=== PATIENT | male | born 1965 | race American Indian/Alaskan Native ===

== ENCOUNTER 2017-01-25 00:38 | Inpatient (IN) | payer MEDICARE, OTHER ==
[2017-01-25] MEDS ORDERED: Insulin Regular 1 UNITS/0.01 ML ML ONE (03:38)
[2017-01-25] MEDS ORDERED: Piperacillin/Tazobact 3.375 gm 100 ML IVPB ONE (05:16)
[2017-01-25 06:41] LABS: HEMOGLOBIN 11.9 gm/dL (14.0-18.0); MEAN CELL VOLUME 86.6 fL (80.0-105.0); MEAN CORPUSCULAR HEMOGLOBIN 30.1 pg (25.0-35.0); MEAN CORPUSCULAR HGB CONC 34.7 g/dl (31.0-37.0); MEAN PLATELET VOLUME 10.1 fl (7.0-11.0); PLATELET COUNT 360 10^3/uL (120.0-450.0); RBC 3.96 10^6/uL (3.5-6.1); RED CELL DISTRIBUTION WIDTH 12.5 % (11.5-14.5); WHITE BLOOD COUNT 21.6 10^3/ul (4.5-11.0)
[2017-01-25 06:42] LABS: BAND 7 % (0-2); BASOPHIL 1 % (0.0-1.0); LYMPHOCYTE 7 % (22.0-35.0); MONOCYTE 7 % (1.0-6.0); NEUTROPHIL 78 % (50.0-70.0); PLATELET ESTIMATE NORMAL (NORMAL)
[2017-01-25 06:53] VITALS: BMI 20.7
[2017-01-25 06:57] LABS: ALB/GLOB RATIO 0.6 (1.1-1.8); ALBUMIN 2.9 g/dL (3.0-4.8); ALT/SGPT 39 U/L (7-56); AST/SGOT 77 U/L (15-59); BLOOD UREA NITROGEN 15 mg/dL (7-21); CALCIUM 8.7 mg/dL (8.4-10.5); GFR AFRICAN-AMERICAN > 60; GFR NON-AFRICAN AMERICAN > 60
[2017-01-25] MEDS ORDERED: Vancomycin 1gm in NS 250ml 1 GM/250 ML BAG IVPB STA (07:02)
[2017-01-25] MEDS ORDERED: Sodium Chloride 0.9% 1,000 ML IV SCH (08:00)
[2017-01-25] MEDS: Insulin Reg-HIGH-Coverage SC SCH ×4 (08:12→21:54)
[2017-01-25 08:50] LABS: VENOUS BLOOD GAS BASE EXCESS 10.1 mmol/L (0.0-2.0); VENOUS BLOOD GAS PO2 34 mm/Hg (30-55); VENOUS BLOOD PH 7.46 (7.32-7.43)
[2017-01-25 08:51] LABS: BASO # 0.03 K/mm3 (0.0-2.0); BASO % 0.1 % (0.0-3.0); EOS % 0.1 % (1.5-5.0); GRAN # 17.19 (1.4-6.5); GRAN % 82.9 % (50.0-68.0); HEMOGLOBIN 12.1 gm/dL (14.0-18.0); LYMPH # 2.2 (1.2-3.4); LYMPH % 10.5 % (22.0-35.0); MEAN CELL VOLUME 86.5 fL (80.0-105.0); MEAN CORPUSCULAR HEMOGLOBIN 29.8 pg (25.0-35.0); MEAN CORPUSCULAR HGB CONC 34.5 g/dl (31.0-37.0); MEAN PLATELET VOLUME 10.5 fl (7.0-11.0); MONO # 1.3 (0.1-0.6); MONO % 6.4 % (1.0-6.0); PLATELET COUNT 333 10^3/uL (120.0-450.0); RBC 4.06 10^6/uL (3.5-6.1); RED CELL DISTRIBUTION WIDTH 12.3 % (11.5-14.5); WHITE BLOOD COUNT 20.7 10^3/ul (4.5-11.0)
[2017-01-25 09:04] LABS: ALB/GLOB RATIO 0.6 (1.1-1.8); ALBUMIN 2.8 g/dL (3.0-4.8); ALT/SGPT 42 U/L (7-56); AST/SGOT 65 U/L (15-59); BLOOD UREA NITROGEN 12 mg/dL (7-21); CALCIUM 8.9 mg/dL (8.4-10.5); GFR AFRICAN-AMERICAN > 60; GFR NON-AFRICAN AMERICAN > 60
--- NOTE | 2017-01-25 10:33 | US ---
PROCEDURE: Lower extremity DAVID exam HISTORY: Peripheral vascular disease with pain and claudication. Smoker. Diabetes. PHYSICIAN(S): Neal Peralta MD. FINDINGS: The resting DAVID's are normal: right, 1.32and left, 1.24. The brachial systolic pressures are symmetric. The high thigh pressures and waveforms are relatively normal. The calf PVR waveforms augment normally. No significant gradients are noted across the thighs. The ankle and metatarsal waveforms are relatively normal and symmetric. No significant pressure gradients are noted across the lower legs. IMPRESSION: 1. Normal DAVID and PVR examination at rest.
--- NOTE | 2017-01-25 10:33 | US ---
PROCEDURE: Left lower extremity venous US HISTORY: Leg pain and swelling. Evaluate for DVT. PHYSICIAN(S): Neal Peralta MD. TECHNIQUE: Duplex sonography and color-flow Doppler with graded compression were used to evaluate the deep venous system of the left lower extremity. The exam is somewhat limited by edema. FINDINGS: The visualized deep venous system of the left lower extremity is sonographically normal and compressible. Normal wave forms and augmentation are seen. There is no sonographic evidence for deep venous thrombosis in the visualized segments of the left lower extremity. IMPRESSION: 1. No sonographic evidence for deep venous thrombosis in the visualized segments of the left lower extremity.
[2017-01-25 11:40] LABS: HEPATITIS B SURFACE AG NEGATIVE (NEGATIVE)
[2017-01-25 11:46] LABS: HEPATITIS A IGM NEGATIVE (NEGATIVE); HEPATITIS B CORE AB NEGATIVE (NEGATIVE)
[2017-01-25 11:58] LABS: HEPATITIS C ANTIBODY NEGATIVE (NEGATIVE)
[2017-01-25] MEDS ORDERED: Vancomycin 500 mg Inj IVPB SCH ×2 (12:15→22:00)
--- NOTE | 2017-01-25 14:15 | RAD ---
PROCEDURE: Left Foot Radiographs. HISTORY: R/O FX COMPARISON: None. FINDINGS: BONES: A comminuted nondisplaced fracture of the the 5th proximal phalanx is suggested. . No intra-articular extension grossly appreciated There are confounding multiple soft tissue radiolucencies projecting over the 4th and 5th toes in particular the proximal phalanges. On the oblique view there is lucency also projecting over the 4th metacarpal head. The 4th metacarpal head cortex on the straight frontal view here appears intact. The integrity of the 4th metacarpal head cortex however is indeterminate on the oblique view. On this oblique view a additional metacarpal head nondisplaced fracture cannot be excluded The overlying oft tissue radiolucencies may projects such an artifact per There is amputation of the most distal phalanges of the great toe. The proximal 2/3 of the 1st proximal phalanx is intact. JOINTS: Normal. SOFT TISSUES: Normal. OTHER FINDINGS: None. IMPRESSION: Minimally comminuted nondisplaced fracture 5th proximal phalanx. With multiple overlying soft tissue radiolucencies and overlying extensive soft tissue swelling. An apparent ulcer along the lateral aspect is also suspect at this 5th metacarpal head level. No periosteal reaction to suggest any osteomyelitis here is suggested. Integrity of the 4th metacarpal head indeterminate as described above Postop changes great toe Comments: These findings were called in 5 RS. Eventually, the charge nurse Germania was reached in these findings were directly communicated to Germania on 01/25/2017 2:08 p.m.
[2017-01-25] MEDS ORDERED: Pneumococcal 23-Valent Vaccine IM ONE (14:19)
[2017-01-25] MEDS: Piperacillin/Tazobact 3.375 gm 100 ML IVPB SCH (18:04)
[2017-01-25] MEDS ORDERED: Morphine 2 mg/ml ISec IVP ONE (19:42)
[2017-01-25] MEDS ORDERED: Morphine 2 mg/ml ISec IVP PRN (19:42)
--- NOTE | 2017-01-25 19:43 | CP.PCM.CON ---
History of Present Illness - History of Present Illness History of Present Illness: Infectious Disease Consultation: January 25, 2017 51 yo AA male discharged from [facility] on 01/16/2017. Patient states that he sees Dr. Emili Carter for medical care but has not seen him in at least 6 months. He ran out of his diabetic medications at least 3 months ago. The patient is complaining of several weeks of pain to the left foot with significant swelling. He had a partial hallux amputation of the left foot on and then left [facility] that same day. PMHx: Diabetes Mellitus, Hypertension, EtOH abuse, seizure, asthma, left foot osteomyelitis, scoliosis PSHx: ankle and wrist surgery Allergies: Fish and tomatoes. Social Hx: positive tobacco use (10 cig per day) EtOH use and abuse Sniffs heroin Active Medications Heparin Sodium (Porcine) (Heparin) 5,000 units SC DAILY MALLIKA PRN Reason: Protocol Last Admin: 01/25/17 18:03 Dose: 5,000 units Sodium Chloride (Sodium Chloride 0.9%) 1,000 mls @ 150 mls/hr IV .Q6H40M COUNT INCLUDES THE [facility] Last Admin: 01/25/17 18:12 Dose: 150 mls/hr Piperacillin Sod/Tazobactam Sod (Zosyn 3.375 In Ns 100ml) 100 mls @ 200 mls/hr IVPB Q6 MALLIKA PRN Reason: Protocol Stop: 01/26/17 00:29 Last Admin: 01/25/17 18:04 Dose: 200 mls/hr Vancomycin HCl (Vancomycin 1gm) 1 gm in 250 mls @ 167 mls/hr IVPB Q12 COUNT INCLUDES THE [facility] Insulin Detemir (Levemir) 15 unit SC HS COUNT INCLUDES THE [facility] Insulin Human Regular (Humulin R High) 0 units SC ACHS MALLIKA PRN Reason: Protocol Last Admin: 01/25/17 18:04 Dose: 7 units Pantoprazole Sodium (Protonix Inj) 40 mg IVP DAILY COUNT INCLUDES THE [facility] Last Admin: 01/25/17 18:03 Dose: 40 mg Family Hx: none given ROS: left foot pain, borderline fevers, gait abnormalities. No cough, SOB, abdominal pain, chest pain, melena, hematuria, hematemesis, hematochezia, depression, anxiety Past Patient History - Past Social History Smoking Status: Current Some Days Smoker - CARDIAC Hx Cardiac Disorders: Yes Hx Hypertension: Yes Hx Peripheral Vascular Disease: Yes - PULMONARY Hx Respiratory Disorders: No - NEUROLOGICAL Hx Neurological Disorder: No - HEENT Hx HEENT Problems: No - RENAL Hx Chronic Kidney Disease: No - ENDOCRINE/METABOLIC Hx Endocrine Disorders: Yes (DM) Hx Diabetes Mellitus Type 2: Yes - HEMATOLOGICAL/ONCOLOGICAL Hx Blood Disorders: No - INTEGUMENTARY Hx Dermatological Problems: Yes Other/Comment: LEFT LEG EDEMA +3,LEFT BIG TOE HAS SUTURES-HAD SX DONE AT [facility]. LEFT LATERAL SIDE OF FOOT UNDERSIDE OF PINKY TOE HAS A 2 X 2.3 CM OPEN WOUND WITH SEROUSANGUINEOUS + PUS MEDIUM AMOUNT OF MILD ODOR DRAINAGE. EDGES IS COBB COLORED. MILD PAIN AT 5-6. THICKENED TOENAILS. RIGHT FOOT EDEMA + 1. SWOLLEN TOES WITH THICKENED NAILS. PINKY TOE HAS A SMALL 0.5 CM CALLOUSED AREA. - MUSCULOSKELETAL/RHEUMATOLOGICAL Hx Musculoskeletal Disorders: Yes Hx Falls: Yes Hx Unsteady Gait: Yes (CANE) - GASTROINTESTINAL Hx Gastrointestinal Disorders: No - GENITOURINARY/GYNECOLOGICAL Hx Genitourinary Disorders: No - PSYCHIATRIC Hx Psychophysiologic Disorder: Yes Hx Substance Use: Yes (WANTS TO GO TO A PROGRAM.ASKING FOR HELP.HEROINE [id number].LAST USED 3 BAGS) 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 USES HEROINE-SNORTS FOR 20 YRS. NEVER BEEN IN A PROGRAM BEFORE. SMOKES CIGARETTES < PPD. - SURGICAL HISTORY Hx Surgeries: Yes (ANKLE SURGERY,LEFT WRIST SURGERY.) Other/Comment: LEFT BIG TOE SURGERY.DECEMBER 2016-[facility] Meds Allergies/Adverse Reactions: Allergies Allergy/AdvReac Type Severity Reaction Status Date / Time No Known Allergies Allergy Verified 01/25/17 13:20 - Medications Medications: Current Medications Heparin Sodium (Porcine) (Heparin) 5,000 units SC DAILY MALLIKA PRN Reason: Protocol Last Admin: 01/25/17 18:03 Dose: 5,000 units Sodium Chloride (Sodium Chloride 0.9%) 1,000 mls @ 150 mls/hr IV .Q6H40M MALLIKA Last Admin: 01/25/17 18:12 Dose: 150 mls/hr Piperacillin Sod/Tazobactam Sod (Zosyn 3.375 In Ns 100ml) 100 mls @ 200 mls/hr IVPB Q6 MALLIKA PRN Reason: Protocol Stop: 01/26/17 00:29 Last Admin: 01/25/17 18:04 Dose: 200 mls/hr Vancomycin HCl (Vancomycin 1gm) 1 gm in 250 mls @ 167 mls/hr IVPB Q12 COUNT INCLUDES THE [facility] Insulin Detemir (Levemir) 15 unit SC HS COUNT INCLUDES THE [facility] Insulin Human Regular (Humulin R High) 0 units SC ACHS COUNT INCLUDES THE [facility] PRN Reason: Protocol Last Admin: 01/25/17 18:04 Dose: 7 units Pantoprazole Sodium (Protonix Inj) 40 mg IVP DAILY COUNT INCLUDES THE [facility] Last Admin: 01/25/17 18:03 Dose: 40 mg Physical Exam - Constitutional Appears: Non-toxic, No Acute Distress, Chronically Ill - Head Exam Head Exam: ATRAUMATIC, NORMOCEPHALIC - Eye Exam Eye Exam: EOMI, PERRL Pupil Exam: NORMAL ACCOMODATION, PERRL - ENT Exam ENT Exam: Mucous Membranes Moist, Normal External Ear Exam, TM's Normal Bilaterally - Neck Exam Neck exam: Positive for: Full Rom, Normal Inspection - Respiratory Exam Respiratory Exam: Clear to Auscultation Bilateral, NORMAL BREATHING PATTERN. absent: Rales, Rhonchi, Wheezes - Cardiovascular Exam Cardiovascular Exam: REGULAR RHYTHM, RRR, +S1, +S2 - GI/Abdominal Exam GI & Abdominal Exam: Normal Bowel Sounds, Soft. absent: Distended, Tenderness - Extremities Exam Additional comments: +3 edema of the left foot with tenderness and odor. Recent left hallux partial amputation done on 01/16/2017. - Neurological Exam Neurological exam: Alert, CN II-XII Intact, Oriented x3 - Psychiatric Exam Psychiatric exam: Normal Affect, Normal Mood - Skin Additional comments: see foot exam. Results - Vital Signs Recent Vital Signs: Last Vital Signs Temp 100.2 F H 01/25/17 16:30 Pulse 100 H 01/25/17 16:30 Resp 20 01/25/17 16:30 BP 144/77 01/25/17 16:30 Pulse Ox 95 01/25/17 16:30 - Labs Result Diagrams: 01/25/17 08:30 01/25/17 08:30 Labs: Laboratory Results - last 24 hr 01/25/17 01/25/17 01/25/17 07:40 08:30 08:30 WBC 20.7 H RBC 4.06 Hgb 12.1 L Hct 35.1 L MCV 86.5 MCH 29.8 MCHC 34.5 RDW 12.3 Plt Count 333 MPV 10.5 Gran % 82.9 H Lymph % (Auto) 10.5 L Miller % (Auto) 6.4 H Eos % (Auto) 0.1 L Baso % (Auto) 0.1 Gran # 17.19 H Lymph # 2.2 Miller # 1.3 H Eos # 0.0 Baso # 0.03 ESR 113 H pO2 34 VBG pH 7.46 H VBG pCO2 50.0 VBG HCO3 35.6 H VBG O2 Sat (Calc) 73.9 H VBG Base Excess 10.1 H Sodium Potassium Chloride Carbon Dioxide Anion Gap BUN Creatinine Est GFR ( Amer) Est GFR (Non-Af Amer) POC Glucose (mg/dL) > 500 H* Random Glucose Hemoglobin A1c Lactic Acid Calcium Total Bilirubin AST ALT Alkaline Phosphatase C-React Prot High Sens Total Protein Albumin Globulin Albumin/Globulin Ratio Procalcitonin Hepatitis A IgM Ab Hep Bs Antigen Hep B Core IgM Ab Hepatitis C Antibody HIV 1&2 Antibody Screen 01/25/17 01/25/17 01/25/17 08:30 08:30 08:30 WBC RBC Hgb Hct MCV MCH MCHC RDW Plt Count MPV Gran % Lymph % (Auto) Miller % (Auto) Eos % (Auto) Baso % (Auto) Gran # Lymph # Miller # Eos # Baso # ESR pO2 VBG pH VBG pCO2 VBG HCO3 VBG O2 Sat (Calc) VBG Base Excess Sodium 136 Potassium 3.7 Chloride 95 L Carbon Dioxide 34 H Anion Gap 11 BUN 12 Creatinine 0.7 Est GFR ( Amer) > 60 Est GFR (Non-Af Amer) > 60 POC Glucose (mg/dL) Random Glucose 201 H Hemoglobin A1c Lactic Acid Calcium 8.9 Total Bilirubin 0.6 AST 65 H ALT 42 Alkaline Phosphatase 221 H C-React Prot High Sens Total Protein 7.3 Albumin 2.8 L Globulin 4.5 Albumin/Globulin Ratio 0.6 L Procalcitonin Hepatitis A IgM Ab Negative Hep Bs Antigen Negative Hep B Core IgM Ab Negative Hepatitis C Antibody Negative HIV 1&2 Antibody Screen Negative 01/25/17 01/25/17 01/25/17 08:30 08:30 09:07 WBC RBC Hgb Hct MCV MCH MCHC RDW Plt Count MPV Gran % Lymph % (Auto) Miller % (Auto) Eos % (Auto) Baso % (Auto) Gran # Lymph # Miller # Eos # Baso # ESR pO2 VBG pH VBG pCO2 VBG HCO3 VBG O2 Sat (Calc) VBG Base Excess Sodium Potassium Chloride Carbon Dioxide Anion Gap BUN Creatinine Est GFR ( Amer) Est GFR (Non-Af Amer) POC Glucose (mg/dL) 346 H Random Glucose Hemoglobin A1c Lactic Acid 1.3 Calcium Total Bilirubin AST ALT Alkaline Phosphatase C-React Prot High Sens > 15.00 H Total Protein Albumin Globulin Albumin/Globulin Ratio Procalcitonin Hepatitis A IgM Ab Hep Bs Antigen Hep B Core IgM Ab Hepatitis C Antibody HIV 1&2 Antibody Screen 01/25/17 01/25/17 01/25/17 11:32 12:13 12:13 WBC RBC Hgb Hct MCV MCH MCHC RDW Plt Count MPV Gran % Lymph % (Auto) Miller % (Auto) Eos % (Auto) Baso % (Auto) Gran # Lymph # Miller # Eos # Baso # ESR pO2 VBG pH VBG pCO2 VBG HCO3 VBG O2 Sat (Calc) VBG Base Excess Sodium Potassium Chloride Carbon Dioxide Anion Gap BUN Creatinine Est GFR ( Amer) Est GFR (Non-Af Amer) POC Glucose (mg/dL) 186 H Random Glucose Hemoglobin A1c 16.2 H Lactic Acid Calcium Total Bilirubin AST ALT Alkaline Phosphatase C-React Prot High Sens Total Protein Albumin Globulin Albumin/Globulin Ratio Procalcitonin 1.83 H Hepatitis A IgM Ab Hep Bs Antigen Hep B Core IgM Ab Hepatitis C Antibody HIV 1&2 Antibody Screen Assessment & Plan - Assessment and Plan (Free Text) Assessment: 51 yo AA male with left foot osteomyelitis who had left foot partial hallux amputation performed at [facility] on 01/16/2017. The patient has a history of uncontrolled diabetes mellitus (has not taken his medications in at least 3 months), hypertension, and a heroin sniffing habit as well as EtOH abuse. The patient grew Proteus and Enterococcus on wound cultures at [facility]. Patient may have further infected bone and needs treatment for osteomyelitis. He may need further debridement as well. The patient states that he understands he needs antibiotic treatment... however , he was agreeable at [facility] then walked out AMA. Thank you for allowing me to participate in the care of the patient, we will follow with you.
[2017-01-25] MEDS: Vancomycin 1gm in NS 250ml 1 GM/250 ML BAG IVPB SCH (21:53)
[2017-01-25] MEDS ORDERED: Insulin Detemir 100 units/ml Vial (Levemir) SC SCH (22:00)
[2017-01-26] MEDS: Piperacillin/Tazobact 3.375 gm 100 ML IVPB SCH (00:57)
[2017-01-26] MEDS ORDERED: Pantoprazole 40 mg EC Tab PO SCH (06:00)
[2017-01-26 08:25] LABS: PH,URINE 6.5 (4.7-8.0); URINE BILIRUBIN NEGATIVE (NEGATIVE); URINE BLOOD NEGATIVE (NEGATIVE); URINE GLUCOSE (UA) >=1000 mg/dL (NEGATIVE); URINE LEUKOCYTE ESTERASE NEGATIVE Leu/uL (NEGATIVE); URINE NITRATE NEGATIVE (NEGATIVE); URINE PROTEIN NEGATIVE mg/dL (<30 mg/dL)
[2017-01-26 08:43] LABS: URINE APPEARANCE CLEAR (CLEAR); URINE COLOR LIGHT YELLOW (YELLOW)
[2017-01-26] MEDS: Insulin Reg-HIGH-Coverage SC SCH ×4 (08:53→21:42)
[2017-01-26] MEDS: Lactated Ringer's 1,000 ML IV SCH (09:55)
[2017-01-26] MEDS: Vancomycin 1gm in NS 250ml 1 GM/250 ML BAG IVPB SCH (09:56)
[2017-01-26] MEDS ORDERED: Insulin Detemir 100 units/ml Vial (Levemir) SC SCH (11:28)
[2017-01-26] MEDS ORDERED: Piperacillin/Tazobact 3.375 gm 100 ML IVPB SCH (12:00)
--- NOTE | 2017-01-26 12:43 | CP.PCM.CON ---
History of Present Illness - History of Present Illness History of Present Illness: Patient is a 51 year old male with h/o DM, HTM, EtOH abuse, seizure, asthma, left foot osteomyelitis, and scoliosis consulted for left foot ulcer. Patient was seen and evaluated at bedside with attending Dr. Benito. Patient s/p 1 week left hallux partial amputation at [facility]. Patient is AA) x3. He is not talkative at this moment. He does however reports severe pain. Patient has moderate strikethrough noted to the dressing. Review of Systems - Constitutional Constitutional: As Per HPI Past Patient History - Past Social History Smoking Status: Current Some Days Smoker - CARDIAC Hx Cardiac Disorders: Yes Hx Hypertension: Yes Hx Peripheral Vascular Disease: Yes - PULMONARY Hx Respiratory Disorders: No - NEUROLOGICAL Hx Neurological Disorder: No - HEENT Hx HEENT Problems: No - RENAL Hx Chronic Kidney Disease: No - ENDOCRINE/METABOLIC Hx Endocrine Disorders: Yes (DM) Hx Diabetes Mellitus Type 2: Yes - HEMATOLOGICAL/ONCOLOGICAL Hx Blood Disorders: No - INTEGUMENTARY Hx Dermatological Problems: Yes Other/Comment: LEFT LEG EDEMA +3,LEFT BIG TOE HAS SUTURES-HAD SX DONE AT [facility]. LEFT LATERAL SIDE OF FOOT UNDERSIDE OF PINKY TOE HAS A 2 X 2.3 CM OPEN WOUND WITH SEROUSANGUINEOUS + PUS MEDIUM AMOUNT OF MILD ODOR DRAINAGE. EDGES IS COBB COLORED. MILD PAIN AT 5-6. THICKENED TOENAILS. RIGHT FOOT EDEMA + 1. SWOLLEN TOES WITH THICKENED NAILS. PINKY TOE HAS A SMALL 0.5 CM CALLOUSED AREA. - MUSCULOSKELETAL/RHEUMATOLOGICAL Hx Musculoskeletal Disorders: Yes Hx Falls: Yes Hx Unsteady Gait: Yes (CANE) - GASTROINTESTINAL Hx Gastrointestinal Disorders: No - GENITOURINARY/GYNECOLOGICAL Hx Genitourinary Disorders: No - PSYCHIATRIC Hx Psychophysiologic Disorder: Yes Hx Substance Use: Yes (WANTS TO GO TO A PROGRAM.ASKING FOR HELP.HEROINE [id number].LAST USED 3 BAGS) 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 USES HEROINE-SNORTS FOR 20 YRS. NEVER BEEN IN A PROGRAM BEFORE. SMOKES CIGARETTES < PPD. - SURGICAL HISTORY Hx Surgeries: Yes (ANKLE SURGERY,LEFT WRIST SURGERY.) Other/Comment: LEFT BIG TOE SURGERY.DECEMBER 2016-[facility] Meds Allergies/Adverse Reactions: Allergies Allergy/AdvReac Type Severity Reaction Status Date / Time No Known Allergies Allergy Verified 01/25/17 13:20 - Medications Medications: Current Medications Acetaminophen (Tylenol 325mg Tab) 650 mg PO Q6H PRN PRN Reason: Fever >100.4 F Last Admin: 01/25/17 19:58 Dose: 650 mg Heparin Sodium (Porcine) (Heparin) 5,000 units SC DAILY MALLIKA PRN Reason: Protocol Last Admin: 01/25/17 18:03 Dose: 5,000 units Hydromorphone HCl (Dilaudid) 3 mg IVP Q4H PRN PRN Reason: Pain, severe (8-10) Last Admin: 01/26/17 09:33 Dose: 3 mg Sodium Chloride (Sodium Chloride 0.9%) 1,000 mls @ 150 mls/hr IV .Q6H40M [facility] Last Admin: 01/25/17 18:12 Dose: 150 mls/hr Vancomycin HCl (Vancomycin 1gm) 1 gm in 250 mls @ 167 mls/hr IVPB Q12 [facility] Last Admin: 01/26/17 09:56 Dose: 167 mls/hr Lactated Ringer's (Lactated Ringer's) 1,000 mls @ 50 mls/hr IV .Q20H [facility] Last Admin: 01/26/17 09:55 Dose: 50 mls/hr Piperacillin Sod/Tazobactam Sod (Zosyn 3.375 In Ns 100ml) 100 mls @ 200 mls/hr IVPB Q6 MALLIKA PRN Reason: Protocol Stop: 01/26/17 18:29 Last Admin: 01/26/17 12:00 Dose: 200 mls/hr Insulin Detemir (Levemir) 20 unit SC [facility] Insulin Human Regular (Humulin R High) 0 units SC ACHS [facility] PRN Reason: Protocol Last Admin: 01/26/17 12:03 Dose: Not Given Physical Exam - Constitutional Appears: Well, Non-toxic - Extremities Exam Additional comments: Left lower extremity focused exam: Vascular: DP and PT faintly palpable secondary to edema of the leg and foot, VOLUMETRIC WEIGHER < 3 seconds, temperature is warm to warm of left foot Ortho: severe pain elicited with palpation of entire foot Neuro: gross sensation diminished Derm: Sub metatarsal 5 noted to the left foot with hyperkeratotic periwound noted; base is mix of granular and fibrous. Fluid filled abscess is noted to the dorsum of the entire left foot, erythema and malodor is noted, purulence expressed approximately >5 cc expressed from the sub metatarsal 5. Left partial amputation of hallux surgical site is well coapted with no dehiscence noted - Neurological Exam Neurological exam: Alert, Oriented x3 - Psychiatric Exam Psychiatric exam: Normal Affect, Normal Mood Results - Vital Signs Recent Vital Signs: Last Vital Signs Temp 98 F 01/26/17 07:30 Pulse 83 01/26/17 07:30 Resp 20 01/26/17 07:30 BP 139/86 01/26/17 07:30 Pulse Ox 100 01/26/17 07:30 - Labs Result Diagrams: 01/25/17 08:30 01/25/17 08:30 Labs: Laboratory Results - last 24 hr 01/25/17 01/25/17 01/26/17 12:13 12:13 02:02 POC Glucose (mg/dL) 418 H* Hemoglobin A1c 16.2 H Procalcitonin 1.83 H Urine Color Urine Appearance Urine pH Ur Specific [place] Urine Protein Urine Glucose (UA) Urine Ketones Urine Blood Urine Nitrate Urine Bilirubin Urine Urobilinogen Ur Leukocyte Esterase 01/26/17 01/26/17 01/26/17 06:16 07:55 11:41 POC Glucose (mg/dL) 155 H 204 H Hemoglobin A1c Procalcitonin Urine Color Light yellow Urine Appearance Clear Urine pH 6.5 Ur Specific [place] <= 1.005 Urine Protein Negative Urine Glucose (UA) >=1000 Urine Ketones Negative Urine Blood Negative Urine Nitrate Negative Urine Bilirubin Negative Urine Urobilinogen 1.0 H Ur Leukocyte Esterase Negative Assessment & Plan - Assessment and Plan (Free Text) Assessment: 51 year old male with infected abscess of left foot and ankle Plan: Patient was seen and evaluated with attending Dr. Benito. Patient charts, labs, and vitals reviewed ( WBC= 20.7) Patient will require incision and drainage and debridement of left foot and ankle for left infected foot and abscess. Patient will go to the OR today at 5pm once medically cleared. Explained alternatives, complications, benefits, and risks to surgical procedure to the patient. Patient consented to incision and drainage and debridement of left foot and ankle. Zosyn renewed. NPO ordered. EKG ordered. No MRI is needed at this time. Pending medical clearance. Podiatry will continue to follow while in house.
--- NOTE | 2017-01-26 12:55 | RAD ---
HISTORY: preoperative evaluation for left foot surgery COMPARISON: No prior. FINDINGS: LUNGS: No active pulmonary disease. PLEURA: No significant pleural effusion identified, no pneumothorax apparent. CARDIOVASCULAR: Mild cardiomegaly OSSEOUS STRUCTURES: No significant abnormalities. VISUALIZED UPPER ABDOMEN: Normal. OTHER FINDINGS: None. IMPRESSION: No active disease.
--- NOTE | 2017-01-26 13:59 | CARD ---
APPROVED REPORT EKG Measurement Heart [id number] <Conclusion> Normal sinus rhythm Normal ECG
--- NOTE | 2017-01-26 15:35 | CP.PCM.PN ---
Subjective - Date & Time of Evaluation Date of Evaluation: 01/26/17 Time of Evaluation: 10:30 - Subjective Subjective: Patient is c/o foot pain Objective - Vital Signs/Intake and Output Vital Signs (last 24 hours): Temp Pulse Resp BP Pulse Ox 98 F 83 20 139/86 100 01/26/17 07:30 01/26/17 07:30 01/26/17 07:30 01/26/17 07:30 01/26/17 07:30 Intake and Output: 01/26/17 01/26/17 06:59 18:59 Intake Total 960 Output Total 1350 Balance -390 - Medications Medications: Current Medications Acetaminophen (Tylenol 325mg Tab) 650 mg PO Q6H PRN PRN Reason: Fever >100.4 F Last Admin: 01/25/17 19:58 Dose: 650 mg Heparin Sodium (Porcine) (Heparin) 5,000 units SC DAILY MALLIKA PRN Reason: Protocol Last Admin: 01/26/17 11:00 Dose: Not Given Hydromorphone HCl (Dilaudid) 3 mg IVP Q4H PRN PRN Reason: Pain, severe (8-10) Last Admin: 01/26/17 14:30 Dose: 3 mg Vancomycin HCl (Vancomycin 1gm) 1 gm in 250 mls @ 167 mls/hr IVPB Q12 MALLIKA Last Admin: 01/26/17 09:56 Dose: 167 mls/hr Lactated Ringer's (Lactated Ringer's) 1,000 mls @ 50 mls/hr IV .Q20H [facility]ALLIKA Last Admin: 01/26/17 09:55 Dose: 50 mls/hr Piperacillin Sod/Tazobactam Sod (Zosyn 3.375 In Ns 100ml) 100 mls @ 200 mls/hr IVPB Q6 [facility]ALLIKA PRN Reason: Protocol Stop: 01/26/17 18:29 Last Admin: 01/26/17 12:00 Dose: 200 mls/hr Insulin Detemir (Levemir) 20 unit SC HS [facility]A Insulin Human Regular (Humulin R High) 0 units SC ACHS MALLIKA PRN Reason: Protocol Last Admin: 01/26/17 12:03 Dose: Not Given - Labs Labs: 01/25/17 08:30 01/25/17 08:30 - Constitutional Appears: Non-toxic, No Acute Distress - Head Exam Head Exam: ATRAUMATIC, NORMOCEPHALIC - Eye Exam Eye Exam: Normal appearance - Respiratory Exam Respiratory Exam: Clear to Ausculation Bilateral - Cardiovascular Exam Cardiovascular Exam: REGULAR RHYTHM - GI/Abdominal Exam GI & Abdominal Exam: Soft, Normal Bowel Sounds - Extremities Exam Additional comments: left foot dressing, not soaked Assessment and Plan - Assessment and Plan (Free Text) Assessment: 51 yrs old male with PMH of left foot osteomyelitis ,SP left foot partial hallux amputation performed at [facility] on 01/16/2017(The patient grew Proteus and Enterococcus on wound cultures at [facility]. ), uncontrolled DM , hypertension, heroin sniffing habit and alcohol abuse and noncompliance is admitted with diabetic foot infection, plan for surgery today .Patient EKG is normal, lung sounds are clear. Patient does not has any acute cardiac or respiratory issue. Patient can go for foot surgery.
[2017-01-26 15:52] LABS: INR 1.02 (0.93-1.08); PARTIAL THROMBOPLASTIN TIME 29.2 Seconds (23.7-30.8)
[2017-01-26] MEDS ORDERED: Bupivacaine 0.5% Inj(30mL) ONE (16:48)
[2017-01-26] MEDS ORDERED: Lidocaine 2% Inj (20ml) ONE (16:48)
[2017-01-26] MEDS ORDERED: Midazolam 2 MG/2 ML VIAL ONE (17:04)
[2017-01-26] MEDS ORDERED: Propofol 10 mg/ml Inj (20 ML) ONE (17:04)
[2017-01-26] MEDS ORDERED: HYDROmorphone 0.5 mg/0.5 ml ISec IVP PRN (17:50)
--- NOTE | 2017-01-26 17:51 | PCM.SURG1 ---
Addendum entered and electronically signed by Harjit Fay DPM 01/26/17 17:59 : Anesthesia Adminstered By: Dr. Petersen Post-Operative Diagnosis: left foot abscess and osteomyelitis Original Note: Surgeon's Initial Post Op Note - Surgeon's Notes Surgeon: Dr. Thong DPM Nursing Service Administrator: Dr. Sumeet DPM PGY-1 Type of Anesthesia: General Mask Anesthesia Administered By: Dr. Zhou Pre-Operative Diagnosis: left foot and ankle abscess Operative Findings: see dictation. Injection: 16 cc of 2% lidocaine plain. Materials: 1/2" idoform packing Post-Operative Diagnosis: same Operation Performed: Incision and drainage and debridement of left foot and ankle of all nonviable tissue Specimen/Specimens Removed: none Estimated Blood Loss: EBL {In ML}: 5 Blood Products Given: N/A Drains Used: No Drains Post-Op Condition: Good Date of Surgery/Procedure: 01/26/17 Time of Surgery/Procedure: 17:53
[2017-01-26] MEDS ORDERED: Sodium Chloride 0.9% 1,000 ML IV SCH (18:00)
--- NOTE | 2017-01-26 18:16 | CP.PCM.PN ---
<MacarioJustin - Last Filed: 01/26/17 18:19> Subjective - Date & Time of Evaluation Date of Evaluation: 01/26/17 Time of Evaluation: 09:00 - Subjective Subjective: Pt s/e at bedside. Upon eliciting further hx from patient, he states that Dr. Emili Carter is his medicine doctor. He ran out of his DM meds several months ago. He had a partial hallux amputation of the left foot on 01/16/2017 and then left [facility]. Patient is still complaining of pain today. Per podiatry, he will be getting a L foot debridement today at 5 PM. He most likely will have to have a second surgery as well. No further complaints. Objective - Vital Signs/Intake and Output Vital Signs (last 24 hours): Temp Pulse Resp BP Pulse Ox 98.0 F 97 H 12 154/91 H 98 01/26/17 18:02 01/26/17 18:02 01/26/17 18:02 01/26/17 18:02 01/26/17 18:02 Intake and Output: 01/26/17 01/26/17 06:59 18:59 Intake Total 960 0 Output Total 1350 600 Balance -390 -600 - Medications Medications: Current Medications Acetaminophen (Tylenol 325mg Tab) 650 mg PO Q6H PRN PRN Reason: Fever >100.4 F Last Admin: 01/25/17 19:58 Dose: 650 mg Heparin Sodium (Porcine) (Heparin) 5,000 units SC DAILY MALLIKA PRN Reason: Protocol Last Admin: 01/26/17 11:00 Dose: Not Given Hydromorphone HCl (Dilaudid) 3 mg IVP Q4H PRN PRN Reason: Pain, severe (8-10) Last Admin: 01/26/17 14:30 Dose: 3 mg Hydromorphone HCl (Dilaudid) 0.5 mg IVP Q15M PRN PRN Reason: Pain, moderate (4-7) Stop: 01/26/17 19:50 Vancomycin HCl (Vancomycin 1gm) 1 gm in 250 mls @ 167 mls/hr IVPB Q12 MALLIKA Last Admin: 01/26/17 09:56 Dose: 167 mls/hr Lactated Ringer's (Lactated Ringer's) 1,000 mls @ 50 mls/hr IV .Q20H [facility] Last Admin: 01/26/17 09:55 Dose: 50 mls/hr Piperacillin Sod/Tazobactam Sod (Zosyn 3.375 In Ns 100ml) 100 mls @ 200 mls/hr IVPB Q6 MALLIKA PRN Reason: Protocol Last Admin: 01/26/17 12:00 Dose: 200 mls/hr Sodium Chloride (Sodium Chloride 0.9%) 1,000 mls @ 75 mls/hr IV .[id number] [facility] Stop: 01/26/17 20:01 Insulin Detemir (Levemir) 20 unit SC HS MALLIKA Insulin Human Regular (Humulin R High) 0 units SC ACHS MALLIKA PRN Reason: Protocol Last Admin: 01/26/17 12:03 Dose: Not Given - Labs Labs: 01/25/17 08:30 01/25/17 08:30 PT 11.0 Seconds (9.9-11.8) 01/26/17 15:20 INR 1.02 (0.93-1.08) 01/26/17 15:20 APTT 29.2 Seconds (23.7-30.8) 01/26/17 15:20 - Constitutional Appears: Unkempt - Head Exam Head Exam: ATRAUMATIC, NORMAL INSPECTION, NORMOCEPHALIC - Eye Exam Eye Exam: EOMI, PERRL Pupil Exam: NORMAL ACCOMODATION, PERRL - ENT Exam ENT Exam: Mucous Membranes Moist, Normal Exam - Neck Exam Neck Exam: Full ROM - Respiratory Exam Respiratory Exam: Clear to Ausculation Bilateral, NORMAL BREATHING PATTERN - Cardiovascular Exam Cardiovascular Exam: REGULAR RHYTHM, +S1, +S2 - GI/Abdominal Exam GI & Abdominal Exam: Soft, Normal Bowel Sounds - Rectal Exam Rectal Exam: Deferred - Extremities Exam Additional comments: Left foot 3+ edema, tenderness, warm to touch. Malodorous, constant, serosanguinous drainage - Back Exam Back Exam: NORMAL INSPECTION - Neurological Exam Neurological Exam: Alert, Awake, CN II-XII Intact, Oriented x3 - Psychiatric Exam Psychiatric exam: Normal Affect, Normal Mood Assessment and Plan - Assessment and Plan (Free Text) Assessment: 1.) LLE Cellulitis, r/o Osteomyelitis - Podiatry on c/s - ABx: Vanc and Zosyn, follow ID c/s - Pain control per podiatry, dilaudid - Control hyperglycemia 2.) Hx/O Diabetes Mellitus - Sliding scale moderate - Levemir 20U at bedtime 3.) Hx/O Hypertension - Follow closely; pt takes nothing at home 4.) Hx/O EtOH abuse - Advise on cessation 5.) Hx/O Seizure - F/u outpatient - Monitor electrolytes 6.) Hx/O Asthma - Breathing treatment PRN 7.) Hx/O left foot osteomyelitis - Follow recs per podiatry 8.) Hx/O scoliosis 9.) GI/DVT PPHXS - Protonix/Heparin <Nikole Scruggs MD - Last Filed: 01/27/17 15:53> Objective - Vital Signs/Intake and Output Vital Signs (last 24 hours): Temp Pulse Resp BP Pulse Ox 98.6 F 90 18 130/83 98 01/27/17 07:30 01/27/17 07:30 01/27/17 07:30 01/27/17 07:30 01/27/17 07:30 Intake and Output: 01/27/17 01/27/17 06:59 18:59 Intake Total 1196 780 Output Total 1700 900 Balance -504 -120 - Medications Medications: Current Medications Acetaminophen (Tylenol 325mg Tab) 650 mg PO Q4 PRN PRN Reason: Pain, Mild (1-3) Heparin Sodium (Porcine) (Heparin) 5,000 units SC DAILY MALLIKA PRN Reason: Protocol Last Admin: 01/27/17 12:18 Dose: 5,000 units Hydromorphone HCl (Dilaudid) 3 mg IVP Q4H PRN PRN Reason: Pain, severe (8-10) Last Admin: 01/27/17 07:05 Dose: 3 mg Vancomycin HCl (Vancomycin 1gm) 1 gm in 250 mls @ 167 mls/hr IVPB Q12 M[facility]A Last Admin: 01/27/17 09:54 Dose: 167 mls/hr Lactated Ringer's (Lactated Ringer's) 1,000 mls @ 50 mls/hr IV .Q20H [facility] Last Admin: 01/26/17 09:55 Dose: 50 mls/hr Piperacillin Sod/Tazobactam Sod (Zosyn 3.375 In Ns 100ml) 100 mls @ 200 mls/hr IVPB Q6 MALLIKA PRN Reason: Protocol Stop: 01/27/17 18:29 Last Admin: 01/27/17 12:19 Dose: 200 mls/hr Insulin Detemir (Levemir) 20 unit SC HS MALLIKA Insulin Human Lispro (Humalog) 6 units SC AC MALLIKA Insulin Human Regular (Humulin R Low) 0 units SC ACHS MALLIKA PRN Reason: Protocol Last Admin: 01/27/17 12:56 Dose: Not Given Oxychlorosene Sodium (Clorpactin Wcs-90) 2 gm TOP DAILY MALLIKA Oxycodone/Acetaminophen (Percocet 5/325 Mg Tab) 2 tab PO Q4H PRN PRN Reason: Pain, severe (8-10) Stop: 01/29/17 18:05 Last Admin: 01/27/17 10:03 Dose: 2 tab - Labs Labs: 01/27/17 11:20 01/27/17 11:20 PT 11.0 Seconds (9.9-11.8) 01/26/17 15:20 INR 1.02 (0.93-1.08) 01/26/17 15:20 APTT 29.2 Seconds (23.7-30.8) 01/26/17 15:20 Attending/Attestation - Attestation I have personally seen and examined this patient.: Yes I have fully participated in the care of the patient.: Yes I have reviewed all pertinent clinical information, including history, physical exam and plan: Yes Notes (Text): 01/27/17 15:53 51 yrs old male with PMH of left foot osteomyelitis ,SP left foot partial hallux amputation performed at [facility] on 01/16/2017(The patient grew Proteus and Enterococcus on wound cultures at [facility]. ), uncontrolled DM , hypertension, heroin sniffing habit and alcohol abuse and noncompliance is admitted with diabetic foot infection, plan for surgery today .Patient EKG is normal, lung sounds are clear. Patient does not has any acute cardiac or respiratory issue. Patient can go for foot surgery.
--- NOTE | 2017-01-26 18:46 | CP.PCM.PN ---
Subjective - Date & Time of Evaluation Date of Evaluation: 01/26/17 Time of Evaluation: 18:00 - Subjective Subjective: Infectious Disease Follow Up: January 26, 2017 51 yo AA left [place] from [facility] on 01/16/2017. Patient states that he sees Dr. Emili Carter for medical care but has not seen him in at least 6 months. He ran out of his diabetic medications at least 3 months ago. The patient is complaining of several weeks of pain to the left foot with significant swelling. He had a partial hallux amputation of the left foot on 01/16/2017 and then left [facility] that same day. Taken to OR by Dr. Benito for washout and tissue debridement. Objective - Vital Signs/Intake and Output Vital Signs (last 24 hours): Temp Pulse Resp BP Pulse Ox 98.0 F 97 H 12 162/89 H 98 01/26/17 18:17 01/26/17 18:17 01/26/17 18:17 01/26/17 18:17 01/26/17 18:17 Intake and Output: 01/26/17 01/26/17 06:59 18:59 Intake Total 960 0 Output Total 1350 600 Balance -390 -600 - Medications Medications: Current Medications Acetaminophen (Tylenol 325mg Tab) 650 mg PO Q6H PRN PRN Reason: Fever >100.4 F Last Admin: 01/25/17 19:58 Dose: 650 mg Acetaminophen (Tylenol 325mg Tab) 650 mg PO Q4 PRN PRN Reason: Pain, Mild (1-3) Heparin Sodium (Porcine) (Heparin) 5,000 units SC DAILY MALLIKA PRN Reason: Protocol Last Admin: 01/26/17 11:00 Dose: Not Given Hydromorphone HCl (Dilaudid) 3 mg IVP Q4H PRN PRN Reason: Pain, severe (8-10) Last Admin: 01/26/17 14:30 Dose: 3 mg Hydromorphone HCl (Dilaudid) 0.5 mg IVP Q15M PRN PRN Reason: Pain, moderate (4-7) Stop: 01/26/17 19:50 Vancomycin HCl (Vancomycin 1gm) 1 gm in 250 mls @ 167 mls/hr IVPB Q12 M[facility]IKA Last Admin: 01/26/17 09:56 Dose: 167 mls/hr Lactated Ringer's (Lactated Ringer's) 1,000 mls @ 50 mls/hr IV .Q20H [facility]A Last Admin: 01/26/17 09:55 Dose: 50 mls/hr Piperacillin Sod/Tazobactam Sod (Zosyn 3.375 In Ns 100ml) 100 mls @ 200 mls/hr IVPB Q6 MALLIKA PRN Reason: Protocol Last Admin: 01/26/17 12:00 Dose: 200 mls/hr Sodium Chloride (Sodium Chloride 0.9%) 1,000 mls @ 75 mls/hr IV .[id number] MALLIKA Stop: 01/26/17 20:01 Insulin Detemir (Levemir) 20 unit SC HS MALLIKA Insulin Human Regular (Humulin R High) 0 units SC ACHS MALLIKA PRN Reason: Protocol Last Admin: 01/26/17 12:03 Dose: Not Given Oxycodone/Acetaminophen (Percocet 5/325 Mg Tab) 1 tab PO Q4H PRN PRN Reason: Pain, moderate (4-7) Stop: 01/29/17 18:05 Oxycodone/Acetaminophen (Percocet 5/325 Mg Tab) 2 tab PO Q4H PRN PRN Reason: Pain, severe (8-10) Stop: 01/29/17 18:05 - Labs Labs: 01/25/17 08:30 01/25/17 08:30 PT 11.0 Seconds (9.9-11.8) 01/26/17 15:20 INR 1.02 (0.93-1.08) 01/26/17 15:20 APTT 29.2 Seconds (23.7-30.8) 01/26/17 15:20 - Constitutional Appears: Toxic, No Acute Distress, Chronically Ill - Head Exam Head Exam: ATRAUMATIC, NORMOCEPHALIC - Eye Exam Eye Exam: EOMI, PERRL Pupil Exam: NORMAL ACCOMODATION, PERRL - ENT Exam ENT Exam: Mucous Membranes Moist, Normal External Ear Exam, TM's Normal Bilaterally - Neck Exam Neck Exam: Full ROM, Normal Inspection - Respiratory Exam Respiratory Exam: Clear to Ausculation Bilateral, NORMAL BREATHING PATTERN. absent: Rales, Rhonchi, Wheezes - Cardiovascular Exam Cardiovascular Exam: REGULAR RHYTHM, RRR, +S1, +S2 - GI/Abdominal Exam GI & Abdominal Exam: Soft, Normal Bowel Sounds. absent: Distended, Mass - Extremities Exam Additional comments: +3 edema of the left foot with tenderness and odor. Recent left hallux partial amputation done on 01/16/2017. Taken to OR on 01/26/2017 for debridement and abscess drainage. - Neurological Exam Neurological Exam: Alert, Awake, CN II-XII Intact, Oriented x3 - Psychiatric Exam Psychiatric exam: Normal Affect, Normal Mood - Skin Additional comments: see foot exam.
--- NOTE | 2017-01-26 19:56 | PCM.OP ---
Operative Report - Operative Report Date of Surgery/Procedure: 01/26/17 Time of Surgery/Procedure: 17:00 Surgeon: Dr. Thogn DPM Development Specialist: Dr. Sumeet DPM PGY-1 Anesthesia/Sedation: Dr. Petersen/general mask with local Pre-Operative Diagnosis: Abscess of left foot and ankle Post-Operative Diagnosis: left foot abscess and osteomyelitis Indication for Surgery: The patient is a 51 year old male with the above diagnosis. The patient has exhausted all conservative treamtent at this time and now requires surgical intervention. the patient signed the consent after careful explaination of risks, benefits, complications and alternatives for surgical procedure. No guarantees were given nor implied. NPO status was confirmed prior to taking patient to the OR. Operative Findings: left foot abscess and osteomyelitis. See procedure note Procedure/Operation Description: Preparation: the patient was brought into the operating room and placed on the operating room table in a supine position. A timeout was performed for identification of the correct patient and procedure. After general anesthesia is achieved, the patient received a total of 16 mL of 2 % lidocaine plain in an ankle block fashion. once local anesthesai was achieved , the right foot was then prepped and draped in normal sterile manner. No tourniquet was used during the procedure. Procedure: Attention was then directed to the dorsum of the left foot laterally where a linear longitudinal incision was made over the dorsum of the 5th ray extending to the level distal to the ankle joint with a #10 blade. A curved hemostat was used next to open up the surrounding soft tissue. Approximately 100 CC of purulent drainage expressed from the incision site. All nonviable skin on the dorsum of the left foot and soft tissue was removed with a pickup and #10 blade until healthy tissue appeared. Tendons are visualized at this level. At this time, there was tracking noted from the 5th sub metatarsal opening plantarly. Attention is brought to the plantar aspect of the left foot where a sub metatarsal opening measuring 3cm x 3cm x .5 cm is located. Using a #10 blade and picker feeder, a circumferentrial incision was made around the 5th sub metatarsal opening down to the level of subcutaneous tissue. All nonviable tissue was debrided from the 5th plantar sub metatarsal opening. A bovie was used to stop bleeding vessels from the plantar opening. Next utilizing a pulse lavage, the dorsum opening was flushed with copious amounts of a mixture of gentamycin and sodium chloride .9% , a total of 3L was used. the dorsum wound and the 5th sub meatarsal opening was packed with idoform packing, dressed with xeroform, 4x4 gauze and kerlix. Estimated Blood Loss: < 5 cc Blood Replaced: none Complications: none Discharge & Condition: Postoperative Condition: The patient tolerated the anesthesia and procedure well and was escorted to the recovery room with vital signs stable and neurovascular status intact to the foot. The patient will be seen and followed by Dr. Benito while the patient remains in the hospital and will follow up in clinic upon discharge.
--- NOTE | 2017-01-26 20:36 | CP.PCM.PN ---
Subjective - Date & Time of Evaluation Date of Evaluation: 01/26/17 Time of Evaluation: 19:00 - Subjective Subjective: Patient is a 51 year old male with h/o DM, HTM, EtOH abuse, seizure, asthma, left foot osteomyelitis, and scoliosis seen and evaluated in PACU s/p left incision and drainage of left foot abscess and osteomyelitis. He AAO x3 and is more talkative. Dressing is c/d/i. He reports no pain at this time. Objective - Vital Signs/Intake and Output Vital Signs (last 24 hours): Temp Pulse Resp BP Pulse Ox 97.9 F 93 H 20 153/93 H 99 01/26/17 18:30 01/26/17 18:30 01/26/17 18:30 01/26/17 18:30 01/26/17 18:30 Intake and Output: 01/26/17 01/27/17 18:59 06:59 Intake Total 0 Output Total 600 Balance -600 - Medications Medications: Current Medications Acetaminophen (Tylenol 325mg Tab) 650 mg PO Q6H PRN PRN Reason: Fever >100.4 F Last Admin: 01/25/17 19:58 Dose: 650 mg Acetaminophen (Tylenol 325mg Tab) 650 mg PO Q4 PRN PRN Reason: Pain, Mild (1-3) Heparin Sodium (Porcine) (Heparin) 5,000 units SC DAILY MALLIKA PRN Reason: Protocol Last Admin: 01/26/17 11:00 Dose: Not Given Hydromorphone HCl (Dilaudid) 3 mg IVP Q4H PRN PRN Reason: Pain, severe (8-10) Last Admin: 01/26/17 14:30 Dose: 3 mg Vancomycin HCl (Vancomycin 1gm) 1 gm in 250 mls @ 167 mls/hr IVPB Q12 MALLIKA Last Admin: 01/26/17 09:56 Dose: 167 mls/hr Lactated Ringer's (Lactated Ringer's) 1,000 mls @ 50 mls/hr IV .Q20H [facility] Last Admin: 01/26/17 09:55 Dose: 50 mls/hr Piperacillin Sod/Tazobactam Sod (Zosyn 3.375 In Ns 100ml) 100 mls @ 200 mls/hr IVPB Q6 MALLIKA PRN Reason: Protocol Last Admin: 01/26/17 12:00 Dose: 200 mls/hr Insulin Detemir (Levemir) 20 unit SC HS MALLIKA Insulin Human Regular (Humulin R High) 0 units SC ACHS MALLIKA PRN Reason: Protocol Last Admin: 01/26/17 18:45 Dose: Not Given Oxycodone/Acetaminophen (Percocet 5/325 Mg Tab) 1 tab PO Q4H PRN PRN Reason: Pain, moderate (4-7) Stop: 01/29/17 18:05 Oxycodone/Acetaminophen (Percocet 5/325 Mg Tab) 2 tab PO Q4H PRN PRN Reason: Pain, severe (8-10) Stop: 01/29/17 18:05 - Labs Labs: 01/25/17 08:30 01/25/17 08:30 PT 11.0 Seconds (9.9-11.8) 01/26/17 15:20 INR 1.02 (0.93-1.08) 01/26/17 15:20 APTT 29.2 Seconds (23.7-30.8) 01/26/17 15:20 - Constitutional Appears: Well, Non-toxic, No Acute Distress - Extremities Exam Additional comments: Dressing clean, dry, and intact with no strikethrough noted. 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 Benito Labs and charts reviewed Patient underwent surgical treatment for left foot and ankle abscess. Treatment was sought after exhausting all conservative treatment options. patient underwent surgery and tolerated the procedure well. Patient can fully weight bear to left foot in [place]. Patient clinically diagnosed with osteomyelitis of left foot. Patient will require 4-6 weeks of IV antibiotics. PICC ordered. ID is consulted- recommendation is appreciated Will need additional surgery in the future to resect and debride nonviable bone and soft tissue of left foot. Patient is aware and understands. Discussed with patient on the importance of following treatment plans and compliance. Podiatry will continue to follow patient while in house
[2017-01-26] MEDS: Oxycodone/Acetaminophen 5/325 mg Tab PO PRN (21:25)
[2017-01-26 23:33] LABS: BARBITURATES, UR NEGATIVE (NEGATIVE); BENZODIAZEPINES, UR NEGATIVE (NEGATIVE); OPIATES, UR POSITIVE (NEGATIVE); PHENCYCLIDINE, UR NEGATIVE (NEGATIVE)
[2017-01-27] MEDS: Oxycodone/Acetaminophen 5/325 mg Tab PO PRN ×5 (02:21→21:17)
[2017-01-27] MEDS: Insulin Reg-HIGH-Coverage SC SCH (08:31)
[2017-01-27] MEDS: Vancomycin 1gm in NS 250ml 1 GM/250 ML BAG IVPB SCH ×2 (09:54→21:20)
[2017-01-27] MEDS ORDERED: Insulin Detemir 100 units/ml Vial (Levemir) SC SCH (11:29)
[2017-01-27] MEDS ORDERED: Insulin Lispro 1 UNITS/0.01 ML SC SCH (11:30)
[2017-01-27 11:58] LABS: BASO # 0.01 K/mm3 (0.0-2.0); BASO % 0.1 % (0.0-3.0); EOS # 0.1 (0.0-0.7); EOS % 1.1 % (1.5-5.0); GRAN # 8.48 (1.4-6.5); GRAN % 73.3 % (50.0-68.0); HEMOGLOBIN 9.9 gm/dL (14.0-18.0); LYMPH # 2.2 (1.2-3.4); LYMPH % 19.4 % (22.0-35.0); MEAN CELL VOLUME 87.5 fL (80.0-105.0); MEAN CORPUSCULAR HEMOGLOBIN 28.8 pg (25.0-35.0); MEAN CORPUSCULAR HGB CONC 32.9 g/dl (31.0-37.0); MEAN PLATELET VOLUME 10.6 fl (7.0-11.0); MONO # 0.7 (0.1-0.6); MONO % 6.1 % (1.0-6.0); PLATELET COUNT 228 10^3/uL (120.0-450.0); RBC 3.44 10^6/uL (3.5-6.1); RED CELL DISTRIBUTION WIDTH 12.5 % (11.5-14.5); WHITE BLOOD COUNT 11.6 10^3/ul (4.5-11.0)
[2017-01-27 12:08] LABS: ALB/GLOB RATIO 0.6 (1.1-1.8); ALBUMIN 2.2 g/dL (3.0-4.8); ALT/SGPT 32 U/L (7-56); AST/SGOT 43 U/L (15-59); BLOOD UREA NITROGEN 11 mg/dL (7-21); CALCIUM 8.1 mg/dL (8.4-10.5); GFR AFRICAN-AMERICAN > 60; GFR NON-AFRICAN AMERICAN > 60
--- NOTE | 2017-01-27 12:12 | CP.PCM.PN ---
<Adriana Rosales - Last Filed: 01/27/17 12:16> Subjective - Date & Time of Evaluation Date of Evaluation: 01/27/17 Time of Evaluation: 11:15 - Subjective Subjective: 51 yo diabetic male pt seen at bedside today with Dr. Phoenix 1 day s/p incision & drainage with debridement left foot abscess. Pt seen resting in bed at time of visit, appears to be in NAD at this time. Dressing to the foot appears c/d/ i. Pt denies any acute overnight events. Does complain of some pain to the foot today. Objective - Vital Signs/Intake and Output Vital Signs (last 24 hours): Temp Pulse Resp BP Pulse Ox 98.6 F 90 18 130/83 98 01/27/17 07:30 01/27/17 07:30 01/27/17 07:30 01/27/17 07:30 01/27/17 07:30 Intake and Output: 01/27/17 01/27/17 06:59 18:59 Intake Total 1196 Output Total 1700 Balance -504 - Medications Medications: Current Medications Acetaminophen (Tylenol 325mg Tab) 650 mg PO Q4 PRN PRN Reason: Pain, Mild (1-3) Heparin Sodium (Porcine) (Heparin) 5,000 units SC DAILY MALLIKA PRN Reason: Protocol Last Admin: 01/26/17 11:00 Dose: Not Given Hydromorphone HCl (Dilaudid) 3 mg IVP Q4H PRN PRN Reason: Pain, severe (8-10) Last Admin: 01/27/17 07:05 Dose: 3 mg Vancomycin HCl (Vancomycin 1gm) 1 gm in 250 mls @ 167 mls/hr IVPB Q12 MALLIKA Last Admin: 01/27/17 09:54 Dose: 167 mls/hr Lactated Ringer's (Lactated Ringer's) 1,000 mls @ 50 mls/hr IV .Q20H [facility]A Last Admin: 01/26/17 09:55 Dose: 50 mls/hr Piperacillin Sod/Tazobactam Sod (Zosyn 3.375 In Ns 100ml) 100 mls @ 200 mls/hr IVPB Q6 MALLIKA PRN Reason: Protocol Stop: 01/27/17 18:29 Insulin Detemir (Levemir) 20 unit SC HS MALLIKA Insulin Human Lispro (Humalog) 6 units SC AC MALLKIA Insulin Human Regular (Humulin R Low) 0 units SC ACHS MALLIKA PRN Reason: Protocol Oxycodone/Acetaminophen (Percocet 5/325 Mg Tab) 1 tab PO Q4H PRN PRN Reason: Pain, moderate (4-7) Stop: 01/29/17 18:05 Last Admin: 01/27/17 02:21 Dose: 1 tab Oxycodone/Acetaminophen (Percocet 5/325 Mg Tab) 2 tab PO Q4H PRN PRN Reason: Pain, severe (8-10) Stop: 01/29/17 18:05 Last Admin: 01/27/17 10:03 Dose: 2 tab - Labs Labs: 01/25/17 08:30 01/25/17 08:30 PT 11.0 Seconds (9.9-11.8) 01/26/17 15:20 INR 1.02 (0.93-1.08) 01/26/17 15:20 APTT 29.2 Seconds (23.7-30.8) 01/26/17 15:20 - Constitutional Appears: Non-toxic, No Acute Distress - Extremities Exam Extremities Exam: absent: Calf Tenderness Additional comments: Left lower extremity focused exam: VASC- PT pulse is faintly palpable, unable to assess DP pulse, skin temp runs warm to warm, cap refill < 3 sec to all digits, no pedal edema noted. NEURO- pedal sensation is grossly diminished DERM- large ulceration is noted to dorsum of foot, appears mixed fibro-granular to wound base, extensor tendons are exposed, neg probe to bone, there is an ulceration noted to sub-met 5 which probes to subcutaneous tissue (no probe to bone no tracking), 4 cc of purulent drainage noted on compression of 5th subtmet wound, 4th and 5th digits appear dusky today, left partial amputation of hallux surgical site appears well-coapted with no dehisence, Ortho: severe pain noted on palpation of dorsum of foot - Neurological Exam Neurological Exam: Alert, Awake - Psychiatric Exam Psychiatric exam: Flat Affect Assessment and Plan - Assessment and Plan (Free Text) Assessment: 51 year old diabetic male patient 1 day s/p incision and drainage with extensive debridement left foot Plan: Pt S&E at bedside with Dr. Phoenix present Chart labs and vital reviewed: afebrile, WBC 20.7, ESR 113, CRP >15.00, HbA1c 16.2 Wound cx (01/26): proteus mirabilis Left foot wounds flushed with clorpactin+saline solution, wound packed with iodoform packing, foot dressed with DSD, ABD, kerlix c/w IV abx as per ID Left foot MRI is pending (r/o OM) Discussed with medical team and patient that pt may require a further debridement procedure early next week Podiatry will continue to follow closely <Isac Phoenix - Last Filed: 01/27/17 18:15> Objective - Vital Signs/Intake and Output Vital Signs (last 24 hours): Temp Pulse Resp BP Pulse Ox 98.6 F 90 18 130/83 98 01/27/17 07:30 01/27/17 07:30 01/27/17 07:30 01/27/17 07:30 01/27/17 07:30 Intake and Output: 01/27/17 01/27/17 06:59 18:59 Intake Total 1196 780 Output Total 1700 900 Balance -504 -120 - Medications Medications: Current Medications Acetaminophen (Tylenol 325mg Tab) 650 mg PO Q4 PRN PRN Reason: Pain, Mild (1-3) Heparin Sodium (Porcine) (Heparin) 5,000 units SC DAILY MALLIKA PRN Reason: Protocol Last Admin: 01/27/17 12:18 Dose: 5,000 units Hydromorphone HCl (Dilaudid) 3 mg IVP Q4H PRN PRN Reason: Pain, severe (8-10) Last Admin: 01/27/17 07:05 Dose: 3 mg Vancomycin HCl (Vancomycin 1gm) 1 gm in 250 mls @ 167 mls/hr IVPB Q12 [facility] Last Admin: 01/27/17 09:54 Dose: 167 mls/hr Lactated Ringer's (Lactated Ringer's) 1,000 mls @ 50 mls/hr IV .Q20H [facility] Last Admin: 01/26/17 09:55 Dose: 50 mls/hr Piperacillin Sod/Tazobactam Sod (Zosyn 3.375 In Ns 100ml) 100 mls @ 200 mls/hr IVPB Q6 [facility] PRN Reason: Protocol Insulin Detemir (Levemir) 20 unit SC HS MALLIKA Insulin Human Lispro (Humalog) 6 units SC AC [facility] Last Admin: 01/27/17 17:32 Dose: 6 units Insulin Human Regular (Humulin R Low) 0 units SC ACHS MALLIKA PRN Reason: Protocol Last Admin: 01/27/17 17:33 Dose: 3 units Oxychlorosene Sodium (Clorpactin Wcs-90) 2 gm TOP DAILY MALLIKA Oxycodone/Acetaminophen (Percocet 5/325 Mg Tab) 2 tab PO Q4H PRN PRN Reason: Pain, severe (8-10) Stop: 01/29/17 18:05 Last Admin: 01/27/17 17:31 Dose: 2 tab - Labs Labs: 01/27/17 11:20 01/27/17 11:20 PT 11.0 Seconds (9.9-11.8) 01/26/17 15:20 INR 1.02 (0.93-1.08) 01/26/17 15:20 APTT 29.2 Seconds (23.7-30.8) 01/26/17 15:20 Attending/Attestation - Attestation I have personally seen and examined this patient.: Yes I have fully participated in the care of the patient.: Yes I have reviewed all pertinent clinical information, including history, physical exam and plan: Yes
[2017-01-27] MEDS: Piperacillin/Tazobact 3.375 gm 100 ML IVPB SCH ×2 (12:19→17:24)
[2017-01-27] MEDS: Insulin Reg-LOW-Coverage SC SCH ×2 (12:56→17:33)
[2017-01-27 15:36] LABS: IRON 15 ug/dL (45-180)
--- NOTE | 2017-01-27 15:44 | CP.PCM.PN ---
Subjective - Date & Time of Evaluation Date of Evaluation: 01/27/17 Time of Evaluation: 15:45 - Subjective Subjective: Infectious Disease Follow Up: January 27, 2017 51 yo AA left [facility] from [facility] on 01/16/2017. Patient states that he sees Dr. Emili Carter for medical care but has not seen him in at least 6 months. He ran out of his diabetic medications at least 3 months ago. The patient is complaining of several weeks of pain to the left foot with significant swelling. He had a partial hallux amputation of the left foot on 01/16/2017 and then left [facility] that same day. Taken to OR by Dr. Benito for washout and tissue debridement yesterday. May need further debridement. Multi-organism growth in cultures including Proteus, Enterococcus, and gram positive cocci. Objective - Vital Signs/Intake and Output Vital Signs (last 24 hours): Temp Pulse Resp BP Pulse Ox 98.6 F 90 18 130/83 98 01/27/17 07:30 01/27/17 07:30 01/27/17 07:30 01/27/17 07:30 01/27/17 07:30 Intake and Output: 01/27/17 01/27/17 06:59 18:59 Intake Total 1196 780 Output Total 1700 900 Balance -504 -120 - Medications Medications: Current Medications Acetaminophen (Tylenol 325mg Tab) 650 mg PO Q4 PRN PRN Reason: Pain, Mild (1-3) Heparin Sodium (Porcine) (Heparin) 5,000 units SC DAILY [facility] PRN Reason: Protocol Last Admin: 01/27/17 12:18 Dose: 5,000 units Hydromorphone HCl (Dilaudid) 3 mg IVP Q4H PRN PRN Reason: Pain, severe (8-10) Last Admin: 01/27/17 07:05 Dose: 3 mg Vancomycin HCl (Vancomycin 1gm) 1 gm in 250 mls @ 167 mls/hr IVPB Q12 [facility] Last Admin: 01/27/17 09:54 Dose: 167 mls/hr Lactated Ringer's (Lactated Ringer's) 1,000 mls @ 50 mls/hr IV .Q20H [facility] Last Admin: 01/26/17 09:55 Dose: 50 mls/hr Piperacillin Sod/Tazobactam Sod (Zosyn 3.375 In Ns 100ml) 100 mls @ 200 mls/hr IVPB Q6 [facility] PRN Reason: Protocol Stop: 01/27/17 18:29 Last Admin: 01/27/17 12:19 Dose: 200 mls/hr Insulin Detemir (Levemir) 20 unit SC HS [facility] Insulin Human Lispro (Humalog) 6 units SC AC [facility] Insulin Human Regular (Humulin R Low) 0 units SC ACHS [facility] PRN Reason: Protocol Last Admin: 01/27/17 12:56 Dose: Not Given Oxychlorosene Sodium (Clorpactin Wcs-90) 2 gm TOP DAILY [facility] Oxycodone/Acetaminophen (Percocet 5/325 Mg Tab) 2 tab PO Q4H PRN PRN Reason: Pain, severe (8-10) Stop: 01/29/17 18:05 Last Admin: 01/27/17 10:03 Dose: 2 tab - Labs Labs: 01/27/17 11:20 01/27/17 11:20 PT 11.0 Seconds (9.9-11.8) 01/26/17 15:20 INR 1.02 (0.93-1.08) 01/26/17 15:20 APTT 29.2 Seconds (23.7-30.8) 01/26/17 15:20 - Constitutional Appears: Non-toxic, No Acute Distress, Chronically Ill - Head Exam Head Exam: ATRAUMATIC, NORMOCEPHALIC - Eye Exam Eye Exam: EOMI, PERRL Pupil Exam: NORMAL ACCOMODATION, PERRL - ENT Exam ENT Exam: Mucous Membranes Moist, Normal External Ear Exam, TM's Normal Bilaterally - Neck Exam Neck Exam: Full ROM, Normal Inspection - Respiratory Exam Respiratory Exam: Clear to Ausculation Bilateral, NORMAL BREATHING PATTERN. absent: Rales, Rhonchi, Wheezes - Cardiovascular Exam Cardiovascular Exam: REGULAR RHYTHM, RRR, +S1, +S2 - GI/Abdominal Exam GI & Abdominal Exam: Soft, Normal Bowel Sounds. absent: Distended, Tenderness - Extremities Exam Additional comments: +3 edema of the left foot with tenderness and odor. Recent left hallux partial amputation done on 01/16/2017. Taken to OR on 01/26/2017 for debridement and abscess drainage. - Neurological Exam Neurological Exam: Alert, Awake, CN II-XII Intact, Oriented x3 - Psychiatric Exam Psychiatric exam: Normal Affect, Normal Mood - Skin Skin Exam: Intact, Normal Color Assessment and Plan - Assessment and Plan (Free Text) Assessment: 51 yo AA male with left foot osteomyelitis who had left foot partial hallux amputation performed at [facility] on 01/16/2017. The patient has a history of uncontrolled diabetes mellitus (has not taken his medications in at least 3 months), hypertension, and a heroin sniffing habit as well as EtOH abuse. The patient grew Proteus and Enterococcus on wound cultures at [facility]. Patient may have further infected bone and needs treatment for osteomyelitis. Further debridement performed in OR with Dr. Benito yesterday. Cultures here are growing Proteus, Enterococcus, and gram positive cocci. Continuing on Vancomycin and Zosyn for treatment. The patient states that he understands he needs antibiotic treatment... however , he was agreeable at [facility] then walked out AMA. Thank you for allowing me to participate in the care of the patient, we will follow with you.
[2017-01-27 15:46] LABS: % IRON SATURATION 12 % (20-55); TOTAL IRON BINDING CAPACITY 130 ug/dL (261-462)
[2017-01-27] MEDS: Insulin Lispro 1 UNITS/0.01 ML SC SCH (17:32)
[2017-01-27] MEDS ORDERED: Piperacillin/Tazobact 3.375 gm 100 ML IVPB SCH (18:00)
--- NOTE | 2017-01-27 21:09 | CP.PCM.PN ---
<Jsutin Sorto Dylan - Last Filed: 01/27/17 21:11> Subjective - Date & Time of Evaluation Date of Evaluation: 01/27/17 Time of Evaluation: 09:00 - Subjective Subjective: Pt s/e at bedside. Patient had surgery yesterday at [facility]P. Surgery site is c/d/ i. Patient is eating comfortably. No N/V/D. Patient has no complaints, pain well controlled. Objective - Vital Signs/Intake and Output Vital Signs (last 24 hours): Temp Pulse Resp BP Pulse Ox 98.6 F 90 18 130/83 98 01/27/17 07:30 01/27/17 07:30 01/27/17 07:30 01/27/17 07:30 01/27/17 07:30 Intake and Output: 01/27/17 01/28/17 18:59 06:59 Intake Total 780 Output Total 900 Balance -120 - Medications Medications: Current Medications Acetaminophen (Tylenol 325mg Tab) 650 mg PO Q4 PRN PRN Reason: Pain, Mild (1-3) Heparin Sodium (Porcine) (Heparin) 5,000 units SC DAILY [facility] PRN Reason: Protocol Last Admin: 01/27/17 12:18 Dose: 5,000 units Hydromorphone HCl (Dilaudid) 3 mg IVP Q4H PRN PRN Reason: Pain, severe (8-10) Last Admin: 01/27/17 07:05 Dose: 3 mg Vancomycin HCl (Vancomycin 1gm) 1 gm in 250 mls @ 167 mls/hr IVPB Q12 [facility] Last Admin: 01/27/17 09:54 Dose: 167 mls/hr Lactated Ringer's (Lactated Ringer's) 1,000 mls @ 50 mls/hr IV .Q20H [facility] Last Admin: 01/26/17 09:55 Dose: 50 mls/hr Piperacillin Sod/Tazobactam Sod (Zosyn 3.375 In Ns 100ml) 100 mls @ 200 mls/hr IVPB Q6 [facility] PRN Reason: Protocol Insulin Detemir (Levemir) 20 unit SC HS [facility] Insulin Human Lispro (Humalog) 6 units SC AC [facility] Last Admin: 01/27/17 17:32 Dose: 6 units Insulin Human Regular (Humulin R Low) 0 units SC ACHS [facility] PRN Reason: Protocol Last Admin: 01/27/17 17:33 Dose: 3 units Oxychlorosene Sodium (Clorpactin Wcs-90) 2 gm TOP DAILY [facility] Oxycodone/Acetaminophen (Percocet 5/325 Mg Tab) 2 tab PO Q4H PRN PRN Reason: Pain, severe (8-10) Stop: 01/29/17 18:05 Last Admin: 01/27/17 17:31 Dose: 2 tab - Labs Labs: 01/27/17 11:20 01/27/17 11:20 PT 11.0 Seconds (9.9-11.8) 01/26/17 15:20 INR 1.02 (0.93-1.08) 01/26/17 15:20 APTT 29.2 Seconds (23.7-30.8) 01/26/17 15:20 - Head Exam Head Exam: ATRAUMATIC, NORMAL INSPECTION, NORMOCEPHALIC - Eye Exam Eye Exam: EOMI, Normal appearance, PERRL Pupil Exam: NORMAL ACCOMODATION, PERRL - ENT Exam ENT Exam: Mucous Membranes Moist, Normal Exam - Neck Exam Neck Exam: Full ROM - Respiratory Exam Respiratory Exam: Clear to Ausculation Bilateral, NORMAL BREATHING PATTERN - Cardiovascular Exam Cardiovascular Exam: REGULAR RHYTHM - GI/Abdominal Exam GI & Abdominal Exam: Soft, Normal Bowel Sounds - Rectal Exam Rectal Exam: NORMAL INSPECTION - Exam Exam: NORMAL INSPECTION - Extremities Exam Extremities Exam: Normal Capillary Refill Additional comments: Left foot 3+ edema, tenderness, warm to touch. Malodorous, constant, serosanguinous drainage, improved from yesterday. s/p surgery, subcutaneous tissues visible. dressing is c/d/i - Back Exam Back Exam: NORMAL INSPECTION - Neurological Exam Neurological Exam: Alert, Awake, CN II-XII Intact, Normal Gait, Oriented x3 - Psychiatric Exam Psychiatric exam: Normal Affect, Normal Mood Assessment and Plan - Assessment and Plan (Free Text) Assessment: Mr. Wiley 51 y/o M presents with LLE cellulitis: 1.) LLE Cellulitis, r/o Osteomyelitis - Podiatry on c/s: Left foot wounds flushed with clorpactin+saline solution, wound packed with iodoform packing, foot dressed with DSD, ABD, kerlix; pt may require a further debridement procedure early next week - Left foot MRI is pending (r/o OM) - ABx: Vanc and Zosyn, follow ID c/s - Pain control per podiatry, dilaudid - Control hyperglycemia 2.) Acute Hyperglyemia with Hx/O Diabetes Mellitus - Pt's sugars spike into 400s overnight - Sliding scale moderate - Levemir 20U at bedtime - Novolog 7 AC 3.) Acute Anemia - Hgb and HCT have fallen while here: 11.9-12.1-9.9/34.3-35.1-30.1. - Iron studies returned: Fe low, TIBC low - Type and screen ordered 4.) Hx/O Hypertension - Follow closely; pt takes nothing at home 5.) Hx/O EtOH abuse - Advise on cessation 6.) Hx/O Seizure - F/u outpatient - Monitor electrolytes 7.) Hx/O Asthma - Breathing treatment PRN 8.) Hx/O left foot osteomyelitis - Follow recs per podiatry 9.) Hx/O scoliosis 10.) GI/DVT PPHXS - Protonix/Heparin <Kael RENTERIA,Nikole - Last Filed: 01/28/17 12:46> Objective - Vital Signs/Intake and Output Vital Signs (last 24 hours): Temp Pulse Resp BP Pulse Ox 98.7 F 76 20 140/90 94 L 01/28/17 07:50 01/28/17 07:50 01/28/17 07:50 01/28/17 07:50 01/28/17 07:50 Intake and Output: 01/28/17 01/28/17 06:59 18:59 Intake Total 780 Output Total 1000 Balance -220 - Medications Medications: Current Medications Acetaminophen (Tylenol 325mg Tab) 650 mg PO Q4 PRN PRN Reason: Pain, Mild (1-3) Heparin Sodium (Porcine) (Heparin) 5,000 units SC DAILY [facility] PRN Reason: Protocol Last Admin: 01/28/17 12:09 Dose: 5,000 units Hydromorphone HCl (Dilaudid) 3 mg IVP Q4H PRN PRN Reason: Pain, severe (8-10) Last Admin: 01/27/17 07:05 Dose: 3 mg Vancomycin HCl (Vancomycin 1gm) 1 gm in 250 mls @ 167 mls/hr IVPB Q12 [facility] Last Admin: 01/28/17 12:10 Dose: 167 mls/hr Lactated Ringer's (Lactated Ringer's) 1,000 mls @ 50 mls/hr IV .Q20H [facility] Last Admin: 01/28/17 03:12 Dose: 50 mls/hr Piperacillin Sod/Tazobactam Sod (Zosyn 3.375 In Ns 100ml) 100 mls @ 200 mls/hr IVPB Q6 [facility] PRN Reason: Protocol Last Admin: 01/28/17 05:01 Dose: 200 mls/hr Insulin Detemir (Levemir) 20 unit SC HS [facility] Last Admin: 01/27/17 21:21 Dose: 20 unit Insulin Human Lispro (Humalog) 6 units SC AC [facility] Last Admin: 01/28/17 12:09 Dose: 6 units Insulin Human Regular (Humulin R Low) 0 units SC ACHS [facility] PRN Reason: Protocol Last Admin: 01/28/17 12:10 Dose: 7 units Oxychlorosene Sodium (Clorpactin Wcs-90) 2 gm TOP DAILY [facility] Last Admin: 01/28/17 09:13 Dose: 2 gm Oxycodone/Acetaminophen (Percocet 5/325 Mg Tab) 2 tab PO Q4H PRN PRN Reason: Pain, severe (8-10) Stop: 01/29/17 18:05 Last Admin: 01/27/17 21:17 Dose: 2 tab - Labs Labs: 01/28/17 07:30 01/28/17 07:30 PT 11.0 Seconds (9.9-11.8) 01/26/17 15:20 INR 1.02 (0.93-1.08) 01/26/17 15:20 APTT 29.2 Seconds (23.7-30.8) 01/26/17 15:20 Attending/Attestation - Attestation I have personally seen and examined this patient.: Yes I have fully participated in the care of the patient.: Yes I have reviewed all pertinent clinical information, including history, physical exam and plan: Yes Notes (Text): 01/28/17 12:41 Patient was seen and examined with medical malpractice paralegal. Agreed with resident assessment and plan. 51 Yrs old male with PMH of drug abuse, DM and Diabetic foot infection, he is s/ p incision & drainage with debridement left foot abscess. wound cultures growing MRSA, Enterococuc and proteus mirabilis on IV antibiotics Vancomycin and Zosyn as per ID, Blood cultures are negative for any growth.Patient blood sugars are running high, medications are adjusted today, will monitor and adjust medications. Management plan was discussed in detail with patient Education was provided. 01/28/17 12:46
[2017-01-27] MEDS: Insulin Detemir 100 units/ml Vial (Levemir) SC SCH (21:21)
[2017-01-28] MEDS: Piperacillin/Tazobact 3.375 gm 100 ML IVPB SCH ×4 (01:39→20:20)
[2017-01-28] MEDS: Insulin Reg-LOW-Coverage SC SCH ×5 (03:12→22:10)
[2017-01-28] MEDS: Lactated Ringer's 1,000 ML IV SCH ×2 (03:12→22:00)
[2017-01-28 08:16] LABS: BASO # 0.01 K/mm3 (0.0-2.0); BASO % 0.1 % (0.0-3.0); EOS # 0.1 (0.0-0.7); EOS % 1.1 % (1.5-5.0); GRAN # 8.01 (1.4-6.5); GRAN % 76.5 % (50.0-68.0); HEMOGLOBIN 10.9 gm/dL (14.0-18.0); LYMPH # 1.7 (1.2-3.4); LYMPH % 16.3 % (22.0-35.0); MEAN CELL VOLUME 86.7 fL (80.0-105.0); MEAN CORPUSCULAR HEMOGLOBIN 29.1 pg (25.0-35.0); MEAN CORPUSCULAR HGB CONC 33.5 g/dl (31.0-37.0); MONO # 0.6 (0.1-0.6); PLATELET COUNT 329 10^3/uL (120.0-450.0); RBC 3.75 10^6/uL (3.5-6.1); RED CELL DISTRIBUTION WIDTH 12.6 % (11.5-14.5); WHITE BLOOD COUNT 10.5 10^3/ul (4.5-11.0)
[2017-01-28 08:32] LABS: ALB/GLOB RATIO 0.6 (1.1-1.8); ALBUMIN 2.4 g/dL (3.0-4.8); ALT/SGPT 30 U/L (7-56); AST/SGOT 47 U/L (15-59); BLOOD UREA NITROGEN 11 mg/dL (7-21); CALCIUM 8.3 mg/dL (8.4-10.5); GFR AFRICAN-AMERICAN > 60; GFR NON-AFRICAN AMERICAN > 60
[2017-01-28] MEDS: Insulin Lispro 1 UNITS/0.01 ML SC SCH ×3 (09:01→20:22)
[2017-01-28] MEDS: Oxychlorosene Topical 2 gm Packet TOP SCH (09:13)
[2017-01-28] MEDS: Vancomycin 1gm in NS 250ml 1 GM/250 ML BAG IVPB SCH ×2 (12:10→22:11)
--- NOTE | 2017-01-28 12:42 | PN ---
DATE: SUBJECTIVE: A 51-year-old diabetic male seen at bedside, status post 3 days complex incision and drainage with surgical debridement on his left foot abscess. The patient's third, fourth, and fifth digits are now gangrenous and nonviable at this point. There is still some amount of purulence emanating from the plantar wound. The patient is complaining of pain today and is requesting pain medications. PHYSICAL EXAMINATION: VITAL SIGNS: Reveal temperature of 98.7, pulse rate of 76, blood pressure 140/90, and respiratory rate of 20. EXTREMITIES: Palpable right pedal pulses and unable to palpate left pedal pulses due to the severe wounds and swelling present. The third, fourth, and fifth digits are now gangrenous and nonviable. The ischemic and gangrenous changes extend proximally on the plantar surface to the metatarsal head. There is noted to be minimal amount of seropurulent drainage emanating from the plantar ulceration, however, the extensive dorsal ulceration remains rather granular at this point. The partial amputation done on the left hallux presents with sutures coapted and with no deficits. LABORATORY DATA: Revealing white count of 10.5, down from 20.7 two days ago, hemoglobin is 10.9, hematocrit 32.5, and platelet count is 329. His ESR was 113. Most recent microbiology report reveals proteus mirabilis and MRSA growth. Lower extremity arterial Doppler reveals normal DAVID and PVR at rest. ASSESSMENT: A 51-year-old noncompliant diabetic male with history of polysubstance abuse seen for severe diabetic foot ulceration with gangrenous ulcerations to the third, fourth, and fifth digits, which will require amputation once demarcation has occurred. PLAN: The patient was told that his third, fourth, and fifth toes have become nonviable and will need to be removed. I explained to the patient at this time, we are awaiting to see if his gangrene stops at the toes or proceeds further up his foot, which at this point, we would have to consider a transmetatarsal amputation or a lower leg amputation. I will order an MRI today to determine the presence and location of osteomyelitis. The patient's wound was flushed with and solution and a dry sterile dressing was applied. We will await MRI results, as the patient's white blood cell count has fallen to within normal limits at this time and we are now just determining whether his foot is salvageable or whether he will need a more proximal amputation, specifically a below knee amputation. The patient will be seen in followup daily. Isac Phoenix DPM [id number]
--- NOTE | 2017-01-28 16:25 | CP.PCM.PN ---
<Justin Sorto Dylan - Last Filed: 01/28/17 16:25> Subjective - Date & Time of Evaluation Date of Evaluation: 01/28/17 Time of Evaluation: 08:45 - Subjective Subjective: Pt s/e at bedside. Patient had surgery yesterday at [facility]P. Surgery site is c/d/ i. Patient is eating comfortably. No N/V/D. Patient has no complaints, pain well controlled. Objective - Vital Signs/Intake and Output Vital Signs (last 24 hours): Temp Pulse Resp BP Pulse Ox 98.7 F 76 20 140/90 94 L 01/28/17 07:50 01/28/17 07:50 01/28/17 07:50 01/28/17 07:50 01/28/17 07:50 Intake and Output: 01/28/17 01/28/17 06:59 18:59 Intake Total 780 940 Output Total 1000 1600 Balance -220 -660 - Medications Medications: Current Medications Acetaminophen (Tylenol 325mg Tab) 650 mg PO Q4 PRN PRN Reason: Pain, Mild (1-3) Heparin Sodium (Porcine) (Heparin) 5,000 units SC DAILY [facility] PRN Reason: Protocol Last Admin: 01/28/17 12:09 Dose: 5,000 units Hydromorphone HCl (Dilaudid) 3 mg IVP Q4H PRN PRN Reason: Pain, severe (8-10) Last Admin: 01/27/17 07:05 Dose: 3 mg Vancomycin HCl (Vancomycin 1gm) 1 gm in 250 mls @ 167 mls/hr IVPB Q12 [facility] Last Admin: 01/28/17 12:10 Dose: 167 mls/hr Lactated Ringer's (Lactated Ringer's) 1,000 mls @ 50 mls/hr IV .Q20H [facility] Last Admin: 01/28/17 03:12 Dose: 50 mls/hr Piperacillin Sod/Tazobactam Sod (Zosyn 3.375 In Ns 100ml) 100 mls @ 200 mls/hr IVPB Q6 [facility] PRN Reason: Protocol Last Admin: 01/28/17 05:01 Dose: 200 mls/hr Insulin Detemir (Levemir) 20 unit SC HS [facility] Last Admin: 01/27/17 21:21 Dose: 20 unit Insulin Human Lispro (Humalog) 6 units SC AC [facility] Last Admin: 01/28/17 12:09 Dose: 6 units Insulin Human Regular (Humulin R Low) 0 units SC ACHS [facility] PRN Reason: Protocol Last Admin: 01/28/17 12:10 Dose: 7 units Oxychlorosene Sodium (Clorpactin Wcs-90) 2 gm TOP DAILY [facility] Last Admin: 01/28/17 09:13 Dose: 2 gm Oxycodone/Acetaminophen (Percocet 5/325 Mg Tab) 2 tab PO Q4H PRN PRN Reason: Pain, severe (8-10) Stop: 01/29/17 18:05 Last Admin: 01/27/17 21:17 Dose: 2 tab - Labs Labs: 01/28/17 07:30 01/28/17 07:30 PT 11.0 Seconds (9.9-11.8) 01/26/17 15:20 INR 1.02 (0.93-1.08) 01/26/17 15:20 APTT 29.2 Seconds (23.7-30.8) 01/26/17 15:20 - Constitutional Appears: No Acute Distress, Older Than Stated Age - Head Exam Head Exam: ATRAUMATIC, NORMAL INSPECTION, NORMOCEPHALIC - Eye Exam Eye Exam: EOMI, Normal appearance, PERRL Pupil Exam: NORMAL ACCOMODATION, PERRL - ENT Exam ENT Exam: Mucous Membranes Moist, Normal Exam - Neck Exam Neck Exam: Full ROM, Normal Inspection - Respiratory Exam Respiratory Exam: Clear to Ausculation Bilateral, NORMAL BREATHING PATTERN - Cardiovascular Exam Cardiovascular Exam: REGULAR RHYTHM, +S1, +S2 - GI/Abdominal Exam GI & Abdominal Exam: Soft, Normal Bowel Sounds - Rectal Exam Rectal Exam: Deferred - Extremities Exam Extremities Exam: Full ROM Additional comments: Left foot 3+ edema, tenderness, warm to touch. Malodorous, constant, serosanguinous drainage, improved from yesterday. s/p surgery, subcutaneous tissues visible. dressing is c/d/i - Back Exam Back Exam: NORMAL INSPECTION - Neurological Exam Neurological Exam: Alert, Awake, CN II-XII Intact, Normal Gait, Oriented x3 - Psychiatric Exam Psychiatric exam: Normal Affect - Skin Skin Exam: Intact, Warm Assessment and Plan - Assessment and Plan (Free Text) Assessment: Mr. Wiley 51 y/o M presents with LLE cellulitis: 1.) LLE Cellulitis, r/o Osteomyelitis - Podiatry on c/s: Left foot wounds flushed with clorpactin+saline solution, wound packed with iodoform packing, foot dressed with DSD, ABD, kerlix; pt may require a further debridement procedure early next week - Left foot MRI is pending (r/o OM) - ABx: Vanc and Zosyn, follow ID c/s - Pain control per podiatry, dilaudid - Control hyperglycemia: been well controlled on new regimen of 20 levemir, 8 novolog 2.) Acute Hyperglyemia with Hx/O Diabetes Mellitus - Pt's sugars spike into 400s overnight - Sliding scale moderate - Levemir 20U at bedtime - Novolog 7 AC - New regimen of 20 levemir and 7 novolog has been working well. 3.) Acute Anemia - improved - Today's Hb/HCT improved: 10.9/32.5 - Old: Hgb and HCT have fallen while here: 11.9-12.1-9.9/34.3-35.1-30.1. - Iron studies returned: Fe low, TIBC low - Type and screen ordered 4.) Hx/O Hypertension - Follow closely; pt takes nothing at home 5.) Hx/O EtOH abuse - Advise on cessation 6.) Hx/O Seizure - F/u outpatient - Monitor electrolytes 7.) Hx/O Asthma - Breathing treatment PRN 8.) Hx/O left foot osteomyelitis - Follow recs per podiatry 9.) Hx/O scoliosis 10.) GI/DVT PPHXS - Protonix/Heparin <Keal RENTERIA,Nikole - Last Filed: 01/28/17 17:02> Objective - Vital Signs/Intake and Output Vital Signs (last 24 hours): Temp Pulse Resp BP Pulse Ox 99.1 F 94 H 19 152/90 H 98 01/28/17 16:49 01/28/17 16:49 01/28/17 16:49 01/28/17 16:49 01/28/17 16:49 Intake and Output: 01/28/17 01/28/17 06:59 18:59 Intake Total 780 940 Output Total 1000 1600 Balance -220 -660 - Medications Medications: Current Medications Acetaminophen (Tylenol 325mg Tab) 650 mg PO Q4 PRN PRN Reason: Pain, Mild (1-3) Heparin Sodium (Porcine) (Heparin) 5,000 units SC DAILY [facility] PRN Reason: Protocol Last Admin: 01/28/17 12:09 Dose: 5,000 units Hydromorphone HCl (Dilaudid) 3 mg IVP Q4H PRN PRN Reason: Pain, severe (8-10) Last Admin: 01/27/17 07:05 Dose: 3 mg Vancomycin HCl (Vancomycin 1gm) 1 gm in 250 mls @ 167 mls/hr IVPB Q12 [facility] Last Admin: 01/28/17 12:10 Dose: 167 mls/hr Lactated Ringer's (Lactated Ringer's) 1,000 mls @ 50 mls/hr IV .Q20H [facility] Last Admin: 01/28/17 03:12 Dose: 50 mls/hr Piperacillin Sod/Tazobactam Sod (Zosyn 3.375 In Ns 100ml) 100 mls @ 200 mls/hr IVPB Q6 [facility] PRN Reason: Protocol Last Admin: 01/28/17 05:01 Dose: 200 mls/hr Insulin Detemir (Levemir) 20 unit SC HS [facility] Last Admin: 01/27/17 21:21 Dose: 20 unit Insulin Human Lispro (Humalog) 6 units SC AC [facility] Last Admin: 01/28/17 12:09 Dose: 6 units Insulin Human Regular (Humulin R Low) 0 units SC ACHS [facility] PRN Reason: Protocol Last Admin: 01/28/17 12:10 Dose: 7 units Oxychlorosene Sodium (Clorpactin Wcs-90) 2 gm TOP DAILY [facility] Last Admin: 01/28/17 09:13 Dose: 2 gm Oxycodone/Acetaminophen (Percocet 5/325 Mg Tab) 2 tab PO Q4H PRN PRN Reason: Pain, severe (8-10) Stop: 01/29/17 18:05 Last Admin: 01/27/17 21:17 Dose: 2 tab - Labs Labs: 01/28/17 07:30 01/28/17 07:30 PT 11.0 Seconds (9.9-11.8) 01/26/17 15:20 INR 1.02 (0.93-1.08) 01/26/17 15:20 APTT 29.2 Seconds (23.7-30.8) 01/26/17 15:20 Attending/Attestation - Attestation I have personally seen and examined this patient.: Yes I have fully participated in the care of the patient.: Yes I have reviewed all pertinent clinical information, including history, physical exam and plan: Yes Notes (Text): 01/28/17 17:01 Patient was seen and examined with medical case worker. Agreed with resident assessment and plan. 51 Yrs old male with PMH of drug abuse, DM and Diabetic foot infection, he is s/ p incision & drainage with debridement left foot abscess. wound cultures growing MRSA, Enterococuc and proteus mirabilis on IV antibiotics Vancomycin and Zosyn as per ID, Blood cultures are negative for any growth.Patient blood sugars are improving.The need of compliance with medication and antibiotics was discussed in detail.We will get PICC line on Monday, will need antibiotics for 4 -6 weeks.ID evaluation is appreciated. Prognosis is poor due to non compliance. Management plan was discussed in detail with patient Education was provided.
--- NOTE | 2017-01-28 17:10 | CP.PCM.PN ---
Subjective - Date & Time of Evaluation Date of Evaluation: 01/28/17 Time of Evaluation: 16:30 - Subjective Subjective: Infectious Disease Follow Up: January 28, 2017 51 yo AA left [facility] from [facility] on 01/16/2017. Patient states that he sees Dr. Emili Carter for medical care but has not seen him in at least 6 months. He ran out of his diabetic medications at least 3 months ago. The patient is complaining of several weeks of pain to the left foot with significant swelling. He had a partial hallux amputation of the left foot on 01/16/2017 and then left [facility] that same day. Taken to OR by Dr. Benito for washout and tissue debridement. May need further debridement. Multi-organism growth in cultures including Proteus, Enterococcus, and gram positive cocci. Objective - Vital Signs/Intake and Output Vital Signs (last 24 hours): Temp Pulse Resp BP Pulse Ox 99.1 F 94 H 19 152/90 H 98 01/28/17 16:49 01/28/17 16:49 01/28/17 16:49 01/28/17 16:49 01/28/17 16:49 Intake and Output: 01/28/17 01/28/17 06:59 18:59 Intake Total 780 940 Output Total 1000 1600 Balance -220 -660 - Medications Medications: Current Medications Acetaminophen (Tylenol 325mg Tab) 650 mg PO Q4 PRN PRN Reason: Pain, Mild (1-3) Heparin Sodium (Porcine) (Heparin) 5,000 units SC DAILY [facility] PRN Reason: Protocol Last Admin: 01/28/17 12:09 Dose: 5,000 units Hydromorphone HCl (Dilaudid) 3 mg IVP Q4H PRN PRN Reason: Pain, severe (8-10) Last Admin: 01/27/17 07:05 Dose: 3 mg Vancomycin HCl (Vancomycin 1gm) 1 gm in 250 mls @ 167 mls/hr IVPB Q12 [facility] Last Admin: 01/28/17 12:10 Dose: 167 mls/hr Lactated Ringer's (Lactated Ringer's) 1,000 mls @ 50 mls/hr IV .Q20H [facility] Last Admin: 01/28/17 03:12 Dose: 50 mls/hr Piperacillin Sod/Tazobactam Sod (Zosyn 3.375 In Ns 100ml) 100 mls @ 200 mls/hr IVPB Q6 [facility] PRN Reason: Protocol Last Admin: 01/28/17 05:01 Dose: 200 mls/hr Insulin Detemir (Levemir) 20 unit SC HS [facility] Last Admin: 01/27/17 21:21 Dose: 20 unit Insulin Human Lispro (Humalog) 6 units SC AC [facility] Last Admin: 01/28/17 12:09 Dose: 6 units Insulin Human Regular (Humulin R Low) 0 units SC ACHS [facility] PRN Reason: Protocol Last Admin: 01/28/17 12:10 Dose: 7 units Oxychlorosene Sodium (Clorpactin Wcs-90) 2 gm TOP DAILY [facility] Last Admin: 01/28/17 09:13 Dose: 2 gm Oxycodone/Acetaminophen (Percocet 5/325 Mg Tab) 2 tab PO Q4H PRN PRN Reason: Pain, severe (8-10) Stop: 01/29/17 18:05 Last Admin: 01/27/17 21:17 Dose: 2 tab - Labs Labs: 01/28/17 07:30 01/28/17 07:30 PT 11.0 Seconds (9.9-11.8) 01/26/17 15:20 INR 1.02 (0.93-1.08) 01/26/17 15:20 APTT 29.2 Seconds (23.7-30.8) 01/26/17 15:20 - Constitutional Appears: Non-toxic, No Acute Distress, Chronically Ill - Head Exam Head Exam: ATRAUMATIC, NORMOCEPHALIC - Eye Exam Eye Exam: EOMI, PERRL Pupil Exam: NORMAL ACCOMODATION, PERRL - ENT Exam ENT Exam: Mucous Membranes Moist, Normal External Ear Exam, TM's Normal Bilaterally - Neck Exam Neck Exam: Full ROM, Normal Inspection - Respiratory Exam Respiratory Exam: Clear to Ausculation Bilateral, NORMAL BREATHING PATTERN. absent: Rales, Rhonchi, Wheezes - Cardiovascular Exam Cardiovascular Exam: REGULAR RHYTHM, +S1, +S2 - GI/Abdominal Exam GI & Abdominal Exam: Soft, Normal Bowel Sounds. absent: Distended, Tenderness - Extremities Exam Additional comments: +3 edema of the left foot with tenderness and odor. Recent left hallux partial amputation done on 01/16/2017. Taken to OR on 01/26/2017 for debridement and abscess drainage. The 3rd, 4th, and 5th toes of the foot have been deemed nonviable in the left foot with continued evaluation of whether the rest of the foot will be viable. - Neurological Exam Neurological Exam: Alert, Awake, CN II-XII Intact, Oriented x3 - Psychiatric Exam Psychiatric exam: Normal Affect, Normal Mood - Skin Skin Exam: Intact, Normal Color Assessment and Plan - Assessment and Plan (Free Text) Assessment: 51 yo AA male with left foot osteomyelitis who had left foot partial hallux amputation performed at [facility] on 01/16/2017. The patient has a history of uncontrolled diabetes mellitus (has not taken his medications in at least 3 months), hypertension, and a heroin sniffing habit as well as EtOH abuse. The patient grew Proteus and Enterococcus on wound cultures at [facility]. Patient may have further infected bone and needs treatment for osteomyelitis. Further debridement performed in OR with Dr. Benito yesterday. Cultures here are growing Proteus, Enterococcus, and gram positive cocci. Continuing on Vancomycin and Zosyn for treatment. The patient states that he understands he needs antibiotic treatment... however , he was agreeable at [facility] then walked out AMA. The patient will need 6 weeks of IV antibiotics at this point. Thank you for allowing me to participate in the care of the patient, we will follow with you.
[2017-01-28] MEDS: Insulin Detemir 100 units/ml Vial (Levemir) SC SCH (22:11)
[2017-01-29] MEDS: Piperacillin/Tazobact 3.375 gm 100 ML IVPB SCH ×4 (01:09→18:37)
[2017-01-29 07:52] LABS: BASO # 0.02 K/mm3 (0.0-2.0); BASO % 0.2 % (0.0-3.0); EOS # 0.2 (0.0-0.7); EOS % 1.5 % (1.5-5.0); GRAN # 7.38 (1.4-6.5); GRAN % 72.9 % (50.0-68.0); HEMOGLOBIN 10.1 gm/dL (14.0-18.0); LYMPH % 19.9 % (22.0-35.0); MEAN CELL VOLUME 86.2 fL (80.0-105.0); MEAN CORPUSCULAR HEMOGLOBIN 28.4 pg (25.0-35.0); MEAN CORPUSCULAR HGB CONC 32.9 g/dl (31.0-37.0); MEAN PLATELET VOLUME 8.8 fl (7.0-11.0); MONO # 0.6 (0.1-0.6); MONO % 5.5 % (1.0-6.0); PLATELET COUNT 403 10^3/uL (120.0-450.0); RBC 3.56 10^6/uL (3.5-6.1); RED CELL DISTRIBUTION WIDTH 12.5 % (11.5-14.5); WHITE BLOOD COUNT 10.1 10^3/ul (4.5-11.0)
[2017-01-29 08:16] LABS: ALB/GLOB RATIO 0.6 (1.1-1.8); ALBUMIN 2.4 g/dL (3.0-4.8); ALT/SGPT 35 U/L (7-56); AST/SGOT 46 U/L (15-59); BLOOD UREA NITROGEN 11 mg/dL (7-21); CALCIUM 8.2 mg/dL (8.4-10.5); GFR AFRICAN-AMERICAN > 60; GFR NON-AFRICAN AMERICAN > 60
[2017-01-29] MEDS: Insulin Lispro 1 UNITS/0.01 ML SC SCH ×3 (08:35→18:30)
[2017-01-29] MEDS: Insulin Reg-LOW-Coverage SC SCH ×4 (08:35→22:11)
[2017-01-29] MEDS: Oxychlorosene Topical 2 gm Packet TOP SCH (11:55)
--- NOTE | 2017-01-29 12:34 | CP.PCM.PN ---
Subjective - Date & Time of Evaluation Date of Evaluation: 01/29/17 Time of Evaluation: 11:45 - Subjective Subjective: 51 y/o diabetic male seen at bedside 3 day s/p incision & drainage with debridement left foot abscess. Pt is AAOx3 and is in NAD. Pt appears to be resting in bed comfortably. Dressing to the foot appears clean, dry and intact. Pt denies any acute overnight events. Pt denies of any F/N/V/C/SOB today. Pt denies of any other pedal complains. Objective - Vital Signs/Intake and Output Vital Signs (last 24 hours): Temp Pulse Resp BP Pulse Ox 98.9 F 90 20 150/90 97 01/29/17 07:46 01/29/17 07:46 01/29/17 07:46 01/29/17 07:46 01/29/17 07:46 Intake and Output: 01/29/17 01/29/17 06:59 18:59 Intake Total 1440 Output Total 850 Balance 590 - Medications Medications: Current Medications Acetaminophen (Tylenol 325mg Tab) 650 mg PO Q4 PRN PRN Reason: Pain, Mild (1-3) Heparin Sodium (Porcine) (Heparin) 5,000 units SC DAILY [facility] PRN Reason: Protocol Last Admin: 01/28/17 12:09 Dose: 5,000 units Hydromorphone HCl (Dilaudid) 3 mg IVP Q4H PRN PRN Reason: Pain, severe (8-10) Last Admin: 01/27/17 07:05 Dose: 3 mg Vancomycin HCl (Vancomycin 1gm) 1 gm in 250 mls @ 167 mls/hr IVPB Q12 [facility] Last Admin: 01/28/17 22:11 Dose: 167 mls/hr Lactated Ringer's (Lactated Ringer's) 1,000 mls @ 50 mls/hr IV .Q20H [facility] Last Admin: 01/28/17 22:00 Dose: 50 mls/hr Piperacillin Sod/Tazobactam Sod (Zosyn 3.375 In Ns 100ml) 100 mls @ 200 mls/hr IVPB Q6 [facility] PRN Reason: Protocol Last Admin: 01/29/17 12:10 Dose: 200 mls/hr Insulin Detemir (Levemir) 25 unit SC HS [facility] Insulin Human Lispro (Humalog) 8 units SC AC [facility] Insulin Human Regular (Humulin R Low) 0 units SC ACHS [facility] PRN Reason: Protocol Last Admin: 01/29/17 08:35 Dose: 3 units Oxychlorosene Sodium (Clorpactin Wcs-90) 2 gm TOP DAILY [facility] Last Admin: 01/29/17 11:55 Dose: 2 gm Oxycodone/Acetaminophen (Percocet 5/325 Mg Tab) 2 tab PO Q4H PRN PRN Reason: Pain, severe (8-10) Stop: 01/29/17 18:05 Last Admin: 01/27/17 21:17 Dose: 2 tab - Labs Labs: 01/29/17 07:43 01/29/17 07:43 PT 11.0 Seconds (9.9-11.8) 01/26/17 15:20 INR 1.02 (0.93-1.08) 01/26/17 15:20 APTT 29.2 Seconds (23.7-30.8) 01/26/17 15:20 - Constitutional Appears: Well, Non-toxic, No Acute Distress - Extremities Exam Additional comments: Left lower extremity focused exam: VASC- PT pulses are faintly palpable, unable to assess DP pulse, cap refill < 3 sec to all digits, skin temp runs warm to warm, no pedal edema noted. DERM- large ulceration is noted to dorsum of foot, appears mixed fibro-granular to wound base, extensor tendons are exposed, neg probe to bone, there is an ulceration noted to sub-met 5 which probes to subcutaneous tissue (no probe to bone no tracking), 3rd, 4th and 5th digits appear necrotic with hyperpigmented skin, left partial amputation of hallux surgical site appears well-coapted with no dehisence, serous active drainage noted from the dorsum of the foot, no malodor, no belen-wound erythema noted NEURO- pedal sensation is grossly diminished Ortho: mild pain noted on palpation of dorsum of foot - Neurological Exam Neurological Exam: Alert, Awake, Oriented x3 - Psychiatric Exam Psychiatric exam: Normal Affect, Normal Mood Assessment and Plan - Assessment and Plan (Free Text) Assessment: 51 y/o male seen at bedside 3 day s/p incision and drainage with extensive debridement left foot Plan: Pt seen and evaluated Chart labs and vital reviewed: afebrile, WBC @ 10.1 (trending down) Wound cx (01/26): proteus mirabilis Left foot wounds flushed with clorpactin+saline solution, xerofrom, ABD and kerlix Pt to remain on IV abx as per ID Left foot MRI is pending (r/o OM) Discussed with medical team and patient that pt may require a further debridement procedure early next week Podiatry will continue to follow while patient is in house
[2017-01-29] MEDS: Vancomycin 1gm in NS 250ml 1 GM/250 ML BAG IVPB SCH (13:12)
--- NOTE | 2017-01-29 18:16 | CP.PCM.PN ---
<Justin Sorto Dylan - Last Filed: 01/29/17 18:17> Subjective - Date & Time of Evaluation Date of Evaluation: 01/29/17 Time of Evaluation: 10:00 - Subjective Subjective: Pt s/e at bedside. Pt's sugars spiked again last night - advised not to eat food from friends family. POD#3. Surgery site is c/d/i. Patient is eating comfortably. No N/V/D. Patient has no complaints, pain well controlled. Objective - Vital Signs/Intake and Output Vital Signs (last 24 hours): Temp Pulse Resp BP Pulse Ox 98.3 F 96 H 20 110/63 90 L 01/29/17 16:00 01/29/17 16:00 01/29/17 16:00 01/29/17 16:00 01/29/17 16:00 Intake and Output: 01/29/17 01/29/17 06:59 18:59 Intake Total 1440 920 Output Total 850 1400 Balance 590 -480 - Medications Medications: Current Medications Acetaminophen (Tylenol 325mg Tab) 650 mg PO Q4 PRN PRN Reason: Pain, Mild (1-3) Heparin Sodium (Porcine) (Heparin) 5,000 units SC DAILY [facility] PRN Reason: Protocol Last Admin: 01/29/17 13:06 Dose: 5,000 units Hydromorphone HCl (Dilaudid) 3 mg IVP Q4H PRN PRN Reason: Pain, severe (8-10) Last Admin: 01/27/17 07:05 Dose: 3 mg Vancomycin HCl (Vancomycin 1gm) 1 gm in 250 mls @ 167 mls/hr IVPB Q12 [facility] Last Admin: 01/29/17 13:12 Dose: 167 mls/hr Lactated Ringer's (Lactated Ringer's) 1,000 mls @ 50 mls/hr IV .Q20H [facility] Last Admin: 01/28/17 22:00 Dose: 50 mls/hr Piperacillin Sod/Tazobactam Sod (Zosyn 3.375 In Ns 100ml) 100 mls @ 200 mls/hr IVPB Q6 [facility] PRN Reason: Protocol Last Admin: 01/29/17 12:10 Dose: 200 mls/hr Insulin Detemir (Levemir) 25 unit SC HS [facility] Insulin Human Lispro (Humalog) 8 units SC AC [facility] Last Admin: 01/29/17 13:12 Dose: 8 units Insulin Human Regular (Humulin R Low) 0 units SC ACHS [facility] PRN Reason: Protocol Last Admin: 01/29/17 13:11 Dose: 3 units Oxychlorosene Sodium (Clorpactin Wcs-90) 2 gm TOP DAILY [facility] Last Admin: 01/29/17 11:55 Dose: 2 gm - Labs Labs: 01/29/17 07:43 01/29/17 07:43 PT 11.0 Seconds (9.9-11.8) 01/26/17 15:20 INR 1.02 (0.93-1.08) 01/26/17 15:20 APTT 29.2 Seconds (23.7-30.8) 01/26/17 15:20 - Constitutional Appears: Older Than Stated Age - Head Exam Head Exam: ATRAUMATIC, NORMAL INSPECTION, NORMOCEPHALIC - Eye Exam Eye Exam: EOMI, Normal appearance, PERRL Pupil Exam: NORMAL ACCOMODATION, PERRL - ENT Exam ENT Exam: Mucous Membranes Moist, Normal Exam - Neck Exam Neck Exam: Full ROM, Normal Inspection - Respiratory Exam Respiratory Exam: Clear to Ausculation Bilateral, NORMAL BREATHING PATTERN - Cardiovascular Exam Cardiovascular Exam: REGULAR RHYTHM, +S1, +S2 - GI/Abdominal Exam GI & Abdominal Exam: Soft, Normal Bowel Sounds - Rectal Exam Rectal Exam: Deferred - Extremities Exam Extremities Exam: Full ROM Additional comments: Left foot 3+ edema, tenderness, warm to touch. Malodorous, constant, serosanguinous drainage, improved from yesterday. s/p surgery, subcutaneous tissues visible. dressing is c/d/i - Neurological Exam Neurological Exam: Alert, Awake, CN II-XII Intact, Oriented x3 - Psychiatric Exam Psychiatric exam: Normal Affect, Normal Mood Assessment and Plan - Assessment and Plan (Free Text) Assessment: Mr. Wiley 51 y/o M presents with LLE cellulitis: 1.) LLE Cellulitis, r/o Osteomyelitis s/p debridement, POD#3 - Podiatry on c/s: Left foot wounds flushed with clorpactin+saline solution, wound packed with iodoform packing, foot dressed with DSD, ABD, kerlix; pt may require a further debridement procedure early next week - Left foot MRI is pending (r/o OM) - ABx: Vanc and Zosyn, follow ID c/s - Pain control per podiatry, dilaudid - Control hyperglycemia: shot into 400s again; changed to 25 levemir, 8 novolog 2.) Acute Hyperglyemia with Hx/O Diabetes Mellitus - Pt's sugars spiked into 400s overnight again; could be d/t outside food - Sliding scale moderate - Levemir 25U at bedtime - Novolog 8 AC 3.) Acute Anemia - improved - Today's Hb/HCT improved: 10.9/32.5 - Old: Hgb and HCT have fallen while here: 11.9-12.1-9.9/34.3-35.1-30.1. - Iron studies returned: Fe low, TIBC low - Type and screen ordered 4.) Hx/O Hypertension - Follow closely; pt takes nothing at home 5.) Hx/O EtOH abuse - Advise on cessation 6.) Hx/O Seizure - F/u outpatient - Monitor electrolytes 7.) Hx/O Asthma - Breathing treatment PRN 8.) Hx/O left foot osteomyelitis - Follow recs per podiatry: wounds flushed with clorpactin+saline solution, xerofrom, ABD and kerlix 9.) Hx/O scoliosis 10.) GI/DVT PPHXS - Protonix/Heparin <Kael RENTERIA,Zoraidarowdydorothy - Last Filed: 02/03/17 08:57> Objective - Vital Signs/Intake and Output Vital Signs (last 24 hours): Temp Pulse Resp BP Pulse Ox 98.3 F 107 H 18 120/75 100 02/02/17 20:01 02/02/17 20:01 02/02/17 20:01 02/02/17 20:01 02/02/17 16:00 Intake and Output: 02/03/17 02/03/17 06:59 18:59 Intake Total 1105 Output Total 600 Balance 505 - Medications Medications: Current Medications Acetaminophen (Tylenol 325mg Tab) 650 mg PO Q4 PRN PRN Reason: Pain, Mild (1-3) Last Admin: 02/02/17 16:30 Dose: 650 mg Hydromorphone HCl (Dilaudid) 1 mg IVP Q6H PRN PRN Reason: Pain, severe (8-10) Last Admin: 02/03/17 07:48 Dose: 1 mg Vancomycin HCl (Vancomycin 1gm) 1 gm in 250 mls @ 167 mls/hr IVPB Q12 [facility] Last Admin: 02/02/17 23:21 Dose: 167 mls/hr Ciprofloxacin (Cipro 400mg/200ml Dsw) 400 mg in 200 mls @ 133.3 mls/hr IVPB Q12 [facility] PRN Reason: Protocol Last Admin: 02/03/17 01:14 Dose: 133.3 mls/hr Insulin Detemir (Levemir) 28 unit SC HS [facility] Last Admin: 02/02/17 23:19 Dose: 28 unit Insulin Human Lispro (Humalog) 8 units SC AC [facility] Last Admin: 02/03/17 08:54 Dose: 8 units Insulin Human Lispro (Humalog Med) 0 units SC ACHS [facility] PRN Reason: Protocol Last Admin: 02/03/17 08:49 Dose: 7 units Ketorolac Tromethamine (Toradol) 30 mg IVP Q6 PRN PRN Reason: Pain, moderate (4-7) Stop: 02/06/17 16:23 Last Admin: 02/03/17 04:24 Dose: 30 mg Ondansetron HCl (Zofran Inj) 4 mg IVP ONCE PRN PRN Reason: Nausea/Vomiting Oxychlorosene Sodium (Clorpactin Wcs-90) 2 gm TOP DAILY [facility] Last Admin: 02/02/17 10:43 Dose: Not Given Phenytoin Sodium (Dilantin) 100 mg PO TID [facility] Last Admin: 02/02/17 18:02 Dose: 100 mg - Labs Labs: 02/02/17 06:00 02/02/17 06:00 PT 11.0 Seconds (9.9-11.8) 01/26/17 15:20 INR 1.02 (0.93-1.08) 01/26/17 15:20 APTT 29.2 Seconds (23.7-30.8) 01/26/17 15:20 Attending/Attestation - Attestation I have personally seen and examined this patient.: Yes I have fully participated in the care of the patient.: Yes I have reviewed all pertinent clinical information, including history, physical exam and plan: Yes Notes (Text): 02/03/17 08:57 Patient was seen and examined with medical claims examiner. Agreed with resident assessment and plan. 51 Yrs old male with PMH of drug abuse, DM and Diabetic foot infection, he is s/ p incision & drainage with debridement left foot abscess. wound cultures growing MRSA, Enterococuc and proteus mirabilis on IV antibiotics Vancomycin and Zosyn as per ID, Blood cultures are negative for any growth.Patient blood sugars are improving.The need of compliance with medication and antibiotics was discussed in detail. Prognosis is poor due to non compliance. Management plan was discussed in detail with patient Education was provided.
--- NOTE | 2017-01-29 18:32 | CP.PCM.PN ---
Subjective - Date & Time of Evaluation Date of Evaluation: 01/29/17 Time of Evaluation: 17:45 - Subjective Subjective: Infectious Disease Follow Up: January 29, 2017 51 yo AA left AM from [facility] on 01/16/2017. Patient states that he sees Dr. Emili Carter for medical care but has not seen him in at least 6 months. He ran out of his diabetic medications at least 3 months ago. The patient is complaining of several weeks of pain to the left foot with significant swelling. He had a partial hallux amputation of the left foot on 01/16/2017 and then left [facility] AM that same day. Taken to OR by Dr. Benito for washout and tissue debridement. May need further debridement. Multi-organism growth in cultures including Proteus, Enterococcus, and MRSA. Patient is non-compliant with diabetes care with glucose levels up 400 and above. Nursing has had issues with the patient's friends and family searching the [employer] machines. MRI was not done as patient was unwilling to be still in machine unless he got more pain meds and narcotics. This was also an issue at [facility] on his hospitalization about two weeks ago. Objective - Vital Signs/Intake and Output Vital Signs (last 24 hours): Temp Pulse Resp BP Pulse Ox 98.3 F 96 H 20 110/63 90 L 01/29/17 16:00 01/29/17 16:00 01/29/17 16:00 01/29/17 16:00 01/29/17 16:00 Intake and Output: 01/29/17 01/29/17 06:59 18:59 Intake Total 1440 920 Output Total 850 1400 Balance 590 -480 - Medications Medications: Current Medications Acetaminophen (Tylenol 325mg Tab) 650 mg PO Q4 PRN PRN Reason: Pain, Mild (1-3) Heparin Sodium (Porcine) (Heparin) 5,000 units SC DAILY [facility] PRN Reason: Protocol Last Admin: 01/29/17 13:06 Dose: 5,000 units Hydromorphone HCl (Dilaudid) 3 mg IVP Q4H PRN PRN Reason: Pain, severe (8-10) Last Admin: 01/27/17 07:05 Dose: 3 mg Vancomycin HCl (Vancomycin 1gm) 1 gm in 250 mls @ 167 mls/hr IVPB Q12 [facility] Last Admin: 01/29/17 13:12 Dose: 167 mls/hr Lactated Ringer's (Lactated Ringer's) 1,000 mls @ 50 mls/hr IV .Q20H [facility] Last Admin: 01/28/17 22:00 Dose: 50 mls/hr Piperacillin Sod/Tazobactam Sod (Zosyn 3.375 In Ns 100ml) 100 mls @ 200 mls/hr IVPB Q6 [facility] PRN Reason: Protocol Last Admin: 01/29/17 12:10 Dose: 200 mls/hr Insulin Detemir (Levemir) 25 unit SC HS [facility] Insulin Human Lispro (Humalog) 8 units SC AC [facility] Last Admin: 01/29/17 13:12 Dose: 8 units Insulin Human Regular (Humulin R Low) 0 units SC ACHS [facility] PRN Reason: Protocol Last Admin: 01/29/17 13:11 Dose: 3 units Oxychlorosene Sodium (Clorpactin Wcs-90) 2 gm TOP DAILY [facility] Last Admin: 01/29/17 11:55 Dose: 2 gm - Labs Labs: 01/29/17 07:43 01/29/17 07:43 PT 11.0 Seconds (9.9-11.8) 01/26/17 15:20 INR 1.02 (0.93-1.08) 01/26/17 15:20 APTT 29.2 Seconds (23.7-30.8) 01/26/17 15:20 - Constitutional Appears: Non-toxic, No Acute Distress, Chronically Ill - Head Exam Head Exam: ATRAUMATIC, NORMOCEPHALIC - Eye Exam Eye Exam: EOMI, PERRL Pupil Exam: NORMAL ACCOMODATION, PERRL - ENT Exam ENT Exam: Mucous Membranes Moist, Normal External Ear Exam, TM's Normal Bilaterally - Neck Exam Neck Exam: Full ROM, Normal Inspection - Respiratory Exam Respiratory Exam: Clear to Ausculation Bilateral, NORMAL BREATHING PATTERN. absent: Rales, Rhonchi, Wheezes - Cardiovascular Exam Cardiovascular Exam: REGULAR RHYTHM, RRR, +S1, +S2 - GI/Abdominal Exam GI & Abdominal Exam: Soft, Normal Bowel Sounds. absent: Distended, Tenderness - Extremities Exam Additional comments: +3 edema of the left foot with tenderness and odor. Recent left hallux partial amputation done on 01/16/2017. Taken to OR on 01/26/2017 for debridement and abscess drainage. The 3rd, 4th, and 5th toes of the foot have been deemed nonviable in the left foot with continued evaluation of whether the rest of the foot will be viable. - Neurological Exam Neurological Exam: Alert, Awake, CN II-XII Intact, Oriented x3 - Psychiatric Exam Psychiatric exam: Normal Affect, Normal Mood - Skin Skin Exam: Intact, Normal Color Assessment and Plan - Assessment and Plan (Free Text) Assessment: 51 yo AA male with left foot osteomyelitis who had left foot partial hallux amputation performed at [facility] on 01/16/2017. The patient has a history of uncontrolled diabetes mellitus (has not taken his medications in at least 3 months), hypertension, and a heroin sniffing habit as well as EtOH abuse. The patient grew Proteus and Enterococcus on wound cultures at [facility]. Patient may have further infected bone and needs treatment for osteomyelitis. Further debridement performed in OR with Dr. Benito yesterday. Cultures here are growing Proteus, Enterococcus, and gram positive cocci. Continuing on Vancomycin and Zosyn for treatment. The patient states that he understands he needs antibiotic treatment... however , he was agreeable at [facility] then walked out AMA. The patient will need 6 weeks of IV antibiotics at this point. Given entire history, the patient has osteomyelitis until proven otherwise of the left foot and ankle. Will switch antibiotics to Vancomycin and Cipro at this point. Thank you for allowing me to participate in the care of the patient, we will follow with you.
[2017-01-29] MEDS: Ciprofloxacin 400mg/200ml D5W 400 MG/200 ML BAG IVPB SCH (21:04)
[2017-01-29] MEDS: Insulin Detemir 100 units/ml Vial (Levemir) SC SCH (22:12)
[2017-01-29] MEDS ORDERED: THIAMINE IV ONE (22:28)
[2017-01-29] MEDS ORDERED: FOLIC ACID IV ONE (22:28)
[2017-01-29] MEDS ORDERED: MULTIVITAMIN IV ONE (22:28)
[2017-01-29] MEDS ORDERED: [UNRECOGNIZED DRUG - OTHER] IV ONE (22:28)
--- NOTE | 2017-01-29 22:46 | CP.PCM.PN ---
<DOMINICK POWELL - Last Filed: 01/29/17 22:43> Subjective - Date & Time of Evaluation Date of Evaluation: 01/29/17 Time of Evaluation: 22:17 - Subjective Subjective: RAPID RESPONSE NOTE: Pt was seen and assessed at bedside. Patient was found non-responsive and "twitching" by RN. Rapid response was called. Vital signs noted as documented in this note. A fingerstick blood glucose was found to be 337. An EKG rhythm showed NSR. Patient became responsive to person, place, time and event with no further intervention. Objective - Vital Signs/Intake and Output Vital Signs (last 24 hours): Temp Pulse Resp BP Pulse Ox 98.3 F 81 H 20 160/93 96 on 2L NC 01/29/17 26:00 01/29/17 22:17 01/29/17 22:17 01/29/17 22:17 01/29/17 22:17 Intake and Output: 01/29/17 01/30/17 18:59 06:59 Intake Total 920 Output Total 1400 Balance -480 - Medications Medications: Current Medications Acetaminophen (Tylenol 325mg Tab) 650 mg PO Q4 PRN PRN Reason: Pain, Mild (1-3) Last Admin: 01/29/17 18:31 Dose: 650 mg Heparin Sodium (Porcine) (Heparin) 5,000 units SC DAILY [facility] PRN Reason: Protocol Last Admin: 01/29/17 13:06 Dose: 5,000 units Hydromorphone HCl (Dilaudid) 3 mg IVP Q4H PRN PRN Reason: Pain, severe (8-10) Last Admin: 01/27/17 07:05 Dose: 3 mg Vancomycin HCl (Vancomycin 1gm) 1 gm in 250 mls @ 167 mls/hr IVPB Q12 [facility] Last Admin: 01/29/17 13:12 Dose: 167 mls/hr Lactated Ringer's (Lactated Ringer's) 1,000 mls @ 50 mls/hr IV .Q20H [facility] Last Admin: 01/28/17 22:00 Dose: 50 mls/hr Ciprofloxacin (Cipro 400mg/200ml Dsw) 400 mg in 200 mls @ 133.3 mls/hr IVPB Q12 [facility] PRN Reason: Protocol Last Admin: 01/29/17 21:04 Dose: 133.3 mls/hr Multivitamins/Vitamin C 10 ml/Thiamine HCl 100 mg/ Folic Acid 1 mg/ Sodium Chloride 1,011.2 mls @ 100 mls/hr IV .Q10H7M ONE Stop: 01/30/17 08:34 Insulin Detemir (Levemir) 25 unit SC HS [facility] Last Admin: 01/29/17 22:12 Dose: 25 unit Insulin Human Lispro (Humalog) 8 units SC AC [facility] Last Admin: 01/29/17 18:30 Dose: 8 units Insulin Human Regular (Humulin R Low) 0 units SC ACHS [facility] PRN Reason: Protocol Last Admin: 01/29/17 22:11 Dose: 2 units Oxychlorosene Sodium (Clorpactin Wcs-90) 2 gm TOP DAILY [facility] Last Admin: 01/29/17 11:55 Dose: 2 gm - Labs Labs: 01/29/17 07:43 01/29/17 07:43 PT 11.0 Seconds (9.9-11.8) 01/26/17 15:20 INR 1.02 (0.93-1.08) 01/26/17 15:20 APTT 29.2 Seconds (23.7-30.8) 01/26/17 15:20 - Constitutional Appears: No Acute Distress - Head Exam Head Exam: NORMAL INSPECTION - Eye Exam Eye Exam: EOMI, Normal appearance Pupil Exam: NORMAL ACCOMODATION - Respiratory Exam Respiratory Exam: Clear to Ausculation Bilateral, NORMAL BREATHING PATTERN. absent: Rales, Rhonchi, Wheezes - Cardiovascular Exam Cardiovascular Exam: REGULAR RHYTHM, RRR, +S1, +S2 - Neurological Exam Neurological Exam: Awake, Oriented x3 - Psychiatric Exam Psychiatric exam: Normal Affect, Normal Mood - Skin Additional comments: L heel wound dressing clean dry and intact; noted dry skin with flaking on LLE extending from the ankle to the mid calf Assessment and Plan - Assessment and Plan (Free Text) Assessment: 51 year old male hospitalized for LLE cellulitis s/p I&D of LLE Plan: 1. 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 History of Seizure Disorder -patient stated that he takes dilantin at home -cont home dilantin <Yodit Petersen N - Last Filed: 01/30/17 06:13> Objective - Vital Signs/Intake and Output Vital Signs (last 24 hours): Temp Pulse Resp BP Pulse Ox 98.3 F 96 H 20 110/63 90 L 01/29/17 16:00 01/29/17 16:00 01/29/17 16:00 01/29/17 16:00 01/29/17 16:00 Intake and Output: 01/29/17 01/30/17 18:59 06:59 Intake Total 920 Output Total 1400 Balance -480 - Medications Medications: Current Medications Acetaminophen (Tylenol 325mg Tab) 650 mg PO Q4 PRN PRN Reason: Pain, Mild (1-3) Last Admin: 01/29/17 18:31 Dose: 650 mg Heparin Sodium (Porcine) (Heparin) 5,000 units SC DAILY [facility] PRN Reason: Protocol Last Admin: 01/29/17 13:06 Dose: 5,000 units Hydromorphone HCl (Dilaudid) 3 mg IVP Q4H PRN PRN Reason: Pain, severe (8-10) Last Admin: 01/27/17 07:05 Dose: 3 mg Vancomycin HCl (Vancomycin 1gm) 1 gm in 250 mls @ 167 mls/hr IVPB Q12 [facility] Last Admin: 01/30/17 00:02 Dose: 167 mls/hr Lactated Ringer's (Lactated Ringer's) 1,000 mls @ 50 mls/hr IV .Q20H [facility] Last Admin: 01/28/17 22:00 Dose: 50 mls/hr Ciprofloxacin (Cipro 400mg/200ml Dsw) 400 mg in 200 mls @ 133.3 mls/hr IVPB Q12 [facility] PRN Reason: Protocol Last Admin: 01/29/17 21:04 Dose: 133.3 mls/hr Multivitamins/Vitamin C 10 ml/Thiamine HCl 100 mg/ Folic Acid 1 mg/ Sodium Chloride 1,011.2 mls @ 100 mls/hr IV .Q10H7M ONE Stop: 01/30/17 08:34 Last Admin: 01/29/17 22:49 Dose: 100 mls/hr Insulin Detemir (Levemir) 25 unit SC [facility] Last Admin: 01/29/17 22:12 Dose: 25 unit Insulin Human Lispro (Humalog) 8 units SC AC [facility] Last Admin: 01/29/17 18:30 Dose: 8 units Insulin Human Regular (Humulin R Low) 0 units SC ACHS [facility] PRN Reason: Protocol Last Admin: 01/29/17 22:11 Dose: 2 units Oxychlorosene Sodium (Clorpactin Wcs-90) 2 gm TOP DAILY [facility] Last Admin: 01/29/17 11:55 Dose: 2 gm Phenytoin Sodium (Dilantin) 100 mg PO TID [facility] Last Admin: 01/30/17 03:10 Dose: 100 mg - Labs Labs: 01/30/17 05:15 01/29/17 22:45 PT 11.0 Seconds (9.9-11.8) 01/26/17 15:20 INR 1.02 (0.93-1.08) 01/26/17 15:20 APTT 29.2 Seconds (23.7-30.8) 01/26/17 15:20
[2017-01-29 22:55] LABS: BASO # 0.01 K/mm3 (0.0-2.0); BASO % 0.1 % (0.0-3.0); EOS # 0.1 (0.0-0.7); GRAN # 6.28 (1.4-6.5); GRAN % 64.9 % (50.0-68.0); HEMOGLOBIN 9.7 gm/dL (14.0-18.0); LYMPH # 2.7 (1.2-3.4); LYMPH % 27.8 % (22.0-35.0); MEAN CELL VOLUME 87.2 fL (80.0-105.0); MEAN CORPUSCULAR HGB CONC 33.2 g/dl (31.0-37.0); MEAN PLATELET VOLUME 8.4 fl (7.0-11.0); MONO # 0.6 (0.1-0.6); MONO % 6.2 % (1.0-6.0); PLATELET COUNT 395 10^3/uL (120.0-450.0); RBC 3.35 10^6/uL (3.5-6.1); RED CELL DISTRIBUTION WIDTH 12.6 % (11.5-14.5); WHITE BLOOD COUNT 9.7 10^3/ul (4.5-11.0)
[2017-01-29] MEDS ORDERED: Phenytoin 250 mg/5 ml Inj IVPB ONE (23:00)
[2017-01-29 23:01] LABS: ALB/GLOB RATIO 0.6 (1.1-1.8); ALBUMIN 2.3 g/dL (3.0-4.8); ALT/SGPT 34 U/L (7-56); AST/SGOT 65 U/L (15-59); BLOOD UREA NITROGEN 18 mg/dL (7-21); GFR AFRICAN-AMERICAN > 60; GFR NON-AFRICAN AMERICAN > 60; MAGNESIUM 1.8 mg/dL (1.7-2.2)
[2017-01-29] MEDS ORDERED: Phenytoin 500 MG in Sodium Chloride 0.9% 100 ML IVPB STA (23:23)
[2017-01-30] MEDS: Vancomycin 1gm in NS 250ml 1 GM/250 ML BAG IVPB SCH ×3 (00:02→21:56)
[2017-01-30] MEDS: Phenytoin 500 MG in Sodium Chloride 0.9% 100 ML IVPB STA ×2 (01:07→03:09)
--- NOTE | 2017-01-30 01:12 | CT ---
EXAM: CT Head Without Intravenous Contrast CLINICAL HISTORY: 51 years old, male; Signs and symptoms; Syncope and collapse; Additional info: R/O seizure TECHNIQUE: Axial computed tomography images of the head/brain without intravenous contrast. This CT exam was performed using one or more of the following dose reduction techniques: automated exposure control, adjustment of the mA and/or kV according to patient size, and/or use of iterative reconstruction technique. EXAM DATE/TIME: 01/29/2017 10:27 PM COMPARISON: No relevant prior studies available. FINDINGS: No intracranial hemorrhage. No intracranial edema. No evidence of infarct. Tiny calcification right basal ganglia. There is partial opacification of the ethmoid sinuses. It could be chronic or alternatively represent mild acute sinusitis. Clinical correlation is recommended. The mastoid air cells are clear. IMPRESSION: No acute intracranial findings. Mild sinus disease.
[2017-01-30 06:08] LABS: BASO # 0.01 K/mm3 (0.0-2.0); BASO % 0.1 % (0.0-3.0); EOS # 0.1 (0.0-0.7); EOS % 1.6 % (1.5-5.0); GRAN # 5.61 (1.4-6.5); GRAN % 63.7 % (50.0-68.0); HEMOGLOBIN 10.2 gm/dL (14.0-18.0); LYMPH # 2.5 (1.2-3.4); LYMPH % 28.4 % (22.0-35.0); MEAN CELL VOLUME 87.4 fL (80.0-105.0); MEAN CORPUSCULAR HEMOGLOBIN 28.7 pg (25.0-35.0); MEAN CORPUSCULAR HGB CONC 32.8 g/dl (31.0-37.0); MEAN PLATELET VOLUME 8.7 fl (7.0-11.0); MONO # 0.6 (0.1-0.6); MONO % 6.2 % (1.0-6.0); PLATELET COUNT 435 10^3/uL (120.0-450.0); RBC 3.56 10^6/uL (3.5-6.1); RED CELL DISTRIBUTION WIDTH 12.7 % (11.5-14.5); WHITE BLOOD COUNT 8.8 10^3/ul (4.5-11.0)
[2017-01-30 06:31] LABS: ALB/GLOB RATIO 0.6 (1.1-1.8); ALBUMIN 2.3 g/dL (3.0-4.8); ALT/SGPT 29 U/L (7-56); AST/SGOT 48 U/L (15-59); BLOOD UREA NITROGEN 15 mg/dL (7-21); CALCIUM 8.3 mg/dL (8.4-10.5); GFR AFRICAN-AMERICAN > 60; GFR NON-AFRICAN AMERICAN > 60
[2017-01-30] MEDS: Insulin Reg-LOW-Coverage SC SCH ×4 (07:42→21:45)
[2017-01-30] MEDS: Insulin Lispro 1 UNITS/0.01 ML SC SCH ×3 (07:47→16:57)
[2017-01-30] MEDS: Ciprofloxacin 400mg/200ml D5W 400 MG/200 ML BAG IVPB SCH ×2 (09:49→23:57)
[2017-01-30] MEDS: Oxychlorosene Topical 2 gm Packet TOP SCH (12:02)
--- NOTE | 2017-01-30 14:13 | CP.PCM.PN ---
<Garland Hood - Last Filed: 01/30/17 17:37> Subjective - Date & Time of Evaluation Date of Evaluation: 01/30/17 Time of Evaluation: 11:30 - Subjective Subjective: Pt s/e at bedside this AM. Rapid response was called on patient overnight for twitching observed by RN and non-responsiveness. Chart documentation reports patients vital signs were stable, bg of 337 and EKG with NSR. Pt was noted to be responsive to person, place, and time when night team arrived. Pt has poor recall when asked about last nights events. Denies loss of bowel or urine, biting of tongue. Does report a history of seizure in past. Pt denies chest pain , nausea, vomiting, or fever. Objective - Vital Signs/Intake and Output Vital Signs (last 24 hours): Temp Pulse Resp BP Pulse Ox 98.8 F 82 20 134/63 100 01/30/17 06:00 01/30/17 10:00 01/30/17 06:00 01/30/17 06:00 01/30/17 06:00 Intake and Output: 01/30/17 01/30/17 06:59 18:59 Intake Total 1040 Output Total 2500 Balance -1460 - Medications Medications: Current Medications Acetaminophen (Tylenol 325mg Tab) 650 mg PO Q4 PRN PRN Reason: Pain, Mild (1-3) Last Admin: 01/29/17 18:31 Dose: 650 mg Hydromorphone HCl (Dilaudid) 3 mg IVP Q4H PRN PRN Reason: Pain, severe (8-10) Last Admin: 01/27/17 07:05 Dose: 3 mg Vancomycin HCl (Vancomycin 1gm) 1 gm in 250 mls @ 167 mls/hr IVPB Q12 [facility] Last Admin: 01/30/17 12:34 Dose: 167 mls/hr Lactated Ringer's (Lactated Ringer's) 1,000 mls @ 50 mls/hr IV .Q20H [facility] Last Admin: 01/28/17 22:00 Dose: 50 mls/hr Ciprofloxacin (Cipro 400mg/200ml Dsw) 400 mg in 200 mls @ 133.3 mls/hr IVPB Q12 [facility] PRN Reason: Protocol Last Admin: 01/30/17 09:49 Dose: 133.3 mls/hr Insulin Detemir (Levemir) 25 unit SC HS [facility] Last Admin: 01/29/17 22:12 Dose: 25 unit Insulin Human Lispro (Humalog) 8 units SC AC [facility] Last Admin: 01/30/17 12:18 Dose: 8 units Insulin Human Regular (Humulin R Low) 0 units SC ACHS [facility] PRN Reason: Protocol Last Admin: 01/30/17 12:19 Dose: 5 units Oxychlorosene Sodium (Clorpactin Wcs-90) 2 gm TOP DAILY [facility] Last Admin: 01/30/17 12:02 Dose: Not Given Phenytoin Sodium (Dilantin) 100 mg PO TID [facility] Last Admin: 01/30/17 13:09 Dose: 100 mg - Labs Labs: 01/30/17 05:15 01/30/17 05:15 PT 11.0 Seconds (9.9-11.8) 01/26/17 15:20 INR 1.02 (0.93-1.08) 01/26/17 15:20 APTT 29.2 Seconds (23.7-30.8) 01/26/17 15:20 - Constitutional Appears: Well - Head Exam Head Exam: ATRAUMATIC, NORMOCEPHALIC - Eye Exam Eye Exam: EOMI, PERRL - ENT Exam ENT Exam: Mucous Membranes Moist - Neck Exam Neck Exam: Full ROM - Respiratory Exam Respiratory Exam: Clear to Ausculation Bilateral - Cardiovascular Exam Cardiovascular Exam: REGULAR RHYTHM, +S1, +S2 - GI/Abdominal Exam GI & Abdominal Exam: Soft, Normal Bowel Sounds. absent: Distended, Guarding - Rectal Exam Rectal Exam: Deferred - Extremities Exam Additional comments: LLE with +2 edema, drainage of serosanguinous fluid present, dressing c/d/i - Back Exam Back Exam: NORMAL INSPECTION - Neurological Exam Neurological Exam: Alert, Awake, CN II-XII Intact, Oriented x3 - Psychiatric Exam Psychiatric exam: Normal Affect, Normal Mood - Skin Skin Exam: Dry, Warm Assessment and Plan - Assessment and Plan (Free Text) Assessment: Pt is a 51 year old male with past medical history significant for DM and poor compliance following L great toe partial amputation 2 weeks prior to admission. Plan: 1. LLE Cellulitis, r/o Osteomyelitis s/p debridement, POD#4 - Podiatry on c/s - Left foot MRI done today, results pending - ABx: Vanc and Zosyn, follow ID c/s - Patient to receive PICC line today for outpatient treatment - Pain control per podiatry, dilaudid - Control hyperglycemia, current regimen 25 levemir, 8 novolog 2. Seizure activity - Rapid response called last night for possible seizure - Patient with history of seizures being treated with Dilantin - Restart Dilantin 100 mg TID 3. Acute Hyperglyemia with history of uncontrolled Diabetes Mellitus - bg 368 today - Sliding scale moderate - Levemir 25U at bedtime - Novolog 8 AC 4. Acute Anemia - stable - Today's Hb/HCT improved: 10.2/31.1 - Iron studies returned: Fe low, TIBC low 5. History of Hypertension - Follow closely; pt takes nothing at home 6. History of Asthma - Breathing treatment PRN 7. History of left foot osteomyelitis - Follow recs per podiatry: wounds flushed with clorpactin+saline solution, xerofrom, ABD and kerlix 8. GI/DVT PPHXS - Protonix/Heparin dispo: Pt will need PICC placement for IV antibiotics outpatient as well as placement for administration <Kael RENTERIA,Zoraidamoffitdorothy - Last Filed: 02/03/17 09:01> Objective - Vital Signs/Intake and Output Vital Signs (last 24 hours): Temp Pulse Resp BP Pulse Ox 98.3 F 107 H 18 120/75 100 02/02/17 20:01 02/02/17 20:01 02/02/17 20:01 02/02/17 20:01 02/02/17 16:00 Intake and Output: 02/03/17 02/03/17 06:59 18:59 Intake Total 1105 Output Total 600 Balance 505 - Medications Medications: Current Medications Acetaminophen (Tylenol 325mg Tab) 650 mg PO Q4 PRN PRN Reason: Pain, Mild (1-3) Last Admin: 02/02/17 16:30 Dose: 650 mg Hydromorphone HCl (Dilaudid) 1 mg IVP Q6H PRN PRN Reason: Pain, severe (8-10) Last Admin: 02/03/17 07:48 Dose: 1 mg Vancomycin HCl (Vancomycin 1gm) 1 gm in 250 mls @ 167 mls/hr IVPB Q12 [facility] Last Admin: 02/02/17 23:21 Dose: 167 mls/hr Ciprofloxacin (Cipro 400mg/200ml Dsw) 400 mg in 200 mls @ 133.3 mls/hr IVPB Q12 [facility] PRN Reason: Protocol Last Admin: 02/03/17 01:14 Dose: 133.3 mls/hr Insulin Detemir (Levemir) 28 unit SC HS [facility] Last Admin: 02/02/17 23:19 Dose: 28 unit Insulin Human Lispro (Humalog) 8 units SC AC [facility] Last Admin: 02/03/17 08:54 Dose: 8 units Insulin Human Lispro (Humalog Med) 0 units SC ACHS [facility] PRN Reason: Protocol Last Admin: 02/03/17 08:49 Dose: 7 units Ketorolac Tromethamine (Toradol) 30 mg IVP Q6 PRN PRN Reason: Pain, moderate (4-7) Stop: 02/06/17 16:23 Last Admin: 02/03/17 04:24 Dose: 30 mg Ondansetron HCl (Zofran Inj) 4 mg IVP ONCE PRN PRN Reason: Nausea/Vomiting Oxychlorosene Sodium (Clorpactin Wcs-90) 2 gm TOP DAILY [facility] Last Admin: 02/02/17 10:43 Dose: Not Given Phenytoin Sodium (Dilantin) 100 mg PO TID [facility] Last Admin: 02/02/17 18:02 Dose: 100 mg - Labs Labs: 02/02/17 06:00 02/02/17 06:00 PT 11.0 Seconds (9.9-11.8) 01/26/17 15:20 INR 1.02 (0.93-1.08) 01/26/17 15:20 APTT 29.2 Seconds (23.7-30.8) 01/26/17 15:20 Attending/Attestation - Attestation I have personally seen and examined this patient.: Yes I have fully participated in the care of the patient.: Yes I have reviewed all pertinent clinical information, including history, physical exam and plan: Yes Notes (Text): 02/03/17 08:58 Patient was seen and examined with medical technologist generalist. 51 Yrs old male with PMH of drug abuse, DM and Diabetic foot infection, he is s/ p incision & drainage with debridement of left foot abscess. wound cultures growing MRSA, Enterococuc and proteus mirabilis on IV antibiotics Vancomycin and Zosyn as per ID, Blood cultures are negative for any growth.Patient blood sugars are improving.MRI of foot shows osteomyelitis of 5th Metatarsal, plan for repeat I/D February 01 by PodiatryDr.Alban , Patient had questionable seizure last night, has H/O seizure, CT head negative, on Dilantin, Neurology is consulted.Patient is at base line. Management plan was discussed in detail with the patient. Prognosis is guarded.
--- NOTE | 2017-01-30 15:16 | MRI ---
PROCEDURE: MRI of the left foot without contrast HISTORY: gangranous DM left foot ulcers COMPARISON: TECHNIQUE: MRI of the left foot was performed in multiple planes using multiple pulse sequences. FINDINGS: There is marrow edema in the 5th metatarsal suspicious for osteomyelitis. There has been previous amputation of the 1st distal phalanx. There is some edema in this region. There is some edema over the dorsum of the foot IMPRESSION: Marrow edema throughout the 5th metatarsal consistent with osteomyelitis.
--- NOTE | 2017-01-30 16:12 | PN ---
DATE: SUBJECTIVE: A 51-year-old diabetic male seen at bedside,status post complex incision and drainage of the severe diabetic left foot wound with underlying severe abscess. The patient had a rapid response called yesterday. CT scan came back unremarkable. I had ordered a MRI on Monday; however, it was not done. I will reorder again today. It is imperative that we get the MRI. As the patient is scheduled for amputation of his third, fourth and fifth digits, an MRI as needed to ascertain if there is osteomyelitis present, more proximally, which requires a metatarsal resection. PHYSICAL EXAMINATION: VITAL SIGNS: Temperature 98.8 Fahrenheit, pulse rate of 78, blood pressure 134/63, respiratory rate of 20. EXTREMITIES: Palpable right pedal pulses noted and nonpalpable pedal pulses noted on the left, secondary to edema of the foot and lower leg. There is tina gangrene noted in the third, fourth and fifth digits, which are nonviable at this point. There is ischemic and gangrenous changes that extend plantarly and proximally under the metatarsal head of the third, fourth and fifth rays. There is no longer any purulence emanating from the plantar ulceration. There is an extensive dorsal ulceration that encompasses basically the entire top of the foot with exposed extensor tendons evident. However, the wound is granular and does bleed upon cleansing. There is noted to be a partial amputation on the left hallux, which presents with all the sutures coapted and with no dehiscence noted. LABORATORY FINDINGS: Reveal white count of 8.8 down from 20.7 on 01/25/2017, hemoglobin of 10.2, hematocrit of 31.1, platelet count of 435. ASSESSMENT: A 51-year-old noncompliant diabetic male with history of polysubstance abuse seen for severe diabetic foot infection with gangrenous and ischemic changes to the third, fourth, and fifth left digits which will require amputation, which is scheduled on February 01, at 07:30 a.m. PLAN: Wounds were cleansed with normal sterile saline and a dry sterile dressing was applied. Explained to the patient at this time. The left third, fourth and fifth toes have become nonviable and need to be removed in order to avoid sepsis. He was told that we need to order an MRI to ascertain whether there is a bone infection in his foot behind the toes. We will stop the heparin immediately as the patient is scheduled for return to the operating room on February 01, at 07:30 a.m. We will keep him n.p.o. Monday night. The patient will be seen and followed daily. We will continue with IV antibiotics as per Infectious Disease. Isac Phoenix DPM
[2017-01-30] MEDS: Lactated Ringer's 1,000 ML IV SCH (16:15)
--- NOTE | 2017-01-30 17:25 | CP.PCM.PN ---
Subjective - Date & Time of Evaluation Date of Evaluation: 01/30/17 Time of Evaluation: 16:00 - Subjective Subjective: Infectious Disease Follow Up: January 30, 2017 51 yo AA left AMA from [facility] on 01/16/2017. Patient states that he sees Dr. Emili Carter for medical care but has not seen him in at least 6 months. He ran out of his diabetic medications at least 3 months ago. The patient is complaining of several weeks of pain to the left foot with significant swelling. He had a partial hallux amputation of the left foot on 01/16/2017 and then left [facility] AM that same day. Taken to OR by Dr. Benito for washout and tissue debridement. May need further debridement. Multi-organism growth in cultures including Proteus, Enterococcus, and MRSA. Patient is non-compliant with diabetes care with glucose levels up 400 and above. Nursing has had issues with the patient's friends and family searching the WOW machines. MRI was not done as patient was unwilling to be still in machine unless he got more pain meds and narcotics. This was also an issue at [facility] on his hospitalization about two weeks ago. Last night the patient had been found unresponsive and "twitching" by nursing. Rapid response called on the patient. He was awake and alert when rapid response team arrived. Transferred to Telemetry floor. Objective - Vital Signs/Intake and Output Vital Signs (last 24 hours): Temp Pulse Resp BP Pulse Ox 98.8 F 100 H 20 134/63 100 01/30/17 06:00 01/30/17 14:09 01/30/17 06:00 01/30/17 06:00 01/30/17 06:00 Intake and Output: 01/30/17 01/30/17 06:59 18:59 Intake Total 1040 780 Output Total 2500 1250 Balance -1460 -470 - Medications Medications: Current Medications Acetaminophen (Tylenol 325mg Tab) 650 mg PO Q4 PRN PRN Reason: Pain, Mild (1-3) Last Admin: 01/29/17 18:31 Dose: 650 mg Hydromorphone HCl (Dilaudid) 3 mg IVP Q4H PRN PRN Reason: Pain, severe (8-10) Last Admin: 01/30/17 16:22 Dose: 3 mg Vancomycin HCl (Vancomycin 1gm) 1 gm in 250 mls @ 167 mls/hr IVPB Q12 [facility] Last Admin: 01/30/17 12:34 Dose: 167 mls/hr Lactated Ringer's (Lactated Ringer's) 1,000 mls @ 50 mls/hr IV .Q20H [facility] Last Admin: 01/30/17 16:15 Dose: 50 mls/hr Ciprofloxacin (Cipro 400mg/200ml Dsw) 400 mg in 200 mls @ 133.3 mls/hr IVPB Q12 [facility] PRN Reason: Protocol Last Admin: 01/30/17 09:49 Dose: 133.3 mls/hr Insulin Detemir (Levemir) 25 unit SC HS [facility] Last Admin: 01/29/17 22:12 Dose: 25 unit Insulin Human Lispro (Humalog) 8 units SC AC [facility] Last Admin: 01/30/17 16:57 Dose: 8 units Insulin Human Regular (Humulin R Low) 0 units SC ACHS [facility] PRN Reason: Protocol Last Admin: 01/30/17 16:58 Dose: 4 units Oxychlorosene Sodium (Clorpactin Wcs-90) 2 gm TOP DAILY [facility] Last Admin: 01/30/17 12:02 Dose: Not Given Phenytoin Sodium (Dilantin) 100 mg PO TID [facility] Last Admin: 01/30/17 17:00 Dose: 100 mg - Labs Labs: 01/30/17 05:15 01/30/17 05:15 PT 11.0 Seconds (9.9-11.8) 01/26/17 15:20 INR 1.02 (0.93-1.08) 01/26/17 15:20 APTT 29.2 Seconds (23.7-30.8) 01/26/17 15:20 - Constitutional Appears: Non-toxic, No Acute Distress, Chronically Ill - Head Exam Head Exam: ATRAUMATIC, NORMOCEPHALIC - Eye Exam Eye Exam: EOMI, PERRL Pupil Exam: NORMAL ACCOMODATION, PERRL - ENT Exam ENT Exam: Mucous Membranes Moist, Normal External Ear Exam, TM's Normal Bilaterally - Neck Exam Neck Exam: Full ROM, Normal Inspection - Respiratory Exam Respiratory Exam: Clear to Ausculation Bilateral, NORMAL BREATHING PATTERN. absent: Rales, Rhonchi, Wheezes - Cardiovascular Exam Cardiovascular Exam: REGULAR RHYTHM, RRR, +S1, +S2 - GI/Abdominal Exam GI & Abdominal Exam: Soft, Normal Bowel Sounds. absent: Distended, Tenderness - Extremities Exam Additional comments: +3 edema of the left foot with tenderness and odor. Recent left hallux partial amputation done on 01/16/2017. Taken to OR on 01/26/2017 for debridement and abscess drainage. The 3rd, 4th, and 5th toes of the foot have been deemed nonviable in the left foot with continued evaluation of whether the rest of the foot will be viable. - Neurological Exam Neurological Exam: Alert, Awake, CN II-XII Intact, Oriented x3 - Psychiatric Exam Psychiatric exam: Normal Affect, Normal Mood - Skin Skin Exam: Intact, Normal Color Assessment and Plan - Assessment and Plan (Free Text) Assessment: 51 yo AA male with left foot osteomyelitis who had left foot partial hallux amputation performed at [facility] on 01/16/2017. The patient has a history of uncontrolled diabetes mellitus (has not taken his medications in at least 3 months), hypertension, and a heroin sniffing habit as well as EtOH abuse. The patient grew Proteus and Enterococcus on wound cultures at [facility] Patient may have further infected bone and needs treatment for osteomyelitis. Further debridement performed in OR with Dr. Benito yesterday. Cultures here are growing Proteus, Enterococcus, and gram positive cocci. Continuing on Vancomycin and Zosyn for treatment. The patient states that he understands he needs antibiotic treatment... however , he was agreeable at [facility] then walked out AMA. The patient will need 6 weeks of IV antibiotics at this point. Given entire history, the patient has osteomyelitis until proven otherwise of the left foot and ankle. Continue on antibiotics of Vancomycin and Cipro for treatment at this point. Thank you for allowing me to participate in the care of the patient, we will follow with you.
[2017-01-30] MEDS: Insulin Detemir 100 units/ml Vial (Levemir) SC SCH (21:57)
[2017-01-31 07:05] LABS: BASO # 0.02 K/mm3 (0.0-2.0); BASO % 0.2 % (0.0-3.0); EOS # 0.2 (0.0-0.7); EOS % 1.7 % (1.5-5.0); GRAN # 6.53 (1.4-6.5); GRAN % 68.7 % (50.0-68.0); HEMOGLOBIN 10.4 gm/dL (14.0-18.0); LYMPH # 2.3 (1.2-3.4); MEAN CELL VOLUME 87.3 fL (80.0-105.0); MEAN CORPUSCULAR HEMOGLOBIN 28.8 pg (25.0-35.0); MEAN PLATELET VOLUME 8.5 fl (7.0-11.0); MONO # 0.5 (0.1-0.6); MONO % 5.4 % (1.0-6.0); PLATELET COUNT 459 10^3/uL (120.0-450.0); RBC 3.61 10^6/uL (3.5-6.1); WHITE BLOOD COUNT 9.5 10^3/ul (4.5-11.0)
[2017-01-31 07:46] LABS: ALB/GLOB RATIO 0.6 (1.1-1.8); ALBUMIN 2.4 g/dL (3.0-4.8); ALT/SGPT 31 U/L (7-56); AST/SGOT 65 U/L (15-59); BLOOD UREA NITROGEN 16 mg/dL (7-21); CALCIUM 8.4 mg/dL (8.4-10.5); GFR AFRICAN-AMERICAN > 60; GFR NON-AFRICAN AMERICAN > 60
[2017-01-31] MEDS: Insulin Reg-LOW-Coverage SC SCH ×4 (07:47→21:56)
[2017-01-31] MEDS: Insulin Lispro 1 UNITS/0.01 ML SC SCH ×3 (08:02→17:55)
--- NOTE | 2017-01-31 10:08 | CP.PCM.PN ---
Objective - Vital Signs/Intake and Output Vital Signs (last 24 hours): Temp Pulse Resp BP Pulse Ox 97.9 F 85 18 127/77 98 01/31/17 05:43 01/31/17 05:43 01/31/17 05:43 01/31/17 05:43 01/31/17 05:43 Intake and Output: 01/31/17 01/31/17 06:59 18:59 Intake Total 240 Output Total 1100 Balance -860 - Medications Medications: Current Medications Acetaminophen (Tylenol 325mg Tab) 650 mg PO Q4 PRN PRN Reason: Pain, Mild (1-3) Last Admin: 01/29/17 18:31 Dose: 650 mg Vancomycin HCl (Vancomycin 1gm) 1 gm in 250 mls @ 167 mls/hr IVPB Q12 [facility] Last Admin: 01/30/17 21:56 Dose: 167 mls/hr Lactated Ringer's (Lactated Ringer's) 1,000 mls @ 50 mls/hr IV .Q20H [facility] Last Admin: 01/30/17 16:15 Dose: 50 mls/hr Ciprofloxacin (Cipro 400mg/200ml Dsw) 400 mg in 200 mls @ 133.3 mls/hr IVPB Q12 [facility] PRN Reason: Protocol Last Admin: 01/30/17 23:57 Dose: 133.3 mls/hr Insulin Detemir (Levemir) 25 unit SC HS [facility] Last Admin: 01/30/17 21:57 Dose: 25 unit Insulin Human Lispro (Humalog) 8 units SC AC [facility] Last Admin: 01/31/17 08:02 Dose: 8 units Insulin Human Regular (Humulin R Low) 0 units SC ACHS [facility] PRN Reason: Protocol Last Admin: 01/31/17 07:47 Dose: Not Given Oxychlorosene Sodium (Clorpactin Wcs-90) 2 gm TOP DAILY [facility] Last Admin: 01/30/17 12:02 Dose: Not Given Phenytoin Sodium (Dilantin) 100 mg PO TID [facility] Last Admin: 01/30/17 17:00 Dose: 100 mg - Labs Labs: 01/31/17 06:00 01/31/17 06:00 PT 11.0 Seconds (9.9-11.8) 01/26/17 15:20 INR 1.02 (0.93-1.08) 01/26/17 15:20 APTT 29.2 Seconds (23.7-30.8) 01/26/17 15:20
[2017-01-31] MEDS: Ciprofloxacin 400mg/200ml D5W 400 MG/200 ML BAG IVPB SCH ×2 (10:30→23:52)
--- NOTE | 2017-01-31 10:46 | CP.PCM.PN ---
<SanaGarland - Last Filed: 01/31/17 12:51> Subjective - Date & Time of Evaluation Date of Evaluation: 01/31/17 Time of Evaluation: 10:44 - Subjective Subjective: Pt s/e resting comfotably in bed this AM on GMF. No acute events overnight. Pt c /o of lower back pain for which he credits to laying in bed. He denies chest pain, shortness of breath, fever, nausea and vomiting. Patient is counseled about cessation of drug usage and importance of strict glucose control for promotion of healing. Pt is scheduled for PICC placement today and continuing of IV antibiotics. Objective - Vital Signs/Intake and Output Vital Signs (last 24 hours): Temp Pulse Resp BP Pulse Ox 97.9 F 85 18 127/77 98 01/31/17 05:43 01/31/17 05:43 01/31/17 05:43 01/31/17 05:43 01/31/17 05:43 Intake and Output: 01/31/17 01/31/17 06:59 18:59 Intake Total 240 Output Total 1100 Balance -860 - Medications Medications: Current Medications Acetaminophen (Tylenol 325mg Tab) 650 mg PO Q4 PRN PRN Reason: Pain, Mild (1-3) Last Admin: 01/29/17 18:31 Dose: 650 mg Hydromorphone HCl (Dilaudid) 3 mg IVP Q6H PRN PRN Reason: Pain, severe (8-10) Vancomycin HCl (Vancomycin 1gm) 1 gm in 250 mls @ 167 mls/hr IVPB Q12 [facility] Last Admin: 01/30/17 21:56 Dose: 167 mls/hr Lactated Ringer's (Lactated Ringer's) 1,000 mls @ 50 mls/hr IV .Q20H [facility] Last Admin: 01/30/17 16:15 Dose: 50 mls/hr Ciprofloxacin (Cipro 400mg/200ml Dsw) 400 mg in 200 mls @ 133.3 mls/hr IVPB Q12 [facility] PRN Reason: Protocol Last Admin: 01/30/17 23:57 Dose: 133.3 mls/hr Insulin Detemir (Levemir) 25 unit SC HS [facility] Last Admin: 01/30/17 21:57 Dose: 25 unit Insulin Human Lispro (Humalog) 8 units SC AC [facility] Last Admin: 01/31/17 08:02 Dose: 8 units Insulin Human Regular (Humulin R Low) 0 units SC ACHS [facility] PRN Reason: Protocol Last Admin: 01/31/17 07:47 Dose: Not Given Oxychlorosene Sodium (Clorpactin Wcs-90) 2 gm TOP DAILY [facility] Last Admin: 01/30/17 12:02 Dose: Not Given Phenytoin Sodium (Dilantin) 100 mg PO TID [facility] Last Admin: 01/30/17 17:00 Dose: 100 mg - Labs Labs: 01/31/17 06:00 01/31/17 06:00 PT 11.0 Seconds (9.9-11.8) 01/26/17 15:20 INR 1.02 (0.93-1.08) 01/26/17 15:20 APTT 29.2 Seconds (23.7-30.8) 01/26/17 15:20 - Head Exam Head Exam: ATRAUMATIC, NORMAL INSPECTION - Eye Exam Eye Exam: EOMI, PERRL - ENT Exam ENT Exam: Mucous Membranes Moist - Neck Exam Neck Exam: Full ROM - Respiratory Exam Respiratory Exam: Clear to Ausculation Bilateral, NORMAL BREATHING PATTERN - Cardiovascular Exam Cardiovascular Exam: REGULAR RHYTHM, +S1, +S2 - GI/Abdominal Exam GI & Abdominal Exam: Soft, Normal Bowel Sounds - Rectal Exam Rectal Exam: Deferred - Extremities Exam Additional comments: LLE with edema, foul smell associated with left foot and bandaging, drainage of serosanguinous fluid present, dressing c/d/i. Delayed capillary refill in left toes - Neurological Exam Neuro motor strength exam: Left Upper Extremity: 5, Right Upper Extremity: 5, Left Lower Extremity: 5, Right Lower Extremity: 5 - Psychiatric Exam Psychiatric exam: Normal Affect, Normal Mood - Skin Skin Exam: Dry, Warm Assessment and Plan - Assessment and Plan (Free Text) Assessment: Pt is a 51 year old male with past medical history significant for DM and poor compliance following L great toe partial amputation 2 weeks prior to admission. He is being treated for LLE cellulitis with osteomyelitis Plan: 1. LLE Cellulitis, r/o Osteomyelitis s/p debridement, POD#5 - Podiatry on c/s - Left foot MRI (01/30/17) shows evidence of osteomyelitis - ABx: Vanc and Zosyn, follow ID c/s and recommend 6 week course - Patient did not receive PICC line yesterday - PICC line today for outpatient treatment - Placement needed for - Pain control per podiatry, dilaudid - Control hyperglycemia, current regimen 25 levemir, 8 novolog 2. Seizure activity - Rapid response called last night for possible seizure - Patient with history of seizures being treated with Dilantin - Restart Dilantin 100 mg TID 3. Acute Hyperglyemia with history of uncontrolled Diabetes Mellitus - bg 158 today - Sliding scale moderate - Levemir 25U at bedtime - Novolog 8 AC 4. Acute Anemia - stable - Today's Hb/HCT is 10.4/31.5 - Iron studies returned: Fe low, TIBC low 5. History of Hypertension - Follow closely; pt takes nothing at home 6. History of Asthma - Breathing treatment PRN 7. History of left foot osteomyelitis - Follow recs per podiatry: wounds flushed with clorpactin+saline solution, xerofrom, ABD and kerlix 8. GI/DVT PPHXS - Protonix/Heparin dispo: Pt will need PICC placement for IV antibiotics outpatient as well as placement for administration of IV abx. Self administration is not advised 2/2 patient's history of drug abuse. PCP: Dr. Green Sayed <Arely Gonzalez - Last Filed: 01/31/17 17:09> Objective - Vital Signs/Intake and Output Vital Signs (last 24 hours): Temp Pulse Resp BP Pulse Ox 98 F 83 20 116/72 98 01/31/17 11:45 01/31/17 14:00 01/31/17 11:45 01/31/17 11:45 01/31/17 05:43 Intake and Output: 01/31/17 01/31/17 06:59 18:59 Intake Total 240 780 Output Total 1100 500 Balance -860 280 - Medications Medications: Current Medications Acetaminophen (Tylenol 325mg Tab) 650 mg PO Q4 PRN PRN Reason: Pain, Mild (1-3) Last Admin: 01/29/17 18:31 Dose: 650 mg Hydromorphone HCl (Dilaudid) 3 mg IVP Q6H PRN PRN Reason: Pain, severe (8-10) Last Admin: 01/31/17 10:58 Dose: 3 mg Vancomycin HCl (Vancomycin 1gm) 1 gm in 250 mls @ 167 mls/hr IVPB Q12 [facility] Last Admin: 01/31/17 13:00 Dose: 167 mls/hr Lactated Ringer's (Lactated Ringer's) 1,000 mls @ 50 mls/hr IV .Q20H [facility] Last Admin: 01/30/17 16:15 Dose: 50 mls/hr Ciprofloxacin (Cipro 400mg/200ml Dsw) 400 mg in 200 mls @ 133.3 mls/hr IVPB Q12 [facility] PRN Reason: Protocol Last Admin: 01/31/17 10:30 Dose: 133.3 mls/hr Insulin Detemir (Levemir) 25 unit SC HS [facility] Last Admin: 01/30/17 21:57 Dose: 25 unit Insulin Human Lispro (Humalog) 8 units SC AC [facility] Last Admin: 01/31/17 12:59 Dose: 8 units Insulin Human Regular (Humulin R Low) 0 units SC ACHS [facility] PRN Reason: Protocol Last Admin: 01/31/17 12:43 Dose: Not Given Oxychlorosene Sodium (Clorpactin Wcs-90) 2 gm TOP DAILY [facility] Last Admin: 01/31/17 10:54 Dose: Not Given Phenytoin Sodium (Dilantin) 100 mg PO TID [facility] Last Admin: 01/31/17 14:17 Dose: 100 mg - Labs Labs: 01/31/17 06:00 01/31/17 06:00 PT 11.0 Seconds (9.9-11.8) 01/26/17 15:20 INR 1.02 (0.93-1.08) 01/26/17 15:20 APTT 29.2 Seconds (23.7-30.8) 01/26/17 15:20 Attending/Attestation - Attestation I have personally seen and examined this patient.: Yes I have fully participated in the care of the patient.: Yes I have reviewed all pertinent clinical information, including history, physical exam and plan: Yes Notes (Text): 01/31/17 17:04 attending note; Patient seen and examined with resident. Patient is a 51 Year old male with PMH of drug abuse, DM and Diabetic foot infection, s/p incision & drainage with debridement left foot abscess. wound cultures growing MRSA, Enterococuc and proteus mirabilis on IV antibiotics Vancomycin and cipro. Blood cultures are negative so far. Patient blood sugars are improving. continue Levemir. The need of compliance with medication and antibiotics was discussed in detail. We will get PICC line for fdc anti-biotics. left fifth metatarsal osteomyelitis ;plan for debridement/amputation tomorrow. Case discussed with case manager specialist for discharge planning. Prognosis is poor due to non compliance. strongly advised to follow-up with PMD of choice upon discharge.
[2017-01-31] MEDS: Oxychlorosene Topical 2 gm Packet TOP SCH (10:54)
[2017-01-31] MEDS: Vancomycin 1gm in NS 250ml 1 GM/250 ML BAG IVPB SCH ×2 (13:00→22:01)
--- NOTE | 2017-01-31 13:22 | PN ---
SUBJECTIVE: A 51-year-old diabetic male seen at bedside, status post complex incision and drainage of the severe diabetic left foot infection with underlying severe abscess formation. MRI was taken yesterday and reveals osteomyelitis of the fifth metatarsal. The patient is scheduled for amputation of the third, fourth, and fifth digits on the left foot as well as left fifth metatarsal resection for tomorrow 07:30 a.m. PHYSICAL EXAMINATION: VITAL SIGNS: Reveals temperature of 97.9, pulse rate of 85, blood pressure of 127/77 and respiratory rate of 18. LABORATORY DATA: White blood cell count is 9.5, hemoglobin is 10.4, hematocrit is 31.5 and platelets count is 459. MRI taken yesterday reveals marrow edema throughout the fifth metatarsal consistent with osteomyelitis. ASSESSMENT: A 51-year-old noncompliant diabetic male with a history of polysubstance abuse seen for severe diabetic left foot infection with osteomyelitis present and gangrenous left third, fourth and fifth digits. The patient is scheduled for surgical intervention on February 01, at 7:30 a.m. PLAN: Wounds were cleansed with a normal sterile saline solution and a dry sterile dressing was applied. Explained to the patient the procedure and need to remove all of the nonviable gangrenous toes that have now and have became malodorous. The patient was told that he has an infection in one of the longer bones of his left foot, which will need to be resected as well. I explained to the patient that he will need 4 to 6 weeks of IV antibiotics at a Subacute Facility and he will need aggressive local wound care in order to avoid losing his lower limb. I explained to the patient that in order for his wounds to heal, he will need to refrained from using illicit drugs and from drinking alcohol. We will keep him n.p.o. after dinner today and he is scheduled for OR tomorrow morning at 7:30 a.m. Isac Phoenix DPM
[2017-01-31] MEDS ORDERED: Lidocaine 2% Inj (20ml) ONE (15:08)
--- NOTE | 2017-01-31 17:16 | CP.PCM.PN ---
Subjective - Date & Time of Evaluation Date of Evaluation: 01/31/17 Time of Evaluation: 16:00 - Subjective Subjective: Infectious Disease Follow Up: January 31, 2017 51 yo AA left AM from [facility] on 01/16/2017. Patient states that he sees Dr. Emili Carter for medical care but has not seen him in at least 6 months. He ran out of his diabetic medications at least 3 months ago. The patient is complaining of several weeks of pain to the left foot with significant swelling. He had a partial hallux amputation of the left foot on 01/16/2017 and then left [facility] AM that same day. Taken to OR by Dr. Benito for washout and tissue debridement. May need further debridement. Multi-organism growth in cultures including Proteus, Enterococcus, and MRSA. Patient is non-compliant with diabetes care with glucose levels up 400 and above. Nursing has had issues with the patient's friends and family searching the WOW machines. MRI was not done as patient was unwilling to be still in machine unless he got more pain meds and narcotics. This was also an issue at [facility] on his hospitalization about two weeks ago. A few nights ago, the patient had been found unresponsive and "twitching" by nursing. Rapid response was called on the patient. He was awake and alert when rapid response team arrived. Transferred to Telemetry floor where he has remained. He is being prepared for OR in the morning for amputation of the 3rd , 4th, and 5th toes on the left foot. Objective - Vital Signs/Intake and Output Vital Signs (last 24 hours): Temp Pulse Resp BP Pulse Ox 98 F 83 20 116/72 98 01/31/17 11:45 01/31/17 14:00 01/31/17 11:45 01/31/17 11:45 01/31/17 05:43 Intake and Output: 01/31/17 01/31/17 06:59 18:59 Intake Total 240 780 Output Total 1100 500 Balance -860 280 - Medications Medications: Current Medications Acetaminophen (Tylenol 325mg Tab) 650 mg PO Q4 PRN PRN Reason: Pain, Mild (1-3) Last Admin: 01/29/17 18:31 Dose: 650 mg Hydromorphone HCl (Dilaudid) 3 mg IVP Q6H PRN PRN Reason: Pain, severe (8-10) Last Admin: 01/31/17 10:58 Dose: 3 mg Vancomycin HCl (Vancomycin 1gm) 1 gm in 250 mls @ 167 mls/hr IVPB Q12 [facility] Last Admin: 01/31/17 13:00 Dose: 167 mls/hr Lactated Ringer's (Lactated Ringer's) 1,000 mls @ 50 mls/hr IV .Q20H [facility] Last Admin: 01/30/17 16:15 Dose: 50 mls/hr Ciprofloxacin (Cipro 400mg/200ml Dsw) 400 mg in 200 mls @ 133.3 mls/hr IVPB Q12 [facility] PRN Reason: Protocol Last Admin: 01/31/17 10:30 Dose: 133.3 mls/hr Insulin Detemir (Levemir) 25 unit SC HS [facility] Last Admin: 01/30/17 21:57 Dose: 25 unit Insulin Human Lispro (Humalog) 8 units SC AC [facility] Last Admin: 01/31/17 12:59 Dose: 8 units Insulin Human Regular (Humulin R Low) 0 units SC ACHS [facility] PRN Reason: Protocol Last Admin: 01/31/17 12:43 Dose: Not Given Oxychlorosene Sodium (Clorpactin Wcs-90) 2 gm TOP DAILY [facility] Last Admin: 01/31/17 10:54 Dose: Not Given Phenytoin Sodium (Dilantin) 100 mg PO TID [facility] Last Admin: 01/31/17 14:17 Dose: 100 mg - Labs Labs: 01/31/17 06:00 01/31/17 06:00 PT 11.0 Seconds (9.9-11.8) 01/26/17 15:20 INR 1.02 (0.93-1.08) 01/26/17 15:20 APTT 29.2 Seconds (23.7-30.8) 01/26/17 15:20 - Constitutional Appears: Non-toxic, No Acute Distress, Chronically Ill - Head Exam Head Exam: ATRAUMATIC, NORMOCEPHALIC - Eye Exam Eye Exam: EOMI, PERRL Pupil Exam: NORMAL ACCOMODATION, PERRL - ENT Exam ENT Exam: Mucous Membranes Moist, Normal External Ear Exam, TM's Normal Bilaterally - Neck Exam Neck Exam: Full ROM, Normal Inspection - Respiratory Exam Respiratory Exam: Clear to Ausculation Bilateral, NORMAL BREATHING PATTERN. absent: Rales, Rhonchi, Wheezes - Cardiovascular Exam Cardiovascular Exam: REGULAR RHYTHM, RRR, +S1, +S2 - GI/Abdominal Exam GI & Abdominal Exam: Soft, Normal Bowel Sounds. absent: Distended, Tenderness - Extremities Exam Additional comments: +3 edema of the left foot with tenderness and is malodorous. Recent left hallux partial amputation done on 01/16/2017. Taken to OR on 01/26/2017 for debridement and abscess drainage. The 3rd, 4th, and 5th toes of the foot have been deemed nonviable in the left foot with continued evaluation of whether the rest of the foot will be viable. For OR in the morning for amputation. Necrotic 3rd, 4th, and 5th toes. - Neurological Exam Neurological Exam: Alert, Awake, CN II-XII Intact, Oriented x3 - Psychiatric Exam Psychiatric exam: Normal Affect, Normal Mood - Skin Skin Exam: Intact, Normal Color Assessment and Plan - Assessment and Plan (Free Text) Assessment: 51 yo AA male with left foot osteomyelitis who had left foot partial hallux amputation performed at [facility] on 01/16/2017. The patient has a history of uncontrolled diabetes mellitus (has not taken his medications in at least 3 months), hypertension, and a heroin sniffing habit as well as EtOH abuse. The patient grew Proteus and Enterococcus on wound cultures at [facility]. Patient may have further infected bone and needs treatment for osteomyelitis. Further debridement performed in OR with Dr. Benito during this hospitalization. Cultures here are growing Proteus, Enterococcus, and gram positive cocci. The patient states that he understands he needs antibiotic treatment... however , he was agreeable at [facility] then walked out AMA. The patient will need 6 weeks of IV antibiotics at this point. Given entire history, the patient has osteomyelitis until proven otherwise of the left foot and ankle. Continue on antibiotics of Vancomycin and Cipro for treatment at this point. Supportive care. For OR tomorrow for amputation of the left foot 3rd, 4th, and 5th toes. Thank you for allowing me to participate in the care of the patient, we will follow with you.
[2017-01-31] MEDS: HYDROmorphone 1 mg/ml ISec IVP PRN ×2 (17:54→23:51)
--- NOTE | 2017-01-31 18:46 | VASCULAR ---
PROCEDURE: Ultrasound and fluoroscopically placed left upper extremity PICC line. HISTORY: Osteomyelitis left foot. Long-term IV antibiotics. Needs PICC line PHYSICIAN(S): Neal Peralta MD. TECHNIQUE: The relative risks and indications of the procedure were explained to the patient and consent obtained. The patient was placed supine on the arteriogram table and the left arm prepped and draped in the usual sterile fashion. A tourniquet was applied to the left axilla. 1% Xylocaine was used to anesthetize the skin and soft tissues at the puncture site above the elbow. The left basilic vein was punctured under direct ultrasound guidance with a micropuncture set. A 0.018 guidewire was advanced centrally and used to measure the length to the SVC/RA junction. A 5 [place] single-lumen PICC line 45 cm long was advanced to the SVC/RA junction. The catheter was flushed and secured. The patient tolerated the procedure well. IMPRESSION: 1. Ultrasound and fluoroscopically placed left upper extremity PICC line. A 5 [place] single-lumen PICC line 45 cm long was advanced to the SVC/RA junction.
[2017-01-31] MEDS: Insulin Detemir 100 units/ml Vial (Levemir) SC SCH (21:55)
[2017-02-01] MEDS: HYDROmorphone 1 mg/ml ISec IVP PRN ×4 (05:44→21:57)
[2017-02-01 05:45] LABS: BASO # 0.01 K/mm3 (0.0-2.0); BASO % 0.1 % (0.0-3.0); EOS # 0.2 (0.0-0.7); EOS % 2.4 % (1.5-5.0); GRAN % 64.9 % (50.0-68.0); HEMOGLOBIN 9.7 gm/dL (14.0-18.0); LYMPH # 2.7 (1.2-3.4); LYMPH % 26.9 % (22.0-35.0); MEAN CELL VOLUME 87.7 fL (80.0-105.0); MEAN CORPUSCULAR HEMOGLOBIN 29.2 pg (25.0-35.0); MEAN CORPUSCULAR HGB CONC 33.3 g/dl (31.0-37.0); MEAN PLATELET VOLUME 8.1 fl (7.0-11.0); MONO # 0.6 (0.1-0.6); MONO % 5.7 % (1.0-6.0); PLATELET COUNT 427 10^3/uL (120.0-450.0); RBC 3.32 10^6/uL (3.5-6.1); RED CELL DISTRIBUTION WIDTH 13.2 % (11.5-14.5)
--- NOTE | 2017-02-01 05:46 | CP.PCM.PN ---
Addendum entered and electronically signed by Garland Hood DO 02/01/17 18:59: Physical Exam: Vital signs as below Constitutional: a&o x 4 Head and Neck: neck supple, no jvd, trachea midline, carotid midline, no cervical/head mass Eyes: lori, nonicteric sclera, eom intact ENT: auditory acuity grossly intact, throat not congested, no nasal deformity Cardio: rrr, no m/r/g, no carotid bruit, nml s1, s2 Pulm: no accessory muscle use, equal nml breath sounds bilaterally, ctab Abd: s/nt/nd, nbs x 4 q, no palpable masses Derm: no rashes, no ulcers Extr: no cyanosis, edema bilateral +2, Left foot with dressing c/d/i/, peripheral pulses present Neuro: cn II-XII grossly intact, ue and le 5/5 muscle strength bilaterally, no los ue, le bilaterally and core Original Note: <Garland Hood - Last Filed: 02/01/17 18:44> Subjective - Date & Time of Evaluation Date of Evaluation: 02/01/17 Time of Evaluation: 15:00 - Subjective Subjective: Pt was s/e at bedside this afternoon on GMF. No acute events overnight. The patient was taken to OR this AM for debridement of wound and amputation of toes due to evidence of osteomyelitis. Patient complaining of pain in his left foot secondary to his surgery. Patient denies chest pain, shortness of breath, fever , nausea or vomiting. Objective - Vital Signs/Intake and Output Vital Signs (last 24 hours): Temp Pulse Resp BP Pulse Ox 99.1 F 101 H 20 144/77 97 01/31/17 23:12 02/01/17 02:00 01/31/17 23:12 01/31/17 23:12 01/31/17 23:12 Intake and Output: 01/31/17 02/01/17 18:59 06:59 Intake Total 780 Output Total 500 Balance 280 - Medications Medications: Current Medications Acetaminophen (Tylenol 325mg Tab) 650 mg PO Q4 PRN PRN Reason: Pain, Mild (1-3) Last Admin: 01/29/17 18:31 Dose: 650 mg Hydromorphone HCl (Dilaudid) 1 mg IVP Q6H PRN PRN Reason: Pain, severe (8-10) Last Admin: 01/31/17 23:51 Dose: 1 mg Vancomycin HCl (Vancomycin 1gm) 1 gm in 250 mls @ 167 mls/hr IVPB Q12 [facility] Last Admin: 01/31/17 22:01 Dose: 167 mls/hr Lactated Ringer's (Lactated Ringer's) 1,000 mls @ 50 mls/hr IV .Q20H [facility] Last Admin: 01/30/17 16:15 Dose: 50 mls/hr Ciprofloxacin (Cipro 400mg/200ml Dsw) 400 mg in 200 mls @ 133.3 mls/hr IVPB Q12 [facility] PRN Reason: Protocol Last Admin: 01/31/17 23:52 Dose: 133.3 mls/hr Insulin Detemir (Levemir) 25 unit SC HS [facility] Last Admin: 01/31/17 21:55 Dose: 25 unit Insulin Human Lispro (Humalog) 8 units SC AC [facility] Last Admin: 01/31/17 17:55 Dose: 8 units Insulin Human Regular (Humulin R Low) 0 units SC ACHS [facility] PRN Reason: Protocol Last Admin: 01/31/17 21:56 Dose: Not Given Oxychlorosene Sodium (Clorpactin Wcs-90) 2 gm TOP DAILY [facility] Last Admin: 01/31/17 10:54 Dose: Not Given Phenytoin Sodium (Dilantin) 100 mg PO TID [facility] Last Admin: 01/31/17 17:55 Dose: 100 mg - Labs Labs: 01/31/17 06:00 01/31/17 06:00 PT 11.0 Seconds (9.9-11.8) 01/26/17 15:20 INR 1.02 (0.93-1.08) 01/26/17 15:20 APTT 29.2 Seconds (23.7-30.8) 01/26/17 15:20 Assessment and Plan - Assessment and Plan (Free Text) Assessment: Patient is a 51 year old male with past medical history significant for DM and poor compliance following L great to partial amputation 2 weeks prior to admission. He is being treated for LLE cellulitis with osteomyelitis. Plan: 1. LLE Cellulitis with left fifth metatarsal osteomyelitis - Left foot MRI (01/30/17) shows evidence of osteomyelitis - Cultures of wound on left foot growing MRSA, Enterococcus and Proteus mirabilis - Podiatry on c/s - Patient scheduled for debridement/amputation this AM - curbside with podiatry indicated further debridement of wound with amputation of fifth, fourth, and third toes - podiatry wanting to evaluate patient over next two days - ABx: Vanc and Zosyn, follow ID c/s and recommend 6 week course - Patient did not receive PICC line yesterday - PICC line placed 01/31 in LUE - Placement needed for IV antibiotic administration of 6 weeks - Pain control per podiatry, will add toradol for moderate pain - Control hyperglycemia, current regimen 25 levemir, 8 novolog 2. Seizure activity - Rapid response called for patient during admission for possible seizure activity - Patient with history of seizures being treated with Dilantin - Dilantin 100 mg TID 3. Acute Hyperglyemia with history of uncontrolled Diabetes Mellitus - bg 237 today - Sliding scale moderate - Levemir 25U at bedtime - Novolog 8 AC 4. Acute Anemia - stable - Today's Hb/HCT is 9.7/29.1 - Iron studies returned: Fe low, TIBC low 5. History of Hypertension - Follow closely; pt takes nothing at home 6. History of Asthma - Breathing treatment PRN 7. History of left foot osteomyelitis - Follow recs per podiatry: wounds flushed with clorpactin+saline solution, xerofrom, ABD and kerlix - Poor compliance with medication and DM control, educated patient on importance of both 8. GI/DVT PPHXS - Protonix/Heparin dispo: Pt will need PICC placement for IV antibiotics outpatient as well as placement for administration of IV abx. Self administration is not advised 2/2 patient's history of drug abuse. PCP: Dr. Green Sayed <Arely Gonzalez - Last Filed: 02/02/17 12:29> Objective - Vital Signs/Intake and Output Vital Signs (last 24 hours): Temp Pulse Resp BP Pulse Ox 98 F 88 20 130/70 97 02/02/17 06:00 02/02/17 06:00 02/02/17 06:00 02/02/17 06:00 02/02/17 06:00 Intake and Output: 02/02/17 02/02/17 06:59 18:59 Intake Total 360 Output Total 500 Balance -140 - Medications Medications: Current Medications Acetaminophen (Tylenol 325mg Tab) 650 mg PO Q4 PRN PRN Reason: Pain, Mild (1-3) Last Admin: 01/29/17 18:31 Dose: 650 mg Hydromorphone HCl (Dilaudid) 1 mg IVP Q6H PRN PRN Reason: Pain, severe (8-10) Last Admin: 02/02/17 10:12 Dose: 1 mg Vancomycin HCl (Vancomycin 1gm) 1 gm in 250 mls @ 167 mls/hr IVPB Q12 [facility] Last Admin: 02/02/17 12:18 Dose: 167 mls/hr Ciprofloxacin (Cipro 400mg/200ml Dsw) 400 mg in 200 mls @ 133.3 mls/hr IVPB Q12 [facility] PRN Reason: Protocol Last Admin: 02/02/17 10:11 Dose: 133.3 mls/hr Insulin Detemir (Levemir) 28 unit SC HS [facility] Insulin Human Lispro (Humalog) 8 units SC AC [facility] Last Admin: 02/02/17 12:17 Dose: 8 units Insulin Human Lispro (Humalog Med) 0 units SC ACHS [facility] PRN Reason: Protocol Last Admin: 02/02/17 12:18 Dose: 1 units Ketorolac Tromethamine (Toradol) 30 mg IVP Q6 PRN PRN Reason: Pain, moderate (4-7) Stop: 02/06/17 16:23 Last Admin: 02/02/17 03:34 Dose: 30 mg Ondansetron HCl (Zofran Inj) 4 mg IVP ONCE PRN PRN Reason: Nausea/Vomiting Oxychlorosene Sodium (Clorpactin Wcs-90) 2 gm TOP DAILY [facility] Last Admin: 02/02/17 10:43 Dose: Not Given Phenytoin Sodium (Dilantin) 100 mg PO TID [facility] Last Admin: 02/02/17 10:12 Dose: 100 mg - Labs Labs: 02/02/17 06:00 02/02/17 06:00 PT 11.0 Seconds (9.9-11.8) 01/26/17 15:20 INR 1.02 (0.93-1.08) 01/26/17 15:20 APTT 29.2 Seconds (23.7-30.8) 01/26/17 15:20 Attending/Attestation - Attestation I have personally seen and examined this patient.: Yes I have fully participated in the care of the patient.: Yes I have reviewed all pertinent clinical information, including history, physical exam and plan: Yes Notes (Text): 02/02/17 12:27 attending note; Patient seen and examined with resident. Patient is a 51 Year old male with PMH of drug abuse, DM and Diabetic foot infection, s/p incision & drainage with debridement left foot abscess. wound cultures growing MRSA, Enterococuc and proteus mirabilis on IV antibiotics Vancomycin and cipro. Blood cultures are negative so far. Patient blood sugars are improving. continue Levemir. The need of compliance with medication and antibiotics was discussed in detail. s/p PICC line placement. Status post debridement and toe amputation. Continue dressing change per podiatry. Patient had significant amount of bleeding during OR. Monitor H&H closely. Case discussed with therapeutic case manager for discharge planning. Prognosis is poor due to non compliance. strongly advised to follow-up with PMD of choice upon discharge.
[2017-02-01 05:51] LABS: ALB/GLOB RATIO 0.6 (1.1-1.8); ALBUMIN 2.3 g/dL (3.0-4.8); ALT/SGPT 38 U/L (7-56); AST/SGOT 60 U/L (15-59); BLOOD UREA NITROGEN 17 mg/dL (7-21); CALCIUM 8.2 mg/dL (8.4-10.5); GFR AFRICAN-AMERICAN > 60; GFR NON-AFRICAN AMERICAN > 60
[2017-02-01] MEDS ORDERED: Bupivacaine 0.5% Inj(30mL) ONE (07:27)
[2017-02-01] MEDS ORDERED: Lidocaine 2% Inj (20ml) ONE (07:27)
[2017-02-01] MEDS ORDERED: Sodium Bicarbonate (8.4%) 50 Meq Syringe ONE (07:27)
[2017-02-01] MEDS ORDERED: Propofol 10 mg/ml Inj (20 ML) ONE ×3 (07:36→08:22)
[2017-02-01] MEDS ORDERED: ePHEDrine 50 mg/ml Inj ONE (08:08)
[2017-02-01] MEDS ORDERED: HYDROmorphone 0.5 mg/0.5 ml ISec IVP PRN (09:13)
[2017-02-01] MEDS ORDERED: Sodium Chloride 0.9% 1,000 ML IV SCH (09:15)
--- NOTE | 2017-02-01 09:17 | PCM.SURG1 ---
<Jessa Stevens - Last Filed: 02/01/17 09:13> Surgeon's Initial Post Op Note - Surgeon's Notes Surgeon: Dr. Alban DPM Picture Frames Inspector: Leo Stevens, PGY2; Leo Diego PGY1 Type of Anesthesia: General IV, Local (1:1:0.1 mixture of 0.5% marcaine: 1% lidocaine: 8.4% sodium bicarbonate) Anesthesia Administered By: Dr. Freedom MD Pre-Operative Diagnosis: 1) Left foot 3rd, 4th, and 5th digit gry gangrene 2) 5th metatarsal osteomyelis. 3) Left foot Mccartney grage 3 ulcerations Operative Findings: See dictation. Materials: 2-0 Vicryl Post-Operative Diagnosis: Same as preoperative Operation Performed: 1) Left foot 3rd and 4th digital amputations and metatarsal head resection 2) 5th ray resection 3) Left foot wound debridement. Specimen/Specimens Removed: 1) Left 5th metatarsal bone 2) Left 4th metatarsal head 3) Left 3rd metatarsal head 4) Left foot deep wound culture Estimated Blood Loss: EBL {In ML}: 20 Blood Products Given: N/A Drains Used: No Drains Post-Op Condition: Good Date of Surgery/Procedure: 02/01/17 Time of Surgery/Procedure: 09:22 <Isac Phoenix - Last Filed: 02/01/17 11:35> Attending/Attestation - Attestation I have personally seen and examined this patient.: Yes I have fully participated in the care of the patient.: Yes I have reviewed all pertinent clinical information: Yes
[2017-02-01] MEDS: Insulin Reg-LOW-Coverage SC SCH ×4 (10:41→21:58)
[2017-02-01] MEDS: Insulin Lispro 1 UNITS/0.01 ML SC SCH ×3 (10:42→17:53)
--- NOTE | 2017-02-01 10:46 | RAD ---
PROCEDURE: Left Foot Radiographs. HISTORY: s/p left foot surgery COMPARISON: 01/25/2017 FINDINGS: BONES: Interval amputation of the 5th metatarsal -distal 2/3 noted. The prior history was that of evaluate for fracture the patient also had a history of ulcer. Although no periosteal reaction was appreciated. The possibility of prior concomitant cortical interruptions associated with the comminuted fractures and regional ulcer is possible in retrospect Since the prior exam there is also amputations of the 2nd and 3rd phalanges and most distal 2nd and 3rd metacarpal heads since the prior exam. No prior radiographic pathology here is appreciated in retrospect. Prior clinical history provided for MRI 01/30/2017 stated gangrenous diabetic left foot ulcers The prior 1st digit partial amputation involving the 1st proximal phalangeal distal head and distal phalanges is as before. JOINTS: As above SOFT TISSUES: Postsurgical soft tissue defects consistent with the interval surgeries. The prior dorsal soft tissue radiolucencies are soft-tissue swelling consistent with the now provided history of a prior gas-forming cellulitis. No similar gas-forming cellulitis now suggested OTHER FINDINGS: The lateral plate transfixing a prior fibular fracture is renoted. The longus screw is discontinuous this is noted on the prior study and similar appearing IMPRESSION: Interval postop changes as above
[2017-02-01] MEDS: Ciprofloxacin 400mg/200ml D5W 400 MG/200 ML BAG IVPB SCH ×2 (11:03→21:57)
[2017-02-01] MEDS: Oxychlorosene Topical 2 gm Packet TOP SCH (11:31)
--- NOTE | 2017-02-01 15:28 | CP.PCM.PN ---
Subjective - Date & Time of Evaluation Date of Evaluation: 02/01/17 Time of Evaluation: 14:30 - Subjective Subjective: Infectious Disease Follow Up: February 01, 2017 51 yo AA left AM from [facility] on 01/16/2017. Patient states that he sees Dr. Emili Carter for medical care but has not seen him in at least 6 months. He ran out of his diabetic medications at least 3 months ago. The patient is complaining of several weeks of pain to the left foot with significant swelling. He had a partial hallux amputation of the left foot on 01/16/[address] [facility] AM that same day. Taken to OR by Dr. Benito for washout and tissue debridement. May need further debridement. Multi-organism growth in cultures including Proteus, Enterococcus, and MRSA. Patient is non-compliant with diabetes care with glucose levels up 400 and above. Nursing has had issues with the patient's friends and family searching the WOW machines. MRI was not done as patient was unwilling to be still in machine unless he got more pain meds and narcotics. This was also an issue at [facility] on his hospitalization about two weeks ago. A few nights ago, the patient had been found unresponsive and "twitching" by nursing. Rapid response was called on the patient. He was awake and alert when rapid response team arrived. Transferred to Telemetry floor where he has remained. He went to the OR in the morning for amputation of the 3rd, 4th, and 5th toes on the left foot as well as extensive debridement of the left foot. Objective - Vital Signs/Intake and Output Vital Signs (last 24 hours): Temp Pulse Resp BP Pulse Ox 98.2 F 110 H 16 125/78 98 02/01/17 13:25 02/01/17 13:25 02/01/17 13:25 02/01/17 13:25 02/01/17 13:25 Intake and Output: 02/01/17 02/01/17 06:59 18:59 Intake Total 1400 600 Output Total 1800 800 Balance -400 -200 - Medications Medications: Current Medications Acetaminophen (Tylenol 325mg Tab) 650 mg PO Q4 PRN PRN Reason: Pain, Mild (1-3) Last Admin: 01/29/17 18:31 Dose: 650 mg Hydromorphone HCl (Dilaudid) 1 mg IVP Q6H PRN PRN Reason: Pain, severe (8-10) Last Admin: 02/01/17 11:04 Dose: 1 mg Vancomycin HCl (Vancomycin 1gm) 1 gm in 250 mls @ 167 mls/hr IVPB Q12 [facility] Last Admin: 01/31/17 22:01 Dose: 167 mls/hr Lactated Ringer's (Lactated Ringer's) 1,000 mls @ 50 mls/hr IV .Q20H [facility] Last Admin: 01/30/17 16:15 Dose: 50 mls/hr Ciprofloxacin (Cipro 400mg/200ml Dsw) 400 mg in 200 mls @ 133.3 mls/hr IVPB Q12 [facility] PRN Reason: Protocol Last Admin: 02/01/17 11:03 Dose: 133.3 mls/hr Insulin Detemir (Levemir) 25 unit SC HS [facility] Last Admin: 01/31/17 21:55 Dose: 25 unit Insulin Human Lispro (Humalog) 8 units SC AC [facility] Last Admin: 02/01/17 11:50 Dose: 8 units Insulin Human Regular (Humulin R Low) 0 units SC ACHS [facility] PRN Reason: Protocol Last Admin: 02/01/17 11:50 Dose: 1 units Ondansetron HCl (Zofran Inj) 4 mg IVP ONCE PRN PRN Reason: Nausea/Vomiting Oxychlorosene Sodium (Clorpactin Wcs-90) 2 gm TOP DAILY [facility] Last Admin: 02/01/17 11:31 Dose: Not Given Phenytoin Sodium (Dilantin) 100 mg PO TID [facility] Last Admin: 02/01/17 13:02 Dose: 100 mg - Labs Labs: 02/01/17 05:31 02/01/17 05:31 PT 11.0 Seconds (9.9-11.8) 01/26/17 15:20 INR 1.02 (0.93-1.08) 01/26/17 15:20 APTT 29.2 Seconds (23.7-30.8) 01/26/17 15:20 - Constitutional Appears: Non-toxic, No Acute Distress, Chronically Ill - Head Exam Head Exam: ATRAUMATIC, NORMOCEPHALIC - Eye Exam Eye Exam: EOMI, PERRL Pupil Exam: NORMAL ACCOMODATION, PERRL - ENT Exam ENT Exam: Mucous Membranes Moist, Normal External Ear Exam, TM's Normal Bilaterally - Neck Exam Neck Exam: Full ROM, Normal Inspection - Respiratory Exam Respiratory Exam: Clear to Ausculation Bilateral, NORMAL BREATHING PATTERN. absent: Rales, Rhonchi, Wheezes - Cardiovascular Exam Cardiovascular Exam: REGULAR RHYTHM, RRR, +S1, +S2 - GI/Abdominal Exam GI & Abdominal Exam: Soft, Normal Bowel Sounds. absent: Distended, Tenderness - Extremities Exam Additional comments: left foot heavily wrapped after amputation of the 3rd, 4th, and 5th digits. +2- 3 edema of the left foot. +2 edema of the right foot. - Neurological Exam Neurological Exam: Alert, Awake, CN II-XII Intact, Oriented x3 - Psychiatric Exam Psychiatric exam: Normal Affect, Normal Mood - Skin Skin Exam: Intact, Normal Color Assessment and Plan - Assessment and Plan (Free Text) Assessment: 51 yo AA male with left foot osteomyelitis who had left foot partial hallux amputation performed at [facility] on 01/16/2017. The patient has a history of uncontrolled diabetes mellitus (has not taken his medications in at least 3 months), hypertension, and a heroin sniffing habit as well as EtOH abuse. The patient grew Proteus and Enterococcus on wound cultures at [facility]. Patient may have further infected bone and needs treatment for osteomyelitis. Further debridement performed in OR with Dr. Benito during this hospitalization. Cultures here are growing Proteus, Enterococcus, and gram positive cocci. The patient states that he understands he needs antibiotic treatment... however , he was agreeable at [facility] then walked out AMA. The patient will need 6 weeks of IV antibiotics at this point. Given entire history, the patient has osteomyelitis until proven otherwise of the left foot and ankle. Continue on antibiotics of Vancomycin and Cipro for treatment at this point. Supportive care. Went to OR this morning for amputation of the left foot 3rd, 4th, and 5th toes as well as debridement of the left foot.. Thank you for allowing me to participate in the care of the patient, we will follow with you.
[2017-02-01] MEDS: Vancomycin 1gm in NS 250ml 1 GM/250 ML BAG IVPB SCH ×2 (15:38→22:00)
[2017-02-01] MEDS: Insulin Detemir 100 units/ml Vial (Levemir) SC SCH (21:59)
--- NOTE | 2017-02-01 22:53 | OP ---
PROCEDURE DATE: 02/01/2017 INDICATION: A 51-year-old male with a long history of uncontrolled insulin dependent diabetes and polysubstance abuse that presented to the Emergency Room approximately 3 weeks ago where he had a left great toe infection which had undergone subsequent distal amputation. The day of the amputation, the patient left the hospital against medical advice. In the subsequent two weeks, the patient developed a severe abscess formation on his left foot where he presented to the [facility] and had undergone a complex incision and drainage by Dr. Benito to lower his 22 white count. Since the incision and drainage was performed his left 3rd, 4th, and 5th digits have become gangrenous and MRI confirms osteomyelitis of his 5th metatarsal and clinical osteomyelitis of his left 3rd and 4th distal metatarsals. The patient now requires amputation of the 3rd, 4th, and 5th digits as well as partial metatarsal resections of his osteomyelitic bone in his metatarsals. The patient was brought into the operating room on his hospital bed and transferred to the operating room table in the supine position. His foot was prepped and draped in the usual aseptic manner. Following IV sedation, approximately 26 mL of 1:1 ratio of 0.5% Marcaine plain and 1% Lidocaine plain was infiltrated in an ankle block fashion. At this point, it was noted that the 3rd, 4th, and 5th digits were gangrenous and desiccated. There was also noted to be exposed 3rd and 4th metatarsal heads as well as distal aspect of the left 5th metatarsal. Using a #15 blade, an incision was made that encompassed the 3rd, 4th, and 5th digits plantarly and carried dorsally. Care was taken to identify and retract as well as coagulate all neurovascular structures. There was noted to be excellent bleeding at this time. Dissection was continued and all digits were disarticulated and passed from the operative field. There was noted to be, continued to be excellent bleeding, however, there was large amount of necrotic, gangrenous and nonviable foul smelling tissue. Attention was then directed to the 5th metatarsal, where the 5th metatarsal was freed of all capsular and ligamentous attachments and the section was carried down to the proximal 3rd of the metatarsal. At this point, it was noted that the 3rd and 4th metatarsal heads were clearly exposed at which point, a new fresh #15-blade was used to dissect free all attached capsular and ligamentous attachments to the 3rd and 4th metatarsal heads. Sagittal saw was then brought into the operative field and the 5th metatarsal was resected as well as the 3rd and 4th metatarsal heads. Attention was then directed to all of necrotic and gangrenous tissue that was present and as much nonviable gangrenous necrotic tissue and all gangrenous necrotic and nonviable tissue was excised. At this point, the dorsal lateral aspect of the foot had a large amount of gangrenous nonviable foul smelling tissue which was also excised. There was noted to be approximate 2 x 2 cm gangrenous, necrotic patch at the lateral aspect of the foot inferior to the lateral malleoli which was excised. Utilizing a Versajet hydromatic debriding tool, the dorsal aspect of the foot which had a large amount of bioburden was then Versajet cleaned and there was noted to be active bleeding. Utilizing the Versajet tool, the rest of the forefoot was excisionally debrided of all nonviable fibrotic, necrotic and gangrenous tissue. Upon completion of using the Versajet, the Simpulse lavage was used with saline solution to flush all the areas of the foot. At this point, there was noted to be excellent bleeding. There was noted to be a lateral flap of skin present overlying the excised 5th metatarsal which was then re-approximated with 2-0 Vicryl. The culture was then taken and submitted for sensitivities. All of the resected bone and soft tissue was also submitted to pathology for evaluation. Utilizing sterile Adaptic with Betadine solution, the wounds were covered with this Betadine soaked Adaptic as well as sterile gauze, sterile abdominal pads, Kerlix, and ELA wrap. Patient was transferred back to his hospital bed and brought to the recovery room with all vital signs stable. X-rays were ordered; Dilaudid 4 mg every 6 hours was ordered for pain. We will keep patient off weightbearing and continue all medications. The patient will be seen in followup in the a.m. Isac Phoenix DPM ON[facility]
[2017-02-02] MEDS: HYDROmorphone 1 mg/ml ISec IVP PRN ×4 (04:21→21:44)
[2017-02-02 06:37] LABS: BASO # 0.01 K/mm3 (0.0-2.0); BASO % 0.1 % (0.0-3.0); EOS # 0.2 (0.0-0.7); EOS % 2.4 % (1.5-5.0); GRAN # 6.29 (1.4-6.5); LYMPH # 2.2 (1.2-3.4); LYMPH % 23.4 % (22.0-35.0); MEAN CELL VOLUME 88.2 fL (80.0-105.0); MEAN CORPUSCULAR HEMOGLOBIN 29.2 pg (25.0-35.0); MEAN CORPUSCULAR HGB CONC 33.1 g/dl (31.0-37.0); MEAN PLATELET VOLUME 7.7 fl (7.0-11.0); MONO # 0.6 (0.1-0.6); MONO % 6.1 % (1.0-6.0); PLATELET COUNT 392 10^3/uL (120.0-450.0); RBC 2.71 10^6/uL (3.5-6.1); RED CELL DISTRIBUTION WIDTH 13.7 % (11.5-14.5); WHITE BLOOD COUNT 9.2 10^3/ul (4.5-11.0)
[2017-02-02 06:50] LABS: HEMOGLOBIN 7.9 gm/dL (14.0-18.0)
[2017-02-02 06:51] LABS: ALB/GLOB RATIO 0.6 (1.1-1.8); ALBUMIN 2.2 g/dL (3.0-4.8); ALT/SGPT 34 U/L (7-56); AST/SGOT 62 U/L (15-59); BLOOD UREA NITROGEN 19 mg/dL (7-21); CALCIUM 8.2 mg/dL (8.4-10.5); GFR AFRICAN-AMERICAN > 60; GFR NON-AFRICAN AMERICAN > 60
[2017-02-02] MEDS: Insulin Lispro 1 UNITS/0.01 ML SC SCH ×3 (08:29→17:17)
[2017-02-02] MEDS: Insulin Lispro (humaLOG) MEDIUM Coverage SC SCH ×4 (08:30→23:20)
[2017-02-02] MEDS: Ciprofloxacin 400mg/200ml D5W 400 MG/200 ML BAG IVPB SCH (10:11)
[2017-02-02] MEDS: Vancomycin 1gm in NS 250ml 1 GM/250 ML BAG IVPB SCH ×3 (10:13→23:21)
[2017-02-02] MEDS: Oxychlorosene Topical 2 gm Packet TOP SCH (10:43)
--- NOTE | 2017-02-02 10:48 | PN ---
SUBJECTIVE: A 51-year-old male, seen status post day #1 of left third, fourth and fifth digits amputation as well as metatarsal resection of the left third, fourth and fifth metatarsals. The patient reports minimal pain and has been afebrile. The patient states that he has much more back pain than foot pain. PHYSICAL EXAMINATION: VITAL SIGNS: Temperature of 98, pulse of 88, blood pressure of 130/70, respiratory rate of 20. LABORATORY FINDINGS: Reveal white count of 9.2, hemoglobin of 7.9, hematocrit of 23.9, platelet count of 392. Microbiology report from the operating room reveals no organisms primarily. Bone cultures are pending. OBJECTIVE: Left foot presents with amputated third, fourth and fifth digits as well as resections for the third, fourth and fifth metatarsals. There is noted to be no purulence. There is no malodor. There is serous drainage. The wound is now granular with no necrotic or gangrenous tissues present. The ulcerations that are present on the planter aspect and the lateral aspect of the foot showed no purulence or signs of tracking or abscess formation. There is still noted to be edema on the entire left lower extremity. ASSESSMENT: Status post day #1 left third, fourth and fifth digits amputation as well as left third, fourth and fifth metatarsals resections. PLAN: The patient was examined. His wound was cleansed with normal sterile saline and a dry sterile dressing was applied. The patient can be weight bearing with a surgical shoe. His wound appears primarily granular with NO impending ischemia noted. Dr. Quintero's note was read and appreciated. We will continue with IV antibiotics as per infectious disease. Discussed with the patient at length the need for long-term aggressive local wound care in effort to resolve his extensive left foot ulcerations and prevent lower leg amputation. He was told that he must be compliant with all doctors orders and refrain from alcohol and drug use in order to prevent lower limb loss. The patient will be seen and followed daily. Isac Phoenix DPM [facility]
--- NOTE | 2017-02-02 11:05 | CP.PCM.PN ---
<Garland Hood - Last Filed: 02/02/17 13:09> Subjective - Date & Time of Evaluation Date of Evaluation: 02/02/17 Time of Evaluation: 11:01 - Subjective Subjective: Patient s/e at bedside on GMF. No acute events overnight. The patient has no complaints at this time. Patient had surgery yesterday for further debridement and amputation of left foot due to osteomyelitis. Patient denies chest pain, shortness of breath, fever, nausea, vomiting, weakness, dizziness or elevated heart rate. Objective - Vital Signs/Intake and Output Vital Signs (last 24 hours): Temp Pulse Resp BP Pulse Ox 98 F 88 20 130/70 97 02/02/17 06:00 02/02/17 06:00 02/02/17 06:00 02/02/17 06:00 02/02/17 06:00 Intake and Output: 02/02/17 02/02/17 06:59 18:59 Intake Total 360 Output Total 500 Balance -140 - Medications Medications: Current Medications Acetaminophen (Tylenol 325mg Tab) 650 mg PO Q4 PRN PRN Reason: Pain, Mild (1-3) Last Admin: 01/29/17 18:31 Dose: 650 mg Hydromorphone HCl (Dilaudid) 1 mg IVP Q6H PRN PRN Reason: Pain, severe (8-10) Last Admin: 02/02/17 10:12 Dose: 1 mg Vancomycin HCl (Vancomycin 1gm) 1 gm in 250 mls @ 167 mls/hr IVPB Q12 [facility] Last Admin: 02/02/17 10:13 Dose: 167 mls/hr Ciprofloxacin (Cipro 400mg/200ml Dsw) 400 mg in 200 mls @ 133.3 mls/hr IVPB Q12 [facility] PRN Reason: Protocol Last Admin: 02/02/17 10:11 Dose: 133.3 mls/hr Insulin Detemir (Levemir) 28 unit SC HS [facility] Insulin Human Lispro (Humalog) 8 units SC AC [facility] Last Admin: 02/02/17 08:29 Dose: 8 units Insulin Human Lispro (Humalog Med) 0 units SC ACHS [facility] PRN Reason: Protocol Last Admin: 02/02/17 08:30 Dose: 3 units Ketorolac Tromethamine (Toradol) 30 mg IVP Q6 PRN PRN Reason: Pain, moderate (4-7) Stop: 02/06/17 16:23 Last Admin: 02/02/17 03:34 Dose: 30 mg Ondansetron HCl (Zofran Inj) 4 mg IVP ONCE PRN PRN Reason: Nausea/Vomiting Oxychlorosene Sodium (Clorpactin Wcs-90) 2 gm TOP DAILY [facility] Last Admin: 02/02/17 10:43 Dose: Not Given Phenytoin Sodium (Dilantin) 100 mg PO TID [facility] Last Admin: 02/02/17 10:12 Dose: 100 mg - Labs Labs: 02/02/17 06:00 02/02/17 06:00 PT 11.0 Seconds (9.9-11.8) 01/26/17 15:20 INR 1.02 (0.93-1.08) 01/26/17 15:20 APTT 29.2 Seconds (23.7-30.8) 01/26/17 15:20 - Head Exam Head Exam: ATRAUMATIC, NORMAL INSPECTION - Eye Exam Eye Exam: EOMI, PERRL - ENT Exam ENT Exam: Mucous Membranes Moist, Normal Exam - Neck Exam Neck Exam: Full ROM - Respiratory Exam Respiratory Exam: Clear to Ausculation Bilateral, NORMAL BREATHING PATTERN - Cardiovascular Exam Cardiovascular Exam: REGULAR RHYTHM, +S1, +S2 - GI/Abdominal Exam GI & Abdominal Exam: Soft, Normal Bowel Sounds - Extremities Exam Additional comments: Left lower leg wrapped and dressed that is clean dry and intact - Neurological Exam Neurological Exam: Alert, Awake, CN II-XII Intact, Oriented x3 Neuro motor strength exam: Left Upper Extremity: 5, Right Upper Extremity: 5, Left Lower Extremity: 5, Right Lower Extremity: 5 - Psychiatric Exam Psychiatric exam: Normal Affect, Normal Mood - Skin Skin Exam: Dry, Warm Assessment and Plan - Assessment and Plan (Free Text) Assessment: Patient is a 51 year old male with past medical history significant for DM and poor compliance following L great to partial amputation 2 weeks prior to admission. He is being treated for LLE cellulitis with osteomyelitis. Plan: 1. LLE Cellulitis with left fifth metatarsal osteomyelitis - Patient underwent debridement and amputation of fifth, fourth, and third toes with podiatry, POD#1 - Patient is receiving IV vancomyocin and zosyn from PICC line as per ID recommendations - Pain control per podiatry - Control hyperglycemia, current regimen 25 levemir, 8 novolog 2. Seizure activity - stable - Patient with history of seizures being treated with Dilantin - Dilantin 100 mg TID 3. Acute Hyperglyemia with history of uncontrolled Diabetes Mellitus - Sliding scale moderate with Levemir and Novolog 4. Acute Anemia - stable - Today's Hb/HCT is 7.9/23.9 - Patient blood is type and screened - pRBC 1 unit 5. History of Hypertension - Follow closely; pt takes nothing at home 6. History of Asthma - Breathing treatment PRN 7. History of left foot osteomyelitis - Follow recs per podiatry: wounds flushed with clorpactin+saline solution, xerofrom, ABD and kerlix - Poor compliance with medication and DM control, educated patient on importance of both 8. GI/DVT PPHXS - Protonix/Heparin dispo: Pt has PICC line for continued IV antibiotics and will need placement for outpatient administration of IV abx PCP: Dr. Green Sayed <Arely Gonzalez - Last Filed: 02/02/17 16:47> Objective - Vital Signs/Intake and Output Vital Signs (last 24 hours): Temp Pulse Resp BP Pulse Ox 99 F 88 20 130/70 97 02/02/17 16:30 02/02/17 06:00 02/02/17 06:00 02/02/17 06:00 02/02/17 06:00 Intake and Output: 02/02/17 02/02/17 06:59 18:59 Intake Total 360 Output Total 500 Balance -140 - Medications Medications: Current Medications Acetaminophen (Tylenol 325mg Tab) 650 mg PO Q4 PRN PRN Reason: Pain, Mild (1-3) Last Admin: 02/02/17 16:30 Dose: 650 mg Hydromorphone HCl (Dilaudid) 1 mg IVP Q6H PRN PRN Reason: Pain, severe (8-10) Last Admin: 02/02/17 16:12 Dose: 1 mg Vancomycin HCl (Vancomycin 1gm) 1 gm in 250 mls @ 167 mls/hr IVPB Q12 [facility] Last Admin: 02/02/17 12:18 Dose: 167 mls/hr Ciprofloxacin (Cipro 400mg/200ml Dsw) 400 mg in 200 mls @ 133.3 mls/hr IVPB Q12 [facility] PRN Reason: Protocol Last Admin: 02/02/17 10:11 Dose: 133.3 mls/hr Insulin Detemir (Levemir) 28 unit SC HS [facility] Insulin Human Lispro (Humalog) 8 units SC AC [facility] Last Admin: 02/02/17 12:17 Dose: 8 units Insulin Human Lispro (Humalog Med) 0 units SC ACHS [facility] PRN Reason: Protocol Last Admin: 02/02/17 12:18 Dose: 1 units Ketorolac Tromethamine (Toradol) 30 mg IVP Q6 PRN PRN Reason: Pain, moderate (4-7) Stop: 02/06/17 16:23 Last Admin: 02/02/17 03:34 Dose: 30 mg Ondansetron HCl (Zofran Inj) 4 mg IVP ONCE PRN PRN Reason: Nausea/Vomiting Oxychlorosene Sodium (Clorpactin Wcs-90) 2 gm TOP DAILY [facility] Last Admin: 02/02/17 10:43 Dose: Not Given Phenytoin Sodium (Dilantin) 100 mg PO TID [facility] Last Admin: 02/02/17 13:39 Dose: 100 mg - Labs Labs: 02/02/17 06:00 02/02/17 06:00 PT 11.0 Seconds (9.9-11.8) 01/26/17 15:20 INR 1.02 (0.93-1.08) 01/26/17 15:20 APTT 29.2 Seconds (23.7-30.8) 01/26/17 15:20 Attending/Attestation - Attestation I have personally seen and examined this patient.: Yes I have fully participated in the care of the patient.: Yes I have reviewed all pertinent clinical information, including history, physical exam and plan: Yes Notes (Text): 02/02/17 16:46 attending note; Patient seen and examined with resident. Patient is a 51 Year old male with PMH of drug abuse, DM and Diabetic foot infection, s/p incision & drainage with debridement left foot abscess. wound cultures growing MRSA, Enterococuc and proteus mirabilis on IV antibiotics Vancomycin and cipro. Blood cultures are negative so far. Diabetes:Patient blood sugars are improving. continue Levemir. s/p PICC line placement. Status post debridement and toe amputation. Continue dressing change per podiatry. POD#1. Patient had significant amount of bleeding during OR. transfuse 1 unit PRBC today. Case discussed with watch case polisher for discharge planning. Prognosis is poor due to non compliance. strongly advised to follow-up with PMD of choice upon discharge.
--- NOTE | 2017-02-02 16:24 | CP.PCM.PN ---
Subjective - Date & Time of Evaluation Date of Evaluation: 02/02/17 Time of Evaluation: 14:45 - Subjective Subjective: Infectious Disease Follow Up: February 02, 2017 51 yo AA left AM from [facility] on 01/16/2017. Patient states that he sees Dr. Emili Carter for medical care but has not seen him in at least 6 months. He ran out of his diabetic medications at least 3 months ago. The patient is complaining of several weeks of pain to the left foot with significant swelling. He had a partial hallux amputation of the left foot on 01/16/2017 and then left [facility] AM that same day. Taken to OR by Dr. Benito for washout and tissue debridement. May need further debridement. Multi-organism growth in cultures including Proteus, Enterococcus, and MRSA. Patient is non-compliant with diabetes care with glucose levels up 400 and above. Nursing has had issues with the patient's friends and family searching the WOW machines. MRI was not done as patient was unwilling to be still in machine unless he got more pain meds and narcotics. This was also an issue at [facility] on his hospitalization about two weeks ago. A few nights ago, the patient had been found unresponsive and "twitching" by nursing. Rapid response was called on the patient. He was awake and alert when rapid response team arrived. Transferred to Telemetry floor where he has remained. He went to the OR yesterday for amputation of the 3rd, 4th, and 5th toes on the left foot as well as extensive debridement of the left foot. Objective - Vital Signs/Intake and Output Vital Signs (last 24 hours): Temp Pulse Resp BP Pulse Ox 98 F 88 20 130/70 97 02/02/17 06:00 02/02/17 06:00 02/02/17 06:00 02/02/17 06:00 02/02/17 06:00 Intake and Output: 02/02/17 02/02/17 06:59 18:59 Intake Total 360 Output Total 500 Balance -140 - Medications Medications: Current Medications Acetaminophen (Tylenol 325mg Tab) 650 mg PO Q4 PRN PRN Reason: Pain, Mild (1-3) Last Admin: 01/29/17 18:31 Dose: 650 mg Hydromorphone HCl (Dilaudid) 1 mg IVP Q6H PRN PRN Reason: Pain, severe (8-10) Last Admin: 02/02/17 10:12 Dose: 1 mg Vancomycin HCl (Vancomycin 1gm) 1 gm in 250 mls @ 167 mls/hr IVPB Q12 [facility] Last Admin: 02/02/17 12:18 Dose: 167 mls/hr Ciprofloxacin (Cipro 400mg/200ml Dsw) 400 mg in 200 mls @ 133.3 mls/hr IVPB Q12 [facility] PRN Reason: Protocol Last Admin: 02/02/17 10:11 Dose: 133.3 mls/hr Insulin Detemir (Levemir) 28 unit SC HS [facility] Insulin Human Lispro (Humalog) 8 units SC AC [facility] Last Admin: 02/02/17 12:17 Dose: 8 units Insulin Human Lispro (Humalog Med) 0 units SC ACHS [facility] PRN Reason: Protocol Last Admin: 02/02/17 12:18 Dose: 1 units Ketorolac Tromethamine (Toradol) 30 mg IVP Q6 PRN PRN Reason: Pain, moderate (4-7) Stop: 02/06/17 16:23 Last Admin: 02/02/17 03:34 Dose: 30 mg Ondansetron HCl (Zofran Inj) 4 mg IVP ONCE PRN PRN Reason: Nausea/Vomiting Oxychlorosene Sodium (Clorpactin Wcs-90) 2 gm TOP DAILY [facility] Last Admin: 02/02/17 10:43 Dose: Not Given Phenytoin Sodium (Dilantin) 100 mg PO TID [facility] Last Admin: 02/02/17 13:39 Dose: 100 mg - Labs Labs: 02/02/17 06:00 02/02/17 06:00 PT 11.0 Seconds (9.9-11.8) 01/26/17 15:20 INR 1.02 (0.93-1.08) 01/26/17 15:20 APTT 29.2 Seconds (23.7-30.8) 01/26/17 15:20 - Constitutional Appears: Non-toxic, No Acute Distress, Chronically Ill - Head Exam Head Exam: ATRAUMATIC, NORMOCEPHALIC - Eye Exam Eye Exam: EOMI, PERRL Pupil Exam: NORMAL ACCOMODATION, PERRL - ENT Exam ENT Exam: Mucous Membranes Moist, Normal External Ear Exam, TM's Normal Bilaterally - Neck Exam Neck Exam: Full ROM, Normal Inspection - Respiratory Exam Respiratory Exam: Clear to Ausculation Bilateral, NORMAL BREATHING PATTERN. absent: Rales, Rhonchi, Wheezes - Cardiovascular Exam Cardiovascular Exam: REGULAR RHYTHM, RRR, +S1, +S2 - GI/Abdominal Exam GI & Abdominal Exam: Soft, Normal Bowel Sounds. absent: Distended, Tenderness - Extremities Exam Additional comments: left foot heavily wrapped after amputation of the 3rd, 4th, and 5th digits. +2- 3 edema of the left foot. +2 edema of the right foot. - Neurological Exam Neurological Exam: Alert, Awake, CN II-XII Intact, Oriented x3 - Psychiatric Exam Psychiatric exam: Normal Affect, Normal Mood - Skin Additional comments: as per extremity exam Assessment and Plan - Assessment and Plan (Free Text) Assessment: 51 yo AA male with left foot osteomyelitis who had left foot partial hallux amputation performed at [facility] on 01/16/2017. The patient has a history of uncontrolled diabetes mellitus (has not taken his medications in at least 3 months), hypertension, and a heroin sniffing habit as well as EtOH abuse. The patient grew Proteus and Enterococcus on wound cultures at [facility]. Patient may have further infected bone and needs treatment for osteomyelitis. Further debridement performed in OR with Dr. Benito during this hospitalization. Cultures here are growing Proteus, Enterococcus, and gram positive cocci. The patient states that he understands he needs antibiotic treatment... however , he was agreeable at [facility] then walked out AMA. The patient will need 6 weeks of IV antibiotics at this point. Given entire history, the patient has osteomyelitis until proven otherwise of the left foot and ankle. Continue on antibiotics of Vancomycin and Cipro for treatment at this point. Supportive care. Went to OR yesterday for amputation of the left foot 3rd, 4th , and 5th toes as well as debridement of the left foot. Local wound care. Thank you for allowing me to participate in the care of the patient, we will follow with you.
--- NOTE | 2017-02-02 17:43 | OP ---
PROCEDURE DATE: 02/01/2017 PREOPERATIVE DIAGNOSES: 1. Left foot dry gangrene ischemia of third, fourth and fifth digits. 2. Left fifth metatarsal osteomyelitis, osteomyelitis of third and fourth metatarsal heads. 3. Left foot Mccartney grade III ulceration. POSTOPERATIVE DIAGNOSES: 1. Left foot dry gangrene ischemia of third, fourth and fifth digits. 2. Left fifth metatarsal osteomyelitis, osteomyelitis of third and fourth metatarsal heads. 3. Left foot Mccartney grade III ulceration. OPERATIONS PERFORMED: 1. Left foot third and fourth digital amputations with metatarsal head resections of accompanying metatarsals. 2. Left foot fifth ray resection. 3. Left foot wound debridement. PRIMARY SURGEON: JULIANA BarajasM. ASSISTANTS: Dr. Jessa Stevens, PGY2 and Dr. Rob Diego, PGY1. ANESTHESIOLOGIST: Dr. Russell. ANESTHESIA TYPE: IV sedation with local. INDICATIONS: The patient is a 51-year-old male with the above-stated diagnoses. The patient despite conservative management with antibiotics and prior incision and drainage, is now in need of advanced surgical intervention. The patient signed the surgical consent after careful explanation of risks, benefits, complications and other potential alternatives to the proposed surgical procedure. No guarantees were neither given nor implied. All questions were answered. The patient verbalizes understanding and wishes to proceed with the procedure. The patient's n.p.o. status was confirmed prior to bringing the patient to the operating room. PREPARATION: The patient was brought into the operating room and placed on the operating room table in a supine position. Once IV sedation was confirmed to have been achieved, the patient received a total of 30 mL of a 1:1 to 0.1 mixture of 0.5% Marcaine plain to 1% lidocaine plain to 8.4% sodium bicarbonate in a local block-type fashion at the level of the ankle joint. Once local anesthesia was confirmed to have been achieved, the foot was then prepped and draped in the usual sterile manner and the procedure began. PROCEDURE 1: Amputations of left foot third, fourth and fifth digits. Attention was then directed to the plantar sulcus of the third, fourth and fifth digits where a circumferential fish-mouth type incision was made beginning in the second interspace carried plantarly through the sulcus and terminating on the lateral border of the left foot using a #10 blade. No dorsal incision was carried down as there was no skin dorsally due to dorsal line ulceration. Incision was then deepened and carried through the three respective metatarsophalangeal joints using a #10 blade and once freed up fibrous, ligamentous and capsular attachments, the soft tissue and bone complex of the third, fourth and fifth digits was disarticulated from their respective metatarsophalangeal joints and passed from the operative field to be sent to Pathology. At this time, all bleeders were cauterized and ligated as needed. Care being taken to avoid all neurovascular structures. At this time, attention was then directed to the respective third, fourth and fifth metatarsal heads. Upon visual and clinical evaluation, severe osteomyelitis degradation of fifth metatarsal cartilaginous head and shaft was appreciated. Mild degeneration of third and fourth metatarsal head integrity was appreciated. At this time, an oscillating saw was introduced to the surgical field. Using #15 blade, third and fourth metatarsal heads were freed off their fibrous, ligamentous and capsular soft tissue envelope which were reflected proximally. Oscillating saw was then used and a beveled osteotomy with a longer dorsal shelf was made and the third and fourth metatarsal heads were both resected and passed from the operative field to be sent for Pathology individually. Hemostasis at this time was attempted using pressure with the saline-soaked lap sponge. PROCEDURE 2: Left foot fifth ray resection. Attention was then directed to the dorsal aspect of the lateral foot. Using a #10 blade, a dorsal longitudinal incision was made overlying the fifth metatarsal bone lateral to the extensor digitorum longus tendon and extended down through subcutaneous tissue layers using #15 blade. Care being taken to avoid all vital neurovascular structures. At this time, using a #15 blade, length of periosteum of metatarsal shaft was reflected and released of all its fibrous and ligamentous attachments to the level distal of the styloid process and the fifth metatarsal base. At this time, an oscillating sagittal saw was introduced through the operative field and a beveled cut was made midshaft of the fifth metatarsal with a longer dorsal cortical shelf left to aid with weightbearing and accommodation of plantar flap. Fifth metatarsal head specimen was then passed from the operative field to be sent to Pathology. At this time, evaluation of corticomedullary bone flap was appreciated. Secondary similar oriented cut was made using oscillating saw for further additional resection terminating distal to the styloid process and fifth metatarsal base where improved cortical bone quality was appreciated. Care was taken to ensure that peroneus brevis attachments were left intact in an attempt to maintain stability of musculature and ambulation attempts further in the future during the patient's rehabilitation. At this time, all nonviable soft tissue was excised from the surgical site and passed from the operative field. Again, all bleeders were cauterized and ligated as needed. PROCEDURE 3: Left foot wound debridement. At this time, attention was then directed to the prior two surgical sites and accompanying soft tissue envelope. Lateral margin which was freed after fifth metatarsal ray resection was debulked with care being taken to preserve vasculature of the lateral plantar arteries. At this time, flap placement adherence to fourth metatarsal was appreciated and noted to be under no tension. Attention was then directed to plantar fifth metatarsal ulceration and proximal lateral malleoli foot ulcerations. Wound bases were noted to measure 2.5 x 2.8 for proximal lateral malleoli ulceration and 2.5 x 2.1 for plantar fifth metatarsal/lateral foot ulceration. Using sharp excisional debridement, using #15 blade, fibrotic, necrotic bases were excised from both ulcerative beds and passed from the operative field to a layer of fresh bleeding subcutaneous tissue. At this time, it was appreciated that the distal plantar ulceration bed will communicate with plantar lateral aspect of fourth metatarsal. A full subcutaneous dissection occurs, so subcutaneous tissue layer bed left intact at the base of ulcer, which was again noted to be freely bleeding and granular. At this time, free lateral flap was then appreciated and again all nonviable soft tissue was removed and extensor and flexor tendons of third, fourth and fifth complexes were resected proximally. At this time, pulse lavage system was introduced and all exposed granular soft tissue was flushed with copious amounts of sterile saline. After all wound beds had been further excisionally sharp debrided including the dorsal wound bed, which measured 10.0 x 14.6. Using [employer]t excisional debridement system, fibrotic tissues and nonviable tissues were excised using the above-stated system until healthy granular bleeding subcutaneous tissue was appreciated throughout the entire soft tissue envelope. Once wound sites were then copiously flushed and excisionally debrided to satisfaction, lateral flap was approximated on to lateral surface of remaining fourth metatarsal envelope and adhered using 2-0 Vicryl in a simple suture type fashion under no tension. Final wound base of exposed subcutaneous tissue layers for left foot measures at the dorsal anterior aspect 12.1 x 11.2 cm. Proximal lateral malleoli wound measures 2.5 x 2.8 x 1.1 cm. Distal lateral wound measures 2.5 x 2 x 0.5 cm. Wound sites were then dressed with Betadine-soaked Adaptic, dressed with 4x4 gauze, ABD pads, Kerlix and loosely adhered Coban and stockinette. POSTOPERATIVE CONDITION: The patient tolerated the anesthesia and procedure well with no complications, no complaints. The patient was escorted to the recovery room with vital signs stable and neurovascular status intact to the left foot. The patient will continue to be followed while admitted in-house at [facility]. Jessa Stevens DPM [id number]
[2017-02-02] MEDS: Insulin Detemir 100 units/ml Vial (Levemir) SC SCH (23:19)
[2017-02-03] MEDS: Ciprofloxacin 400mg/200ml D5W 400 MG/200 ML BAG IVPB SCH ×3 (01:14→21:43)
[2017-02-03] MEDS: HYDROmorphone 1 mg/ml ISec IVP PRN ×4 (02:45→19:50)
[2017-02-03] MEDS: Insulin Lispro (humaLOG) MEDIUM Coverage SC SCH ×4 (08:49→21:41)
[2017-02-03] MEDS: Insulin Lispro 1 UNITS/0.01 ML SC SCH ×3 (08:54→16:43)
[2017-02-03 09:36] LABS: BASO # 0.02 K/mm3 (0.0-2.0); BASO % 0.2 % (0.0-3.0); EOS # 0.2 (0.0-0.7); EOS % 2.6 % (1.5-5.0); GRAN # 6.76 (1.4-6.5); GRAN % 72.2 % (50.0-68.0); HEMOGLOBIN 8.8 gm/dL (14.0-18.0); LYMPH # 1.9 (1.2-3.4); LYMPH % 20.4 % (22.0-35.0); MEAN CELL VOLUME 88.9 fL (80.0-105.0); MEAN CORPUSCULAR HEMOGLOBIN 28.9 pg (25.0-35.0); MEAN CORPUSCULAR HGB CONC 32.5 g/dl (31.0-37.0); MONO # 0.4 (0.1-0.6); MONO % 4.6 % (1.0-6.0); PLATELET COUNT 460 10^3/uL (120.0-450.0); RBC 3.05 10^6/uL (3.5-6.1); RED CELL DISTRIBUTION WIDTH 13.8 % (11.5-14.5); WHITE BLOOD COUNT 9.4 10^3/ul (4.5-11.0)
[2017-02-03 09:45] LABS: ALB/GLOB RATIO 0.7 (1.1-1.8); ALBUMIN 2.5 g/dL (3.0-4.8); ALT/SGPT 43 U/L (7-56); AST/SGOT 60 U/L (15-59); BLOOD UREA NITROGEN 19 mg/dL (7-21); CALCIUM 8.3 mg/dL (8.4-10.5); GFR AFRICAN-AMERICAN > 60; GFR NON-AFRICAN AMERICAN > 60
[2017-02-03] MEDS: Vancomycin 1gm in NS 250ml 1 GM/250 ML BAG IVPB SCH ×2 (11:25→23:00)
[2017-02-03] MEDS: Oxychlorosene Topical 2 gm Packet TOP SCH (13:00)
--- NOTE | 2017-02-03 15:13 | CP.PCM.PN ---
Subjective - Date & Time of Evaluation Date of Evaluation: 02/03/17 Time of Evaluation: 14:45 - Subjective Subjective: Infectious Disease Follow Up: February 03, 2017 51 yo AA left AM from [facility] on 01/16/2017. Patient states that he sees Dr. Emili Carter for medical care but has not seen him in at least 6 months. He ran out of his diabetic medications at least 3 months ago. The patient is complaining of several weeks of pain to the left foot with significant swelling. He had a partial hallux amputation of the left foot on 01/16/2017 and then left [facility] AM that same day. Taken to OR by Dr. Benito for washout and tissue debridement. May need further debridement. Multi-organism growth in cultures including Proteus, Enterococcus, and MRSA. Patient is non-compliant with diabetes care with glucose levels up 400 and above. Nursing has had issues with the patient's friends and family searching the WOW machines. MRI was not done as patient was unwilling to be still in machine unless he got more pain meds and narcotics. This was also an issue at [facility] on his hospitalization about two weeks ago. A few nights ago, the patient had been found unresponsive and "twitching" by nursing. Rapid response was called on the patient. He was awake and alert when rapid response team arrived. Transferred to Telemetry floor where he has remained. He went to the OR Monday for amputation of the 3rd, 4th, and 5th toes on the left foot as well as extensive debridement of the left foot. Objective - Vital Signs/Intake and Output Vital Signs (last 24 hours): Temp Pulse Resp BP Pulse Ox 98.5 F 95 H 20 141/81 99 02/03/17 08:00 02/03/17 08:00 02/03/17 08:00 02/03/17 08:00 02/03/17 08:00 Intake and Output: 02/03/17 02/03/17 06:59 18:59 Intake Total 1105 960 Output Total 600 600 Balance 505 360 - Medications Medications: Current Medications Acetaminophen (Tylenol 325mg Tab) 650 mg PO Q4 PRN PRN Reason: Pain, Mild (1-3) Last Admin: 02/02/17 16:30 Dose: 650 mg Hydromorphone HCl (Dilaudid) 1 mg IVP Q6H PRN PRN Reason: Pain, severe (8-10) Last Admin: 02/03/17 13:50 Dose: 1 mg Vancomycin HCl (Vancomycin 1gm) 1 gm in 250 mls @ 167 mls/hr IVPB Q12 [facility] Last Admin: 02/03/17 11:25 Dose: 167 mls/hr Ciprofloxacin (Cipro 400mg/200ml Dsw) 400 mg in 200 mls @ 133.3 mls/hr IVPB Q12 [facility] PRN Reason: Protocol Last Admin: 02/03/17 09:25 Dose: 133.3 mls/hr Insulin Detemir (Levemir) 28 unit SC HS [facility] Last Admin: 02/02/17 23:19 Dose: 28 unit Insulin Human Lispro (Humalog) 8 units SC AC [facility] Last Admin: 02/03/17 11:59 Dose: 8 units Insulin Human Lispro (Humalog Med) 0 units SC ACHS [facility] PRN Reason: Protocol Last Admin: 02/03/17 11:59 Dose: 3 units Ketorolac Tromethamine (Toradol) 30 mg IVP Q6 PRN PRN Reason: Pain, moderate (4-7) Stop: 02/06/17 16:23 Last Admin: 02/03/17 04:24 Dose: 30 mg Ondansetron HCl (Zofran Inj) 4 mg IVP ONCE PRN PRN Reason: Nausea/Vomiting Oxychlorosene Sodium (Clorpactin Wcs-90) 2 gm TOP DAILY [facility] Last Admin: 02/03/17 13:00 Dose: Not Given Phenytoin Sodium (Dilantin) 100 mg PO TID [facility] Last Admin: 02/03/17 13:57 Dose: 100 mg - Labs Labs: 02/03/17 09:00 02/03/17 09:00 PT 11.0 Seconds (9.9-11.8) 01/26/17 15:20 INR 1.02 (0.93-1.08) 01/26/17 15:20 APTT 29.2 Seconds (23.7-30.8) 01/26/17 15:20 - Constitutional Appears: Non-toxic, No Acute Distress, Chronically Ill - Head Exam Head Exam: ATRAUMATIC, NORMOCEPHALIC - Eye Exam Eye Exam: EOMI, PERRL Pupil Exam: NORMAL ACCOMODATION, PERRL - ENT Exam ENT Exam: Mucous Membranes Moist, Normal External Ear Exam, TM's Normal Bilaterally - Neck Exam Neck Exam: Full ROM, Normal Inspection - Respiratory Exam Respiratory Exam: Clear to Ausculation Bilateral, NORMAL BREATHING PATTERN. absent: Rales, Rhonchi, Wheezes - Cardiovascular Exam Cardiovascular Exam: REGULAR RHYTHM, RRR, +S1, +S2 - GI/Abdominal Exam GI & Abdominal Exam: Soft, Normal Bowel Sounds. absent: Distended, Tenderness - Extremities Exam Additional comments: left foot heavily wrapped after amputation of the 3rd, 4th, and 5th digits. +2- 3 edema of the left foot. +2 edema of the right foot. - Neurological Exam Neurological Exam: Alert, Awake, CN II-XII Intact, Oriented x3 - Psychiatric Exam Psychiatric exam: Normal Affect, Normal Mood Assessment and Plan - Assessment and Plan (Free Text) Assessment: 51 yo AA male with left foot osteomyelitis who had left foot partial hallux amputation performed at [facility] on 01/16/2017. The patient has a history of uncontrolled diabetes mellitus (has not taken his medications in at least 3 months), hypertension, and a heroin sniffing habit as well as EtOH abuse. The patient grew Proteus and Enterococcus on wound cultures at [facility]. Patient may have further infected bone and needs treatment for osteomyelitis. Further debridement performed in OR with Dr. Benito during this hospitalization. Cultures here are growing Proteus, Enterococcus, and gram positive cocci. The patient states that he understands he needs antibiotic treatment... however , he was agreeable at [facility] then walked out AMA. The patient will need 6 weeks of IV antibiotics at this point. Given entire history, the patient has osteomyelitis until proven otherwise of the left foot and ankle. Continue on antibiotics of Vancomycin and Cipro for treatment at this point. Supportive care. Went to OR for amputation of the left foot 3rd, 4th, and 5th toes as well as debridement of the left foot. Local wound care. Thank you for allowing me to participate in the care of the patient, we will follow with you.
--- NOTE | 2017-02-03 16:51 | CP.PCM.PN ---
<Libiajose luisGarland - Last Filed: 02/03/17 16:48> Subjective - Date & Time of Evaluation Date of Evaluation: 02/03/17 Time of Evaluation: 07:00 - Subjective Subjective: Patient s/e in AM on GMF. No acute events overnight. The patient complains of back pain. He acknowledges it is due to him laying in bed. He continues to receive IV antibiotics. Continued discussions on placement for IV antibiotic administration ongoing. Denies chest pain, shortness of breath, fever, nausea, vomiting, numbness in lower extremity. Objective - Vital Signs/Intake and Output Vital Signs (last 24 hours): Temp Pulse Resp BP Pulse Ox 98.5 F 95 H 20 141/81 99 02/03/17 08:00 02/03/17 08:00 02/03/17 08:00 02/03/17 08:00 02/03/17 08:00 Intake and Output: 02/03/17 02/03/17 06:59 18:59 Intake Total 1105 960 Output Total 600 600 Balance 505 360 - Medications Medications: Current Medications Acetaminophen (Tylenol 325mg Tab) 650 mg PO Q4 PRN PRN Reason: Pain, Mild (1-3) Last Admin: 02/02/17 16:30 Dose: 650 mg Hydromorphone HCl (Dilaudid) 1 mg IVP Q6H PRN PRN Reason: Pain, severe (8-10) Last Admin: 02/03/17 13:50 Dose: 1 mg Vancomycin HCl (Vancomycin 1gm) 1 gm in 250 mls @ 167 mls/hr IVPB Q12 [facility] Last Admin: 02/03/17 11:25 Dose: 167 mls/hr Ciprofloxacin (Cipro 400mg/200ml Dsw) 400 mg in 200 mls @ 133.3 mls/hr IVPB Q12 [facility] PRN Reason: Protocol Last Admin: 02/03/17 09:25 Dose: 133.3 mls/hr Insulin Detemir (Levemir) 28 unit SC HS [facility] Last Admin: 02/02/17 23:19 Dose: 28 unit Insulin Human Lispro (Humalog) 8 units SC AC [facility] Last Admin: 02/03/17 16:43 Dose: 8 units Insulin Human Lispro (Humalog Med) 0 units SC ACHS [facility] PRN Reason: Protocol Last Admin: 02/03/17 16:41 Dose: Not Given Ketorolac Tromethamine (Toradol) 30 mg IVP Q6 PRN PRN Reason: Pain, moderate (4-7) Stop: 02/06/17 16:23 Last Admin: 02/03/17 04:24 Dose: 30 mg Ondansetron HCl (Zofran Inj) 4 mg IVP ONCE PRN PRN Reason: Nausea/Vomiting Oxychlorosene Sodium (Clorpactin Wcs-90) 2 gm TOP DAILY [facility] Last Admin: 02/03/17 13:00 Dose: Not Given Phenytoin Sodium (Dilantin) 100 mg PO TID [facility] Last Admin: 02/03/17 13:57 Dose: 100 mg - Labs Labs: 02/03/17 09:00 02/03/17 09:00 PT 11.0 Seconds (9.9-11.8) 01/26/17 15:20 INR 1.02 (0.93-1.08) 01/26/17 15:20 APTT 29.2 Seconds (23.7-30.8) 01/26/17 15:20 - Head Exam Head Exam: ATRAUMATIC, NORMAL INSPECTION, NORMOCEPHALIC - Eye Exam Eye Exam: EOMI, PERRL - ENT Exam ENT Exam: Mucous Membranes Moist, Normal Exam - Neck Exam Neck Exam: Full ROM, Normal Inspection - Respiratory Exam Respiratory Exam: Clear to Ausculation Bilateral, NORMAL BREATHING PATTERN - Cardiovascular Exam Cardiovascular Exam: REGULAR RHYTHM, +S1, +S2 - GI/Abdominal Exam GI & Abdominal Exam: Soft, Normal Bowel Sounds - Extremities Exam Extremities Exam: Full ROM, Normal Capillary Refill. absent: Calf Tenderness Additional comments: left lower extremity wrapped and bandaged with dressings at left foot c/d/i - Neurological Exam Neurological Exam: Alert, Awake, CN II-XII Intact, Oriented x3 Neuro motor strength exam: Left Upper Extremity: 5, Right Upper Extremity: 5, Left Lower Extremity: 5, Right Lower Extremity: 5 - Psychiatric Exam Psychiatric exam: Normal Affect, Normal Mood - Skin Skin Exam: Dry, Normal Color, Warm Assessment and Plan - Assessment and Plan (Free Text) Assessment: Patient is a 51 year old male with past medical history significant for DM and poor compliance following L great to partial amputation 2 weeks prior to admission. He is being treated for LLE cellulitis with osteomyelitis. Plan: 1. LLE Cellulitis with left fifth metatarsal osteomyelitis - Patient underwent debridement and amputation of fifth, fourth, and third toes with podiatry, POD#2 - Patient is receiving IV vancomyocin and zosyn per ID rec - Control hyperglycemia, current regimen 25 levemir, 8 novolog 2. Seizure activity - stable - Dilantin 100 mg TID 3. Acute Hyperglyemia with history of uncontrolled Diabetes Mellitus - Sliding scale moderate with Levemir and Novolog 4. Acute Anemia - stable - Today's Hb/HCT is 8.8/27.1 5. History of Hypertension - Follow closely; pt takes nothing at home 6. History of Asthma - Breathing treatment PRN 7. History of left foot osteomyelitis - Follow recs per podiatry: wounds flushed with clorpactin+saline solution, xerofrom, ABD and kerlix - Poor compliance with medication and DM control, educated patient on importance of both 8. GI/DVT PPHXS - Protonix/Heparin dispo: Placement proving to be challenge at this time. Patient will continue to receive IV abx <Kael RENTERIA,Zoraidageorgedorothy - Last Filed: 02/03/17 17:36> Objective - Vital Signs/Intake and Output Vital Signs (last 24 hours): Temp Pulse Resp BP Pulse Ox 98.5 F 95 H 20 141/81 99 02/03/17 08:00 02/03/17 08:00 02/03/17 08:00 02/03/17 08:00 02/03/17 08:00 Intake and Output: 02/03/17 02/03/17 06:59 18:59 Intake Total 1105 960 Output Total 600 600 Balance 505 360 - Medications Medications: Current Medications Acetaminophen (Tylenol 325mg Tab) 650 mg PO Q4 PRN PRN Reason: Pain, Mild (1-3) Last Admin: 02/02/17 16:30 Dose: 650 mg Hydromorphone HCl (Dilaudid) 1 mg IVP Q6H PRN PRN Reason: Pain, severe (8-10) Last Admin: 02/03/17 13:50 Dose: 1 mg Vancomycin HCl (Vancomycin 1gm) 1 gm in 250 mls @ 167 mls/hr IVPB Q12 [facility] Last Admin: 02/03/17 11:25 Dose: 167 mls/hr Ciprofloxacin (Cipro 400mg/200ml Dsw) 400 mg in 200 mls @ 133.3 mls/hr IVPB Q12 [facility] PRN Reason: Protocol Last Admin: 02/03/17 09:25 Dose: 133.3 mls/hr Insulin Detemir (Levemir) 28 unit SC HS [facility] Last Admin: 02/02/17 23:19 Dose: 28 unit Insulin Human Lispro (Humalog) 8 units SC AC [facility] Last Admin: 02/03/17 16:43 Dose: 8 units Insulin Human Lispro (Humalog Med) 0 units SC ACHS [facility] PRN Reason: Protocol Last Admin: 02/03/17 16:41 Dose: Not Given Ketorolac Tromethamine (Toradol) 30 mg IVP Q6 PRN PRN Reason: Pain, moderate (4-7) Stop: 02/06/17 16:23 Last Admin: 02/03/17 04:24 Dose: 30 mg Ondansetron HCl (Zofran Inj) 4 mg IVP ONCE PRN PRN Reason: Nausea/Vomiting Oxychlorosene Sodium (Clorpactin Wcs-90) 2 gm TOP DAILY [facility] Last Admin: 02/03/17 13:00 Dose: Not Given Phenytoin Sodium (Dilantin) 100 mg PO TID [facility] Last Admin: 02/03/17 13:57 Dose: 100 mg - Labs Labs: 02/03/17 09:00 02/03/17 09:00 PT 11.0 Seconds (9.9-11.8) 01/26/17 15:20 INR 1.02 (0.93-1.08) 01/26/17 15:20 APTT 29.2 Seconds (23.7-30.8) 01/26/17 15:20 Attending/Attestation - Attestation I have personally seen and examined this patient.: Yes I have fully participated in the care of the patient.: Yes I have reviewed all pertinent clinical information, including history, physical exam and plan: Yes Notes (Text): 02/03/17 17:35 Patient was seen and examined with medical billing representative. 51 Yrs old male with PMH of drug abuse, DM and Diabetic foot infection, he is s/ p incision & drainage with debridement of left foot abscess. wound cultures growing MRSA, Enterococuc and proteus mirabilis was initially on IV antibiotics Vancomycin and Zosyn as per ID, Blood cultures are negative for any growth.Patient blood sugars are improving.MRI of foot shows osteomyelitis of 5th Metatarsal, had repeat I/D on February 01 by PodiatryDrChantelle , Patient is currently on Vancomycin and ciprofloxacin, he will need total 6 weeks of antibiotics as per ID.He is awaiting for placement. Management plan was discussed in detail with the patient. Prognosis is guarded.
--- NOTE | 2017-02-03 20:02 | PN ---
DATE: 02/03/2017 SUBJECTIVE: A 51-year-old diabetic male seen at bedside status post day 2 of left third and fourth and fifth digit amputations as well as metatarsal resections of the left third, fourth, and fifth metatarsals secondary to gangrene and osteomyelitis. Once again the patient reports no pain in his foot most probably from his neuropathic state, yet reports severe pain in his back. PHYSICAL EXAMINATION: VITAL SIGNS: Temperature of 98.6, pulse rate of 100, blood pressure 137/78, respiratory rate of 20. EXTREMITIES: Palpable dorsalis pedis pulse on the left lower extremity, left foot presents with amputated third, fourth, and fifth digits as well as metatarsal resections on the third, fourth, and fifth metatarsals. The wound has shown increased granulation tissue. Since yesterday, there is noted to be a heavy amount of serous drainage only. There is no purulence. There is no malodor. The area is void of necrotic or gangrenous tissue. The plantar and lateral full thickness ulcerations are starting to show signs of increased granulation. There is still noted edema of the entire left lower extremity. LABORATORY DATA: Reveals white count of 9.4, hemoglobin of 8.8, hematocrit of 27.1, platelet of 460. Culture taken in the OR reveals gram positive cocci growth. ASSESSMENT: Status post day two left third, fourth, and fifth digit amputations as well as metatarsal resections of the left third and fourth metatarsal secondary to gangrene and osteomyelitis. PLAN: The patient's wound was cleansed with normal sterile saline, sterile Adaptic and a dry sterile dressing was applied to the foot. There was noted to be no gangrenous changes and wound is granulating in nicely since the operation. We are awaiting pathology report of the resected proximal sections of the metatarsal bone. Once the report is in, we can determine if he will need four to six weeks of IV antibiotics or if the margins are void of osteomyelitic activity, he can undergone po antibiotics as per infectious disease. He will continue to change the dressing daily. He was encouraged to ambulate with a surgical shoe as tolerated. Isac Phoenix DPM [facility] # [id number] MTDShruthi
[2017-02-03] MEDS: Insulin Detemir 100 units/ml Vial (Levemir) SC SCH (21:46)
[2017-02-04] MEDS: HYDROmorphone 1 mg/ml ISec IVP PRN ×5 (01:05→19:08)
[2017-02-04] MEDS: Insulin Lispro (humaLOG) MEDIUM Coverage SC SCH ×4 (09:00→21:11)
[2017-02-04] MEDS: Insulin Lispro 1 UNITS/0.01 ML SC SCH ×3 (09:09→17:05)
[2017-02-04] MEDS: Ciprofloxacin 400mg/200ml D5W 400 MG/200 ML BAG IVPB SCH ×2 (09:10→21:02)
--- NOTE | 2017-02-04 12:08 | CP.PCM.PN ---
<Gonzalez Hoodophe - Last Filed: 02/04/17 12:04> Subjective - Date & Time of Evaluation Date of Evaluation: 02/04/17 Time of Evaluation: 12:04 - Subjective Subjective: Patient is s/e on GMF this AM. No acute events overnight. Past 24 hours SW have attempted to find placement for patient but meeting challenges. He continues to be admitted for administration of IV antibiotics. Patient admits to improved symptoms of his lower extremity. He denies chest pain, fever, shortness of breath, weakness or numbness in his extremities. He has been able to tolerate ambulation during his stay. Objective - Vital Signs/Intake and Output Vital Signs (last 24 hours): Temp Pulse Resp BP Pulse Ox 98 F 50 L 20 137/78 97 02/04/17 08:21 02/04/17 08:21 02/04/17 08:21 02/03/17 16:00 02/04/17 08:21 Intake and Output: 02/04/17 02/04/17 06:59 18:59 Intake Total 1182 Output Total 2000 Balance -818 - Medications Medications: Current Medications Acetaminophen (Tylenol 325mg Tab) 650 mg PO Q4 PRN PRN Reason: Pain, Mild (1-3) Last Admin: 02/02/17 16:30 Dose: 650 mg Hydromorphone HCl (Dilaudid) 1 mg IVP Q6H PRN PRN Reason: Pain, severe (8-10) Last Admin: 02/04/17 06:45 Dose: 1 mg Vancomycin HCl (Vancomycin 1gm) 1 gm in 250 mls @ 167 mls/hr IVPB Q12 [facility] Last Admin: 02/03/17 23:00 Dose: 167 mls/hr Ciprofloxacin (Cipro 400mg/200ml Dsw) 400 mg in 200 mls @ 133.3 mls/hr IVPB Q12 [facility] PRN Reason: Protocol Last Admin: 02/04/17 09:10 Dose: 133.3 mls/hr Insulin Detemir (Levemir) 28 unit SC HS [facility] Last Admin: 02/03/17 21:46 Dose: 28 unit Insulin Human Lispro (Humalog) 8 units SC AC [facility] Last Admin: 02/04/17 09:09 Dose: 8 units Insulin Human Lispro (Humalog Med) 0 units SC ACHS [facility] PRN Reason: Protocol Last Admin: 02/04/17 09:00 Dose: Not Given Ketorolac Tromethamine (Toradol) 30 mg IVP Q6 PRN PRN Reason: Pain, moderate (4-7) Stop: 02/06/17 16:23 Last Admin: 02/04/17 09:09 Dose: 30 mg Ondansetron HCl (Zofran Inj) 4 mg IVP ONCE PRN PRN Reason: Nausea/Vomiting Oxychlorosene Sodium (Clorpactin Wcs-90) 2 gm TOP DAILY [facility] Last Admin: 02/03/17 13:00 Dose: Not Given Phenytoin Sodium (Dilantin) 100 mg PO TID [facility] Last Admin: 02/04/17 09:10 Dose: 100 mg - Labs Labs: 02/03/17 09:00 02/03/17 09:00 PT 11.0 Seconds (9.9-11.8) 01/26/17 15:20 INR 1.02 (0.93-1.08) 01/26/17 15:20 APTT 29.2 Seconds (23.7-30.8) 01/26/17 15:20 - Head Exam Head Exam: ATRAUMATIC, NORMAL INSPECTION - Eye Exam Eye Exam: EOMI, PERRL - ENT Exam ENT Exam: Mucous Membranes Moist, Normal Exam - Neck Exam Neck Exam: Full ROM, Normal Inspection - Respiratory Exam Respiratory Exam: Clear to Ausculation Bilateral, NORMAL BREATHING PATTERN - Cardiovascular Exam Cardiovascular Exam: REGULAR RHYTHM, +S1, +S2 - GI/Abdominal Exam GI & Abdominal Exam: Soft, Normal Bowel Sounds - Extremities Exam Additional comments: left lower foot wrapped in sterile dressing noted to be c/d/i lower foot examined today during dressing change and noted to have granulation tissue and evidence of adequate healing - Neurological Exam Neurological Exam: Alert, Awake, Oriented x3 Neuro motor strength exam: Left Upper Extremity: 5, Right Upper Extremity: 5, Left Lower Extremity: 5, Right Lower Extremity: 5 - Psychiatric Exam Psychiatric exam: Normal Affect, Normal Mood - Skin Skin Exam: Dry, Warm Assessment and Plan - Assessment and Plan (Free Text) Assessment: Patient is a 51 year old male with past medical history significant for DM and poor compliance following L great to partial amputation 2 weeks prior to admission. He is being treated for LLE cellulitis with osteomyelitis. Plan: 1. LLE Cellulitis with left fifth metatarsal osteomyelitis - Debridement and amputation of fifth, fourth, and third toes with podiatry, POD #3 - Patient is receiving IV vancomyocin and zosyn and will for 6 weeks per ID rec - Control hyperglycemia, current regimen 25 levemir, 8 novolog - Podiatry following and managing wound care 2. Seizure activity - stable - Dilantin 100 mg TID 3. Acute Hyperglyemia with history of uncontrolled Diabetes Mellitus - Sliding scale moderate with Levemir and Novolog 4. GI/DVT PPHXS - Protonix/Heparin dispo: Placement proving to be challenge at this time. Patient will continue to receive IV abx <Arely Gonzalez - Last Filed: 02/04/17 16:07> Objective - Vital Signs/Intake and Output Vital Signs (last 24 hours): Temp Pulse Resp BP Pulse Ox 98 F 50 L 20 137/78 97 02/04/17 08:21 02/04/17 08:21 02/04/17 08:21 02/03/17 16:00 02/04/17 08:21 Intake and Output: 02/04/17 02/04/17 06:59 18:59 Intake Total 1182 960 Output Total 2000 700 Balance -818 260 - Medications Medications: Current Medications Acetaminophen (Tylenol 325mg Tab) 650 mg PO Q4 PRN PRN Reason: Pain, Mild (1-3) Last Admin: 02/02/17 16:30 Dose: 650 mg Hydromorphone HCl (Dilaudid) 1 mg IVP Q6H PRN PRN Reason: Pain, severe (8-10) Last Admin: 02/04/17 12:49 Dose: 1 mg Vancomycin HCl (Vancomycin 1gm) 1 gm in 250 mls @ 167 mls/hr IVPB Q12 [facility] Last Admin: 02/04/17 14:24 Dose: 167 mls/hr Ciprofloxacin (Cipro 400mg/200ml Dsw) 400 mg in 200 mls @ 133.3 mls/hr IVPB Q12 [facility] PRN Reason: Protocol Last Admin: 02/04/17 09:10 Dose: 133.3 mls/hr Insulin Detemir (Levemir) 28 unit SC HS [facility] Last Admin: 02/03/17 21:46 Dose: 28 unit Insulin Human Lispro (Humalog) 8 units SC AC [facility] Last Admin: 02/04/17 14:24 Dose: 8 units Insulin Human Lispro (Humalog Med) 0 units SC ACHS [facility] PRN Reason: Protocol Last Admin: 02/04/17 14:25 Dose: 7 units Ketorolac Tromethamine (Toradol) 30 mg IVP Q6 PRN PRN Reason: Pain, moderate (4-7) Stop: 02/06/17 16:23 Last Admin: 02/04/17 14:59 Dose: 30 mg Ondansetron HCl (Zofran Inj) 4 mg IVP ONCE PRN PRN Reason: Nausea/Vomiting Oxychlorosene Sodium (Clorpactin Wcs-90) 2 gm TOP DAILY [facility] Last Admin: 02/03/17 13:00 Dose: Not Given Phenytoin Sodium (Dilantin) 100 mg PO TID [facility] Last Admin: 02/04/17 14:24 Dose: 100 mg - Labs Labs: 02/03/17 09:00 02/03/17 09:00 PT 11.0 Seconds (9.9-11.8) 01/26/17 15:20 INR 1.02 (0.93-1.08) 01/26/17 15:20 APTT 29.2 Seconds (23.7-30.8) 01/26/17 15:20 Attending/Attestation - Attestation I have personally seen and examined this patient.: Yes I have fully participated in the care of the patient.: Yes I have reviewed all pertinent clinical information, including history, physical exam and plan: Yes Notes (Text): 02/04/17 16:05 attending note; Patient seen and examined with resident. Patient is a 51 Year old male with PMH of drug abuse, DM and Diabetic foot infection, s/p incision & drainage with debridement left foot abscess. wound cultures growing MRSA, Enterococuc and proteus mirabilis on IV antibiotics Vancomycin and cipro. Blood cultures are negative so far. Diabetes:Patient blood sugars are improving. continue Levemir. dosage increased. s/p PICC line placement. Status post debridement and toe amputation. Continue dressing change per podiatry. POD#3. hemoglobin is stable. Status post 1 unit PRBC transfusion. we'll follow up with social studies department chair for discharge planning. strongly advised to follow-up with PMD of choice upon discharge.
--- NOTE | 2017-02-04 14:02 | PN ---
SUBJECTIVE: A 51-year-old male seen at bedside status post day number 3 of left third, fourth and fifth digits amputations as well as metatarsal resections of the left third, fourth and fifth metatarsals secondary to gangrene and osteomyelitis. The patient is reporting no pain in his foot, once again has normal state, but he has back pain. PHYSICAL EXAMINATION: VITAL SIGNS: Revealed a temperature of 98, pulse rate of 50, blood pressure of 137/78, and respiratory rate of 20. EXTREMITIES: Palpable dorsalis pedis pulse noted on the left and nonpalpable posterior tibial pulse noted on the left secondary to edema. The patient presents with a full thickness ulceration that encompasses 75% to 85% of the dorsal aspect of his foot. There are noted to be two further ulcerations on the lateral aspect of his ankle and submetatarsal head 5 plantarly. All of the areas remained primarily granular, there is no necrotic or gangrenous tissue, there is no malodor, there is no purulence, and there is no underlying abscess formation noted. There is no bone exposed. There is still noted edema of the entire left lower extremity. LABORATORY DATA: Findings revealed white count of 9.4, hemoglobin of 8.8, hematocrit of 27, and platelet of 460. Operative room culture reveals the presence of Streptococcus viridans. We are awaiting pathology report to ascertain whether all the osteomyelitis has been eradicated, which will determine, if he can be discharged on p.o. antibiotics ore need rat exterminator of 4 to 6 weeks of IV antibiotics. ASSESSMENT: Status post day number 3, left third, fourth, and fifth digit amputations as well as metatarsal resections of the left third fourth and fifth metatarsal secondary to gangrene and osteomyelitis. PLAN: The patient's wound was cleansed with normal sterile saline, sterile Adaptic and a dry sterile dressing was applied to the foot. The patient's wound has been granulating in remarkably well since his surgery three days ago. We are awaiting pathology report to ascertain whether all of the osteomyelitis has been eradicated. However, given the clinical presentation on his initial wounds and what was event during his surgery, I would plan on four to six weeks of IV antibiotics at the subacute facility. Infectious Disease note which read and appreciated, we will await pathology for determining factors of discharge. Isac Phoenix DPM [facility] # [id number]
[2017-02-04] MEDS: Vancomycin 1gm in NS 250ml 1 GM/250 ML BAG IVPB SCH ×2 (14:24→22:51)
--- NOTE | 2017-02-04 17:04 | CP.PCM.PN ---
Subjective - Date & Time of Evaluation Date of Evaluation: 02/04/17 Time of Evaluation: 15:30 - Subjective Subjective: Infectious Disease Follow Up: February 04, 2017 51 yo AA left AM from [facility] on 01/16/2017. Patient states that he sees Dr. Emili Carter for medical care but has not seen him in at least 6 months. He ran out of his diabetic medications at least 3 months ago. The patient is complaining of several weeks of pain to the left foot with significant swelling. He had a partial hallux amputation of the left foot on 01/16/[address] [facility] AM that same day. Taken to OR by Dr. Benito for washout and tissue debridement. May need further debridement. Multi-organism growth in cultures including Proteus, Enterococcus, and MRSA. Patient is non-compliant with diabetes care with glucose levels up 400 and above. Nursing has had issues with the patient's friends and family searching the WOW machines. MRI was not done as patient was unwilling to be still in machine unless he got more pain meds and narcotics. This was also an issue at [facility] on his hospitalization about two weeks ago. A few nights ago, the patient had been found unresponsive and "twitching" by nursing. Rapid response was called on the patient. He was awake and alert when rapid response team arrived. Transferred to Telemetry floor where he has remained. He went to the OR Monday for amputation of the 3rd, 4th, and 5th toes on the left foot as well as extensive debridement of the left foot. He has been ambulating but I believe podiatry wanted him off the foot. Objective - Vital Signs/Intake and Output Vital Signs (last 24 hours): Temp Pulse Resp BP Pulse Ox 98 F 50 L 20 137/78 97 02/04/17 08:21 02/04/17 08:21 02/04/17 08:21 02/03/17 16:00 02/04/17 08:21 Intake and Output: 02/04/17 02/04/17 06:59 18:59 Intake Total 1182 960 Output Total 2000 700 Balance -818 260 - Medications Medications: Current Medications Acetaminophen (Tylenol 325mg Tab) 650 mg PO Q4 PRN PRN Reason: Pain, Mild (1-3) Last Admin: 02/02/17 16:30 Dose: 650 mg Hydromorphone HCl (Dilaudid) 1 mg IVP Q6H PRN PRN Reason: Pain, severe (8-10) Last Admin: 02/04/17 12:49 Dose: 1 mg Vancomycin HCl (Vancomycin 1gm) 1 gm in 250 mls @ 167 mls/hr IVPB Q12 [facility] Last Admin: 02/04/17 14:24 Dose: 167 mls/hr Ciprofloxacin (Cipro 400mg/200ml Dsw) 400 mg in 200 mls @ 133.3 mls/hr IVPB Q12 [facility] PRN Reason: Protocol Last Admin: 02/04/17 09:10 Dose: 133.3 mls/hr Insulin Detemir (Levemir) 35 unit SC HS [facility] Insulin Human Lispro (Humalog) 8 units SC AC [facility] Last Admin: 02/04/17 14:24 Dose: 8 units Insulin Human Lispro (Humalog Med) 0 units SC ACHS [facility] PRN Reason: Protocol Last Admin: 02/04/17 14:25 Dose: 7 units Ketorolac Tromethamine (Toradol) 30 mg IVP Q6 PRN PRN Reason: Pain, moderate (4-7) Stop: 02/06/17 16:23 Last Admin: 02/04/17 14:59 Dose: 30 mg Ondansetron HCl (Zofran Inj) 4 mg IVP ONCE PRN PRN Reason: Nausea/Vomiting Oxychlorosene Sodium (Clorpactin Wcs-90) 2 gm TOP DAILY [facility] Last Admin: 02/03/17 13:00 Dose: Not Given Phenytoin Sodium (Dilantin) 100 mg PO TID [facility] Last Admin: 02/04/17 14:24 Dose: 100 mg - Labs Labs: 02/03/17 09:00 02/03/17 09:00 PT 11.0 Seconds (9.9-11.8) 01/26/17 15:20 INR 1.02 (0.93-1.08) 01/26/17 15:20 APTT 29.2 Seconds (23.7-30.8) 01/26/17 15:20 - Constitutional Appears: Non-toxic, No Acute Distress, Chronically Ill - Head Exam Head Exam: ATRAUMATIC, NORMOCEPHALIC - Eye Exam Eye Exam: EOMI, PERRL Pupil Exam: NORMAL ACCOMODATION, PERRL - ENT Exam ENT Exam: Mucous Membranes Moist, Normal External Ear Exam - Neck Exam Neck Exam: Full ROM, Normal Inspection - Respiratory Exam Respiratory Exam: Clear to Ausculation Bilateral, NORMAL BREATHING PATTERN. absent: Rales, Rhonchi, Wheezes - Cardiovascular Exam Cardiovascular Exam: REGULAR RHYTHM, RRR, +S1, +S2 - GI/Abdominal Exam GI & Abdominal Exam: Soft, Normal Bowel Sounds. absent: Distended, Tenderness - Extremities Exam Additional comments: left foot heavily wrapped after amputation of the 3rd, 4th, and 5th digits. +2- 3 edema of the left foot. +2 edema of the right foot. - Neurological Exam Neurological Exam: Alert, Awake, CN II-XII Intact, Oriented x3 - Psychiatric Exam Psychiatric exam: Normal Affect, Normal Mood - Skin Skin Exam: Intact, Normal Color Assessment and Plan - Assessment and Plan (Free Text) Assessment: 51 yo AA male with left foot osteomyelitis who had left foot partial hallux amputation performed at [facility] on 01/16/2017. The patient has a history of uncontrolled diabetes mellitus (has not taken his medications in at least 3 months), hypertension, and a heroin sniffing habit as well as EtOH abuse. The patient grew Proteus and Enterococcus on wound cultures at [facility]. Patient may have further infected bone and needs treatment for osteomyelitis. Further debridement performed in OR with Dr. Benito during this hospitalization. Cultures here are growing Proteus, Enterococcus, and gram positive cocci. The patient states that he understands he needs antibiotic treatment... however , he was agreeable at [facility] then walked out AMA. The patient will need 6 weeks of IV antibiotics at this point. Given entire history, the patient has osteomyelitis until proven otherwise of the left foot and ankle. Continue on antibiotics of Vancomycin and Cipro for treatment at this point. Supportive care. Went to OR for amputation of the left foot 3rd, 4th, and 5th toes as well as debridement of the left foot. Local wound care. Thank you for allowing me to participate in the care of the patient, we will follow with you.
[2017-02-04] MEDS: Oxychlorosene Topical 2 gm Packet TOP SCH (17:40)
[2017-02-04] MEDS: Insulin Detemir 100 units/ml Vial (Levemir) SC SCH (21:10)
[2017-02-05] MEDS: HYDROmorphone 1 mg/ml ISec IVP PRN ×4 (00:35→18:34)
[2017-02-05] MEDS: Insulin Lispro 1 UNITS/0.01 ML SC SCH ×3 (08:30→17:14)
[2017-02-05] MEDS: Insulin Lispro (humaLOG) MEDIUM Coverage SC SCH ×4 (08:31→21:34)
[2017-02-05 08:54] VITALS: RESP 20
[2017-02-05] MEDS: Ciprofloxacin 400mg/200ml D5W 400 MG/200 ML BAG IVPB SCH ×2 (09:38→21:32)
[2017-02-05] MEDS: Oxychlorosene Topical 2 gm Packet TOP SCH ×2 (09:38→12:35)
[2017-02-05] MEDS: Vancomycin 1gm in NS 250ml 1 GM/250 ML BAG IVPB SCH ×2 (12:17→22:50)
--- NOTE | 2017-02-05 13:52 | CP.PCM.PN ---
<Garland Hood - Last Filed: 02/05/17 17:17> Subjective - Date & Time of Evaluation Date of Evaluation: 02/05/17 Time of Evaluation: 13:49 - Subjective Subjective: Patient seen and examined this AM on [facility]. Patient noted to be resting comfortably in bed. No acute events overnight. Patient bg showing more control on current DM regiment. Patient denies chest pain, shortness of breath, fever, nausea, fever and vomiting. Patient continues to receive IV antibiotics for infection. Objective - Vital Signs/Intake and Output Vital Signs (last 24 hours): Temp Pulse Resp BP Pulse Ox 97.7 F 88 20 158/97 H 100 02/05/17 08:00 02/05/17 08:00 02/05/17 08:00 02/05/17 08:00 02/05/17 08:00 Intake and Output: 02/05/17 02/05/17 06:59 18:59 Intake Total 1000 Output Total 600 Balance 400 - Medications Medications: Current Medications Acetaminophen (Tylenol 325mg Tab) 650 mg PO Q4 PRN PRN Reason: Pain, Mild (1-3) Last Admin: 02/02/17 16:30 Dose: 650 mg Hydromorphone HCl (Dilaudid) 1 mg IVP Q6H PRN PRN Reason: Pain, severe (8-10) Last Admin: 02/05/17 12:19 Dose: 1 mg Vancomycin HCl (Vancomycin 1gm) 1 gm in 250 mls @ 167 mls/hr IVPB Q12 [facility] Last Admin: 02/05/17 12:17 Dose: 167 mls/hr Ciprofloxacin (Cipro 400mg/200ml Dsw) 400 mg in 200 mls @ 133.3 mls/hr IVPB Q12 [facility] PRN Reason: Protocol Last Admin: 02/05/17 09:38 Dose: 133.3 mls/hr Insulin Detemir (Levemir) 35 unit SC HS [facility] Last Admin: 02/04/17 21:10 Dose: 35 unit Insulin Human Lispro (Humalog) 8 units SC AC [facility] Last Admin: 02/05/17 12:18 Dose: 8 units Insulin Human Lispro (Humalog Med) 0 units SC ACHS [facility] PRN Reason: Protocol Last Admin: 02/05/17 12:19 Dose: 1 units Ketorolac Tromethamine (Toradol) 30 mg IVP Q6 PRN PRN Reason: Pain, moderate (4-7) Stop: 02/06/17 16:23 Last Admin: 02/05/17 09:36 Dose: 30 mg Ondansetron HCl (Zofran Inj) 4 mg IVP ONCE PRN PRN Reason: Nausea/Vomiting Oxychlorosene Sodium (Clorpactin Wcs-90) 2 gm TOP DAILY [facility] Last Admin: 02/05/17 12:35 Dose: Not Given Phenytoin Sodium (Dilantin) 100 mg PO TID [facility] Last Admin: 02/05/17 12:19 Dose: 100 mg - Labs Labs: 02/03/17 09:00 02/03/17 09:00 PT 11.0 Seconds (9.9-11.8) 01/26/17 15:20 INR 1.02 (0.93-1.08) 01/26/17 15:20 APTT 29.2 Seconds (23.7-30.8) 01/26/17 15:20 - Head Exam Head Exam: ATRAUMATIC, NORMAL INSPECTION, NORMOCEPHALIC - Eye Exam Eye Exam: EOMI, PERRL - ENT Exam ENT Exam: Mucous Membranes Moist, Normal Exam - Neck Exam Neck Exam: Full ROM - Respiratory Exam Respiratory Exam: Clear to Ausculation Bilateral, NORMAL BREATHING PATTERN - Cardiovascular Exam Cardiovascular Exam: REGULAR RHYTHM, +S1, +S2 - GI/Abdominal Exam GI & Abdominal Exam: Soft, Normal Bowel Sounds - Extremities Exam Extremities Exam: Full ROM Additional comments: left foot wrapped in david bandage with dressings intact c/d/i - Neurological Exam Neurological Exam: Alert, Awake, CN II-XII Intact, Oriented x3 Neuro motor strength exam: Left Upper Extremity: 5, Right Upper Extremity: 5, Left Lower Extremity: 5, Right Lower Extremity: 5 - Psychiatric Exam Psychiatric exam: Normal Affect, Normal Mood - Skin Skin Exam: Dry, Normal Color, Warm Assessment and Plan (1) Osteomyelitis of foot Status: Acute - Assessment and Plan (Free Text) Assessment: Patient is a 51 year old male with past medical history significant for DM and poor compliance following L great to partial amputation 2 weeks prior to admission. He is being treated for LLE cellulitis with osteomyelitis. Plan: 1. LLE Cellulitis with left fifth metatarsal osteomyelitis - Debridement and amputation of fifth, fourth, and third toes with podiatry, POD #4 - Patient is receiving IV vancomyocin and zosyn and will for 6 weeks per ID rec - Control hyperglycemia, current regimen 25 levemir, 8 novolog - Podiatry following and managing wound care 2. Seizure activity - stable - Dilantin 100 mg TID 3. Hyperglycemia with history of uncontrolled Diabetes Mellitus - improving - Sliding scale moderate with Levemir and Novolog 4. GI/DVT PPHXS - Protonix/Heparin dispo: Placement proving to be challenge at this time. Will discuss with NANCY donaldson tomorrow for discharge course. Patient will continue to receive IV abx <Arely Gonzalez - Last Filed: 02/05/17 17:21> Objective - Vital Signs/Intake and Output Vital Signs (last 24 hours): Temp Pulse Resp BP Pulse Ox 97.9 F 92 H 20 139/79 100 02/05/17 16:31 02/05/17 16:31 02/05/17 16:31 02/05/17 16:31 02/05/17 16:31 Intake and Output: 02/05/17 02/05/17 06:59 18:59 Intake Total 1000 960 Output Total 600 750 Balance 400 210 - Medications Medications: Current Medications Acetaminophen (Tylenol 325mg Tab) 650 mg PO Q4 PRN PRN Reason: Pain, Mild (1-3) Last Admin: 02/02/17 16:30 Dose: 650 mg Hydromorphone HCl (Dilaudid) 1 mg IVP Q6H PRN PRN Reason: Pain, severe (8-10) Last Admin: 02/05/17 12:19 Dose: 1 mg Vancomycin HCl (Vancomycin 1gm) 1 gm in 250 mls @ 167 mls/hr IVPB Q12 [facility] Last Admin: 02/05/17 12:17 Dose: 167 mls/hr Ciprofloxacin (Cipro 400mg/200ml Dsw) 400 mg in 200 mls @ 133.3 mls/hr IVPB Q12 [facility] PRN Reason: Protocol Last Admin: 02/05/17 09:38 Dose: 133.3 mls/hr Insulin Detemir (Levemir) 35 unit SC HS [facility] Last Admin: 02/04/17 21:10 Dose: 35 unit Insulin Human Lispro (Humalog) 8 units SC AC [facility] Last Admin: 02/05/17 17:14 Dose: 8 units Insulin Human Lispro (Humalog Med) 0 units SC ACHS [facility] PRN Reason: Protocol Last Admin: 02/05/17 17:15 Dose: 3 units Ketorolac Tromethamine (Toradol) 30 mg IVP Q6 PRN PRN Reason: Pain, moderate (4-7) Stop: 02/06/17 16:23 Last Admin: 02/05/17 15:26 Dose: 30 mg Ondansetron HCl (Zofran Inj) 4 mg IVP ONCE PRN PRN Reason: Nausea/Vomiting Oxychlorosene Sodium (Clorpactin Wcs-90) 2 gm TOP DAILY [facility] Last Admin: 02/05/17 12:35 Dose: Not Given Phenytoin Sodium (Dilantin) 100 mg PO TID [facility] Last Admin: 02/05/17 16:26 Dose: Not Given - Labs Labs: 02/03/17 09:00 02/03/17 09:00 PT 11.0 Seconds (9.9-11.8) 01/26/17 15:20 INR 1.02 (0.93-1.08) 01/26/17 15:20 APTT 29.2 Seconds (23.7-30.8) 01/26/17 15:20 Attending/Attestation - Attestation I have personally seen and examined this patient.: Yes I have fully participated in the care of the patient.: Yes I have reviewed all pertinent clinical information, including history, physical exam and plan: Yes Notes (Text): 02/05/17 17:20 ttending note; Patient seen and examined with resident. Patient is a 51 Year old male with PMH of drug abuse, DM and Diabetic foot infection, s/p incision & drainage with debridement left foot abscess. wound cultures growing MRSA, Enterococuc and proteus mirabilis on IV antibiotics Vancomycin and cipro. Blood cultures are negative so far. Diabetes:Patient blood sugars are improving. continue Levemir. dosage increased yesterday. s/p PICC line placement. Status post debridement and toe amputation. Continue dressing change per podiatry. POD#4. hemoglobin is stable. Status post 1 unit PRBC transfusion. follow up with transition social worker for discharge planning. 02/05/17 17:20
--- NOTE | 2017-02-05 17:50 | CP.PCM.PN ---
Subjective - Date & Time of Evaluation Date of Evaluation: 02/05/17 Time of Evaluation: 17:15 - Subjective Subjective: Infectious Disease Follow Up: February 05, 2017 51 yo AA left AM from [facility] on 01/16/2017. Patient states that he sees Dr. Emili Carter for medical care but has not seen him in at least 6 months. He ran out of his diabetic medications at least 3 months ago. The patient is complaining of several weeks of pain to the left foot with significant swelling. He had a partial hallux amputation of the left foot on 01/16/2017 and then left [facility] AM that same day. Taken to OR by Dr. Benito for washout and tissue debridement. May need further debridement. Multi-organism growth in cultures including Proteus, Enterococcus, and MRSA. Patient is non-compliant with diabetes care with glucose levels up 400 and above. Nursing has had issues with the patient's friends and family searching the WOW machines. MRI was not done as patient was unwilling to be still in machine unless he got more pain meds and narcotics. This was also an issue at [facility] on his hospitalization about two weeks ago. A few nights ago, the patient had been found unresponsive and "twitching" by nursing. Rapid response was called on the patient. He was awake and alert when rapid response team arrived. Transferred to Telemetry floor where he has remained. He went to the OR Monday for amputation of the 3rd, 4th, and 5th toes on the left foot as well as extensive debridement of the left foot. He has been ambulating but I believe podiatry wanted him off the foot/nonweight bearing. Objective - Vital Signs/Intake and Output Vital Signs (last 24 hours): Temp Pulse Resp BP Pulse Ox 97.9 F 92 H 20 139/79 100 02/05/17 16:31 02/05/17 16:31 02/05/17 16:31 02/05/17 16:31 02/05/17 16:31 Intake and Output: 02/05/17 02/05/17 06:59 18:59 Intake Total 1000 960 Output Total 600 750 Balance 400 210 - Medications Medications: Current Medications Acetaminophen (Tylenol 325mg Tab) 650 mg PO Q4 PRN PRN Reason: Pain, Mild (1-3) Last Admin: 02/02/17 16:30 Dose: 650 mg Hydromorphone HCl (Dilaudid) 1 mg IVP Q6H PRN PRN Reason: Pain, severe (8-10) Last Admin: 02/05/17 12:19 Dose: 1 mg Vancomycin HCl (Vancomycin 1gm) 1 gm in 250 mls @ 167 mls/hr IVPB Q12 [facility] Last Admin: 02/05/17 12:17 Dose: 167 mls/hr Ciprofloxacin (Cipro 400mg/200ml Dsw) 400 mg in 200 mls @ 133.3 mls/hr IVPB Q12 [facility] PRN Reason: Protocol Last Admin: 02/05/17 09:38 Dose: 133.3 mls/hr Insulin Detemir (Levemir) 35 unit SC HS [facility] Last Admin: 02/04/17 21:10 Dose: 35 unit Insulin Human Lispro (Humalog) 8 units SC AC [facility] Last Admin: 02/05/17 17:14 Dose: 8 units Insulin Human Lispro (Humalog Med) 0 units SC ACHS [facility] PRN Reason: Protocol Last Admin: 02/05/17 17:15 Dose: 3 units Ketorolac Tromethamine (Toradol) 30 mg IVP Q6 PRN PRN Reason: Pain, moderate (4-7) Stop: 02/06/17 16:23 Last Admin: 02/05/17 15:26 Dose: 30 mg Ondansetron HCl (Zofran Inj) 4 mg IVP ONCE PRN PRN Reason: Nausea/Vomiting Oxychlorosene Sodium (Clorpactin Wcs-90) 2 gm TOP DAILY [facility] Last Admin: 02/05/17 12:35 Dose: Not Given Phenytoin Sodium (Dilantin) 100 mg PO TID [facility] Last Admin: 02/05/17 16:26 Dose: Not Given - Labs Labs: 02/03/17 09:00 02/03/17 09:00 PT 11.0 Seconds (9.9-11.8) 01/26/17 15:20 INR 1.02 (0.93-1.08) 01/26/17 15:20 APTT 29.2 Seconds (23.7-30.8) 01/26/17 15:20 - Constitutional Appears: Chronically Ill - Head Exam Head Exam: ATRAUMATIC, NORMOCEPHALIC - Eye Exam Eye Exam: EOMI, PERRL Pupil Exam: NORMAL ACCOMODATION, PERRL - ENT Exam ENT Exam: Mucous Membranes Moist, Normal External Ear Exam, TM's Normal Bilaterally - Neck Exam Neck Exam: Full ROM, Normal Inspection - Respiratory Exam Respiratory Exam: Clear to Ausculation Bilateral, NORMAL BREATHING PATTERN. absent: Rales, Rhonchi, Wheezes - Cardiovascular Exam Cardiovascular Exam: REGULAR RHYTHM, RRR, +S1, +S2 - GI/Abdominal Exam GI & Abdominal Exam: Soft, Normal Bowel Sounds. absent: Distended, Tenderness - Extremities Exam Additional comments: left foot heavily wrapped after amputation of the 3rd, 4th, and 5th digits. +2- 3 edema of the left foot. +2 edema of the right foot. - Neurological Exam Neurological Exam: Alert, Awake, CN II-XII Intact, Oriented x3 - Psychiatric Exam Psychiatric exam: Normal Affect, Normal Mood - Skin Skin Exam: Intact, Normal Color Assessment and Plan - Assessment and Plan (Free Text) Assessment: 51 yo AA male with left foot osteomyelitis who had left foot partial hallux amputation performed at [facility] on 01/16/2017. The patient has a history of uncontrolled diabetes mellitus (has not taken his medications in at least 3 months), hypertension, and a heroin sniffing habit as well as EtOH abuse. The patient grew Proteus and Enterococcus on wound cultures at [facility]. Patient may have further infected bone and needs treatment for osteomyelitis. Further debridement performed in OR with Dr. Benito during this hospitalization. Cultures here are growing Proteus, Enterococcus, and gram positive cocci. The patient states that he understands he needs antibiotic treatment... however , he was agreeable at [facility] then walked out AMA. The patient will need 6 weeks of IV antibiotics at this point. Given entire history, the patient has osteomyelitis until proven otherwise of the left foot and ankle. Continue on antibiotics of Vancomycin and Cipro for treatment at this point. Supportive care. Went to OR for amputation of the left foot 3rd, 4th, and 5th toes as well as debridement of the left foot. Local wound care. Limited options for treatment. Thank you for allowing me to participate in the care of the patient, we will follow with you.
[2017-02-05] MEDS: Insulin Detemir 100 units/ml Vial (Levemir) SC SCH (21:27)
[2017-02-06] MEDS: HYDROmorphone 1 mg/ml ISec IVP PRN ×3 (00:26→12:33)
[2017-02-06 07:26] LABS: BASO # 0.01 K/mm3 (0.0-2.0); BASO % 0.1 % (0.0-3.0); EOS # 0.1 (0.0-0.7); EOS % 1.1 % (1.5-5.0); GRAN # 7.25 (1.4-6.5); GRAN % 76.6 % (50.0-68.0); HEMOGLOBIN 9.1 gm/dL (14.0-18.0); LYMPH # 1.6 (1.2-3.4); LYMPH % 16.7 % (22.0-35.0); MEAN CELL VOLUME 89.5 fL (80.0-105.0); MEAN CORPUSCULAR HEMOGLOBIN 28.9 pg (25.0-35.0); MEAN CORPUSCULAR HGB CONC 32.3 g/dl (31.0-37.0); MEAN PLATELET VOLUME 7.6 fl (7.0-11.0); MONO # 0.5 (0.1-0.6); MONO % 5.5 % (1.0-6.0); PLATELET COUNT 526 10^3/uL (120.0-450.0); RBC 3.15 10^6/uL (3.5-6.1); WHITE BLOOD COUNT 9.5 10^3/ul (4.5-11.0)
[2017-02-06 07:41] LABS: ALBUMIN 2.7 g/dL (3.0-4.8); BLOOD UREA NITROGEN 16 mg/dL (7-21); GFR AFRICAN-AMERICAN > 60; GFR NON-AFRICAN AMERICAN > 60
[2017-02-06 08:05] LABS: CALCIUM 8.6 mg/dL (8.4-10.5)
[2017-02-06 08:06] LABS: ALB/GLOB RATIO 0.7 (1.1-1.8); ALT/SGPT 80 U/L (7-56); AST/SGOT 101 U/L (15-59)
[2017-02-06] MEDS: Insulin Lispro (humaLOG) MEDIUM Coverage SC SCH ×3 (09:22→20:24)
[2017-02-06] MEDS: Insulin Lispro 1 UNITS/0.01 ML SC SCH ×3 (09:22→20:24)
[2017-02-06] MEDS: Vancomycin 1gm in NS 250ml 1 GM/250 ML BAG IVPB SCH (09:28)
[2017-02-06] MEDS ORDERED: Oxycodone/Acetaminophen 5/325 mg Tab PO PRN (11:29)
--- NOTE | 2017-02-06 13:04 | CP.PCM.PN ---
<SanaGarland - Last Filed: 02/06/17 13:06> Subjective - Date & Time of Evaluation Date of Evaluation: 02/06/17 Time of Evaluation: 13:02 - Subjective Subjective: Patient s/e on GMF this AM. No acute events overnight. Patient reports back pain from laying in bed. He is instructed to move around the room and to move to sit in chair through out the day. He continues to receive IV abx and wound care. The patient denies chest pain, shortness of breath, nausea, vomiting, fever. Objective - Vital Signs/Intake and Output Vital Signs (last 24 hours): Temp Pulse Resp BP Pulse Ox 98.0 F 84 20 157/92 H 99 02/06/17 08:15 02/06/17 08:15 02/06/17 08:15 02/06/17 08:15 02/06/17 08:15 Intake and Output: 02/06/17 02/06/17 06:59 18:59 Intake Total 720 300 Output Total 1950 1000 Balance -1230 -700 - Medications Medications: Current Medications Acetaminophen (Tylenol 325mg Tab) 650 mg PO Q4 PRN PRN Reason: Pain, Mild (1-3) Last Admin: 02/02/17 16:30 Dose: 650 mg Hydromorphone HCl (Dilaudid) 1 mg IVP Q6H PRN PRN Reason: Pain, severe (8-10) Last Admin: 02/06/17 12:33 Dose: 1 mg Vancomycin HCl (Vancomycin 1gm) 1 gm in 250 mls @ 167 mls/hr IVPB Q12 [facility] Last Admin: 02/06/17 09:28 Dose: 167 mls/hr Ciprofloxacin (Cipro 400mg/200ml Dsw) 400 mg in 200 mls @ 133.3 mls/hr IVPB Q12 [facility]A PRN Reason: Protocol Last Admin: 02/05/17 21:32 Dose: 133.3 mls/hr Insulin Detemir (Levemir) 35 unit SC HS [facility] Last Admin: 02/05/17 21:27 Dose: 35 unit Insulin Human Lispro (Humalog) 8 units SC AC [facility] Last Admin: 02/06/17 12:21 Dose: 8 units Insulin Human Lispro (Humalog Med) 0 units SC ACHS [facility] PRN Reason: Protocol Last Admin: 02/06/17 12:21 Dose: 1 units Ondansetron HCl (Zofran Inj) 4 mg IVP Q4H PRN PRN Reason: Nausea/Vomiting Oxychlorosene Sodium (Clorpactin Wcs-90) 2 gm TOP DAILY [facility] Last Admin: 02/05/17 12:35 Dose: Not Given Oxycodone/Acetaminophen (Percocet 5/325 Mg Tab) 1 tab PO Q6H PRN PRN Reason: Pain, moderate (4-7) Stop: 02/09/17 11:30 Phenytoin Sodium (Dilantin) 100 mg PO TID [facility] Last Admin: 02/06/17 09:28 Dose: 100 mg - Labs Labs: 02/06/17 07:00 02/06/17 07:46 PT 11.0 Seconds (9.9-11.8) 01/26/17 15:20 INR 1.02 (0.93-1.08) 01/26/17 15:20 APTT 29.2 Seconds (23.7-30.8) 01/26/17 15:20 - Head Exam Head Exam: ATRAUMATIC, NORMAL INSPECTION - Eye Exam Eye Exam: EOMI, PERRL - ENT Exam ENT Exam: Mucous Membranes Moist, Normal Exam - Neck Exam Neck Exam: Full ROM, Normal Inspection - Respiratory Exam Respiratory Exam: Clear to Ausculation Bilateral, NORMAL BREATHING PATTERN - Cardiovascular Exam Cardiovascular Exam: REGULAR RHYTHM, +S1, +S2 - GI/Abdominal Exam GI & Abdominal Exam: Soft, Normal Bowel Sounds - Extremities Exam Extremities Exam: Full ROM Additional comments: left foot with david wrap and sterile bandages that are c/i, no odor noted - Back Exam Back Exam: Full ROM, paraspinal tenderness - Neurological Exam Neurological Exam: Alert, Awake, CN II-XII Intact, Normal Gait, Oriented x3 Neuro motor strength exam: Left Upper Extremity: 5, Right Upper Extremity: 5, Left Lower Extremity: 5, Right Lower Extremity: 5 - Psychiatric Exam Psychiatric exam: Normal Affect, Normal Mood - Skin Skin Exam: Dry, Normal Color, Warm Assessment and Plan (1) Osteomyelitis of foot Status: Acute - Assessment and Plan (Free Text) Assessment: Patient is a 51 year old male with past medical history significant for DM and poor compliance following L great to partial amputation 2 weeks prior to admission. He is being treated for LLE cellulitis with osteomyelitis. Plan: 1. LLE Cellulitis with left fifth metatarsal osteomyelitis - Debridement and amputation of fifth, fourth, and third toes with podiatry, POD #5 - Patient is receiving IV vancomyocin and zosyn and will for 6 weeks per ID rec - Control hyperglycemia, current regimen 25 levemir, 8 novolog - Podiatry following and managing wound care 2. Seizure activity - stable - Dilantin 100 mg TID 3. Hyperglycemia with history of uncontrolled Diabetes Mellitus - improving - Sliding scale moderate with Levemir and Novolog 4. GI/DVT PPHXS - Protonix/Heparin dispo: Awaiting placement for IV abx and wound care. <Arely Gonzalez - Last Filed: 02/06/17 16:52> Objective - Vital Signs/Intake and Output Vital Signs (last 24 hours): Temp Pulse Resp BP Pulse Ox 98.0 F 84 20 157/92 H 99 02/06/17 08:15 02/06/17 08:15 02/06/17 08:15 02/06/17 08:15 02/06/17 08:15 Intake and Output: 02/06/17 02/06/17 06:59 18:59 Intake Total 720 300 Output Total 1950 1000 Balance -1230 -700 - Medications Medications: Current Medications Acetaminophen (Tylenol 325mg Tab) 650 mg PO Q4 PRN PRN Reason: Pain, Mild (1-3) Last Admin: 02/02/17 16:30 Dose: 650 mg Vancomycin HCl (Vancomycin 1gm) 1 gm in 250 mls @ 167 mls/hr IVPB Q12 [facility] Last Admin: 02/06/17 09:28 Dose: 167 mls/hr Ciprofloxacin (Cipro 400mg/200ml Dsw) 400 mg in 200 mls @ 133.3 mls/hr IVPB Q12 [facility]IKA PRN Reason: Protocol Last Admin: 02/06/17 15:59 Dose: 133.3 mls/hr Insulin Detemir (Levemir) 35 unit SC HS [facility] Last Admin: 02/05/17 21:27 Dose: 35 unit Insulin Human Lispro (Humalog) 8 units SC AC [facility] Last Admin: 02/06/17 12:21 Dose: 8 units Insulin Human Lispro (Humalog Med) 0 units SC ACHS [facility] PRN Reason: Protocol Last Admin: 02/06/17 12:21 Dose: 1 units Ondansetron HCl (Zofran Inj) 4 mg IVP Q4H PRN PRN Reason: Nausea/Vomiting Oxychlorosene Sodium (Clorpactin Wcs-90) 2 gm TOP DAILY [facility] Last Admin: 02/06/17 15:59 Dose: Not Given Oxycodone/Acetaminophen (Percocet 5/325 Mg Tab) 1 tab PO Q6H PRN PRN Reason: Pain, moderate (4-7) Stop: 02/09/17 11:30 Last Admin: 02/06/17 15:41 Dose: 1 tab Phenytoin Sodium (Dilantin) 100 mg PO TID [facility] Last Admin: 02/06/17 15:58 Dose: Not Given - Labs Labs: 02/06/17 07:00 02/06/17 07:46 PT 11.0 Seconds (9.9-11.8) 01/26/17 15:20 INR 1.02 (0.93-1.08) 01/26/17 15:20 APTT 29.2 Seconds (23.7-30.8) 01/26/17 15:20 Attending/Attestation - Attestation I have personally seen and examined this patient.: Yes I have fully participated in the care of the patient.: Yes I have reviewed all pertinent clinical information, including history, physical exam and plan: Yes Notes (Text): 02/06/17 16:51 Attending note; Patient seen and examined with resident. Patient is a 51 Year old male with PMH of drug abuse, DM and Diabetic foot infection, s/p incision & drainage with debridement left foot abscess. wound cultures growing MRSA, Enterococuc and proteus mirabilis on IV antibiotics Vancomycin and cipro. Blood cultures are negative so far. Diabetes:Patient blood sugars are improving. continue Levemir. s/p PICC line placement. Status post debridement and toe amputation. Continue dressing change per podiatry. POD#5. hemoglobin is stable. Status post 1 unit PRBC transfusion. follow up with social insurance administrator for discharge planning. 02/06/17 16:52
--- NOTE | 2017-02-06 15:36 | CP.PCM.PN ---
Subjective - Date & Time of Evaluation Date of Evaluation: 02/06/17 Time of Evaluation: 15:28 - Subjective Subjective: 51 year old male POD # 5 s/p left foot 3rd and 4th metatarsal head resections with 5th ray resection. Pt is resting comfortably in bed. No major pedal pain or discomfort reported. Pt denies recent f/c/cp/sob/n/v/d. Pt is in good spirits awaiting sub-acute placement. Objective - Vital Signs/Intake and Output Vital Signs (last 24 hours): Temp Pulse Resp BP Pulse Ox 98.0 F 84 20 157/92 H 99 02/06/17 08:15 02/06/17 08:15 02/06/17 08:15 02/06/17 08:15 02/06/17 08:15 Intake and Output: 02/06/17 02/06/17 06:59 18:59 Intake Total 720 300 Output Total 1950 1000 Balance -1230 -700 - Medications Medications: Current Medications Acetaminophen (Tylenol 325mg Tab) 650 mg PO Q4 PRN PRN Reason: Pain, Mild (1-3) Last Admin: 02/02/17 16:30 Dose: 650 mg Vancomycin HCl (Vancomycin 1gm) 1 gm in 250 mls @ 167 mls/hr IVPB Q12 [facility] Last Admin: 02/06/17 09:28 Dose: 167 mls/hr Ciprofloxacin (Cipro 400mg/200ml Dsw) 400 mg in 200 mls @ 133.3 mls/hr IVPB Q12 [facility]IK[facility] PRN Reason: Protocol Last Admin: 02/05/17 21:32 Dose: 133.3 mls/hr Insulin Detemir (Levemir) 35 unit SC HS [facility] Last Admin: 02/05/17 21:27 Dose: 35 unit Insulin Human Lispro (Humalog) 8 units SC AC [facility] Last Admin: 02/06/17 12:21 Dose: 8 units Insulin Human Lispro (Humalog Med) 0 units SC ACHS [facility] PRN Reason: Protocol Last Admin: 02/06/17 12:21 Dose: 1 units Ondansetron HCl (Zofran Inj) 4 mg IVP Q4H PRN PRN Reason: Nausea/Vomiting Oxychlorosene Sodium (Clorpactin Wcs-90) 2 gm TOP DAILY [facility] Last Admin: 02/05/17 12:35 Dose: Not Given Oxycodone/Acetaminophen (Percocet 5/325 Mg Tab) 1 tab PO Q6H PRN PRN Reason: Pain, moderate (4-7) Stop: 02/09/17 11:30 Phenytoin Sodium (Dilantin) 100 mg PO TID [facility] Last Admin: 02/06/17 09:28 Dose: 100 mg - Labs Labs: 02/06/17 07:00 02/06/17 07:46 PT 11.0 Seconds (9.9-11.8) 01/26/17 15:20 INR 1.02 (0.93-1.08) 01/26/17 15:20 APTT 29.2 Seconds (23.7-30.8) 01/26/17 15:20 - Constitutional Appears: Well, Non-toxic, No Acute Distress - Extremities Exam Additional comments: Dressings clean, dry, and intact. Left Lower extremity focused. Neuro-vascular status intact to LLE. Temperature runs from hot to warm proximal to distal. DERM: Sutures in left hallux intact. right dorsal foot wound measuring 13.7 x 12.1 on a granular base. Granulation occurring over remain shaft of 3rd and 4th metatarsals. Plantar foot and lateral foot wounds measuring 2.5x 2.0 x 0.8 cm and 2.8 x 2.4 x 0.5 cm respectively on granular base with minor marginal maceration. Wounds are absent undermining margins, mal-odor, and purulence. - Neurological Exam Neurological Exam: Alert, Awake, Oriented x3 - Psychiatric Exam Psychiatric exam: Normal Affect, Normal Mood Assessment and Plan - Assessment and Plan (Free Text) Assessment: 51 year old male 5 days s/p right foot 3rd and 4th metatarsal head resections, 5th ray resection and amputations of accompanying digits. Plan: Pt evaluated and treated with attending Dr. Benito present. Chart, labs, and vitals reviewed. Cleansed left foot wounds with sterile saline. Redressed left foot ulcerations with Adaptic, DSD, and ELA wrap. Continue to be partial weight-bearing to left foot in forefoot offloading shoe. Continue IV abx per Id. Pt awaiting subacute placement. Podiatry will continue to follow while inhouse.
[2017-02-06] MEDS: Oxychlorosene Topical 2 gm Packet TOP SCH (15:59)
[2017-02-06] MEDS: Ciprofloxacin 400mg/200ml D5W 400 MG/200 ML BAG IVPB SCH (15:59)
[2017-02-06 17:21] VITALS: BP 146/81; PULSE 56; TEMP 98.6; O2SAT 95
--- NOTE | 2017-02-06 17:24 | CP.PCM.DIS ---
<Garland Hood - Last Filed: 02/06/17 16:40> Provider - Provider Date of Admission: 01/25/17 03:20 Attending physician: Arely Gonzalez MD Consults: Podiatry: Dr. Benito Infectious Disease: Dr. Iggy Quintero Time Spent in preparation of Discharge (in minutes): 30 Diagnosis - Discharge Diagnosis (1) Osteomyelitis of foot Status: Acute Hospital Course - Lab Results Lab Results: Micro Results 02/01/17 11:16 Foot - Left Gram Stain - Final 02/01/17 11:16 Foot - Left Anaerobic Culture - Final NO ANAEROBES ISOLATED. 02/01/17 11:16 Foot - Left Wound Culture - Final Streptococcus Viridans Staphylococcus Aureus 01/26/17 18:00 Other: Please Indicate Gram Stain - Final 01/26/17 18:00 Other: Please Indicate Anaerobic Culture - Final NO ANAEROBES ISOLATED. 01/26/17 18:00 Other: Please Indicate Wound Culture - Final Proteus Mirabilis Most Recent Lab Values WBC 9.5 10^3/ul (4.5-11.0) 02/06/17 07:00 RBC 3.15 10^6/uL (3.5-6.1) L 02/06/17 07:00 Hgb 9.1 gm/dL (14.0-18.0) L 02/06/17 07:00 Hct 28.2 % (42.0-52.0) L 02/06/17 07:00 MCV 89.5 fL (80.0-105.0) 02/06/17 07:00 MCH 28.9 pg (25.0-35.0) 02/06/17 07:00 MCHC 32.3 g/dl (31.0-37.0) 02/06/17 07:00 RDW 15.0 % (11.5-14.5) H 02/06/17 07:00 Plt Count 526 10^3/uL (120.0-450.0) H 02/06/17 07:00 MPV 7.6 fl (7.0-11.0) 02/06/17 07:00 Gran % 76.6 % (50.0-68.0) H 02/06/17 07:00 Lymph % (Auto) 16.7 % (22.0-35.0) L 02/06/17 07:00 Geary % (Auto) 5.5 % (1.0-6.0) 02/06/17 07:00 Eos % (Auto) 1.1 % (1.5-5.0) L 02/06/17 07:00 Baso % (Auto) 0.1 % (0.0-3.0) 02/06/17 07:00 Gran # 7.25 (1.4-6.5) H 02/06/17 07:00 Lymph # 1.6 (1.2-3.4) 02/06/17 07:00 Geary # 0.5 (0.1-0.6) 02/06/17 07:00 Eos # 0.1 (0.0-0.7) 02/06/17 07:00 Baso # 0.01 K/mm3 (0.0-2.0) 02/06/17 07:00 Neutrophils % (Manual) 78 % (50.0-70.0) H 01/25/17 02:24 Band Neutrophils % 7 % (0-2) H 01/25/17 02:24 Lymphocytes % (Manual) 7 % (22.0-35.0) L 01/25/17 02:24 Monocytes % (Manual) 7 % (1.0-6.0) H 01/25/17 02:24 Basophils % (Manual) 1 % (0.0-1.0) 01/25/17 02:24 Platelet Evaluation Normal (NORMAL) 01/25/17 02:24 ESR 113 mm/hr (0.00-15.0) H 01/25/17 08:30 PT 11.0 Seconds (9.9-11.8) 01/26/17 15:20 INR 1.02 (0.93-1.08) 01/26/17 15:20 APTT 29.2 Seconds (23.7-30.8) 01/26/17 15:20 pO2 34 mm/Hg (30-55) 01/25/17 08:30 VBG pH 7.46 (7.32-7.43) H 01/25/17 08:30 VBG pCO2 50.0 (40-60) 01/25/17 08:30 VBG HCO3 35.6 mmol/l (21-28) H 01/25/17 08:30 VBG O2 Sat (Calc) 73.9 % (40-65) H 01/25/17 08:30 VBG Base Excess 10.1 mmol/L (0.0-2.0) H 01/25/17 08:30 Sodium 135 mmol/L (132-148) 02/06/17 07:46 Potassium 4.2 mmol/L (3.6-5.0) 02/06/17 07:46 Chloride 102 mmol/L (95-110) 02/06/17 07:46 Carbon Dioxide 28 mmol/L (21-33) 02/06/17 07:46 Anion Gap 9 (10-20) L 02/06/17 07:46 BUN 16 mg/dL (7-21) 02/06/17 07:46 Creatinine 0.6 mg/dL (0.5-1.4) 02/06/17 07:46 Est GFR ( Amer) > 60 02/06/17 07:46 Est GFR (Non-Af Amer) > 60 02/06/17 07:46 POC Glucose (mg/dL) 294 mg/dL (65-110) H 02/06/17 16:05 Random Glucose 81 mg/dL (70-110) 02/06/17 07:46 Hemoglobin A1c 16.2 % (4.2-6.5) H 01/25/17 12:13 Lactic Acid 1.3 mmol/L (0.7-2.1) 01/25/17 08:30 Calcium 8.6 mg/dL (8.4-10.5) 02/06/17 07:46 Phosphorus 3.3 mg/dL (2.5-4.5) 01/29/17 22:45 Magnesium 1.8 mg/dL (1.7-2.2) 01/29/17 22:45 Iron 15 ug/dL (45-180) L 01/27/17 15:10 TIBC 130 ug/dL (261-462) L 01/27/17 15:10 % Saturation 12 % (20-55) L 01/27/17 15:10 Ferritin 575.0 ng/mL 01/27/17 15:10 Total Bilirubin 0.2 mg/dL (0.2-1.3) 02/06/17 07:46 AST 101 U/L (15-59) H 02/06/17 07:46 ALT 80 U/L (7-56) H 02/06/17 07:46 Alkaline Phosphatase 168 U/L (38-133) H 02/06/17 07:46 C-React Prot High Sens > 15.00 mg/L (1.00-3.00) H 01/25/17 08:30 Total Protein 6.4 g/dL (5.8-8.3) 02/06/17 07:46 Albumin 2.7 g/dL (3.0-4.8) L 02/06/17 07:46 Globulin 3.8 gm/dL 02/06/17 07:46 Albumin/Globulin Ratio 0.7 (1.1-1.8) L 02/06/17 07:46 Procalcitonin 1.83 NG/ML (0.19-0.49) H 01/25/17 12:13 Urine Color Light yellow (YELLOW) 01/26/17 06:16 Urine Appearance Clear (CLEAR) 01/26/17 06:16 Urine pH 6.5 (4.7-8.0) 01/26/17 06:16 Ur Specific Moffit <= 1.005 (1.005-1.035) 01/26/17 06:16 Urine Protein Negative mg/dL (<30 mg/dL) 01/26/17 06:16 Urine Glucose (UA) >=1000 mg/dL (NEGATIVE) 01/26/17 06:16 Urine Ketones Negative mg/dL (NEGATIVE) 01/26/17 06:16 Urine Blood Negative (NEGATIVE) 01/26/17 06:16 Urine Nitrate Negative (NEGATIVE) 01/26/17 06:16 Urine Bilirubin Negative (NEGATIVE) 01/26/17 06:16 Urine Urobilinogen 1.0 E.U./dL (<1 E.U./dL) H 01/26/17 06:16 Ur Leukocyte Esterase Negative Juan José/uL (NEGATIVE) 01/26/17 06:16 Urine Opiates Screen Positive (NEGATIVE) H 01/26/17 23:07 Urine Methadone Screen Negative (NEGATIVE) 01/26/17 23:07 Ur Barbiturates Screen Negative (NEGATIVE) 01/26/17 23:07 Phenytoin < 3 ug/mL (10-20) L 01/29/17 22:45 Ur Phencyclidine Scrn Negative (NEGATIVE) 01/26/17 23:07 Ur Amphetamines Screen Negative (NEGATIVE) 01/26/17 23:07 U Benzodiazepines Scrn Negative (NEGATIVE) 01/26/17 23:07 U Oth Cocaine Metabols Positive (NEGATIVE) H 01/26/17 23:07 U Cannabinoids Screen Negative (NEGATIVE) 01/26/17 23:07 Hepatitis A IgM Ab Negative (NEGATIVE) 01/25/17 08:30 Hep Bs Antigen Negative (NEGATIVE) 01/25/17 08:30 Hep B Core IgM Ab Negative (NEGATIVE) 01/25/17 08:30 Hepatitis C Antibody Negative (NEGATIVE) 01/25/17 08:30 HIV 1&2 Antibody Screen Negative (NEGATIVE) 01/25/17 08:30 Blood Type O POSITIVE 02/02/17 08:45 Blood Type Confirm O POSITIVE 01/27/17 16:10 Antibody Screen Negative 02/02/17 08:45 Crossmatch See Detail 02/02/17 08:45 BBK History Checked Patient has bt 02/02/17 08:45 - Hospital Course Hospital Course: 51 yo M with PMHx of DM admitted for evaluation and treatment for LLE cellulitis r/o osteo, DVT, and PVD. Patient reported having his left great toe partial amputated 2 weeks prior to presentation to [facility]. He admits to non compliance with wound care and DM medications after the surgery. The patient was evaluated by podiatry for intervention. The patient was taken to the OR for incision and debridement of his left foot by podiatry on 01/26/17. Cultures were taken and noted to have grown Proteus, Enterococcus, and MRSA. Infectious disease recommended placing the patient on IV vancomyocin and zosyn. Patient required PICC line placement with interventional radiology for skilled nursing IV antibiotics. Patient had seizure like activity. He reportedly had a history of seizures. A head CT was preformed and negative for acute findings. Neurology evaluated the patient and he was placed on Dilantin. MRI results indicated osteomyelitis of fifth metatarsal. Patient was taken back to the OR on 02/01 for further debridement and amputation of 3rd, 4th, 5th left toes. Patient had drop in his H/H from surgery requiring 1 unit of pRBC. His H/H responded with the infusion and remained stable. Infectious disease changed his antibiotic regiment to include IV vancomyocin and ciprofloxacin. Patient continued to receive IV antibiotics and management of diabetes post surgery. Blood sugars improved with titration of insulin. Patient left lower leg noted to indicate healing while receiving treatment. SW was consulted for placement for long term care social worker antibiotics through his PICC line. Patient placement proved to be a challenge due to his lack of personal identification and history of substance abuse. Patient was accepted to subacute facility and instructed to complete his course of antibiotics, adhere to his diabetic medications/diet and appropriate wound care management. Patient was instructed on cessation of illicit drug use and the importance of appropriate follow up. The patient was noted to be hemodynamically stable for discharge to outpatient subacute facility for further management of his infection and wound care. Discharge Exam - Head Exam Head Exam: ATRAUMATIC, NORMAL INSPECTION - Eye Exam Eye Exam: EOMI, PERRL - ENT Exam ENT Exam: Mucous Membranes Moist - Neck Exam Neck exam: Full Rom - Respiratory Exam Respiratory Exam: Clear to PA & Lateral, NORMAL BREATHING PATTERN, UNREMARKABLE - Cardiovascular Exam Cardiovascular Exam: REGULAR RHYTHM, +S1, +S2 - GI/Abdominal Exam GI & Abdominal Exam: Normal Bowel Sounds, Unremarkable - Extremities Exam Additional comments: left foot with david wrap and surgical dressing c/d/i - Neurological Exam Neurological exam: Alert, CN II-XII Intact, Oriented x3, Reflexes Normal - Psychiatric Exam Psychiatric exam: Normal Affect, Normal Mood - Skin Skin Exam: Dry, Normal Color, Warm Discharge Plan - Follow Up Plan Condition: GOOD Disposition: TRANSF TO SNF Instructions: MRSA (Methicillin Resistant Staphylococcus Aureus) (DC), Pneumococcal Vaccine for Adults (DC), Osteomyelitis (GEN), Cigarette Smoking and Your Health (GEN), Chronic Pain (DC), Acute Wound Care (DC), Caring for a Peripherally Inserted Central Catheter or Midline Cathet (DC), Fall Prevention ( DC) Additional Instructions: 1. Follow up with your PMD of choice following completion of treatment. 2. Complete your IV antibiotics as prescribed. 3. Continue wound management. 4. Continue diabetic healthy diet <Arely Gonzalez - Last Filed: 02/07/17 15:00> Provider - Provider Date of Admission: 01/25/17 03:20 Attending physician: Arely Gonzalez MD Hospital Course - Lab Results Lab Results: Micro Results 02/01/17 11:16 Foot - Left Gram Stain - Final 02/01/17 11:16 Foot - Left Anaerobic Culture - Final NO ANAEROBES ISOLATED. 02/01/17 11:16 Foot - Left Wound Culture - Final Streptococcus Viridans Staphylococcus Aureus 01/26/17 18:00 Other: Please Indicate Gram Stain - Final 01/26/17 18:00 Other: Please Indicate Anaerobic Culture - Final NO ANAEROBES ISOLATED. 01/26/17 18:00 Other: Please Indicate Wound Culture - Final Proteus Mirabilis Most Recent Lab Values WBC 9.5 10^3/ul (4.5-11.0) 02/06/17 07:00 RBC 3.15 10^6/uL (3.5-6.1) L 02/06/17 07:00 Hgb 9.1 gm/dL (14.0-18.0) L 02/06/17 07:00 Hct 28.2 % (42.0-52.0) L 02/06/17 07:00 MCV 89.5 fL (80.0-105.0) 02/06/17 07:00 MCH 28.9 pg (25.0-35.0) 02/06/17 07:00 MCHC 32.3 g/dl (31.0-37.0) 02/06/17 07:00 RDW 15.0 % (11.5-14.5) H 02/06/17 07:00 Plt Count 526 10^3/uL (120.0-450.0) H 02/06/17 07:00 MPV 7.6 fl (7.0-11.0) 02/06/17 07:00 Gran % 76.6 % (50.0-68.0) H 02/06/17 07:00 Lymph % (Auto) 16.7 % (22.0-35.0) L 02/06/17 07:00 Geary % (Auto) 5.5 % (1.0-6.0) 02/06/17 07:00 Eos % (Auto) 1.1 % (1.5-5.0) L 02/06/17 07:00 Baso % (Auto) 0.1 % (0.0-3.0) 02/06/17 07:00 Gran # 7.25 (1.4-6.5) H 02/06/17 07:00 Lymph # 1.6 (1.2-3.4) 02/06/17 07:00 Geary # 0.5 (0.1-0.6) 02/06/17 07:00 Eos # 0.1 (0.0-0.7) 02/06/17 07:00 Baso # 0.01 K/mm3 (0.0-2.0) 02/06/17 07:00 Neutrophils % (Manual) 78 % (50.0-70.0) H 01/25/17 02:24 Band Neutrophils % 7 % (0-2) H 01/25/17 02:24 Lymphocytes % (Manual) 7 % (22.0-35.0) L 01/25/17 02:24 Monocytes % (Manual) 7 % (1.0-6.0) H 01/25/17 02:24 Basophils % (Manual) 1 % (0.0-1.0) 01/25/17 02:24 Platelet Evaluation Normal (NORMAL) 01/25/17 02:24 ESR 113 mm/hr (0.00-15.0) H 01/25/17 08:30 PT 11.0 Seconds (9.9-11.8) 01/26/17 15:20 INR 1.02 (0.93-1.08) 01/26/17 15:20 APTT 29.2 Seconds (23.7-30.8) 01/26/17 15:20 pO2 34 mm/Hg (30-55) 01/25/17 08:30 VBG pH 7.46 (7.32-7.43) H 01/25/17 08:30 VBG pCO2 50.0 (40-60) 01/25/17 08:30 VBG HCO3 35.6 mmol/l (21-28) H 01/25/17 08:30 VBG O2 Sat (Calc) 73.9 % (40-65) H 01/25/17 08:30 VBG Base Excess 10.1 mmol/L (0.0-2.0) H 01/25/17 08:30 Sodium 135 mmol/L (132-148) 02/06/17 07:46 Potassium 4.2 mmol/L (3.6-5.0) 02/06/17 07:46 Chloride 102 mmol/L (95-110) 02/06/17 07:46 Carbon Dioxide 28 mmol/L (21-33) 02/06/17 07:46 Anion Gap 9 (10-20) L 02/06/17 07:46 BUN 16 mg/dL (7-21) 02/06/17 07:46 Creatinine 0.6 mg/dL (0.5-1.4) 02/06/17 07:46 Est GFR ( Amer) > 60 02/06/17 07:46 Est GFR (Non-Af Amer) > 60 02/06/17 07:46 POC Glucose (mg/dL) 294 mg/dL (65-110) H 02/06/17 16:05 Random Glucose 81 mg/dL (70-110) 02/06/17 07:46 Hemoglobin A1c 16.2 % (4.2-6.5) H 01/25/17 12:13 Lactic Acid 1.3 mmol/L (0.7-2.1) 01/25/17 08:30 Calcium 8.6 mg/dL (8.4-10.5) 02/06/17 07:46 Phosphorus 3.3 mg/dL (2.5-4.5) 01/29/17 22:45 Magnesium 1.8 mg/dL (1.7-2.2) 01/29/17 22:45 Iron 15 ug/dL (45-180) L 01/27/17 15:10 TIBC 130 ug/dL (261-462) L 01/27/17 15:10 % Saturation 12 % (20-55) L 01/27/17 15:10 Ferritin 575.0 ng/mL 01/27/17 15:10 Total Bilirubin 0.2 mg/dL (0.2-1.3) 02/06/17 07:46 AST 101 U/L (15-59) H 02/06/17 07:46 ALT 80 U/L (7-56) H 02/06/17 07:46 Alkaline Phosphatase 168 U/L (38-133) H 02/06/17 07:46 C-React Prot High Sens > 15.00 mg/L (1.00-3.00) H 01/25/17 08:30 Total Protein 6.4 g/dL (5.8-8.3) 02/06/17 07:46 Albumin 2.7 g/dL (3.0-4.8) L 02/06/17 07:46 Globulin 3.8 gm/dL 02/06/17 07:46 Albumin/Globulin Ratio 0.7 (1.1-1.8) L 02/06/17 07:46 Procalcitonin 1.83 NG/ML (0.19-0.49) H 01/25/17 12:13 Urine Color Light yellow (YELLOW) 01/26/17 06:16 Urine Appearance Clear (CLEAR) 01/26/17 06:16 Urine pH 6.5 (4.7-8.0) 01/26/17 06:16 Ur Specific Moffit <= 1.005 (1.005-1.035) 01/26/17 06:16 Urine Protein Negative mg/dL (<30 mg/dL) 01/26/17 06:16 Urine Glucose (UA) >=1000 mg/dL (NEGATIVE) 01/26/17 06:16 Urine Ketones Negative mg/dL (NEGATIVE) 01/26/17 06:16 Urine Blood Negative (NEGATIVE) 01/26/17 06:16 Urine Nitrate Negative (NEGATIVE) 01/26/17 06:16 Urine Bilirubin Negative (NEGATIVE) 01/26/17 06:16 Urine Urobilinogen 1.0 E.U./dL (<1 E.U./dL) H 01/26/17 06:16 Ur Leukocyte Esterase Negative Juan José/uL (NEGATIVE) 01/26/17 06:16 Urine Opiates Screen Positive (NEGATIVE) H 01/26/17 23:07 Urine Methadone Screen Negative (NEGATIVE) 01/26/17 23:07 Ur Barbiturates Screen Negative (NEGATIVE) 01/26/17 23:07 Phenytoin < 3 ug/mL (10-20) L 01/29/17 22:45 Ur Phencyclidine Scrn Negative (NEGATIVE) 01/26/17 23:07 Ur Amphetamines Screen Negative (NEGATIVE) 01/26/17 23:07 U Benzodiazepines Scrn Negative (NEGATIVE) 01/26/17 23:07 U Oth Cocaine Metabols Positive (NEGATIVE) H 01/26/17 23:07 U Cannabinoids Screen Negative (NEGATIVE) 01/26/17 23:07 Hepatitis A IgM Ab Negative (NEGATIVE) 01/25/17 08:30 Hep Bs Antigen Negative (NEGATIVE) 01/25/17 08:30 Hep B Core IgM Ab Negative (NEGATIVE) 01/25/17 08:30 Hepatitis C Antibody Negative (NEGATIVE) 01/25/17 08:30 HIV 1&2 Antibody Screen Negative (NEGATIVE) 01/25/17 08:30 Blood Type O POSITIVE 02/02/17 08:45 Blood Type Confirm O POSITIVE 01/27/17 16:10 Antibody Screen Negative 02/02/17 08:45 Crossmatch See Detail 02/02/17 08:45 BBK History Checked Patient has bt 02/02/17 08:45 Attending/Attestation - Attestation I have personally seen and examined this patient.: Yes I have fully participated in the care of the patient.: Yes I have reviewed all pertinent clinical information, including history, physical exam and plan: Yes Notes (Text): 02/07/17 14:57 Attending note; Patient seen and examined with resident. Patient is a 51 Year old male with PMH of drug abuse, DM and Diabetic foot infection, s/p incision & drainage with debridement left foot abscess. wound cultures growing MRSA, Enterococuc and proteus mirabilis on IV antibiotics Vancomycin and cipro. Blood cultures are negative so far. Diabetes:Patient blood sugars are improving. continue Levemir. s/p PICC line placement. Status post debridement and toe amputation. Continue dressing change per podiatry. POD#5. hemoglobin is stable. Status post 1 unit PRBC transfusion. Transfer to [place] post acute care. diagnosis; Diabetes Osteomyelitis Status post incision and drainage of left foot abscess noncompliance with follow up Anemia 02/07/17 14:58
--- NOTE | 2017-02-06 18:20 | CP.PCM.PN ---
Subjective - Date & Time of Evaluation Date of Evaluation: 02/06/17 Time of Evaluation: 16:15 - Subjective Subjective: Infectious Disease Follow Up: February 06, 2017 51 yo AA left AMA from [facility] on 01/16/2017. Patient states that he sees Dr. Emili Carter for medical care but has not seen him in at least 6 months. He ran out of his diabetic medications at least 3 months ago. The patient is complaining of several weeks of pain to the left foot with significant swelling. He had a partial hallux amputation of the left foot on 01/16/2017 and then left [facility] AM that same day. Taken to OR by Dr. Benito for washout and tissue debridement. May need further debridement. Multi-organism growth in cultures including Proteus, Enterococcus, and MRSA. Patient is non-compliant with diabetes care with glucose levels up 400 and above. Nursing has had issues with the patient's friends and family searching the WOW machines. MRI was not done as patient was unwilling to be still in machine unless he got more pain meds and narcotics. This was also an issue at [facility] on his hospitalization about two weeks ago. A few nights ago, the patient had been found unresponsive and "twitching" by nursing. Rapid response was called on the patient. He was awake and alert when rapid response team arrived. Transferred to Telemetry floor where he has remained. He went to the OR Monday for amputation of the 3rd, 4th, and 5th toes on the left foot as well as extensive debridement of the left foot. He has been ambulating but I believe podiatry wanted him off the foot/nonweight bearing. He is going to subacute facility today. Objective - Vital Signs/Intake and Output Vital Signs (last 24 hours): Temp Pulse Resp BP Pulse Ox 98.6 F 56 L 20 146/81 95 02/06/17 17:20 02/06/17 17:20 02/06/17 17:20 02/06/17 17:20 02/06/17 17:20 Intake and Output: 02/06/17 02/06/17 06:59 18:59 Intake Total 720 300 Output Total 1950 1000 Balance -1230 -700 - Medications Medications: Current Medications Acetaminophen (Tylenol 325mg Tab) 650 mg PO Q4 PRN PRN Reason: Pain, Mild (1-3) Last Admin: 02/02/17 16:30 Dose: 650 mg Vancomycin HCl (Vancomycin 1gm) 1 gm in 250 mls @ 167 mls/hr IVPB Q12 [facility] Last Admin: 02/06/17 09:28 Dose: 167 mls/hr Ciprofloxacin (Cipro 400mg/200ml Dsw) 400 mg in 200 mls @ 133.3 mls/hr IVPB Q12 MALLIKA PRN Reason: Protocol Last Admin: 02/06/17 15:59 Dose: 133.3 mls/hr Insulin Detemir (Levemir) 35 unit SC HS [facility] Last Admin: 02/05/17 21:27 Dose: 35 unit Insulin Human Lispro (Humalog) 8 units SC AC [facility] Last Admin: 02/06/17 12:21 Dose: 8 units Insulin Human Lispro (Humalog Med) 0 units SC ACHS [facility] PRN Reason: Protocol Last Admin: 02/06/17 12:21 Dose: 1 units Ondansetron HCl (Zofran Inj) 4 mg IVP Q4H PRN PRN Reason: Nausea/Vomiting Oxychlorosene Sodium (Clorpactin Wcs-90) 2 gm TOP DAILY [facility] Last Admin: 02/06/17 15:59 Dose: Not Given Oxycodone/Acetaminophen (Percocet 5/325 Mg Tab) 1 tab PO Q6H PRN PRN Reason: Pain, moderate (4-7) Stop: 02/09/17 11:30 Last Admin: 02/06/17 15:41 Dose: 1 tab Phenytoin Sodium (Dilantin) 100 mg PO TID [facility] Last Admin: 02/06/17 15:58 Dose: Not Given - Labs Labs: 02/06/17 07:00 02/06/17 07:46 PT 11.0 Seconds (9.9-11.8) 01/26/17 15:20 INR 1.02 (0.93-1.08) 01/26/17 15:20 APTT 29.2 Seconds (23.7-30.8) 01/26/17 15:20 - Constitutional Appears: No Acute Distress, Chronically Ill - Head Exam Head Exam: ATRAUMATIC, NORMOCEPHALIC - Eye Exam Eye Exam: EOMI, PERRL Pupil Exam: NORMAL ACCOMODATION, PERRL - ENT Exam ENT Exam: Mucous Membranes Moist, Normal External Ear Exam, TM's Normal Bilaterally - Neck Exam Neck Exam: Full ROM, Normal Inspection - Respiratory Exam Respiratory Exam: Clear to Ausculation Bilateral, NORMAL BREATHING PATTERN. absent: Rales, Rhonchi, Wheezes - Cardiovascular Exam Cardiovascular Exam: REGULAR RHYTHM, RRR, +S1, +S2 - GI/Abdominal Exam GI & Abdominal Exam: Soft, Normal Bowel Sounds. absent: Distended, Tenderness - Extremities Exam Additional comments: left foot heavily wrapped after amputation of the 3rd, 4th, and 5th digits. +2- 3 edema of the left foot. +2 edema of the right foot. - Neurological Exam Neurological Exam: Alert, Awake, CN II-XII Intact, Oriented x3 - Psychiatric Exam Psychiatric exam: Normal Affect, Normal Mood - Skin Skin Exam: Intact, Normal Color Assessment and Plan - Assessment and Plan (Free Text) Assessment: 51 yo AA male with left foot osteomyelitis who had left foot partial hallux amputation performed at [facility] on 01/16/2017. The patient has a history of uncontrolled diabetes mellitus (has not taken his medications in at least 3 months), hypertension, and a heroin sniffing habit as well as EtOH abuse. The patient grew Proteus and Enterococcus on wound cultures at [facility]. Patient may have further infected bone and needs treatment for osteomyelitis. Further debridement performed in OR with Dr. Benito during this hospitalization. Cultures here are growing Proteus, Enterococcus, and gram positive cocci. The patient states that he understands he needs antibiotic treatment... however , he was agreeable at [facility] then walked out AMA. The patient will need 6 weeks of IV antibiotics at this point. Given entire history, the patient has osteomyelitis until proven otherwise of the left foot and ankle. Continue on antibiotics of Vancomycin and Cipro for treatment at this point. Supportive care. Went to OR for amputation of the left foot 3rd, 4th, and 5th toes as well as debridement of the left foot. Local wound care. Limited options for treatment. For possible discharge to nursing facility today. Thank you for allowing me to participate in the care of the patient, we will follow with you.
== END 2017-02-06 21:00 ==
LOC: ED 00:38 → ERH 03:20 → 5RSO 06:00 → 2RSO 01-30 00:04 → 5RSO 02-02 11:18
PROVIDERS: ADMIT Internal Medicine; ATTEND Internal Medicine
PROC: 0J9R0ZZ Drainage of Left Foot Subcutaneous Tissue and Fascia, Open Approach (ICD-10-PCS; 2017-01-26)
PROC: 0JBR0ZZ Excision of Left Foot Subcutaneous Tissue and Fascia, Open Approach (ICD-10-PCS; 2017-01-26)
PROC: 02HV33Z Insertion of Infusion Device into Superior Vena Cava, Percutaneous Approach (ICD-10-PCS; 2017-01-31)
PROC: B5181ZA Fluoroscopy of Superior Vena Cava using Low Osmolar Contrast, Guidance (ICD-10-PCS; 2017-01-31)
PROC: B54NZZA Ultrasonography of Left Upper Extremity Veins, Guidance (ICD-10-PCS; 2017-01-31)
PROC: 0Y6U0Z1 Detachment at Left 3rd Toe, High, Open Approach (ICD-10-PCS; 2017-02-01)
PROC: 0Y6Y0Z1 Detachment at Left 5th Toe, High, Open Approach (ICD-10-PCS; 2017-02-01)
PROC: 0Y6W0Z1 Detachment at Left 4th Toe, High, Open Approach (ICD-10-PCS; 2017-02-01)
PROC: 0JBR0ZZ Excision of Left Foot Subcutaneous Tissue and Fascia, Open Approach (ICD-10-PCS; 2017-02-01)
PROC: 0JBR0ZZ Excision of Left Foot Subcutaneous Tissue and Fascia, Open Approach (ICD-10-PCS; 2017-02-01)
PROC: 0Y6U0Z0 Detachment at Left 3rd Toe, Complete, Open Approach (ICD-10-PCS; principal; 2017-02-02)
PROC: 0Y6N0Z8 Detachment at Left Foot, Complete 5th Ray, Open Approach (ICD-10-PCS; 2017-02-02)
PROC: 0Y6Y0Z0 Detachment at Left 5th Toe, Complete, Open Approach (ICD-10-PCS; 2017-02-02)
PROC: 0Y6W0Z0 Detachment at Left 4th Toe, Complete, Open Approach (ICD-10-PCS; 2017-02-02)
PROC: 30233N1 Transfusion of Nonautologous Red Blood Cells into Peripheral Vein, Percutaneous Approach (ICD-10-PCS; 2017-02-02)
DX: E11.69 Type 2 diabetes mellitus with other specified complication (principal); R56.9 Unspecified convulsions; M86.172 Other acute osteomyelitis, left ankle and foot; E11.52 Type 2 diabetes mellitus with diabetic peripheral angiopathy with gangrene; M41.9 Scoliosis, unspecified; E11.65 Type 2 diabetes mellitus with hyperglycemia; L03.116 Cellulitis of left lower limb; L97.309 Non-pressure chronic ulcer of unspecified ankle with unspecified severity; L97.529 Non-pressure chronic ulcer of other part of left foot with unspecified severity; L02.612 Cutaneous abscess of left foot; B96.4 Proteus (mirabilis) (morganii) as the cause of diseases classified elsewhere; E11.621 Type 2 diabetes mellitus with foot ulcer; E11.628 Type 2 diabetes mellitus with other skin complications; E11.622 Type 2 diabetes mellitus with other skin ulcer; Z79.4 Long term (current) use of insulin; D64.9 Anemia, unspecified; F10.10 Alcohol abuse, uncomplicated; I10 Essential (primary) hypertension; J45.909 Unspecified asthma, uncomplicated; F17.210 Nicotine dependence, cigarettes, uncomplicated; Z91.19 Patient's noncompliance with other medical treatment and regimen; B95.2 Enterococcus as the cause of diseases classified elsewhere; R26.81 Unsteadiness on feet; B95.4 Other streptococcus as the cause of diseases classified elsewhere; B95.62 Methicillin resistant Staphylococcus aureus infection as the cause of diseases classified elsewhere

== ENCOUNTER 2017-05-23 15:23 | Inpatient (IN) | payer OTHER ==
--- NOTE | 2017-05-23 16:11 | ED PDOC ---
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 Patient complaining of abdominal pain, cough, rhinorrhea for " few " days, and intermittent fever. Patient denies hemoptysis, recta;l bleeding, or other complains. Patient admits similar multiple back pain in the past. Denies IV drug use. Time/Duration: Other (2 weeks) Quality: Aching Context: Street Past Medical History - Provider Review Nursing Documentation Reviewed: Yes - Cardiac Hx Cardiac Disorders: Yes Hx Hypertension: Yes - Pulmonary Hx Respiratory Disorders: No - Neurological Hx Neurological Disorder: No - HEENT Hx HEENT Disorder: No - Renal Hx Renal Disorder: No - Endocrine/Metabolic Hx Diabetes Mellitus Type 2: Yes - Hematological/Oncological Hx Blood Disorders: No - Integumentary Hx Dermatological Disorder: Yes Other/Comment: LEFT LEG EDEMA +3,LEFT BIG TOE HAS SUTURES-HAD SX DONE AT [facility]. LEFT LATERAL SIDE OF FOOT UNDERSIDE OF PINKY TOE HAS A 2 X 2.3 CM OPEN WOUND WITH SEROUSANGUINEOUS + PUS MEDIUM AMOUNT OF MILD ODOR DRAINAGE. EDGES IS COBB COLORED. MILD PAIN AT 5-6. THICKENED TOENAILS. RIGHT FOOT EDEMA + 1. SWOLLEN TOES WITH THICKENED NAILS. PINKY TOE HAS A SMALL 0.5 CM CALLOUSED AREA. - Musculoskeletal/Rheumatological Hx Musculoskeletal Disorders: Yes - Gastrointestinal Hx Gastrointestinal Disorders: No - Genitourinary/Gynecological Hx Genitourinary Disorders: No - Psychiatric Hx Psychophysiologic Disorder: Yes Hx Substance Use: Yes (WANTS TO GO TO A PROGRAM.ASKING FOR HELP.HEROINE [id number].LAST USED 3 BAGS) 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 USES HEROINE-SNORTS FOR 20 YRS. NEVER BEEN IN A PROGRAM BEFORE. SMOKES CIGARETTES < PPD. - Surgical History Other/Comment: LEFT BIG TOE SURGERY.DECEMBER 2016-[facility] - Anesthesia Hx Anesthesia Reactions: No Family/Social History - Physician Review Nursing Documentation Reviewed: Yes Family/Social History: Other (noncontributory) Smoking Status: Current Some Days Smoker Hx Alcohol Use: Yes Hx Substance Use: Yes (WANTS TO GO TO A PROGRAM.ASKING FOR HELP.HEROINE [id number].LAST USED 3 BAGS) Allergies/Home Meds Allergies/Adverse Reactions: Allergies EGG Allergy (Verified 05/23/17 15:35) VOMITING Fish Containing Products Allergy (Verified 05/23/17 15:35) VOMITING tomato Allergy (Verified 05/23/17 15:35) VOMITING Home Medications: Home Meds Medication Instructions Recorded Confirmed Phenytoin, Extended [Dilantin] 0 mg PO DAILY 05/23/17 05/23/17 Review of Systems - Review of Systems Constitutional: Normal. absent: Fatigue, Weight Change, Fevers, Night Sweats Eyes: Normal ENT: Normal Respiratory: Normal. absent: SOB, Cough, Sputum Cardiovascular: Normal. absent: Chest Pain, Palpitations Gastrointestinal: Abdominal Pain, Nausea, Vomiting Genitourinary Male: Normal Musculoskeletal: Back Pain, Other (left foot pain. ) Skin: Normal Neurological: Normal Endocrine: Normal Hemo/Lymphatic: Normal Psychiatric: Normal Physical Exam Vital Signs Temp Pulse Resp BP Pulse Ox 05/23/17 22:00 98.0 F 86 18 146/78 98 05/23/17 19:40 80 17 169/85 H 95 05/23/17 19:00 98 F 73 19 182/87 H 998 H 05/23/17 17:04 79 18 182/90 H 100 05/23/17 15:36 98.2 F 86 18 126/76 100 05/23/17 15:35 98.2 F 86 19 126/76 100 Temperature: Afebrile Blood Pressure: Normal Pulse: Regular Respiratory Rate: Normal Appearance: Positive for: Well-Appearing, Non-Toxic, Comfortable Pain Distress: None Finger Stick Blood Glucose: 218 - Systems Exam Head: Present: Atraumatic, Normocephalic Pupils: Present: PERRL Extroacular Muscles: Present: EOMI Conjunctiva: Present: Normal Mouth: Present: Moist Mucous Membranes Neck: Present: Normal Range of Motion Respiratory/Chest: Present: Clear to Auscultation, Good Air Exchange. No: Respiratory Distress, Accessory Muscle Use Cardiovascular: Present: Regular Rate and Rhythm, Normal S1, S2. No: Murmurs Abdomen: Present: Normal Bowel Sounds. No: Tenderness, Distention, Peritoneal Signs Back: Present: Normal Inspection Upper Extremity: Present: Normal Inspection, Normal ROM, NORMAL PULSES, Neurovascularly Intact, Capillary Refill < 2s. No: Cyanosis, Edema Lower Extremity: Present: NORMAL PULSES, Normal ROM, Swelling, Temperature Abnormalties. No: Edema, CALF TENDERNESS, Erythema Neurological: Present: GCS=15, CN II-XII Intact, Speech Normal Skin: Present: Warm, Dry, Normal Color. No: Rashes Psychiatric: Present: Alert, Oriented x 3, Normal Insight, Normal Concentration Medical Decision Making ED Course and Treatment: 05/23/17 23:[address] 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 He agrees with plan for Admission. Re-evaluation Time: 23:26 Reassessment Condition: Re-examined, Improving,but remains with symptoms - Lab Interpretations Lab Results: 05/23/17 16:45 05/23/17 16:45 Lab Results 05/23/17 22:30: Urine Opiates Screen Positive H, Urine Methadone Screen Negative , Ur Barbiturates Screen Negative, Ur Phencyclidine Scrn Negative, Ur Amphetamines Screen Negative, U Benzodiazepines Scrn Negative, U Oth Cocaine Metabols Positive H, U Cannabinoids Screen Negative 05/23/17 22:30: Urine Color Yellow, Urine Appearance Clear, Urine pH 8.0, Ur Specific [place] 1.025, Urine Protein 100 H, Urine Glucose (UA) 500 H, Urine Ketones 15 H, Urine Blood Trace-intact H, Urine Nitrate Negative, Urine Bilirubin Negative, Urine Urobilinogen 0.2, Ur Leukocyte Esterase Negative, Urine RBC 1 - 3, Urine WBC 0 - 2 05/23/17 16:45: Lipase 16 L 05/23/17 16:45: pO2 81 H, VBG pH 7.46 H, VBG pCO2 51.0, VBG HCO3 36.3 H, VBG Total CO2 37.9 H, VBG O2 Sat (Calc) 98.0 H, VBG Base Excess 10.6 H, VBG Potassium 4.1, Sodium 140.0, Chloride 103.0, Glucose 206 H, Lactate 1.2, FiO2 21.0, Venous Blood Potassium 4.1 05/23/17 16:45: Sodium 140, Chloride 100, Potassium 4.1, Carbon Dioxide 33, Anion Gap 11, BUN 17, Creatinine 0.9, Est GFR ( Amer) > 60, Est GFR (Non- Af Amer) > 60, Random Glucose 199 H, Calcium 9.7, Total Bilirubin 0.5, AST 84 H D, ALT 45, Alkaline Phosphatase 131 H D, Total Protein 8.0, Albumin 3.9, Globulin 4.1, Albumin/Globulin Ratio 1.0 L 05/23/17 16:45: WBC 6.0 D, RBC 3.91, Hgb 11.5 L, Hct 34.9 L, MCV 89.3, MCH 29.4 , MCHC 33.0, RDW 13.6, Plt Count 438, MPV 8.6, Gran % 80.2 H, Lymph % (Auto) 14.3 L, [place] % (Auto) 4.8, Eos % (Auto) 0.7 L, Baso % (Auto) 0.0, Gran # 4.84, Lymph # 0.9 L, [place] # 0.3, Eos # 0.0, Baso # 0.00 I have reviewed the lab results: Yes Interpretation: Abnormal lab values - RAD Interpretation Narrative RAD Interpretations (Text): 05/23/17 22:11 Accession No. : [id number] Patient Name / ID : CASEY GUAMAN / [id number] Exam Date : 05/23/2017 18:54:01 ( Approved ) Study Comment : Sex / Age : M / 52Y Creator : Rose Dorsey MD Dictator : Public Relations Account Supervisor : Hairspring I Inspector : Rose Dorsey MD Approver2 : Report Date : 05/23/2017 20:25:00 My Comment : [facility] of Radiology [address] [place] [address] Tel. no. Patient Name: DENIZ PEÑA Pt. Address: [address] [place] [address] Rec #: [id number] [place] [address]: Estephania Wise PA-C Pt Order Location: ED : 1965 Male Age: 52 Order #: [id number] Reason for exam: back pain CT Scan LUMBAR SPINE W/O CONTRAST Exam Date: 05/23/17 This imaging exam was performed at [facility] EXAM: CT Lumbar Spine Without Intravenous Contrast EXAM DATE/TIME: 05/23/2017 4:30 PM CLINICAL HISTORY: 52 years old, male; Pain; Low back pain TECHNIQUE: Axial computed tomography images of the lumbar spine without intravenous contrast. All CT scans at this facility use one or more dose reduction techniques, viz.: automated exposure control; ma/kV adjustment per patient size (including targeted exams where dose is matched to indication; i.e. head); or iterative reconstruction technique. Coronal and sagittal reformatted images were created and reviewed. COMPARISON: Prior lumbar spine MRI of 2017-05-09 FINDINGS: VERTEBRAE: No acute fractures are seen. No evidence of acute vertebral compression fractures. No evidence of significant vertebral subluxation. No evidence of destructive or otherwise aggressive-appearing vertebral lesions. DISCS/SPINAL CANAL/NEURAL FORAMINA: Minimal to mild multilevel degenerative disc disease. Small osteophytes are noted at multiple levels, and there are degenerative Schmorl's nodes within T12 and L1. Mild facet joint degenerative changes on the right at L3-4, L4-5, and L5-S1. Degenerative changes at the left sacroiliac joint. No evidence of bony spinal canal stenosis. SOFT TISSUES: No acute abnormality of the visualized soft tissues is seen. LUNGS: Incidental findings in the left lung base which are suspicious for an infiltrate/pneumonia. There are patchy areas of groundglass consolidation and multiple small, ill-defined pulmonary nodules. INTRAPERITONEAL SPACE: Small amount of free fluid in the cul-de-sac, an abnormal finding in a male patient. There is no evidence of diffuse pelvic ascites. IMPRESSION: - No evidence of fractures or other acute bony abnormality. - Findings in the left lung base suspicious for an incidental pneumonia. Followup is recommended, as this has a multinodular component. - Small amount of pelvic free fluid, of uncertain etiology. - See above for remaining findings. Dictated By: Rose Dorsey MD Dictated Date/Time: 05/23/172024 Signed By: Rose Dorsey MD Date Signed: 2024 Transcribed By: ANGEL Transcribe Date/Time : 05/23/17202405/23/17 23:13 [facility] EXAM: CT Abdomen and Pelvis With Intravenous Contrast EXAM DATE/TIME: 05/23/2017 4:29 PM CLINICAL HISTORY: 52 years old, male; Pain; Abdominal pain; Acute FINDINGS: LIMITATIONS: Streak artifact from the patient's arms. LOWER THORAX: Heart appears mildly enlarged. Findings in the left lung base suspicious for a mild pneumonia/infectious bronchiolitis, as seen on the recent lumbar spine CT. There are tree in bud opacities and multiple small, ill-defined nodules noted. ABDOMEN: LIVER: Area of low density in the liver, abutting the falciform ligament, most compatible with focal fatty infiltration. GALLBLADDER AND BILE DUCTS: No CT evidence of acute cholecystitis. No evidence of significant biliary ductal dilatation. PANCREAS: No CT evidence of acute pancreatitis. SPLEEN: No acute abnormality of the spleen identified. ADRENALS: No acute abnormality of the adrenal glands identified. KIDNEYS AND URETERS: No acute abnormality of the kidneys identified. No evidence of significant hydrouereteronephrosis. STOMACH AND BOWEL: Retained stool noted throughout the colon. Bowel is otherwise unremarkable in appearance. No evidence of bowel obstruction. APPENDIX: Appendix is seen, and is within normal limits in appearance. PELVIS: BLADDER: Bladder is mildly dilated. REPRODUCTIVE: No acute abnormality of the reproductive organs is seen. ABDOMEN and PELVIS: INTRAPERITONEAL SPACE: Small amount of pelvic free fluid, as seen on the recent lumbar spine CT. No evidence of free air. BONES/JOINTS: No acute fractures or other acute bony abnormality noted. SOFT TISSUES: Infiltration of the subcutaneous fat in the bilateral gluteal soft tissues inferiorly and medially, which could be secondary to cellulitis. There is no soft tissue gas seen to suggest necrotizing fasciitis. No evidence of soft tissue abscess. VASCULATURE: No evidence of abdominal aortic aneurysm. No evidence of periaortic hemorrhage. LYMPH NODES: Mild left inguinal lymphadenopathy. No evidence of diffuse pathologic lymphadenopathy. IMPRESSION: - Findings in the gluteal soft tissues which could be due to cellulitis. Recommend correlation with clinical exam. - Small amount of pelvic free fluid. - Mild left inguinal lymphadenopathy, of uncertain etiology. No evidence of diffuse lymphadenopathy. - Findings in the left lung base suspicious for mild pneumonia, as seen on the recent lumbar spine CT. - See above for remaining findings. Thank you for allowing us to participate in the care of your patient. Dictated and Authenticated by: Rose Dorsey MD 05/23/2017 11:12 PM Eastern Time ([place] & [place]) 05/23/17 23:28 Venous Dopller Left Lower Extremity: NO DVT, as per [facility] Orders: 05/23/17 16:29 ABD & PELVIS IV CONTRAST ONLY [CT] Stat FOOT LEFT 3 VIEWS ROUTINE [RAD] Stat 05/23/17 16:30 LUMBAR SPINE W/O CONTRAST [CT] Stat 05/23/17 16:31 CHEST PORTABLE [RAD] Stat 05/23/17 20:40 DUPLEX LOWER EXTRM VEIN LEFT [US] Stat - Medication Orders Current Medication Orders: Azithromycin (Zithromax 500mg In Ns) 500 mg in 250 mls @ 167 mls/hr IVPB STAT STA PRN Reason: Protocol Stop: 05/24/17 00:22 Discontinued Medications Sodium Chloride (Sodium Chloride 0.9%) 1,000 mls @ 999 mls/hr IV .Q1H1M STA Stop: 05/23/17 17:31 Last Admin: 05/23/17 17:02 Dose: 999 mls/hr eMAR Start Stop Document 05/23/17 17:02 SRE (Rec: 05/23/17 17:03 SRE [id number]) Intravenous Solution Start Date 05/23/17 Start Time 17:00 End Date 05/23/17 End time 18:00 Total Infusion Time 60 Ceftriaxone Sodium (Rocephin 1 Gram Ivpb) 1 gm in 100 mls @ 200 mls/hr IVPB STAT STA PRN Reason: Protocol Stop: 05/23/17 23:21 Last Admin: 05/23/17 23:20 Dose: 200 mls/hr eMAR Start Stop Document 05/23/17 23:20 IT (Rec: 05/23/17 23:20 IT [id number]) Intravenous Solution Start Date 05/23/17 Start Time 23:20 End Date 05/23/17 End time 23:50 Total Infusion Time 30 Ondansetron HCl (Zofran Inj) 4 mg IVP STAT STA Stop: 05/23/17 16:30 Last Admin: 05/23/17 17:03 Dose: 4 mg IVP Administration Document 05/23/17 17:03 SRE (Rec: 05/23/17 17:03 SRE [id number]) Charges for Administration # of IVP Administrations 1 Ondansetron HCl (Zofran Inj) 4 mg IVP STAT STA Stop: 05/23/17 19:23 Last Admin: 05/23/17 19:27 Dose: 4 mg IVP Administration Document 05/23/17 19:27 IT (Rec: 05/23/17 19:27 IT [facility] [id number]) Charges for Administration # of IVP Administrations 1 Ondansetron HCl (Zofran Inj) 4 mg IVP STAT STA Stop: 05/23/17 22:53 Last Admin: 05/23/17 23:20 Dose: 4 mg IVP Administration Document 05/23/17 23:20 IT (Rec: 05/23/17 23:20 IT [id number]) Charges for Administration # of IVP Administrations 1 Disposition/Present on Arrival - Present on Arrival Any Indicators Present on Arrival: No History of DVT/PE: No History of Uncontrolled Diabetes: Yes Urinary Catheter: No History of Decub. Ulcer: Yes History Surgical Site Infection Following: None - Disposition Have Diagnosis and Disposition been Completed?: Yes Diagnosis: Intractable vomiting, Pneumonia Disposition: HOSPITALIZED Disposition Time: 23:31 Patient Plan: Admission, Observation Patient Problems: Current Active Problems Problem Status Onset Intractable vomiting Acute Pneumonia Acute Condition: STABLE Referrals: Bryan Yeager, [Primary Care Provider] - Follow up with primary Forms: [employer] (Polish)
[2017-05-23] MEDS ORDERED: Sodium Chloride 0.9% 1,000 ML IV STA (16:31)
[2017-05-23 16:58] LABS: EOS % 0.7 % (1.5-5.0); GRAN # 4.84 (1.4-6.5); GRAN % 80.2 % (50.0-68.0); HEMATOCRIT 34.9 % (42.0-52.0); LYMPH # 0.9 (1.2-3.4); LYMPH % 14.3 % (22.0-35.0); MEAN CELL VOLUME 89.3 fl (80.0-105.0); MEAN CORPUSCULAR HEMOGLOBIN 29.4 pg (25.0-35.0); MEAN PLATELET VOLUME 8.6 fl (7.0-11.0); MONO # 0.3 (0.1-0.6); MONO % 4.8 % (1.0-6.0); RED CELL DISTRIBUTION WIDTH 13.6 % (11.5-14.5)
[2017-05-23 17:09] LABS: ALKALINE PHOSPHATASE 131 U/L (38-126); ALT/SGPT 45 U/L (7-56); AST/SGOT 84 U/L (17-59); BILIRUBIN,TOTAL 0.5 mg/dL (0.2-1.3); BLOOD UREA NITROGEN 17 mg/dL (7-21); CALCIUM 9.7 mg/dL (8.4-10.5); CARBON DIOXIDE 33 mmol/L (21-33); CHLORIDE 100 mmol/L (98-107); GFR AFRICAN-AMERICAN > 60; GLUCOSE,RANDOM 199 mg/dL (70-110); POTASSIUM 4.1 mmol/L (3.6-5.0); SODIUM 140 mmol/L (132-148)
[2017-05-23] MEDS ORDERED: Iohexol 350 MG/100 ML VIAL ONE (17:23)
[2017-05-23 17:26] LABS: VENOUS BLOOD GAS BASE EXCESS 10.6 mmol/L (0.0-2.0); VENOUS BLOOD PH 7.46 (7.32-7.43)
--- NOTE | 2017-05-23 20:25 | CT ---
EXAM: CT Lumbar Spine Without Intravenous Contrast EXAM DATE/TIME: 05/23/2017 4:30 PM CLINICAL HISTORY: 52 years old, male; Pain; Low back pain TECHNIQUE: Axial computed tomography images of the lumbar spine without intravenous contrast. All CT scans at this facility use one or more dose reduction techniques, viz.: automated exposure control; ma/kV adjustment per patient size (including targeted exams where dose is matched to indication; i.e. head); or iterative reconstruction technique. Coronal and sagittal reformatted images were created and reviewed. COMPARISON: Prior lumbar spine MRI of 2017-05-09 FINDINGS: VERTEBRAE: No acute fractures are seen. No evidence of acute vertebral compression fractures. No evidence of significant vertebral subluxation. No evidence of destructive or otherwise aggressive-appearing vertebral lesions. DISCS/SPINAL CANAL/NEURAL FORAMINA: Minimal to mild multilevel degenerative disc disease. Small osteophytes are noted at multiple levels, and there are degenerative Schmorl's nodes within T12 and L1. Mild facet joint degenerative changes on the right at L3-4, L4-5, and L5-S1. Degenerative changes at the left sacroiliac joint. No evidence of bony spinal canal stenosis. SOFT TISSUES: No acute abnormality of the visualized soft tissues is seen. LUNGS: Incidental findings in the left lung base which are suspicious for an infiltrate/pneumonia. There are patchy areas of groundglass consolidation and multiple small, ill-defined pulmonary nodules. INTRAPERITONEAL SPACE: Small amount of free fluid in the cul-de-sac, an abnormal finding in a male patient. There is no evidence of diffuse pelvic ascites. IMPRESSION: - No evidence of fractures or other acute bony abnormality. - Findings in the left lung base suspicious for an incidental pneumonia. Followup is recommended, as this has a multinodular component. - Small amount of pelvic free fluid, of uncertain etiology. - See above for remaining findings.
[2017-05-23 22:39] LABS: URINE BILIRUBIN NEGATIVE (NEGATIVE); URINE BLOOD TRACE-INTACT (NEGATIVE); URINE GLUCOSE (UA) 500 mg/dL (NEGATIVE); URINE KETONE 15 mg/dL (NEGATIVE); URINE LEUKOCYTE ESTERASE NEGATIVE Leu/uL (NEGATIVE); URINE PROTEIN 100 mg/dL (<30 mg/dL); URINE UROBILINOGEN 0.2 E.U./dL (<1 E.U./dL)
[2017-05-23 22:40] LABS: URINE APPEARANCE CLEAR (CLEAR); URINE COLOR YELLOW (YELLOW)
[2017-05-23 22:42] LABS: URINE WBC 0 - 2 /hpf (0-6)
[2017-05-23] MEDS ORDERED: cefTRIAXone 1 gm 1 GM/100 ML BAG IVPB STA (22:52)
[2017-05-23] MEDS ORDERED: Azithromycin 500MG/NS 250ml 500 MG/250 ML BAG IVPB STA (22:53)
--- NOTE | 2017-05-23 23:12 | CT ---
EXAM: CT Abdomen and Pelvis With Intravenous Contrast EXAM DATE/TIME: 05/23/2017 4:29 PM CLINICAL HISTORY: 52 years old, male; Pain; Abdominal pain; Acute TECHNIQUE: Axial computed tomography images of the abdomen and pelvis with intravenous contrast. All CT scans at this facility use one or more dose reduction techniques, viz.: automated exposure control; ma/kV adjustment per patient size (including targeted exams where dose is matched to indication; i.e. head); or iterative reconstruction technique. MIP reconstructed images were created and reviewed. Coronal and sagittal reformatted images were created and reviewed. CONTRAST: 100 mL of omni 350 administered intravenously. COMPARISON: No relevant prior studies available. FINDINGS: LIMITATIONS: Streak artifact from the patient's arms. LOWER THORAX: Heart appears mildly enlarged. Findings in the left lung base suspicious for a mild pneumonia/infectious bronchiolitis, as seen on the recent lumbar spine CT. There are tree in bud opacities and multiple small, ill-defined nodules noted. ABDOMEN: LIVER: Area of low density in the liver, abutting the falciform ligament, most compatible with focal fatty infiltration. GALLBLADDER AND BILE DUCTS: No CT evidence of acute cholecystitis. No evidence of significant biliary ductal dilatation. PANCREAS: No CT evidence of acute pancreatitis. SPLEEN: No acute abnormality of the spleen identified. ADRENALS: No acute abnormality of the adrenal glands identified. KIDNEYS AND URETERS: No acute abnormality of the kidneys identified. No evidence of significant hydrouereteronephrosis. STOMACH AND BOWEL: Retained stool noted throughout the colon. Bowel is otherwise unremarkable in appearance. No evidence of bowel obstruction. APPENDIX: Appendix is seen, and is within normal limits in appearance. PELVIS: BLADDER: Bladder is mildly dilated. REPRODUCTIVE: No acute abnormality of the reproductive organs is seen. ABDOMEN and PELVIS: INTRAPERITONEAL SPACE: Small amount of pelvic free fluid, as seen on the recent lumbar spine CT. No evidence of free air. BONES/JOINTS: No acute fractures or other acute bony abnormality noted. SOFT TISSUES: Infiltration of the subcutaneous fat in the bilateral gluteal soft tissues inferiorly and medially, which could be secondary to cellulitis. There is no soft tissue gas seen to suggest necrotizing fasciitis. No evidence of soft tissue abscess. VASCULATURE: No evidence of abdominal aortic aneurysm. No evidence of periaortic hemorrhage. LYMPH NODES: Mild left inguinal lymphadenopathy. No evidence of diffuse pathologic lymphadenopathy. IMPRESSION: - Findings in the gluteal soft tissues which could be due to cellulitis. Recommend correlation with clinical exam. - Small amount of pelvic free fluid. - Mild left inguinal lymphadenopathy, of uncertain etiology. No evidence of diffuse lymphadenopathy. - Findings in the left lung base suspicious for mild pneumonia, as seen on the recent lumbar spine CT. - See above for remaining findings.
[2017-05-24] MEDS ORDERED: Albuterol-Ipratrop 3 mg / 0.5 (3 ml) UD IH PRN (00:53)
[2017-05-24 01:17] LABS: ALCOHOL SERUM < 10 mg/dL (0-10)
[2017-05-24] MEDS: Vancomycin 1gm in NS 250ml 1 GM/250 ML BAG IVPB SCH ×2 (01:58→14:08)
--- NOTE | 2017-05-24 02:33 | CP.PCM.HP ---
<Rob Duffy - Last Filed: 05/24/17 03:22> History of Present Illness - History of Present Illness History of Present Illness: cc: going through withdrawals and back hurts Mr. 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 the patient is a poor historian and was not cooperative with providing the history as he was writhing on the stretcher and complaining of pain. the patient does state that he used heroin and cocaine (snorts) 2 days ago and feels like he's going through withdrawals. the patient does not provide more history and only point to his lower back when asked about other complaints. the patient does not answer questions regarding alcohol use or other medical history /medications he's taking. The patient does state that he's been vomiting for the past 2 days as well. ROS was limited to above statement. Information below is based on chart review: Of note, the patient underwent Left foot debridement on 01/27/17 for abscess and osteomyelitis, and amputations of L toes 3,4,5 on 02/02/17. Pt was in [facility] on with similar complaints. wound culture of L ankle grew S Aureus and L foot grew Corynebacterium. Venous dopplers were negative for DVT. ID was consulted. He had a UDS which was positive for PCP, opiates, and cocaine and Psych was consulted for agitation. Patient was on CIWA protocol. Throughout hospital stay patient had multiple Code Oneil and also had an VP RESEARCH for possible seizure. Neurology consulted and patient was started on Keppra 500mg po bid as Dilantin level was subtherapeutic throughout stay. Patient was combative and was continually demanding pain medications and refusing to be examined. Throughout stay he denied any suicidal or homicidal ideations and denied any auditory or visual hallucinations. The patient left AMA. Prior to that, patient was in [facility] in January 2017 for LLE cellulitis with cultures positive for Proteus, Enterococcus, and MRSA. In ED, pt received Rocephin and Zithromax, and Zofran. PMH: as above PSH: s/p amputation of left toes 3,4,5 (02/02/17) Meds: on 05/10/17, pt left AMA but was provided with Keppra 500mg BID #60. unclear if he's been taking it Allergies: fish and tomato SHx: heroin/cocaine and ETOH, lives with niece Present on Admission - Present on Admission Any Indicators Present on Admission: No History of DVT/PE: No History of Uncontrolled Diabetes: No Urinary Catheter: No Decubitus Ulcer Present: No Review of Systems - Review of Systems Systems not reviewed;Unavailable: Uncooperative Past Patient History - Past Medical History & Family History Past Medical History?: Yes - Past Social History Smoking Status: Current Some Days Smoker Alcohol: Occasional Drugs: Cocaine, Opiates - CARDIAC Hx Cardiac Disorders: Yes Hx Hypertension: Yes - PULMONARY Hx Respiratory Disorders: No - NEUROLOGICAL Hx Neurological Disorder: No Hx Seizures: Yes (2/2 ETOH withdrawal) - HEENT Hx HEENT Problems: No - RENAL Hx Chronic Kidney Disease: No - ENDOCRINE/METABOLIC Hx Diabetes Mellitus Type 2: Yes - HEMATOLOGICAL/ONCOLOGICAL Hx Blood Disorders: No - INTEGUMENTARY Hx Dermatological Problems: Yes - MUSCULOSKELETAL/RHEUMATOLOGICAL Hx Musculoskeletal Disorders: Yes Hx Osteomyelitis: Yes (s/p amputations of L toes #3,4,5 ) - GASTROINTESTINAL Hx Gastrointestinal Disorders: No - GENITOURINARY/GYNECOLOGICAL Hx Genitourinary Disorders: No - PSYCHIATRIC Hx Psychophysiologic Disorder: Yes Hx Substance Use: Yes 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 USES HEROINE-SNORTS FOR 20 YRS. NEVER BEEN IN A PROGRAM BEFORE. SMOKES CIGARETTES < PPD. - SURGICAL HISTORY Hx Amputation: Yes - ANESTHESIA Hx Anesthesia Reactions: No Meds Allergies/Adverse Reactions: Allergies Allergy/AdvReac Type Severity Reaction Status Date / Time EGG Allergy VOMITING Verified 05/23/17 15:35 Fish Containing Products Allergy VOMITING Verified 05/23/17 15:35 tomato Allergy VOMITING Verified 05/23/17 15:35 Physical Exam - Constitutional Appears: Non-toxic, No Acute Distress, Unkempt, Other (uncooperative) - Head Exam Head Exam: ATRAUMATIC, NORMAL INSPECTION, NORMOCEPHALIC - Eye Exam Eye Exam: EOMI, Normal appearance, PERRL Pupil Exam: NORMAL ACCOMODATION - ENT Exam ENT Exam: Mucous Membranes Dry, Normal Exam - Neck Exam Neck exam: Positive for: Normal Inspection - Respiratory Exam Respiratory Exam: Clear to Auscultation Bilateral, NORMAL BREATHING PATTERN. absent: Respiratory Distress - Cardiovascular Exam Cardiovascular Exam: RRR, +S1, +S2 - GI/Abdominal Exam GI & Abdominal Exam: Normal Bowel Sounds, Soft. absent: Distended, Tenderness - Extremities Exam Extremities exam: Negative for: calf tenderness, pedal edema Additional comments: L toes 3,4,5 s/p amputation surface around L lateral maleoli with open ulcerative wound (no pus) - Back Exam Back exam: NORMAL INSPECTION - Neurological Exam Neurological exam: Altered - Skin Skin Exam: Normal Color, Warm Additional comments: skin surface around L lateral maleoli with open ulcerative wound (no pus) Results - Vital Signs Recent Vital Signs: Last Vital Signs Temp 98.0 F 05/23/17 22:00 Pulse 82 05/24/17 00:59 Resp 17 05/24/17 00:59 BP 115/72 05/24/17 00:59 Pulse Ox 98 05/24/17 00:59 - Labs Result Diagrams: 05/23/17 16:45 05/23/17 16:45 Assessment & Plan - Assessment and Plan (Free Text) Assessment: 52 year old AA male PMHx IDDM, osteomyelitis of 5th toes s/p amputation of L toes #3,4,5, HTN, seizure 2/2 ETOH withdrawal, ETOH abuse, and cocaine/heroin abuse who presented to [facility] with complaints of back and left leg pain. Both problems are chronic. Patient also likely going through cocaine, heroin and ETOH withdrawal. Cellulitis no CT abdomen. Plan: 1. back and leg pain - Lumbar CT showed no acute fractures; Incidental findings in the left lung base which are suspicious for an infiltrate/pneumonia. There are patchy areas of groundglass consolidation and multiple small, ill-defined pulmonary nodules. - Lumbar MRI (05/09/17) showed no disc herniation or severe spinal stenosis identified throughout. No spondylolisthesis. Diffuse multilevel facet degenerative arthropathy is appreciated concentrated primarily at the mid inferior levels with a borderline central stenosis identified at L4-5. Multilevel lateral recess stenoses are encountered without generalized central stenosis. A few synovial cysts are identified at inferior lumbar facet joints as per above. - Foot XR done, f/u official read - LE Duplex done, f/u official read - motrin PRN - avoid narcotics given pt's hx polysubstance abuse and medication non- compliance 2. vomiting likely 2/2 polysubstance abuse and ETOH withdrawal (w/ withdrawal seizures) - UDS positive for cocaine and heroin - ETOH level low - zofran prn - Ativan PRN - librium MALLIKA - CIWA protocol - fall risk - pt has hx of withdrawal seizures so on Keppra 500 BID - seizure precautions - psych consulted, recs appreciated - NS 100 3. Cellulitis (incidental finding on CT abdomen) - CT abdomen/pelvis w/ IV contrast showed questionable gluteal soft tissues cellulitis. Small amount of pelvic free fluid. Mild left inguinal lymphadenopathy, of uncertain etiology - pt is afebrile with no leukocytosis - will check CRP and ESR - on Vanc and Zosyn - ID consulted, recs appreciated 4. LLL pneumonia (incidental finding on CT abdomen) - pt did not offer any complaints of cough, wheezing, sob, fevers/chills - will start Vanc and Zosyn empirically - f/u blood and urine cx - ID consulted, recs appreciated 5. Hx HTN - controlled well off meds 6. Hx DM2 - ISS - Accucheck ACHS - A1C 7. Hx asthma - duoneb prn PTX/Heparin HHD Patient was seen, examined and discussed with attending, Dr. Alba Duffy PGY1 - Date & Time Date: 05/24/17 Time: 02:12 <Logan Willis Q - Last Filed: 05/24/17 06:08> Results - Vital Signs Recent Vital Signs: Last Vital Signs Temp 98.9 F 05/24/17 04:25 Pulse 86 05/24/17 04:25 Resp 20 05/24/17 04:25 BP 130/76 05/24/17 04:25 Pulse Ox 98 05/24/17 00:59 - Labs Result Diagrams: 05/23/17 16:45 05/23/17 16:45 Attending/Attestation - Attestation I have personally seen and examined this patient.: Yes I have fully participated in the care of the patient.: Yes I have reviewed all pertinent clinical information: Yes Notes (Text): 05/24/17 06:04 I agree with the above mentioned note and exam by the resident with the addition /exception of the followin52 y/o male with an extensive PMHx and recent hospitalization for OM of the left foot s/p debridement returned to the ED with complaints of lower back pain. Patient had a recent CT of the spine which did not show any significant central stenosis and he was moving all of his extremities in the ED. He was admitted for cellulitis +/- LLL PNA as well as for possible heroin withdrawal. Patient does not appear to be in complete withdrawal at this time given that his hemodynamics are stable (normal HR, BP, RR, no diaphoresis or lacrimation). Will obtain a psych eval for further management and recommendations, patient may possibly require suboxone taper due to his withdrawal. Avoiding opiod medications due to his history of opiod abuse. ID consulted due to numerous areas of possible infection, however currently without leukocytosis or fever. Unclear at this point whether he completed treatment for what was considered OM of the foot also.
[2017-05-24 05:26] VITALS: BMI 18.7
[2017-05-24] MEDS: Sodium Chloride 0.9% 1,000 ML IV SCH ×2 (05:29→20:29)
[2017-05-24] MEDS ORDERED: Piperacillin/Tazobact 2.25gm 2.25 GM/100 ML BAG IVPB SCH (06:00)
[2017-05-24] MEDS: Pantoprazole 40 mg EC Tab PO SCH ×2 (06:17→06:21)
[2017-05-24 07:50] LABS: EOS % 0.4 % (1.5-5.0); GRAN # 3.64 (1.4-6.5); GRAN % 72.5 % (50.0-68.0); HEMATOCRIT 35.1 % (42.0-52.0); LYMPH % 19.1 % (22.0-35.0); MEAN CELL VOLUME 88.6 fl (80.0-105.0); MEAN CORPUSCULAR HEMOGLOBIN 29.8 pg (25.0-35.0); MEAN CORPUSCULAR HGB CONC 33.6 g/dl (31.0-37.0); MEAN PLATELET VOLUME 8.5 fl (7.0-11.0); MONO # 0.4 (0.1-0.6); RED CELL DISTRIBUTION WIDTH 13.6 % (11.5-14.5)
[2017-05-24 07:52] LABS: ALB/GLOB RATIO 0.9 (1.1-1.8); ALKALINE PHOSPHATASE 116 U/L (38-126); ALT/SGPT 39 U/L (7-56); AST/SGOT 59 U/L (17-59); BILIRUBIN,TOTAL 0.5 mg/dL (0.2-1.3); BLOOD UREA NITROGEN 17 mg/dL (7-21); CALCIUM 9.2 mg/dL (8.4-10.5); CARBON DIOXIDE 34 mmol/L (21-33); CHLORIDE 103 mmol/L (98-107); GFR AFRICAN-AMERICAN > 60; GLUCOSE,RANDOM 173 mg/dL (70-110); POTASSIUM 3.7 mmol/L (3.6-5.0); SODIUM 143 mmol/L (132-148); TOTAL PROTEIN 7.2 g/dL (5.8-8.3)
--- NOTE | 2017-05-24 08:47 | US ---
PROCEDURE: Left lower extremity venous US HISTORY: Leg pain and swelling. Evaluate for DVT. PHYSICIAN(S): Neal Peralta MD. TECHNIQUE: Duplex sonography and color-flow Doppler with graded compression were used to evaluate the deep venous system of the left lower extremity. FINDINGS: The visualized deep venous system of the left lower extremity is sonographically normal and compressible. Normal wave forms and augmentation are seen. There is no sonographic evidence for deep venous thrombosis in the visualized segments of the left lower extremity. IMPRESSION: 1. No sonographic evidence for deep venous thrombosis in the visualized segments of the left lower extremity.
--- NOTE | 2017-05-24 08:59 | RAD ---
HISTORY: cough COMPARISON: 01/26/2017 FINDINGS: LUNGS: No active pulmonary disease. PLEURA: No significant pleural effusion identified, no pneumothorax apparent. CARDIOVASCULAR: Normal. OSSEOUS STRUCTURES: No significant abnormalities. VISUALIZED UPPER ABDOMEN: Normal. OTHER FINDINGS: None. IMPRESSION: No active disease.
--- NOTE | 2017-05-24 09:01 | RAD ---
PROCEDURE: Left foot three views HISTORY: pain COMPARISON: 05/07/2017 TECHNIQUE: Three views FINDINGS: Multiple amputations are again demonstrated. There are no acute changes. No evidence of acute osteomyelitis. IMPRESSION: No acute findings
--- NOTE | 2017-05-24 09:15 | CP.PCM.PCO ---
Physician Communication Note - Physician Communication Note Physician Communication Note: polysubstance abuse is not indication to be evaluated by psychiatrist
--- NOTE | 2017-05-24 09:16 | CARD ---
APPROVED REPORT EKG Measurement Heart [id number] <Conclusion> Normal sinus rhythm Moderate voltage criteria for LVH, may be normal variant Prolonged QT Abnormal ECG
[2017-05-24] MEDS: Piperacillin/Tazobact 3.375 gm 100 ML IVPB SCH ×2 (11:36→17:24)
[2017-05-24] MEDS: levETIRAcetam 500mg IVPB 500 MG/100 ML BAG IV SCH ×2 (13:03→21:19)
[2017-05-24] MEDS: Insulin Lispro (humaLOG) MEDIUM Coverage SC SCH ×4 (13:04→21:43)
--- NOTE | 2017-05-24 18:08 | CP.PCM.CON ---
History of Present Illness - History of Present Illness History of Present Illness: cc: going through withdrawals and back hurts 51 year old male with PMH of DM, HTN, alcohol abuse and polysubstance abuse, history of left foot osteomyelitis S/P left hallux amputation, scoliosis was recently [place] [facility] [place] leg cellulitis and back pain. The patient signed out AMA last month. He is now back complaining of left leg pain and back pain again. He is not very cooperative and is not giving out more details related to his symptoms. He does admit to snorting cocaine and heroin and he feels that he is going into withdrawals. He denies fevers, no vomiting, no diarrhea. Infectious Diseases consult is requested to further evaluate and manage. Review of Systems - Review of Systems Systems not reviewed;Unavailable: Uncooperative Past Patient History - Past Medical History & Family History Past Medical History?: Yes - Past Social History Smoking Status: Current Some Days Smoker - CARDIAC Hx Cardiac Disorders: Yes Hx Hypertension: Yes - PULMONARY Hx Respiratory Disorders: No - NEUROLOGICAL Hx Neurological Disorder: No Hx Seizures: Yes (2/2 ETOH withdrawal) - HEENT Hx HEENT Problems: No - RENAL Hx Chronic Kidney Disease: No - ENDOCRINE/METABOLIC Hx Diabetes Mellitus Type 2: Yes - HEMATOLOGICAL/ONCOLOGICAL Hx Blood Disorders: No - INTEGUMENTARY Hx Dermatological Problems: Yes - MUSCULOSKELETAL/RHEUMATOLOGICAL Hx Musculoskeletal Disorders: Yes Hx Falls: No Hx Osteomyelitis: Yes (s/p amputations of L toes #3,4,5 ) - GASTROINTESTINAL Hx Gastrointestinal Disorders: No - GENITOURINARY/GYNECOLOGICAL Hx Genitourinary Disorders: No - PSYCHIATRIC Hx Psychophysiologic Disorder: Yes Hx Substance Use: Yes 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 USES HEROINE-SNORTS FOR 20 YRS. NEVER BEEN IN A PROGRAM BEFORE. SMOKES CIGARETTES < PPD. - SURGICAL HISTORY Hx Amputation: Yes - ANESTHESIA Hx Anesthesia Reactions: No Meds Allergies/Adverse Reactions: Allergies Allergy/AdvReac Type Severity Reaction Status Date / Time EGG Allergy VOMITING Verified 05/23/17 15:35 Fish Containing Products Allergy VOMITING Verified 05/23/17 15:35 tomato Allergy VOMITING Verified 05/23/17 15:35 - Medications Medications: Current Medications Albuterol/Ipratropium (Duoneb 3 Mg/0.5 Mg (3 Ml) Ud) 3 ml IH Q4H PRN PRN Reason: Shortness of Breath Chlordiazepoxide (Librium) 25 mg PO Q8 MALLIKA PRN Reason: Protocol Last Admin: 05/24/17 06:21 Dose: Not Given Doxycycline Hyclate (Doryx) 100 mg PO Q12 MALLIKA PRN Reason: Protocol Heparin Sodium (Porcine) (Heparin) 5,000 units SC Q12 MALLIKA PRN Reason: Protocol Vancomycin HCl (Vancomycin 1gm) 1 gm in 250 mls @ 167 mls/hr IVPB Q12H MALLIKA PRN Reason: Protocol Last Admin: 05/24/17 01:58 Dose: 167 mls/hr Piperacillin Sod/Tazobactam Sod (Zosyn 2.25 Gm In 0.9% 100 Ml) 2.25 gm in 100 mls @ 100 mls/hr IVPB Q6 MALLIKA PRN Reason: Protocol Stop: 05/31/17 06:01 Last Admin: 05/24/17 06:11 Dose: 100 mls/hr Sodium Chloride (Sodium Chloride 0.9%) 1,000 mls @ 100 mls/hr IV .Q10H [facility] Last Admin: 05/24/17 05:29 Dose: 100 mls/hr Piperacillin Sod/Tazobactam Sod (Zosyn 3.375 In Ns 100ml) 100 mls @ 200 mls/hr IVPB Q6 [facility] PRN Reason: Protocol Stop: 05/31/17 12:01 Ibuprofen (Motrin Tab) 400 mg PO Q6H PRN PRN Reason: Pain, Mild (1-3) Insulin Human Lispro (Humalog Med) 0 units SC ACHS [facility] PRN Reason: Protocol Levetiracetam (Keppra) 500 mg PO BID [facility] Last Admin: 05/24/17 01:58 Dose: 500 mg Lorazepam (Ativan) 1 mg IVP Q3H PRN; Protocol PRN Reason: Anxiety Last Admin: 05/24/17 05:00 Dose: 1 mg Pantoprazole Sodium (Protonix Ec Tab) 40 mg PO 0600 [facility] Last Admin: 05/24/17 06:21 Dose: Not Given Physical Exam - Constitutional Appears: Non-toxic - Head Exam Head Exam: NORMAL INSPECTION - Cardiovascular Exam Cardiovascular Exam: +S1, +S2 - GI/Abdominal Exam GI & Abdominal Exam: Soft. absent: Tenderness - Extremities Exam Additional comments: left leg with dressings in place Results - Vital Signs Recent Vital Signs: Last Vital Signs Temp 98.9 F 05/24/17 04:25 Pulse 86 05/24/17 04:25 Resp 20 05/24/17 04:25 BP 130/76 05/24/17 04:25 Pulse Ox 98 05/24/17 00:59 - Labs Result Diagrams: 05/24/17 07:30 05/24/17 07:30 Assessment & Plan - Assessment and Plan (Free Text) Plan: Assessment consider left leg cellulitis low back pain probably musculoskeletal; no evidence of disc herniation, spinal stenosis or fluid collections noted on CT of lumbar spine probable left foot cellulitis with ulcers, growing MSSA DM HTN alcohol abuse history of left foot osteomyelitis S/P left hallux amputation scoliosis Plan started patient on Vancomycin and Zosyn and will follow up blood and wound cx; follow up Podiatry evaluation reviewed CT of lumbar spine will monitor clinically HIV test on previous admission earlier this month was negative
[2017-05-24] MEDS ORDERED: Metoprolol 1 mg/ml Inj IVP ONE ×2 (19:13→19:14)
[2017-05-24] MEDS ORDERED: Nitroglycerin 2% Ointment Foilpak UD TOP ONE (19:15)
[2017-05-24] MEDS ORDERED: Nitroglycerin 2% Ointment Foilpak UD TOP STA ×2 (19:15→21:01)
[2017-05-24] MEDS ORDERED: EnalaprilAT 1.25 mg/ml Inj IVP STA ×4 (19:15→19:49)
--- NOTE | 2017-05-24 19:33 | PCM.RRT ---
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 absent: Rigid - Neurological Exam Additional exam: Patient is intermittently somnolent. Does not answer questions and does not follow command. Grimaces to sternal rub. - Extremities Exam Additional comments: L toes 3,4,5 s/p amputation surface around L lateral maleoli with open ulcerative wound (no pus) Plan - Assessment of Findings&Treatment Plan DIESEL TRUCK MECHANIC called by nursing for jerking like movements and lethargy. Patient seen and examined at bedside. Patient was found hanging off of bed and experiencing emesis described as being green in color. As per nursing the patient experienced 3 bouts of bilious emesis prior to D[employer]EL TRUCK MECHANIC. Ativan 1mg given and shaking subsided. Patient is somnolent, does not respond to verbal stimuli, nor does he follow commands. Patient retracts to and grimaces to painful stimuli. ROS cannot be completed at this time due to altered mental status. Seizure-Like Activity; AMS - resolved s/p ativan, hold oral medication, including librium - ammonia ordered and pending-will follow up Hypertensive Urgency - SBP 200/104 - vasotec 1.25 ordered - CBC, CMP, troponins, EKG-reviewed and appreciated- No acute changes <Kyung Rodriguez - Last Filed: 05/24/17 20:20> D[employer] TR[employer] MECH[employer]IC Nurse Assessment - Vital Signs Vital Sign: Rapid Response Vital Sign Blood Pressure 200/104 Pulse Rate 96 Oxygen Saturation 98 - Vital Signs at end of [employer] TRUCK MECHANIC Vital Signs at end of D[employer]EL TRUCK MECHANIC: Rapid Response End Vital Sign Blood Pressure 193/96 Pulse Rate 93 Attending/Attestation - Attestation I have personally seen and examined this patient.: Yes I have fully participated in the care of the patient.: Yes I have reviewed all pertinent clinical information, including history, physical exam and plan: Yes
[2017-05-24 20:02] LABS: BASO # 0.01 K/mm3 (0.0-2.0); BASO % 0.2 % (0.0-3.0); EOS % 0.7 % (1.5-5.0); GRAN # 4.18 (1.4-6.5); GRAN % 70.6 % (50.0-68.0); HEMATOCRIT 35.6 % (42.0-52.0); LYMPH # 1.1 (1.2-3.4); LYMPH % 18.4 % (22.0-35.0); MEAN CELL VOLUME 89.2 fl (80.0-105.0); MEAN CORPUSCULAR HEMOGLOBIN 29.6 pg (25.0-35.0); MEAN CORPUSCULAR HGB CONC 33.1 g/dl (31.0-37.0); MEAN PLATELET VOLUME 8.2 fl (7.0-11.0); MONO # 0.6 (0.1-0.6); MONO % 10.1 % (1.0-6.0); RED CELL DISTRIBUTION WIDTH 13.9 % (11.5-14.5); WHITE BLOOD COUNT 5.9 10^3/ul (4.5-11.0)
[2017-05-24 20:24] LABS: ALB/GLOB RATIO 0.9 (1.1-1.8); ALKALINE PHOSPHATASE 107 U/L (38-126); ALT/SGPT 37 U/L (7-56); AST/SGOT 50 U/L (17-59); BILIRUBIN,TOTAL 0.5 mg/dL (0.2-1.3); BLOOD UREA NITROGEN 19 mg/dL (7-21); CARBON DIOXIDE 30 mmol/L (21-33); CHLORIDE 105 mmol/L (98-107); GFR AFRICAN-AMERICAN > 60; GLUCOSE,RANDOM 173 mg/dL (70-110); POTASSIUM 3.6 mmol/L (3.6-5.0); SODIUM 142 mmol/L (132-148); TOTAL PROTEIN 7.2 g/dL (5.8-8.3)
[2017-05-24 20:25] LABS: TROPONIN I 0.03 ng/mL
[2017-05-25] MEDS: Sodium Chloride 0.9% 1,000 ML IV SCH ×2 (00:44→10:07)
[2017-05-25] MEDS: Piperacillin/Tazobact 3.375 gm 100 ML IVPB SCH ×4 (00:44→18:03)
[2017-05-25] MEDS: Vancomycin 1gm in NS 250ml 1 GM/250 ML BAG IVPB SCH ×2 (01:02→14:44)
[2017-05-25] MEDS: Sodium Chloride 0.45% 1,000 ML IV SCH ×2 (03:00→17:25)
[2017-05-25] MEDS: Pantoprazole 40 mg EC Tab PO SCH (05:52)
[2017-05-25] MEDS: Insulin Lispro (humaLOG) MEDIUM Coverage SC SCH ×4 (08:15→22:28)
[2017-05-25 08:43] LABS: HEMATOCRIT 35.9 % (42.0-52.0); MEAN CORPUSCULAR HEMOGLOBIN 29.6 pg (25.0-35.0); MEAN CORPUSCULAR HGB CONC 32.9 g/dl (31.0-37.0); MEAN PLATELET VOLUME 8.6 fl (7.0-11.0); WHITE BLOOD COUNT 5.5 10^3/ul (4.5-11.0)
[2017-05-25 08:53] LABS: ALB/GLOB RATIO 0.9 (1.1-1.8); ALKALINE PHOSPHATASE 108 U/L (38-126); ALT/SGPT 37 U/L (7-56); AST/SGOT 49 U/L (17-59); BILIRUBIN,TOTAL 0.5 mg/dL (0.2-1.3); BLOOD UREA NITROGEN 22 mg/dL (7-21); CALCIUM 9.2 mg/dL (8.4-10.5); CARBON DIOXIDE 30 mmol/L (21-33); CHLORIDE 107 mmol/L (98-107); GFR AFRICAN-AMERICAN > 60; GLUCOSE,RANDOM 162 mg/dL (70-110); POTASSIUM 3.7 mmol/L (3.6-5.0); SODIUM 145 mmol/L (132-148); TOTAL PROTEIN 7.2 g/dL (5.8-8.3)
[2017-05-25 09:03] LABS: TROPONIN I 0.03 ng/mL
--- NOTE | 2017-05-25 09:12 | PN ---
DATE: 05/25/2017 SUBJECTIVE: The patient is seen earlier today in 367, bed 1. The patient had a rapid response called last night, Dr. Rodriguez responded to it. The patient appears to be comfortable this morning, disheveled, unkept and appears much, much older than his stated age. CRULLER MAKER MACHINE was called by nursing staff because of lethargy. PHYSICAL EXAMINATION VITAL SIGNS: The patient is in bed with a temperature of 99, blood pressure is 180/90, respiratory rate of 20, heart rate of 92. HEENT: Examination is unremarkable. NECK: Supple. LUNGS: Have decreased breath sounds. HEART: Normal S1, S2. ABDOMEN: Examination is soft, nontender. EXTREMITIES: Examination of the left leg mild erythema of the left foot and with edema. LABORATORY DATA: Examination reveals a white count of 5.9, hemoglobin 11, platelets of 405. BUN of 19, creatinine 0.9, procalcitonin is 0.05. Urinalysis is noted. Urine toxicology is positive for cocaine and opiates. Microbiology reveals the blood cultures have no growth at 24 hours. Review of orders.. Reveals the patient to be on vancomycin and Zosyn. The patient had an HIV test earlier this year in 12/2016, which was negative fourth generation test; antigen and antibody testing, also had a hepatitis profile, which was negative including hepatitis C. ASSESSMENT AND PLAN: This is a 52-year-old male seen earlier this morning in 367, bed 1, who appears much, much older than his stated age, unkept, history of diabetes, hypertension, alcohol abuse, polysubstance abuse, admitted now with left leg and left foot cellulitis, appears to be improving. Patient has had surgery in the foot before past and diabetic, hypertension, alcohol abuse, history of left foot osteomyelitis and left hallux amputation on vancomycin and Zosyn. Should have imaging of the foot to rule out underlying osteomyelitis. Should have vascular workup including arterial studies and the degree of arterial disease noted to be quantified, thus far the cultures are negative and will continue the present course. Follow the renal function closely. The patient does have a C-reactive protein greater than 15 and sed rate of 81, concerned about osteomyelitis of the left foot. We will discuss with Podiatry. Should have Podiatric consultation. Ned Tai MD
--- NOTE | 2017-05-25 09:16 | CARD ---
APPROVED REPORT EKG Measurement Heart [id number] <Conclusion> Normal sinus rhythm Septal infarct, age undetermined NSSTW changes Prolonged QTc No change
--- NOTE | 2017-05-25 09:21 | CARD ---
APPROVED REPORT EKG Measurement Heart [id number] <Conclusion> Normal sinus rhythm Septal infarct, age undetermined LVH NSSTW changes Prolonged QTC No change
[2017-05-25] MEDS: levETIRAcetam 500mg IVPB 500 MG/100 ML BAG IV SCH ×2 (10:05→22:30)
[2017-05-25] MEDS: EnalaprilAT 1.25 mg/ml Inj IVP SCH ×3 (11:41→18:02)
--- NOTE | 2017-05-25 11:46 | CT ---
PROCEDURE: CT HEAD WITHOUT CONTRAST. HISTORY: LETHARGIC, POST-ICTAL COMPARISON: Comparison made with prior CT scan brain 01/29/2017. TECHNIQUE: Axial computed tomography images were obtained through the head/brain without intravenous contrast. Radiation dose: Total exam DLP = 1116.45 mGy-cm. This CT exam was performed using one or more of the following dose reduction techniques: Automated exposure control, adjustment of the mA and/or kV according to patient size, and/or use of iterative reconstruction technique. FINDINGS: HEMORRHAGE: No acute parenchymal, subarachnoid or extra-axial hemorrhage. BRAIN: Minor diffuse/confluent chronic white matter ischemic changes are present. . Questionable tiny lacunar type infarct changes left anterior basal ganglia. No evidence of large acute infarct so far as can be seen. . Mild generalized volume loss. VENTRICLES: No evidence of obstructive hydrocephalus CALVARIUM: Unremarkable. PARANASAL SINUSES: The visualized paranasal sinuses are well-developed and currently well-aerated. No fluid levels seen to suggest acute sinusitis. Mayank. Minor mucosal thickening seen within a few ethmoid air cells. Bilateral cathy bullosa right larger than left again noted. Prominent adenoids. MASTOID AIR CELLS: Unremarkable as visualized. No inflammatory changes. OTHER FINDINGS: None. IMPRESSION: No acute intracranial hemorrhage. Mild chronic periventricular white matter ischemic changes. Questionable tiny chronic lacunar type infarct changes left anterior basal ganglia.
[2017-05-25 14:12] LABS: CHOLESTEROL 184 mg/dL (130-200)
[2017-05-25] MEDS ORDERED: Labetalol 5 mg/ml Inj 20ML IV ONE (16:34)
[2017-05-25] MEDS ORDERED: diaZEpam 10 mg/2 ml Inj IVP PRN (16:37)
--- NOTE | 2017-05-25 17:08 | CP.PCM.PN ---
<Jama Fairbanks - Last Filed: 05/25/17 19:17> Subjective - Date & Time of Evaluation Date of Evaluation: 05/25/17 Time of Evaluation: 17:02 - Subjective Subjective: Patient seen and examined at bedside. Patient is lethargic, awakens to loud noise, able to raise arms up and follow simple commands. Patient is resting comfortably otherwise. Objective - Vital Signs/Intake and Output Vital Signs (last 24 hours): Temp Pulse Resp BP Pulse Ox 98.8 F 80 22 194/93 H 96 05/25/17 16:00 05/25/17 16:50 05/25/17 16:00 05/25/17 16:50 05/25/17 16:00 Intake and Output: 05/25/17 05/25/17 06:59 18:59 Intake Total 2400 720 Output Total 1000 Balance 2400 -280 - Medications Medications: Current Medications Albuterol/Ipratropium (Duoneb 3 Mg/0.5 Mg (3 Ml) Ud) 3 ml IH Q4H PRN PRN Reason: Shortness of Breath Diazepam (Valium) 5 mg IVP Q2H PRN; Protocol PRN Reason: Seizure activity Doxycycline Hyclate (Doryx) 100 mg PO Q12 [facility] PRN Reason: Protocol Last Admin: 05/25/17 10:05 Dose: Not Given Enalaprilat (Vasotec Iv) 1.25 mg IVP Q6 [facility] Last Admin: 05/25/17 11:50 Dose: Not Given Heparin Sodium (Porcine) (Heparin) 5,000 units SC Q12 [facility] PRN Reason: Protocol Last Admin: 05/25/17 10:05 Dose: 5,000 units Hydralazine HCl (Apresoline) 5 mg IVP Q6 PRN PRN Reason: Systolic Blood Pressure Last Admin: 05/25/17 16:28 Dose: 5 mg Vancomycin HCl (Vancomycin 1gm) 1 gm in 250 mls @ 167 mls/hr IVPB Q12H [facility] PRN Reason: Protocol Last Admin: 05/25/17 14:44 Dose: 167 mls/hr Piperacillin Sod/Tazobactam Sod (Zosyn 3.375 In Ns 100ml) 100 mls @ 200 mls/hr IVPB Q6 [facility] PRN Reason: Protocol Stop: 05/31/17 12:01 Last Admin: 05/25/17 11:41 Dose: 200 mls/hr Levetiracetam (Keppra 500mg Ivpb) 500 mg in 100 mls @ 400 mls/hr IV Q12 [facility] Last Admin: 05/25/17 10:05 Dose: 400 mls/hr Sodium Chloride (Sodium Chloride 0.45%) 1,000 mls @ 100 mls/hr IV .Q10H [facility] Ibuprofen (Motrin Tab) 400 mg PO Q6H PRN PRN Reason: Pain, Mild (1-3) Insulin Human Lispro (Humalog Med) 0 units SC ACHS [facility] PRN Reason: Protocol Last Admin: 05/25/17 12:27 Dose: Not Given Lorazepam (Ativan) 1 mg IVP Q4H [facility] PRN Reason: Protocol Last Admin: 05/25/17 16:39 Dose: 1 mg Ondansetron HCl (Zofran Inj) 4 mg IVP Q6H PRN PRN Reason: Nausea/Vomiting Last Admin: 05/25/17 14:46 Dose: 4 mg Pantoprazole Sodium (Protonix Ec Tab) 40 mg PO 0600 [facility] Last Admin: 05/25/17 05:52 Dose: Not Given - Labs Labs: 05/25/17 08:30 05/25/17 08:30 - Constitutional Appears: Older Than Stated Age - Head Exam Head Exam: ATRAUMATIC, NORMOCEPHALIC - Eye Exam Eye Exam: Conjunctival injection - ENT Exam Additional comments: nose is running, white mucoid material draining into mouth. - Neck Exam Neck Exam: Normal Inspection Assessment and Plan - Assessment and Plan (Free Text) Assessment: 52 y/o male with an extensive PMHx and recent hospitalization for OM of the left foot s/p debridement returned to the ED with complaints of lower back pain. Patient had a recent CT of the spine which did not show any significant central stenosis and he was moving all of his extremities in the ED. He was admitted for cellulitis +/- LLL PNA as well as for possible heroin withdrawal. Patient does not appear to be in complete withdrawal at this time given that his hemodynamics are stable (normal HR, BP, RR, no diaphoresis or lacrimation). Will obtain a psych eval for further management and recommendations, patient may possibly require suboxone taper due to his withdrawal. Avoiding opiod medications due to his history of opiod abuse. ID consulted due to numerous areas of possible infection, however currently without leukocytosis or fever. Unclear at this point whether he completed treatment for what was considered OM of the foot also Plan: 1. Drug withdrawal in patient with a history of alcohol-withdrawal seizures, polysubstance abuse, and a rapid response called yesterday for seizure activity - Keppra 500 mg BID - Ativan 1 mg q4h [facility] - Valium 5 mg IVP q2h PRN - CIWA protocol - fall risk - Keppra 500 BID - seizure precautions - 1/2 NS 100 ml/hr 2. LLE cellulitis with superimposed PAD -left foot X-ray negative for cellulitis process - CRP and ESR elevated - Podiatry, Dr. Phoenix, consulted, would greatly appreciate his recommedations 3. Pneumonia: patient at high risk for aspiration - Vancomycin - Pipercillan/Tazobactam - Doxycycline 5. Hypertension, likely exacerbated due to drug withdrawal at this time - Clonidine patch added - Labetalol 20 mg q6h IVP [facility] (hold for systolic/diastolic: 100/60) - Hydralazine 10 mg q4h [facility] (hold for systolic/diastolic: 100/60) 6. DM II - ISS - Accucheck ACHS - hgbA1C 8.6 7. Asthma - (Lev)albuterol PRN 8. GI/DVT prophylaxis: protonix/heparin 5,000 units SC <Francisca Correia - Last Filed: 05/25/17 21:38> Objective - Vital Signs/Intake and Output Vital Signs (last 24 hours): Temp Pulse Resp BP Pulse Ox 98.8 F 87 22 190/91 H 96 05/25/17 16:00 05/25/17 18:00 05/25/17 16:00 05/25/17 19:32 05/25/17 16:00 Intake and Output: 05/25/17 05/26/17 18:59 06:59 Intake Total 720 Output Total 1000 Balance -280 - Medications Medications: Current Medications Albuterol/Ipratropium (Duoneb 3 Mg/0.5 Mg (3 Ml) Ud) 3 ml IH Q4H PRN PRN Reason: Shortness of Breath Clonidine HCl (Catapres Tts1 0.1 Mg/24 Hr) 1 patch TD Q7D@1000 [facility] Last Admin: 05/25/17 18:00 Dose: 1 patch Heparin Sodium (Porcine) (Heparin) 5,000 units SC Q12 [facility] PRN Reason: Protocol Last Admin: 05/25/17 10:05 Dose: 5,000 units Hydralazine HCl (Apresoline) 10 mg IVP Q4H [facility] Last Admin: 05/25/17 19:32 Dose: 10 mg Vancomycin HCl (Vancomycin 1gm) 1 gm in 250 mls @ 167 mls/hr IVPB Q12H [facility] PRN Reason: Protocol Last Admin: 05/25/17 14:44 Dose: 167 mls/hr Piperacillin Sod/Tazobactam Sod (Zosyn 3.375 In Ns 100ml) 100 mls @ 200 mls/hr IVPB Q6 [facility] PRN Reason: Protocol Stop: 05/31/17 12:01 Last Admin: 05/25/17 18:03 Dose: 200 mls/hr Levetiracetam (Keppra 500mg Ivpb) 500 mg in 100 mls @ 400 mls/hr IV Q12 [facility] Last Admin: 05/25/17 10:05 Dose: 400 mls/hr Sodium Chloride (Sodium Chloride 0.45%) 1,000 mls @ 100 mls/hr IV .Q10H [facility] Last Admin: 05/25/17 17:25 Dose: 100 mls/hr Doxycycline Hyclate 100 mg/ (Sodium Chloride) 100 mls @ 100 mls/hr IVPB Q12 [facility] PRN Reason: Protocol Ibuprofen (Motrin Tab) 400 mg PO Q6H PRN PRN Reason: Pain, Mild (1-3) Insulin Human Lispro (Humalog Med) 0 units SC ACHS [facility] PRN Reason: Protocol Last Admin: 05/25/17 17:24 Dose: Not Given Labetalol HCl (Trandate) 20 mg IV Q6H [facility] Lorazepam (Ativan) 1 mg IVP Q4H [facility] PRN Reason: Protocol Last Admin: 05/25/17 16:39 Dose: 1 mg Lorazepam (Ativan) 2 mg IVP Q2H PRN; Protocol PRN Reason: Seizure activity Last Admin: 05/25/17 19:21 Dose: 2 mg Ondansetron HCl (Zofran Inj) 4 mg IVP Q6H PRN PRN Reason: Nausea/Vomiting Last Admin: 05/25/17 14:46 Dose: 4 mg Pantoprazole Sodium (Protonix Ec Tab) 40 mg PO 0600 [facility] Last Admin: 05/25/17 05:52 Dose: Not Given - Labs Labs: 05/25/17 08:30 05/25/17 08:30 - Respiratory Exam Respiratory Exam: Clear to Ausculation Bilateral. absent: Rhonchi - Cardiovascular Exam Cardiovascular Exam: REGULAR RHYTHM, +S1, +S2 - GI/Abdominal Exam GI & Abdominal Exam: Soft, Normal Bowel Sounds. absent: Tenderness, Organomegaly - Extremities Exam Additional comments: left toes amputation; left foot ulceration - Neurological Exam Additional comments: lethargic but arousable to tactile stimuli Attending/Attestation - Attestation I have personally seen and examined this patient.: Yes I have fully participated in the care of the patient.: Yes I have reviewed all pertinent clinical information, including history, physical exam and plan: Yes Notes (Text): 05/25/17 21:33 52 year old male with past medical history of left foot OM s/p debridement, seizures, and substance abuse who prseented with complaint of back pain and leg pain. CT spine and abd/pelvis reviewed as above. He was admitted for cellulitis, LLL pneumonia and drug withdrawal. Last night had [employer] for possible seizure. CT head was ordered today. Continue with ativan for withdrawal symptoms and seizure like activity. He is also on keppra. Neurology evaluation was requested. Continue with iv antibiotics as per ID. Podiatry evaluation was also requested. His blood pressure remains poorly controlled on prn hydralazine. Will add clonidine patch. Continue with insulin ss for diabetes. Francisca Correia MD Hospitalist.
[2017-05-25] MEDS ORDERED: Labetalol 5 mg/ml Inj 20ML IV SCH (21:00)
[2017-05-26] MEDS: Piperacillin/Tazobact 3.375 gm 100 ML IVPB SCH ×2 (00:39→12:27)
[2017-05-26] MEDS: Vancomycin 1gm in NS 250ml 1 GM/250 ML BAG IVPB SCH ×2 (00:40→13:39)
[2017-05-26] MEDS: Pantoprazole 40 mg EC Tab PO SCH (05:16)
[2017-05-26 06:50] LABS: HEMATOCRIT 34.6 % (42.0-52.0); MEAN CELL VOLUME 88.9 fl (80.0-105.0); MEAN CORPUSCULAR HEMOGLOBIN 28.8 pg (25.0-35.0); MEAN CORPUSCULAR HGB CONC 32.4 g/dl (31.0-37.0); MEAN PLATELET VOLUME 8.6 fl (7.0-11.0); RED CELL DISTRIBUTION WIDTH 13.9 % (11.5-14.5); WHITE BLOOD COUNT 5.3 10^3/ul (4.5-11.0)
[2017-05-26 07:02] LABS: ALB/GLOB RATIO 0.9 (1.1-1.8); ALKALINE PHOSPHATASE 95 U/L (38-126); ALT/SGPT 32 U/L (7-56); AST/SGOT 54 U/L (17-59); BILIRUBIN,TOTAL 0.5 mg/dL (0.2-1.3); BLOOD UREA NITROGEN 18 mg/dL (7-21); CALCIUM 8.8 mg/dL (8.4-10.5); CARBON DIOXIDE 26 mmol/L (21-33); CHLORIDE 105 mmol/L (98-107); GFR AFRICAN-AMERICAN > 60; GLUCOSE,RANDOM 186 mg/dL (70-110); POTASSIUM 3.5 mmol/L (3.6-5.0); SODIUM 138 mmol/L (132-148); TOTAL PROTEIN 6.8 g/dL (5.8-8.3)
[2017-05-26] MEDS ORDERED: Potassium Chloride 20 mEq ER Tab PO ONE (07:20)
[2017-05-26] MEDS: Insulin Lispro (humaLOG) MEDIUM Coverage SC SCH ×4 (10:59→22:59)
--- NOTE | 2017-05-26 11:34 | CP.PCM.CON ---
<Sarah Pacheco - Last Filed: 05/26/17 11:31> History of Present Illness - History of Present Illness History of Present Illness: Podiatry Consult note - Dr. 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 Patient appears to be resting comfortably in his bed. Patient is a poor historian and does not respond to verbal commands. Patient is well known to the podiatry service. PMHx: IDDM, osteomyelitis of 5th toes s/p amputation of L toes #3,4,5, HTN, seizure 2/2 ETOH withdrawal, ETOH abuse, and cocaine/heroin abuse PSHx: s/p amputation of left toes 3,4,5 (02/02/17) Allergies: fish and tomato SHx: heroin/cocaine and ETOH, lives with niece Review of Systems - Constitutional Constitutional: As Per HPI Past Patient History - Past Medical History & Family History Past Medical History?: Yes - Past Social History Smoking Status: Current Some Days Smoker - CARDIAC Hx Cardiac Disorders: Yes Hx Hypertension: Yes - PULMONARY Hx Respiratory Disorders: No - NEUROLOGICAL Hx Neurological Disorder: No Hx Seizures: Yes (2/2 ETOH withdrawal) - HEENT Hx HEENT Problems: No - RENAL Hx Chronic Kidney Disease: No - ENDOCRINE/METABOLIC Hx Diabetes Mellitus Type 2: Yes - HEMATOLOGICAL/ONCOLOGICAL Hx Blood Disorders: No - INTEGUMENTARY Hx Dermatological Problems: Yes - MUSCULOSKELETAL/RHEUMATOLOGICAL Hx Musculoskeletal Disorders: Yes Hx Falls: No Hx Osteomyelitis: Yes (s/p amputations of L toes #3,4,5 ) - GASTROINTESTINAL Hx Gastrointestinal Disorders: No - GENITOURINARY/GYNECOLOGICAL Hx Genitourinary Disorders: No - PSYCHIATRIC Hx Psychophysiologic Disorder: Yes Hx Substance Use: Yes 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 USES HEROINE-SNORTS FOR 20 YRS. NEVER BEEN IN A PROGRAM BEFORE. SMOKES CIGARETTES < PPD. - SURGICAL HISTORY Hx Amputation: Yes - ANESTHESIA Hx Anesthesia Reactions: No Meds Allergies/Adverse Reactions: Allergies Allergy/AdvReac Type Severity Reaction Status Date / Time EGG Allergy VOMITING Verified 05/23/17 15:35 Fish Containing Products Allergy VOMITING Verified 05/23/17 15:35 tomato Allergy VOMITING Verified 05/23/17 15:35 - Medications Medications: Current Medications Albuterol/Ipratropium (Duoneb 3 Mg/0.5 Mg (3 Ml) Ud) 3 ml IH Q4H PRN PRN Reason: Shortness of Breath Aspirin (Aspirin Chewable) 81 mg PO DAILY [facility] Clonidine HCl (Catapres Tts1 0.1 Mg/24 Hr) 1 patch TD Q7D@1000 [facility] Last Admin: 05/25/17 18:00 Dose: 1 patch Heparin Sodium (Porcine) (Heparin) 5,000 units SC Q12 [facility] PRN Reason: Protocol Last Admin: 05/26/17 10:59 Dose: 5,000 units Hydralazine HCl (Apresoline) 10 mg IVP Q4H [facility] Last Admin: 05/26/17 10:52 Dose: 10 mg Vancomycin HCl (Vancomycin 1gm) 1 gm in 250 mls @ 167 mls/hr IVPB Q12H [facility] PRN Reason: Protocol Last Admin: 05/26/17 00:40 Dose: 167 mls/hr Piperacillin Sod/Tazobactam Sod (Zosyn 3.375 In Ns 100ml) 100 mls @ 200 mls/hr IVPB Q6 [facility] PRN Reason: Protocol Stop: 05/31/17 12:01 Last Admin: 05/26/17 00:39 Dose: 200 mls/hr Levetiracetam (Keppra 500mg Ivpb) 500 mg in 100 mls @ 400 mls/hr IV Q12 [facility] Last Admin: 05/25/17 22:30 Dose: 400 mls/hr Sodium Chloride (Sodium Chloride 0.45%) 1,000 mls @ 100 mls/hr IV .Q10H [facility] Last Admin: 05/25/17 17:25 Dose: 100 mls/hr Doxycycline Hyclate 100 mg/ (Sodium Chloride) 100 mls @ 100 mls/hr IVPB Q12 [facility] PRN Reason: Protocol Last Admin: 05/26/17 11:00 Dose: 100 mls/hr Ibuprofen (Motrin Tab) 400 mg PO Q6H PRN PRN Reason: Pain, Mild (1-3) Last Admin: 05/26/17 10:19 Dose: 400 mg Insulin Human Lispro (Humalog Med) 0 units SC ACHS [facility] PRN Reason: Protocol Last Admin: 05/26/17 10:59 Dose: Not Given Lorazepam (Ativan) 1 mg IVP Q4H [facility] PRN Reason: Protocol Last Admin: 05/26/17 05:15 Dose: Not Given Lorazepam (Ativan) 2 mg IVP Q2H PRN; Protocol PRN Reason: Seizure activity Last Admin: 05/26/17 10:21 Dose: 2 mg Ondansetron HCl (Zofran Inj) 4 mg IVP Q6H PRN PRN Reason: Nausea/Vomiting Last Admin: 05/25/17 14:46 Dose: 4 mg Pantoprazole Sodium (Protonix Ec Tab) 40 mg PO 0600 [facility] Last Admin: 05/26/17 05:16 Dose: 40 mg Physical Exam - Constitutional Appears: Well, Non-toxic, No Acute Distress - Extremities Exam Extremities exam: Negative for: calf tenderness Additional comments: Bilateral LE exam: VASC: DP/PT pulses are weakly palpable bilaterally, Cap refill time: < 3 sec to digits, Temp gradient: warm to cool from proximal to distal, no pitting or non- pitting edema noted DERM: no open lesions noted bilaterally, no breaks in the skin, hypopigmented skin noted on the dorsum of the left foot with hyperkeratotic skin at the distal lateral aspect of the left foot, no malodor, no clinical suspicion of active infection NEURO: Protective sensation grossly diminished ORTHO: Partial hallux amputation site noted. Previous amputations of 3rd, 4th, and 5th digits noted. Results - Vital Signs Recent Vital Signs: Last Vital Signs Temp 98.5 F 05/26/17 08:30 Pulse 90 05/26/17 08:30 Resp 21 05/26/17 08:30 BP 165/83 H 05/26/17 08:30 Pulse Ox 100 05/26/17 08:30 - Labs Result Diagrams: 05/26/17 06:10 05/26/17 06:10 Labs: Laboratory Results - last 24 hr 05/25/17 05/25/17 05/25/17 11:33 12:15 15:40 WBC RBC Hgb Hct MCV MCH MCHC RDW Plt Count MPV Sodium Potassium Chloride Carbon Dioxide Anion Gap BUN Creatinine Est GFR ( Amer) Est GFR (Non-Af Amer) POC Glucose (mg/dL) 174 H 203 H Random Glucose Calcium Total Bilirubin AST ALT Alkaline Phosphatase Total Protein Albumin Globulin Albumin/Globulin Ratio Triglycerides 129 Cholesterol 184 LDL Cholesterol Direct 77 HDL Cholesterol 59 05/26/17 05/26/17 05/26/17 06:10 06:10 07:34 WBC 5.3 RBC 3.89 Hgb 11.2 L Hct 34.6 L MCV 88.9 MCH 28.8 MCHC 32.4 RDW 13.9 Plt Count 433 MPV 8.6 Sodium 138 Potassium 3.5 L Chloride 105 Carbon Dioxide 26 Anion Gap 11 BUN 18 Creatinine 0.8 Est GFR ( Amer) > 60 Est GFR (Non-Af Amer) > 60 POC Glucose (mg/dL) 189 H Random Glucose 186 H Calcium 8.8 Total Bilirubin 0.5 AST 54 ALT 32 Alkaline Phosphatase 95 Total Protein 6.8 Albumin 3.2 Globulin 3.6 Albumin/Globulin Ratio 0.9 L Triglycerides Cholesterol LDL Cholesterol Direct HDL Cholesterol Assessment & Plan - Assessment and Plan (Free Text) Assessment: 52 year old male patient with left foot cellulitis which appears to be resolving Plan: Patient seen and evaluated at bedside with attending Dr. Phoenix Labs, vitals and charts reviewed - afebrile, WBC @ 5.3 Left foot cleaned with saline and DSD dressing applied Multipodus boots ordered - to be worn at all times while in bed Patient is stable from podiatry standpoint Podiatry to follow patient while in house Thank you for the podiatry consult and allowing to take part in patient care - Date & Time Date: 05/26/17 Time: 11:40 <Isac Phoenix - Last Filed: 05/26/17 14:05> Meds - Medications Medications: Current Medications Albuterol/Ipratropium (Duoneb 3 Mg/0.5 Mg (3 Ml) Ud) 3 ml IH Q4H PRN PRN Reason: Shortness of Breath Aspirin (Aspirin Chewable) 81 mg PO DAILY [facility] Atorvastatin Calcium (Lipitor) 10 mg PO DIN [facility] Clonidine HCl (Catapres Tts1 0.1 Mg/24 Hr) 1 patch TD Q7D@1000 [facility] Last Admin: 05/25/17 18:00 Dose: 1 patch Heparin Sodium (Porcine) (Heparin) 5,000 units SC Q12 [facility] PRN Reason: Protocol Last Admin: 05/26/17 10:59 Dose: 5,000 units Hydralazine HCl (Apresoline) 10 mg IVP Q4H [facility] Last Admin: 05/26/17 10:52 Dose: 10 mg Vancomycin HCl (Vancomycin 1gm) 1 gm in 250 mls @ 167 mls/hr IVPB Q12H [facility] PRN Reason: Protocol Last Admin: 05/26/17 13:39 Dose: 167 mls/hr Piperacillin Sod/Tazobactam Sod (Zosyn 3.375 In Ns 100ml) 100 mls @ 200 mls/hr IVPB Q6 [facility] PRN Reason: Protocol Stop: 05/31/17 12:01 Last Admin: 05/26/17 12:27 Dose: 200 mls/hr Levetiracetam (Keppra 500mg Ivpb) 500 mg in 100 mls @ 400 mls/hr IV Q12 [facility] Last Admin: 05/26/17 12:04 Dose: 400 mls/hr Sodium Chloride (Sodium Chloride 0.45%) 1,000 mls @ 100 mls/hr IV .Q10H [facility] Last Admin: 05/25/17 17:25 Dose: 100 mls/hr Doxycycline Hyclate 100 mg/ (Sodium Chloride) 100 mls @ 100 mls/hr IVPB Q12 [facility] PRN Reason: Protocol Last Admin: 05/26/17 11:00 Dose: 100 mls/hr Ibuprofen (Motrin Tab) 400 mg PO Q6H PRN PRN Reason: Pain, Mild (1-3) Last Admin: 05/26/17 10:19 Dose: 400 mg Insulin Human Lispro (Humalog Med) 0 units SC ACHS [facility] PRN Reason: Protocol Last Admin: 05/26/17 12:27 Dose: Not Given Lorazepam (Ativan) 1 mg IVP Q4H PRN; Protocol PRN Reason: Agitation Last Admin: 05/26/17 13:38 Dose: 1 mg Ondansetron HCl (Zofran Inj) 4 mg IVP Q6H PRN PRN Reason: Nausea/Vomiting Last Admin: 05/25/17 14:46 Dose: 4 mg Pantoprazole Sodium (Protonix Ec Tab) 40 mg PO 0600 [facility] Last Admin: 05/26/17 05:16 Dose: 40 mg Ziprasidone (Geodon Inj) 10 mg IM TID PRN; Protocol PRN Reason: Agitation Results - Vital Signs Recent Vital Signs: Last Vital Signs Temp 98.5 F 05/26/17 08:30 Pulse 90 05/26/17 08:30 Resp 21 05/26/17 08:30 BP 165/83 H 05/26/17 08:30 Pulse Ox 100 05/26/17 08:30 - Labs Result Diagrams: 05/26/17 06:10 05/26/17 06:10 Labs: Laboratory Results - last 24 hr 05/25/17 05/25/17 05/26/17 12:15 15:40 06:10 WBC 5.3 RBC 3.89 Hgb 11.2 L Hct 34.6 L MCV 88.9 MCH 28.8 MCHC 32.4 RDW 13.9 Plt Count 433 MPV 8.6 Sodium Potassium Chloride Carbon Dioxide Anion Gap BUN Creatinine Est GFR ( Amer) Est GFR (Non-Af Amer) POC Glucose (mg/dL) 203 H Random Glucose Calcium Total Bilirubin AST ALT Alkaline Phosphatase Total Protein Albumin Globulin Albumin/Globulin Ratio Triglycerides 129 Cholesterol 184 LDL Cholesterol Direct 77 HDL Cholesterol 59 05/26/17 05/26/17 05/26/17 06:10 07:34 11:48 WBC RBC Hgb Hct MCV MCH MCHC RDW Plt Count MPV Sodium 138 Potassium 3.5 L Chloride 105 Carbon Dioxide 26 Anion Gap 11 BUN 18 Creatinine 0.8 Est GFR ( Amer) > 60 Est GFR (Non-Af Amer) > 60 POC Glucose (mg/dL) 189 H 215 H Random Glucose 186 H Calcium 8.8 Total Bilirubin 0.5 AST 54 ALT 32 Alkaline Phosphatase 95 Total Protein 6.8 Albumin 3.2 Globulin 3.6 Albumin/Globulin Ratio 0.9 L Triglycerides Cholesterol LDL Cholesterol Direct HDL Cholesterol Attending/Attestation - Attestation I have personally seen and examined this patient.: Yes I have fully participated in the care of the patient.: Yes I have reviewed all pertinent clinical information: Yes
[2017-05-26] MEDS: levETIRAcetam 500mg IVPB 500 MG/100 ML BAG IV SCH ×2 (12:04→21:00)
--- NOTE | 2017-05-26 12:05 | CP.PCM.PN ---
<Jama Fairbanks - Last Filed: 05/26/17 12:42> Subjective - Date & Time of Evaluation Date of Evaluation: 05/26/17 Time of Evaluation: 07:45 - Subjective Subjective: Jama Fairbanks DO, PGY-1, Hospitalist Service Patient seen and examined at bedside. Records indicate patient was given PRN Ativan for agitation. Patient is resting comfortably and in NAD. Objective - Vital Signs/Intake and Output Vital Signs (last 24 hours): Temp Pulse Resp BP Pulse Ox 98.5 F 90 21 165/83 H 100 05/26/17 08:30 05/26/17 08:30 05/26/17 08:30 05/26/17 08:30 05/26/17 08:30 - Medications Medications: Current Medications Albuterol/Ipratropium (Duoneb 3 Mg/0.5 Mg (3 Ml) Ud) 3 ml IH Q4H PRN PRN Reason: Shortness of Breath Aspirin (Aspirin Chewable) 81 mg PO DAILY [facility] Clonidine HCl (Catapres Tts1 0.1 Mg/24 Hr) 1 patch TD Q7D@1000 [facility] Last Admin: 05/25/17 18:00 Dose: 1 patch Heparin Sodium (Porcine) (Heparin) 5,000 units SC Q12 [facility] PRN Reason: Protocol Last Admin: 05/26/17 10:59 Dose: 5,000 units Hydralazine HCl (Apresoline) 10 mg IVP Q4H [facility] Last Admin: 05/26/17 10:52 Dose: 10 mg Vancomycin HCl (Vancomycin 1gm) 1 gm in 250 mls @ 167 mls/hr IVPB Q12H [facility] PRN Reason: Protocol Last Admin: 05/26/17 00:40 Dose: 167 mls/hr Piperacillin Sod/Tazobactam Sod (Zosyn 3.375 In Ns 100ml) 100 mls @ 200 mls/hr IVPB Q6 [facility] PRN Reason: Protocol Stop: 05/31/17 12:01 Last Admin: 05/26/17 00:39 Dose: 200 mls/hr Levetiracetam (Keppra 500mg Ivpb) 500 mg in 100 mls @ 400 mls/hr IV Q12 [facility] Last Admin: 05/25/17 22:30 Dose: 400 mls/hr Sodium Chloride (Sodium Chloride 0.45%) 1,000 mls @ 100 mls/hr IV .Q10H [facility] Last Admin: 05/25/17 17:25 Dose: 100 mls/hr Doxycycline Hyclate 100 mg/ (Sodium Chloride) 100 mls @ 100 mls/hr IVPB Q12 [facility] PRN Reason: Protocol Last Admin: 05/26/17 11:00 Dose: 100 mls/hr Ibuprofen (Motrin Tab) 400 mg PO Q6H PRN PRN Reason: Pain, Mild (1-3) Last Admin: 05/26/17 10:19 Dose: 400 mg Insulin Human Lispro (Humalog Med) 0 units SC ACHS [facility] PRN Reason: Protocol Last Admin: 05/26/17 10:59 Dose: Not Given Lorazepam (Ativan) 1 mg IVP Q4H [facility] PRN Reason: Protocol Last Admin: 05/26/17 05:15 Dose: Not Given Lorazepam (Ativan) 2 mg IVP Q2H PRN; Protocol PRN Reason: Seizure activity Last Admin: 05/26/17 10:21 Dose: 2 mg Ondansetron HCl (Zofran Inj) 4 mg IVP Q6H PRN PRN Reason: Nausea/Vomiting Last Admin: 05/25/17 14:46 Dose: 4 mg Pantoprazole Sodium (Protonix Ec Tab) 40 mg PO 0600 [facility] Last Admin: 05/26/17 05:16 Dose: 40 mg - Labs Labs: 05/26/17 06:10 05/26/17 06:10 - Constitutional Appears: Well, No Acute Distress - Head Exam Head Exam: ATRAUMATIC, NORMOCEPHALIC - Eye Exam Eye Exam: EOMI, Normal appearance, PERRL - ENT Exam ENT Exam: Mucous Membranes Moist, Normal Oropharynx - Neck Exam Neck Exam: Normal Inspection - Respiratory Exam Respiratory Exam: Clear to Ausculation Bilateral, NORMAL BREATHING PATTERN - Cardiovascular Exam Cardiovascular Exam: RRR, +S1, +S2 - GI/Abdominal Exam GI & Abdominal Exam: Soft, Normal Bowel Sounds - Rectal Exam Rectal Exam: NORMAL INSPECTION - Extremities Exam Extremities Exam: Normal Inspection. absent: Pedal Edema - Back Exam Back Exam: NORMAL INSPECTION. absent: CVA tenderness (L), CVA tenderness (R) - Neurological Exam Neurological Exam: Awake, CN II-XII Intact - Psychiatric Exam Psychiatric exam: Normal Affect, Normal Mood - Skin Skin Exam: Dry, Intact, Normal Color, Warm Assessment and Plan - Assessment and Plan (Free Text) Assessment: 52 year old male homeless, male with a history of polysubstance abuse, osteomyelitis of left foot, alcohol withdrawal seizures and DM II who presented for complaints of back pain and leg pain. He is currently being treated for questionable pneumonia, cellulitis, and drug withdrawal. Psychiatry, ID, and podiatry are on-board. Plan: 1) Drug withdrawal with associated hypertension and possible seizures - Ativan 1 mg q4h PRN for seizure-like activity/agitation - Keppra 500 mg BID - Clonidine patch - Hydralazine 10 mg IVP [facility] q4h - Zofran PRN - aspiration precautions - CIWA protocil - 1/2 NS 100 ml/hr 1a) CT head showed mild chronic periventricular white matter ischemic changes - Aspirin 81 mg instituted 2) Pneumonia - Doxyclycline, Vancomycin, and Zosyn 3) LLE cellulitis and rule out underlying osteomyelitis: clinically, I do not suspect either process is occurring - Podiatry consulted, recommendations appreciated - MRI ordered, will follow up 4) DM II - Patient is on ISS, but not eating. 5) Agitation, drug withdrawal, combative patient when sober and awake, begs for pain medication - Dr. Montiel consulted 6) DVT/GI - Heparin 5,000 units - Protonix 40 mg PO daily 7) HHD as tolerated <Francisca Correia - Last Filed: 05/26/17 14:03> Objective - Vital Signs/Intake and Output Vital Signs (last 24 hours): Temp Pulse Resp BP Pulse Ox 98.5 F 90 21 165/83 H 100 05/26/17 08:30 05/26/17 08:30 05/26/17 08:30 05/26/17 08:30 05/26/17 08:30 - Medications Medications: Current Medications Albuterol/Ipratropium (Duoneb 3 Mg/0.5 Mg (3 Ml) Ud) 3 ml IH Q4H PRN PRN Reason: Shortness of Breath Aspirin (Aspirin Chewable) 81 mg PO DAILY [facility] Atorvastatin Calcium (Lipitor) 10 mg PO DIN [facility] Clonidine HCl (Catapres Tts1 0.1 Mg/24 Hr) 1 patch TD Q7D@1000 [facility] Last Admin: 05/25/17 18:00 Dose: 1 patch Heparin Sodium (Porcine) (Heparin) 5,000 units SC Q12 [facility] PRN Reason: Protocol Last Admin: 05/26/17 10:59 Dose: 5,000 units Hydralazine HCl (Apresoline) 10 mg IVP Q4H [facility] Last Admin: 05/26/17 10:52 Dose: 10 mg Vancomycin HCl (Vancomycin 1gm) 1 gm in 250 mls @ 167 mls/hr IVPB Q12H [facility] PRN Reason: Protocol Last Admin: 05/26/17 13:39 Dose: 167 mls/hr Piperacillin Sod/Tazobactam Sod (Zosyn 3.375 In Ns 100ml) 100 mls @ 200 mls/hr IVPB Q6 [facility] PRN Reason: Protocol Stop: 05/31/17 12:01 Last Admin: 05/26/17 12:27 Dose: 200 mls/hr Levetiracetam (Keppra 500mg Ivpb) 500 mg in 100 mls @ 400 mls/hr IV Q12 [facility] Last Admin: 05/26/17 12:04 Dose: 400 mls/hr Sodium Chloride (Sodium Chloride 0.45%) 1,000 mls @ 100 mls/hr IV .Q10H [facility] Last Admin: 05/25/17 17:25 Dose: 100 mls/hr Doxycycline Hyclate 100 mg/ (Sodium Chloride) 100 mls @ 100 mls/hr IVPB Q12 [facility] PRN Reason: Protocol Last Admin: 05/26/17 11:00 Dose: 100 mls/hr Ibuprofen (Motrin Tab) 400 mg PO Q6H PRN PRN Reason: Pain, Mild (1-3) Last Admin: 05/26/17 10:19 Dose: 400 mg Insulin Human Lispro (Humalog Med) 0 units SC ACHS [facility] PRN Reason: Protocol Last Admin: 05/26/17 12:27 Dose: Not Given Lorazepam (Ativan) 1 mg IVP Q4H PRN; Protocol PRN Reason: Agitation Last Admin: 05/26/17 13:38 Dose: 1 mg Ondansetron HCl (Zofran Inj) 4 mg IVP Q6H PRN PRN Reason: Nausea/Vomiting Last Admin: 05/25/17 14:46 Dose: 4 mg Pantoprazole Sodium (Protonix Ec Tab) 40 mg PO 0600 [facility] Last Admin: 05/26/17 05:16 Dose: 40 mg - Labs Labs: 05/26/17 06:10 05/26/17 06:10 Attending/Attestation - Attestation I have personally seen and examined this patient.: Yes I have fully participated in the care of the patient.: Yes I have reviewed all pertinent clinical information, including history, physical exam and plan: Yes Notes (Text): 05/26/17 14:00 52 year old male with past medical history of left foot OM s/p debridement, seizures, and substance abuse who presented with complaint of back pain and leg pain. CT spine and abd/pelvis reviewed as above. He was admitted for cellulitis, LLL pneumonia and drug withdrawal. Continue with iv antibiotics as per ID. ESR/CRP were elevated. Podiatry evaluation was requested and MRI foot was ordered. Continue with ativan for withdrawal symptoms and seizure like activity. Will also add geodon prn for severe agitation. He is also on keppra. Neurology evaluation was requested. CT head was reviewed and he was started on aspirin and statin. He is on hydralazine and clonidine patch for hypertension and insulin ss for diabetes. Francisca Correia MD Hospitalist.
--- NOTE | 2017-05-26 12:06 | PN ---
DATE: 05/26/2017 SUBJECTIVE: The patient seen in room number 367, bed 1. No fevers and no chills. He had comfortable uneventful night, last night as per nursing staff. PHYSICAL EXAMINATION: VITAL SIGNS: Temperature of 98, blood pressure is 170/80, respiratory rate of 21, and heart rate of 85. HEENT: Examination of HEENT is unremarkable. NECK: Supple. LUNGS: Have decreased breath sounds. HEART: Normal S1 and S2. ABDOMEN: Soft and nontender. No organomegaly. No rebound or guarding. No masses. LABORATORY DATA: Examination reveals a white count of 5.3, hemoglobin of 11, BUN of 18, and creatinine of 0.8. Blood cultures and urine cultures are negative. DIAGNOSTIC DATA: The patient had a CT scan of the head, which is negative. ASSESSMENT AND PLAN: This is a 52-year-old male who was seen earlier this morning, who appears much, much older than stated age. He has a history of diabetes, hypertension, alcohol abuse, and polysubstance abuse, admitted now with left leg and left foot cellulitis, appears to be improving in a patient with diabetes, hypertension, alcohol abuse and history of left foot osteomyelitis and history of left hallux amputation. If possible, should have an MRI to rule out underlying osteomyelitis. If MRI is not possible, we will recommend a bone scan. Currently on doxycycline, vancomycin, and Zosyn. Dr. Correia's note is reviewed. Ned Tai MD
[2017-05-26] MEDS: Sodium Chloride 0.45% 1,000 ML IV SCH (22:59)
[2017-05-27] MEDS: Piperacillin/Tazobact 3.375 gm 100 ML IVPB SCH ×5 (00:42→23:58)
[2017-05-27] MEDS: Vancomycin 1gm in NS 250ml 1 GM/250 ML BAG IVPB SCH ×2 (00:42→13:19)
[2017-05-27] MEDS: Pantoprazole 40 mg EC Tab PO SCH (05:28)
[2017-05-27 07:10] LABS: HEMATOCRIT 36.5 % (42.0-52.0); MEAN CELL VOLUME 88.2 fl (80.0-105.0); MEAN CORPUSCULAR HEMOGLOBIN 28.7 pg (25.0-35.0); MEAN CORPUSCULAR HGB CONC 32.6 g/dl (31.0-37.0); MEAN PLATELET VOLUME 8.4 fl (7.0-11.0); RED CELL DISTRIBUTION WIDTH 14.1 % (11.5-14.5)
[2017-05-27 07:40] LABS: ALB/GLOB RATIO 0.9 (1.1-1.8); ALKALINE PHOSPHATASE 91 U/L (38-126); ALT/SGPT 32 U/L (7-56); AST/SGOT 46 U/L (17-59); BILIRUBIN,TOTAL 0.5 mg/dL (0.2-1.3); BLOOD UREA NITROGEN 13 mg/dL (7-21); CALCIUM 8.7 mg/dL (8.4-10.5); CARBON DIOXIDE 24 mmol/L (21-33); CHLORIDE 106 mmol/L (98-107); GFR AFRICAN-AMERICAN > 60; GLUCOSE,RANDOM 192 mg/dL (70-110); POTASSIUM 3.8 mmol/L (3.6-5.0); SODIUM 137 mmol/L (132-148); TOTAL PROTEIN 6.5 g/dL (5.8-8.3)
--- NOTE | 2017-05-27 09:25 | PN ---
DATE: 05/27/2017 SUBJECTIVE: The patient is in bed, in no acute distress, was seen earlier today. No fevers and chills. PHYSICAL EXAMINATION VITAL SIGNS: On exam, temperature is 98, blood pressure is 120/70, respiratory rate of 16. HEENT: Examination is unremarkable. NECK: Supple. LUNGS: Decreased breath sounds. HEART: Normal S1, S2. ABDOMEN: Examination is soft. LABORATORY DATA: Examination reveals a white count of 6, hemoglobin of 11. Chemistries are noted and urinalysis is noted and microbiology reveals the cultures are negative. The patient scheduled for MRI of the foot which is pending. Dr. Correia's note is reviewed from yesterday. is consultation is reviewed. ASSESSMENT AND PLAN: This is a 52-year-old male who was seen early this morning, who appears much older than stated age. He has diabetes, hypertension, alcohol abuse, polysubstance abuse, admitted with a left foot left leg cellulitis, appears to be improving in the setting of diabetes, hypertension, alcohol abuse and awaiting for MRI to rule out underlying osteomyelitis, currently on doxycycline, vancomycin and Zosyn. We will follow with you. Ned Tai MD
[2017-05-27] MEDS: Insulin Lispro (humaLOG) MEDIUM Coverage SC SCH ×3 (09:37→17:07)
[2017-05-27] MEDS: levETIRAcetam 500mg IVPB 500 MG/100 ML BAG IV SCH ×2 (09:38→21:49)
--- NOTE | 2017-05-27 11:10 | PN ---
DATE: SUBJECTIVE: A 52-year-old male seen at bedside for continued evaluation and management of resolving diabetic foot ulcerations. The patient is resting comfortably, however, is extremely lethargic and does not answer any questions at this time. PAST MEDICAL HISTORY: The patient's medical history is significant for polysubstance abuse insulin dependent diabetes with neuropathy, past osteomyelitis on the left foot which required numerous partial metatarsal amputations and digital amputations. LABORATORY FINDINGS: Revealed white count of 6, hemoglobin 11.9, hematocrit of 36.5, platelet count of 420. ESR is elevated at 81. There is no microbiology report on wounds. Left foot x-rays reveal no acute radiographic evidence of osteomyelitis. OBJECTIVE: Weakly palpable pedal pulses noted bilaterally. +1 nonpitting edema noted bilaterally. Capillary filling time is delayed but within normal limits bilaterally. The patient presents with no open wounds at this time. There is no breaks in the skin. There is no drainage noted. The patient is unable to detect 5.07 g monofilament wire testing bilaterally. There is noted to be partial hallux amputation and amputations of the third, fourth and fifth rays as well. A 52-year-old male with previous multiple pedal amputations on his left foot presents with resolving cellulitis. The patient was seen at bedside and evaluated. His foot was cleansed with normal sterile saline and dry sterile dressing was applied. Multi Podus boots were ordered and not at bedside, but they are to be worn at all times. The patient will be seen and followed while in-house. Isac Phoenix DPM [facility]
[2017-05-27] MEDS: HYDROmorphone 0.5 mg/0.5 ml ISec IVP PRN ×3 (12:03→23:56)
--- NOTE | 2017-05-27 12:17 | CP.PCM.PN ---
<Edgardo Pacheco - Last Filed: 05/27/17 11:59> Subjective - Date & Time of Evaluation Date of Evaluation: 05/27/17 Time of Evaluation: 08:30 - Subjective Subjective: Subjective: Patient seen and examined at bedside. Resting comfortably in bed. As per nurse, patient becomes agitated, asks for diluadid, and tries to climb out of bed intermittently. Patient is intermittently somnolent. Does not answer questions and does not follow command. Grimaces to sternal rub. 12-point review of systems cannot be ascertained at this time due to altered mental status Physical Examination: - Constitutional Appears: Well, No Acute Distress - Head Exam Head Exam: ATRAUMATIC, NORMOCEPHALIC - ENT Exam ENT Exam: Mucous Membranes Moist - Neck Exam Neck Exam: Normal Inspection - Respiratory Exam Respiratory Exam: Clear to Ausculation Bilateral, NORMAL BREATHING PATTERN - Cardiovascular Exam Cardiovascular Exam: RRR, +S1, +S2 - GI/Abdominal Exam GI & Abdominal Exam: Soft, Normal Bowel Sounds - Extremities Exam Extremities Exam: L toes 3,4,5 s/p amputation surface around L lateral maleoli with open ulcerative wound (no pus) - Neurological Exam Neurological Exam: Patient is intermittently somnolent. Does not answer questions and does not follow command. Grimaces to sternal rub. - Skin Skin Exam: dry, warm Assessment and Plan: Patient is a 52 year old AA male with a PMHx IDDM, 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 Patient also likely going through cocaine, heroin and ETOH withdrawal. Cellulitis no CT abdomen. Seizure like Activity/Agitation - possible ETOH withdrawl vs drug withdrawal vs organic seizures - Ativan 1 mg q4h PRN for seizure-like activity/agitation - Keppra 500 mg BID - seizure precautions - aspiration precautions - CIWA protocil - 1/2 NS 100 ml/hr - thiamine, folate, and MV - ativan and geodon prn - c/w seroquel HTN - clonidine and vasotec - hydralazine prn CT Abnormality - CT head showed mild chronic periventricular white matter ischemic changes - Aspirin 81 mg and atorvastatin Pneumonia -continue Doxyclycline, Vancomycin, and Zosyn - infectious disease consulted- appreciate recommendations LLE cellulitis - rule out underlying osteomyelitis- MRI ordered, will follow up - Podiatry consulted, recommendations appreciated DM II - ACHS - Patient is on ISS, but not eating. Chronic Pain - diludid prn DVT/GI - subq Heparin - Protonix Patient seen, case discussed with, and plan approved by attending physician, Dr. Correia. Objective - Vital Signs/Intake and Output Vital Signs (last 24 hours): Temp Pulse Resp BP Pulse Ox 98.1 F 99 H 18 179/98 H 100 05/27/17 06:00 05/27/17 06:15 05/27/17 06:00 05/27/17 10:00 05/27/17 06:00 Intake and Output: 05/27/17 05/27/17 06:59 18:59 Intake Total 300 Balance 300 - Medications Medications: Current Medications Albuterol/Ipratropium (Duoneb 3 Mg/0.5 Mg (3 Ml) Ud) 3 ml IH Q4H PRN PRN Reason: Shortness of Breath Aspirin (Aspirin Chewable) 81 mg PO DAILY [facility] Last Admin: 05/27/17 09:36 Dose: Not Given Atorvastatin Calcium (Lipitor) 10 mg PO DIN [facility] Last Admin: 05/26/17 17:34 Dose: Not Given Clonidine HCl (Catapres Tts1 0.1 Mg/24 Hr) 1 patch TD Q7D@1000 [facility] Last Admin: 05/25/17 18:00 Dose: 1 patch Heparin Sodium (Porcine) (Heparin) 5,000 units SC Q12 [facility] PRN Reason: Protocol Last Admin: 05/27/17 09:37 Dose: 5,000 units Hydralazine HCl (Apresoline) 10 mg IVP Q4H [facility] Last Admin: 05/27/17 10:00 Dose: 10 mg Hydromorphone HCl (Dilaudid) 0.5 mg IVP Q6H PRN PRN Reason: Pain, severe (8-10) Vancomycin HCl (Vancomycin 1gm) 1 gm in 250 mls @ 167 mls/hr IVPB Q12H [facility] PRN Reason: Protocol Last Admin: 05/27/17 00:42 Dose: 167 mls/hr Piperacillin Sod/Tazobactam Sod (Zosyn 3.375 In Ns 100ml) 100 mls @ 200 mls/hr IVPB Q6 [facility] PRN Reason: Protocol Stop: 05/31/17 12:01 Last Admin: 05/27/17 05:27 Dose: 200 mls/hr Levetiracetam (Keppra 500mg Ivpb) 500 mg in 100 mls @ 400 mls/hr IV Q12 [facility] Last Admin: 05/27/17 09:38 Dose: 400 mls/hr Sodium Chloride (Sodium Chloride 0.45%) 1,000 mls @ 100 mls/hr IV .Q10H [facility] Last Admin: 05/26/17 22:59 Dose: 100 mls/hr Doxycycline Hyclate 100 mg/ (Sodium Chloride) 100 mls @ 100 mls/hr IVPB Q12 [facility] PRN Reason: Protocol Last Admin: 05/27/17 09:42 Dose: 100 mls/hr Ibuprofen (Motrin Tab) 400 mg PO Q6H PRN PRN Reason: Pain, Mild (1-3) Last Admin: 05/26/17 10:19 Dose: 400 mg Insulin Human Lispro (Humalog Med) 0 units SC ACHS [facility] PRN Reason: Protocol Last Admin: 05/27/17 09:37 Dose: 3 units Lorazepam (Ativan) 1 mg IVP Q4H PRN; Protocol PRN Reason: Agitation Last Admin: 05/27/17 10:33 Dose: 1 mg Ondansetron HCl (Zofran Inj) 4 mg IVP Q6H PRN PRN Reason: Nausea/Vomiting Last Admin: 05/25/17 14:46 Dose: 4 mg Pantoprazole Sodium (Protonix Ec Tab) 40 mg PO 0600 [facility] Last Admin: 05/27/17 05:28 Dose: 40 mg Quetiapine Fumarate (Seroquel) 25 mg PO HS [facility] PRN Reason: Protocol Last Admin: 05/26/17 21:02 Dose: 25 mg Ziprasidone (Geodon Inj) 20 mg IM TID PRN; Protocol PRN Reason: Agitation Last Admin: 05/27/17 08:10 Dose: 20 mg - Labs Labs: 05/27/17 06:00 05/27/17 06:00 <Francisca Correia - Last Filed: 05/27/17 12:26> Objective - Vital Signs/Intake and Output Vital Signs (last 24 hours): Temp Pulse Resp BP Pulse Ox 98.1 F 99 H 18 179/98 H 100 05/27/17 06:00 05/27/17 06:15 05/27/17 06:00 05/27/17 10:00 05/27/17 06:00 Intake and Output: 05/27/17 05/27/17 06:59 18:59 Intake Total 300 Balance 300 - Medications Medications: Current Medications Albuterol/Ipratropium (Duoneb 3 Mg/0.5 Mg (3 Ml) Ud) 3 ml IH Q4H PRN PRN Reason: Shortness of Breath Aspirin (Aspirin Chewable) 81 mg PO DAILY [facility] Last Admin: 05/27/17 09:36 Dose: Not Given Atorvastatin Calcium (Lipitor) 10 mg PO DIN [facility] Last Admin: 05/26/17 17:34 Dose: Not Given Clonidine HCl (Catapres Tts1 0.1 Mg/24 Hr) 1 patch TD Q7D@1000 [facility] Last Admin: 05/25/17 18:00 Dose: 1 patch Enalaprilat (Vasotec Iv) 1.25 mg IVP Q6H [facility] Folic Acid (Folic Acid) 1 mg IVP DAILY [facility] Heparin Sodium (Porcine) (Heparin) 5,000 units SC Q12 [facility] PRN Reason: Protocol Last Admin: 05/27/17 09:37 Dose: 5,000 units Hydralazine HCl (Apresoline) 5 mg IVP Q6H PRN PRN Reason: Systolic Blood Pressure Hydromorphone HCl (Dilaudid) 0.5 mg IVP Q6H PRN PRN Reason: Pain, severe (8-10) Last Admin: 05/27/17 12:03 Dose: 0.5 mg Vancomycin HCl (Vancomycin 1gm) 1 gm in 250 mls @ 167 mls/hr IVPB Q12H [facility] PRN Reason: Protocol Last Admin: 05/27/17 00:42 Dose: 167 mls/hr Piperacillin Sod/Tazobactam Sod (Zosyn 3.375 In Ns 100ml) 100 mls @ 200 mls/hr IVPB Q6 [facility] PRN Reason: Protocol Stop: 05/31/17 12:01 Last Admin: 05/27/17 05:27 Dose: 200 mls/hr Levetiracetam (Keppra 500mg Ivpb) 500 mg in 100 mls @ 400 mls/hr IV Q12 [facility] Last Admin: 05/27/17 09:38 Dose: 400 mls/hr Sodium Chloride (Sodium Chloride 0.45%) 1,000 mls @ 100 mls/hr IV .Q10H [facility] Last Admin: 05/26/17 22:59 Dose: 100 mls/hr Doxycycline Hyclate 100 mg/ (Sodium Chloride) 100 mls @ 100 mls/hr IVPB Q12 [facility] PRN Reason: Protocol Last Admin: 05/27/17 09:42 Dose: 100 mls/hr Ibuprofen (Motrin Tab) 400 mg PO Q6H PRN PRN Reason: Pain, Mild (1-3) Last Admin: 05/26/17 10:19 Dose: 400 mg Insulin Human Lispro (Humalog Med) 0 units SC ACHS [facility] PRN Reason: Protocol Last Admin: 05/27/17 09:37 Dose: 3 units Lorazepam (Ativan) 1 mg IVP Q4H PRN; Protocol PRN Reason: Agitation Last Admin: 05/27/17 10:33 Dose: 1 mg Multivitamins (Thera Tab) 1 tab PO 0800 [facility] Ondansetron HCl (Zofran Inj) 4 mg IVP Q6H PRN PRN Reason: Nausea/Vomiting Last Admin: 05/25/17 14:46 Dose: 4 mg Pantoprazole Sodium (Protonix Ec Tab) 40 mg PO 0600 [facility] Last Admin: 05/27/17 05:28 Dose: 40 mg Quetiapine Fumarate (Seroquel) 25 mg PO HS [facility] PRN Reason: Protocol Last Admin: 05/26/17 21:02 Dose: 25 mg Thiamine HCl (Vitamin B1 Inj) 100 mg IM DAILY [facility] Ziprasidone (Geodon Inj) 20 mg IM TID PRN; Protocol PRN Reason: Agitation Last Admin: 05/27/17 08:10 Dose: 20 mg - Labs Labs: 05/27/17 06:00 05/27/17 06:00 Attending/Attestation - Attestation I have personally seen and examined this patient.: Yes I have fully participated in the care of the patient.: Yes I have reviewed all pertinent clinical information, including history, physical exam and plan: Yes Notes (Text): 05/27/17 12:23 52 year old male with past medical history of left foot OM s/p debridement, seizures, and substance abuse who presented with complaint of back pain and leg pain. He was admitted for cellulitis, LLL pneumonia and drug withdrawal. Continue with iv antibiotics as per ID. ESR/CRP were elevated and MRI foot was ordered to rule out osteomyelitis. Podiatry is following the patient as well. Continue with ativan for withdrawal symptoms and seizure like activity and geodon prn for severe agitation. Continue with keppra, aspirin and statin. He is on clonidine patch and vasotec for hypertension and insulin ss for diabetes. Francisca Correia MD Hospitalist.
[2017-05-27] MEDS: Multivitamin Therapeutic Tab PO SCH (13:19)
[2017-05-27] MEDS: Thiamine 100 mg/ml Inj IM SCH (13:20)
[2017-05-27] MEDS: EnalaprilAT 1.25 mg/ml Inj IVP SCH ×2 (15:30→17:14)
[2017-05-27] MEDS: Sodium Chloride 0.45% 1,000 ML IV SCH (17:11)
[2017-05-28] MEDS: Vancomycin 1gm in NS 250ml 1 GM/250 ML BAG IVPB SCH ×2 (00:03→12:38)
[2017-05-28] MEDS: EnalaprilAT 1.25 mg/ml Inj IVP SCH ×2 (00:15→05:35)
[2017-05-28] MEDS: HYDROmorphone 0.5 mg/0.5 ml ISec IVP PRN ×3 (05:34→23:03)
[2017-05-28] MEDS: Pantoprazole 40 mg EC Tab PO SCH (05:34)
[2017-05-28] MEDS: Piperacillin/Tazobact 3.375 gm 100 ML IVPB SCH ×4 (05:35→18:10)
[2017-05-28 07:05] LABS: BASO # 0.01 K/mm3 (0.0-2.0); BASO % 0.2 % (0.0-3.0); EOS # 0.2 (0.0-0.7); EOS % 3.5 % (1.5-5.0); GRAN # 3.79 (1.4-6.5); GRAN % 62.4 % (50.0-68.0); HEMATOCRIT 34.3 % (42.0-52.0); LYMPH # 1.6 (1.2-3.4); LYMPH % 26.1 % (22.0-35.0); MEAN CELL VOLUME 88.2 fl (80.0-105.0); MEAN CORPUSCULAR HEMOGLOBIN 28.5 pg (25.0-35.0); MEAN CORPUSCULAR HGB CONC 32.4 g/dl (31.0-37.0); MEAN PLATELET VOLUME 8.6 fl (7.0-11.0); MONO # 0.5 (0.1-0.6); MONO % 7.8 % (1.0-6.0); RED CELL DISTRIBUTION WIDTH 13.9 % (11.5-14.5); WHITE BLOOD COUNT 6.1 10^3/ul (4.5-11.0)
[2017-05-28 07:32] LABS: ALB/GLOB RATIO 0.9 (1.1-1.8); ALKALINE PHOSPHATASE 87 U/L (38-126); ALT/SGPT 35 U/L (7-56); AST/SGOT 58 U/L (17-59); BILIRUBIN,TOTAL 0.4 mg/dL (0.2-1.3); BLOOD UREA NITROGEN 14 mg/dL (7-21); CALCIUM 8.7 mg/dL (8.4-10.5); CARBON DIOXIDE 26 mmol/L (21-33); CHLORIDE 104 mmol/L (98-107); GFR AFRICAN-AMERICAN > 60; GLUCOSE,RANDOM 197 mg/dL (70-110); POTASSIUM 3.6 mmol/L (3.6-5.0); SODIUM 135 mmol/L (132-148); TOTAL PROTEIN 6.3 g/dL (5.8-8.3)
[2017-05-28] MEDS: Insulin Lispro (humaLOG) MEDIUM Coverage SC SCH ×4 (08:49→23:01)
[2017-05-28] MEDS: Multivitamin Therapeutic Tab PO SCH (09:44)
[2017-05-28] MEDS: levETIRAcetam 500mg IVPB 500 MG/100 ML BAG IV SCH ×2 (09:45→22:56)
[2017-05-28] MEDS: Thiamine 100 mg/ml Inj IM SCH (09:45)
[2017-05-28] MEDS: Sodium Chloride 0.45% 1,000 ML IV SCH (09:48)
--- NOTE | 2017-05-28 11:07 | CP.PCM.PN ---
<Edgardo Pacheco - Last Filed: 05/28/17 10:57> Subjective - Date & Time of Evaluation Date of Evaluation: 05/28/17 Time of Evaluation: 09:30 - Subjective Subjective: Subjective: Patient seen and examined at bedside. Resting comfortably in bed. Patient is awake, alert, responds to verbal stimuli, answers some questions appropriately, and moves extremities spontaneously. Offers no new complaints at this time. Give permission to complete foot MRI. Denies fever, chills, chest pain, shortness of breath, abdominal pain, nausea, vomiting, diarrhea, constipation, and urinary symptoms. 12-point review of systems negative except as indicated in the HPI Physical Examination: - Constitutional Appears: Well, No Acute Distress - Head Exam Head Exam: ATRAUMATIC, NORMOCEPHALIC - ENT Exam ENT Exam: Mucous Membranes Moist - Neck Exam Neck Exam: Normal Inspection - Respiratory Exam Respiratory Exam: Clear to Ausculation Bilateral, NORMAL BREATHING PATTERN - Cardiovascular Exam Cardiovascular Exam: RRR, +S1, +S2 - GI/Abdominal Exam GI & Abdominal Exam: Soft, Normal Bowel Sounds - Extremities Exam Extremities Exam: L toes 3,4,5 s/p amputation surface around L lateral maleoli with open ulcerative wound (no pus) - Neurological Exam Neurological Exam: patient is awake, alert, responds to verbal stimuli, answers some questions appropriately, and moves extremities spontaneously - Skin Skin Exam: dry, warm Assessment and Plan: Patient is a 52 year old AA male with a PMHx IDDM, 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 Patient also likely going through cocaine, heroin and ETOH withdrawal. Cellulitis no CT abdomen. Seizure like Activity/Agitation - possible ETOH withdrawl vs drug withdrawal vs organic seizures - Ativan 1 mg q6h PRN for seizure-like activity/agitation - Keppra 500 mg BID - seizure precautions - aspiration precautions - CIWA protocil - 1/2 NS 100 ml/hr- will consider discontinuing once patient is able to establish adequate PO intake - thiamine, folate, and MV - ativan and geodon prn - c/w seroquel HTN - clonidine and vasotec - hydralazine prn CT Abnormality - CT head showed mild chronic periventricular white matter ischemic changes - Aspirin 81 mg and atorvastatin Pneumonia -continue Vancomycin, and Zosyn - infectious disease consulted- appreciate recommendations LLE cellulitis - rule out underlying osteomyelitis- MRI ordered, will follow up - Podiatry consulted, recommendations appreciated DM II - ACHS - Patient is on ISS Chronic Pain - diludid .5mg q8 prn pain DVT/GI - subq Heparin - Protonix Patient seen, case discussed with, and plan approved by attending physician, Dr. Correia. Objective - Vital Signs/Intake and Output Vital Signs (last 24 hours): Temp Pulse Resp BP Pulse Ox 98.7 F 85 20 164/95 H 100 05/28/17 06:00 05/28/17 06:00 05/28/17 06:00 05/28/17 06:00 05/28/17 06:00 Intake and Output: 05/28/17 05/28/17 06:59 18:59 Intake Total 1140 Output Total 0 Balance 1140 - Medications Medications: Current Medications Albuterol/Ipratropium (Duoneb 3 Mg/0.5 Mg (3 Ml) Ud) 3 ml IH Q4H PRN PRN Reason: Shortness of Breath Aspirin (Aspirin Chewable) 81 mg PO DAILY [facility] Last Admin: 05/28/17 09:44 Dose: 81 mg Atorvastatin Calcium (Lipitor) 10 mg PO DIN [facility] Last Admin: 05/27/17 17:08 Dose: 10 mg Clonidine HCl (Catapres Tts1 0.1 Mg/24 Hr) 1 patch TD Q7D@1000 [facility] Last Admin: 05/25/17 18:00 Dose: 1 patch Enalaprilat (Vasotec Iv) 1.25 mg IVP Q6H [facility] Last Admin: 05/28/17 05:35 Dose: 1.25 mg Folic Acid (Folic Acid) 1 mg IVP DAILY [facility] Last Admin: 05/27/17 13:28 Dose: 1 mg Heparin Sodium (Porcine) (Heparin) 5,000 units SC Q12 [facility] PRN Reason: Protocol Last Admin: 05/28/17 09:47 Dose: 5,000 units Hydralazine HCl (Apresoline) 5 mg IVP Q6H PRN PRN Reason: Systolic Blood Pressure Last Admin: 05/27/17 16:35 Dose: 5 mg Hydromorphone HCl (Dilaudid) 0.5 mg IVP Q8H PRN PRN Reason: Pain, severe (8-10) Vancomycin HCl (Vancomycin 1gm) 1 gm in 250 mls @ 167 mls/hr IVPB Q12H [facility] PRN Reason: Protocol Last Admin: 05/28/17 00:03 Dose: 167 mls/hr Piperacillin Sod/Tazobactam Sod (Zosyn 3.375 In Ns 100ml) 100 mls @ 200 mls/hr IVPB Q6 [facility] PRN Reason: Protocol Stop: 05/31/17 12:01 Last Admin: 05/28/17 05:36 Dose: 200 mls/hr Levetiracetam (Keppra 500mg Ivpb) 500 mg in 100 mls @ 400 mls/hr IV Q12 [facility] Last Admin: 05/28/17 09:45 Dose: 400 mls/hr Sodium Chloride (Sodium Chloride 0.45%) 1,000 mls @ 100 mls/hr IV .Q10H [facility] Last Admin: 05/28/17 09:48 Dose: 100 mls/hr Ibuprofen (Motrin Tab) 400 mg PO Q6H PRN PRN Reason: Pain, Mild (1-3) Last Admin: 05/26/17 10:19 Dose: 400 mg Insulin Human Lispro (Humalog Med) 0 units SC ACHS [facility] PRN Reason: Protocol Last Admin: 05/28/17 08:49 Dose: 3 units Lorazepam (Ativan) 1 mg IVP Q6H PRN; Protocol PRN Reason: Agitation Multivitamins (Thera Tab) 1 tab PO 0800 [facility] Last Admin: 05/28/17 09:44 Dose: 1 tab Ondansetron HCl (Zofran Inj) 4 mg IVP Q6H PRN PRN Reason: Nausea/Vomiting Last Admin: 05/25/17 14:46 Dose: 4 mg Pantoprazole Sodium (Protonix Ec Tab) 40 mg PO 0600 [facility] Last Admin: 05/28/17 05:34 Dose: 40 mg Quetiapine Fumarate (Seroquel) 25 mg PO HS [facility] PRN Reason: Protocol Last Admin: 05/27/17 21:47 Dose: 25 mg Thiamine HCl (Vitamin B1 Inj) 100 mg IM DAILY [facility] Last Admin: 05/28/17 09:45 Dose: 100 mg Ziprasidone (Geodon Inj) 20 mg IM TID PRN; Protocol PRN Reason: Agitation Last Admin: 05/27/17 08:10 Dose: 20 mg - Labs Labs: 05/28/17 06:30 05/28/17 06:30 <Francisca Correia - Last Filed: 05/28/17 11:18> Objective - Vital Signs/Intake and Output Vital Signs (last 24 hours): Temp Pulse Resp BP Pulse Ox 98.7 F 85 20 164/95 H 100 05/28/17 06:00 05/28/17 06:00 05/28/17 06:00 05/28/17 06:00 05/28/17 06:00 Intake and Output: 05/28/17 05/28/17 06:59 18:59 Intake Total 1140 Output Total 0 Balance 1140 - Medications Medications: Current Medications Albuterol/Ipratropium (Duoneb 3 Mg/0.5 Mg (3 Ml) Ud) 3 ml IH Q4H PRN PRN Reason: Shortness of Breath Aspirin (Aspirin Chewable) 81 mg PO DAILY [facility] Last Admin: 05/28/17 09:44 Dose: 81 mg Atorvastatin Calcium (Lipitor) 10 mg PO DIN [facility] Last Admin: 05/27/17 17:08 Dose: 10 mg Clonidine HCl (Catapres Tts1 0.1 Mg/24 Hr) 1 patch TD Q7D@1000 [facility] Last Admin: 05/25/17 18:00 Dose: 1 patch Enalaprilat (Vasotec Iv) 1.25 mg IVP Q6H [facility] Last Admin: 05/28/17 05:35 Dose: 1.25 mg Folic Acid (Folic Acid) 1 mg IVP DAILY [facility] Last Admin: 05/27/17 13:28 Dose: 1 mg Heparin Sodium (Porcine) (Heparin) 5,000 units SC Q12 [facility] PRN Reason: Protocol Last Admin: 05/28/17 09:47 Dose: 5,000 units Hydralazine HCl (Apresoline) 5 mg IVP Q6H PRN PRN Reason: Systolic Blood Pressure Last Admin: 05/27/17 16:35 Dose: 5 mg Hydromorphone HCl (Dilaudid) 0.5 mg IVP Q8H PRN PRN Reason: Pain, severe (8-10) Vancomycin HCl (Vancomycin 1gm) 1 gm in 250 mls @ 167 mls/hr IVPB Q12H [facility] PRN Reason: Protocol Last Admin: 05/28/17 00:03 Dose: 167 mls/hr Piperacillin Sod/Tazobactam Sod (Zosyn 3.375 In Ns 100ml) 100 mls @ 200 mls/hr IVPB Q6 [facility] PRN Reason: Protocol Stop: 05/31/17 12:01 Last Admin: 05/28/17 05:36 Dose: 200 mls/hr Levetiracetam (Keppra 500mg Ivpb) 500 mg in 100 mls @ 400 mls/hr IV Q12 [facility] Last Admin: 05/28/17 09:45 Dose: 400 mls/hr Sodium Chloride (Sodium Chloride 0.45%) 1,000 mls @ 100 mls/hr IV .Q10H [facility] Last Admin: 05/28/17 09:48 Dose: 100 mls/hr Ibuprofen (Motrin Tab) 400 mg PO Q6H PRN PRN Reason: Pain, Mild (1-3) Last Admin: 05/26/17 10:19 Dose: 400 mg Insulin Human Lispro (Humalog Med) 0 units SC ACHS [facility] PRN Reason: Protocol Last Admin: 05/28/17 08:49 Dose: 3 units Lorazepam (Ativan) 1 mg IVP Q6H PRN; Protocol PRN Reason: Agitation Multivitamins (Thera Tab) 1 tab PO 0800 [facility] Last Admin: 05/28/17 09:44 Dose: 1 tab Ondansetron HCl (Zofran Inj) 4 mg IVP Q6H PRN PRN Reason: Nausea/Vomiting Last Admin: 05/25/17 14:46 Dose: 4 mg Pantoprazole Sodium (Protonix Ec Tab) 40 mg PO 0600 [facility] Last Admin: 05/28/17 05:34 Dose: 40 mg Quetiapine Fumarate (Seroquel) 25 mg PO HS [facility] PRN Reason: Protocol Last Admin: 05/27/17 21:47 Dose: 25 mg Thiamine HCl (Vitamin B1 Inj) 100 mg IM DAILY [facility] Last Admin: 05/28/17 09:45 Dose: 100 mg Ziprasidone (Geodon Inj) 20 mg IM TID PRN; Protocol PRN Reason: Agitation Last Admin: 05/27/17 08:10 Dose: 20 mg - Labs Labs: 05/28/17 06:30 05/28/17 06:30 Attending/Attestation - Attestation I have personally seen and examined this patient.: Yes I have fully participated in the care of the patient.: Yes I have reviewed all pertinent clinical information, including history, physical exam and plan: Yes Notes (Text): 05/28/17 11:13 52 year old male with past medical history of left foot OM s/p debridement, seizures, and substance abuse who presented with complaint of back pain and leg pain. He was admitted for cellulitis, LLL pneumonia and drug withdrawal. Continue with iv antibiotics as per ID. ESR/CRP were elevated and MRI foot was ordered to rule out osteomyelitis. Podiatry is following the patient as well. He is more alert this morning. Will begin to taper his ativan prn and dilaudid today. He is on geodon prn for severe agitation. Continue with keppra, aspirin and statin. He is on insulin ss for diabetes. He is on clonidine patch and vasotec for hypertension. Consider to switch to po medications as patient is more alert now taking oral medications. Francisca Correia MD Hospitalist.
--- NOTE | 2017-05-28 12:19 | PN ---
DATE: 05/28/2017 SUBJECTIVE: The patient seen in bed, in no acute distress, and nontoxic. PHYSICAL EXAMINATION: VITAL SIGNS: Temperature is 98, blood pressure is 120/70, and respiratory rate of 20. HEENT: Examination of HEENT is unremarkable. NECK: Supple. LUNGS: Decreased breath sounds. HEART: Normal S1 and S2. ABDOMEN: Soft. EXTREMITIES: Examination of foot is much improved. LABORATORY DATA: Examination reveals a white count of 6.1, hemoglobin of 11, and platelets of 393. Chemistry reveals a BUN of 14, creatinine of 0.9, and procalcitonin is 0.05. Urinalysis is noted. Toxicology is noted. Microbiology reveals the blood cultures no growth. Urine culture shows no growth. Review of orders reveals the patient to be on doxycycline IV and vancomycin and Zosyn. The patient's MRI of the foot is still pending. ASSESSMENT AND PLAN: This is a 52-year-old male who appears much older than stated age with diabetes mellitus, hypertension, alcohol abuse, and polysubstance abuse admitted with left foot and left leg cellulitis, appears to be improving and diabetic, hypertensive, alcohol abuser, and waiting for the magnetic resonance imaging of the foot. The patient had a chest x-ray on 05/23/2017, which was negative. We will discontinue the intravenous doxycycline and continue with the intravenous vancomycin and intravenous Zosyn. Pending magnetic resonance imaging of the foot to rule out an underlying osteomyelitis. The patient receives his vancomycin one in the morning, rather one in the afternoon, we will order vancomycin trough level for a noontime today and follow with you. Ned Tai MD
--- NOTE | 2017-05-28 13:19 | CP.PCM.CON ---
Past Patient History - Past Medical History & Family History Past Medical History?: Yes - Past Social History Smoking Status: Current Some Days Smoker - CARDIAC Hx Cardiac Disorders: Yes Hx Hypertension: Yes - PULMONARY Hx Respiratory Disorders: No - NEUROLOGICAL Hx Neurological Disorder: No Hx Seizures: Yes (2/2 ETOH withdrawal) - HEENT Hx HEENT Problems: No - RENAL Hx Chronic Kidney Disease: No - ENDOCRINE/METABOLIC Hx Diabetes Mellitus Type 2: Yes - HEMATOLOGICAL/ONCOLOGICAL Hx Blood Disorders: No - INTEGUMENTARY Hx Dermatological Problems: Yes - MUSCULOSKELETAL/RHEUMATOLOGICAL Hx Musculoskeletal Disorders: Yes Hx Falls: No Hx Osteomyelitis: Yes (s/p amputations of L toes #3,4,5 ) - GASTROINTESTINAL Hx Gastrointestinal Disorders: No - GENITOURINARY/GYNECOLOGICAL Hx Genitourinary Disorders: No - PSYCHIATRIC Hx Psychophysiologic Disorder: Yes Hx Substance Use: Yes 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 USES [employer]ORTS FOR 20 YRS. NEVER BEEN IN A PROGRAM BEFORE. SMOKES CIGARETTES < PPD. - SURGICAL HISTORY Hx Amputation: Yes - ANESTHESIA Hx Anesthesia Reactions: No Meds Allergies/Adverse Reactions: Allergies Allergy/AdvReac Type Severity Reaction Status Date / Time EGG Allergy VOMITING Verified 05/23/17 15:35 Fish Containing Products Allergy VOMITING Verified 05/23/17 15:35 tomato Allergy VOMITING Verified 05/23/17 15:35 - Medications Medications: Current Medications Albuterol/Ipratropium (Duoneb 3 Mg/0.5 Mg (3 Ml) Ud) 3 ml IH Q4H PRN PRN Reason: Shortness of Breath Amlodipine Besylate (Norvasc) 5 mg PO DAILY [facility] Aspirin (Aspirin Chewable) 81 mg PO DAILY [facility] Last Admin: 05/28/17 09:44 Dose: 81 mg Atorvastatin Calcium (Lipitor) 10 mg PO DIN [facility] Last Admin: 05/27/17 17:08 Dose: 10 mg Folic Acid (Folic Acid) 1 mg IVP DAILY [facility] Last Admin: 05/28/17 11:30 Dose: 1 mg Heparin Sodium (Porcine) (Heparin) 5,000 units SC Q12 [facility] PRN Reason: Protocol Last Admin: 05/28/17 09:47 Dose: 5,000 units Hydralazine HCl (Apresoline) 5 mg IVP Q6H PRN PRN Reason: Systolic Blood Pressure Last Admin: 05/27/17 16:35 Dose: 5 mg Hydromorphone HCl (Dilaudid) 0.5 mg IVP Q8H PRN PRN Reason: Pain, severe (8-10) Vancomycin HCl (Vancomycin 1gm) 1 gm in 250 mls @ 167 mls/hr IVPB Q12H [facility] PRN Reason: Protocol Last Admin: 05/28/17 12:38 Dose: 167 mls/hr Piperacillin Sod/Tazobactam Sod (Zosyn 3.375 In Ns 100ml) 100 mls @ 200 mls/hr IVPB Q6 [facility] PRN Reason: Protocol Stop: 05/31/17 12:01 Last Admin: 05/28/17 12:37 Dose: 200 mls/hr Levetiracetam (Keppra 500mg Ivpb) 500 mg in 100 mls @ 400 mls/hr IV Q12 [facility] Last Admin: 05/28/17 09:45 Dose: 400 mls/hr Sodium Chloride (Sodium Chloride 0.45%) 1,000 mls @ 100 mls/hr IV .Q10H [facility] Last Admin: 05/28/17 09:48 Dose: 100 mls/hr Ibuprofen (Motrin Tab) 400 mg PO Q6H PRN PRN Reason: Pain, Mild (1-3) Last Admin: 05/26/17 10:19 Dose: 400 mg Insulin Human Lispro (Humalog Med) 0 units SC ACHS [facility] PRN Reason: Protocol Last Admin: 05/28/17 08:49 Dose: 3 units Lisinopril (Zestril) 10 mg PO DAILY [facility] Lorazepam (Ativan) 1 mg IVP Q6H PRN; Protocol PRN Reason: Agitation Multivitamins (Thera Tab) 1 tab PO 0800 [facility] Last Admin: 05/28/17 09:44 Dose: 1 tab Ondansetron HCl (Zofran Inj) 4 mg IVP Q6H PRN PRN Reason: Nausea/Vomiting Last Admin: 05/25/17 14:46 Dose: 4 mg Pantoprazole Sodium (Protonix Ec Tab) 40 mg PO 0600 [facility] Last Admin: 05/28/17 05:34 Dose: 40 mg Quetiapine Fumarate (Seroquel) 25 mg PO HS [facility] PRN Reason: Protocol Last Admin: 05/27/17 21:47 Dose: 25 mg Thiamine HCl (Vitamin B1 Inj) 100 mg IM DAILY [facility] Last Admin: 05/28/17 09:45 Dose: 100 mg Ziprasidone (Geodon Inj) 20 mg IM TID PRN; Protocol PRN Reason: Agitation Last Admin: 05/27/17 08:10 Dose: 20 mg Results - Vital Signs Recent Vital Signs: Last Vital Signs Temp 98.7 F 05/28/17 06:00 Pulse 85 05/28/17 06:00 Resp 20 05/28/17 06:00 BP 164/95 H 05/28/17 06:00 Pulse Ox 100 05/28/17 06:00 - Labs Result Diagrams: 05/28/17 06:30 05/28/17 06:30 Labs: Laboratory Results - last 24 hr 05/26/17 05/27/17 05/27/17 21:45 16:22 21:20 WBC RBC Hgb Hct MCV MCH MCHC RDW Plt Count MPV Gran % Lymph % (Auto) Mathews % (Auto) Eos % (Auto) Baso % (Auto) Gran # Lymph # Mathews # Eos # Baso # Sodium Potassium Chloride Carbon Dioxide Anion Gap BUN Creatinine Est GFR ( Amer) Est GFR (Non-Af Amer) POC Glucose (mg/dL) 195 H 185 H 261 H Random Glucose Calcium Total Bilirubin AST ALT Alkaline Phosphatase Total Protein Albumin Globulin Albumin/Globulin Ratio 05/28/17 05/28/17 05/28/17 06:30 06:30 07:47 WBC 6.1 RBC 3.89 Hgb 11.1 L Hct 34.3 L MCV 88.2 MCH 28.5 MCHC 32.4 RDW 13.9 Plt Count 393 MPV 8.6 Gran % 62.4 Lymph % (Auto) 26.1 Mathews % (Auto) 7.8 H Eos % (Auto) 3.5 Baso % (Auto) 0.2 Gran # 3.79 Lymph # 1.6 Mathews # 0.5 Eos # 0.2 Baso # 0.01 Sodium 135 Potassium 3.6 Chloride 104 Carbon Dioxide 26 Anion Gap 9 L BUN 14 Creatinine 0.9 Est GFR ( Amer) > 60 Est GFR (Non-Af Amer) > 60 POC Glucose (mg/dL) 216 H Random Glucose 197 H Calcium 8.7 Total Bilirubin 0.4 AST 58 ALT 35 Alkaline Phosphatase 87 Total Protein 6.3 Albumin 3.1 Globulin 3.2 Albumin/Globulin Ratio 0.9 L 05/28/17 11:41 WBC RBC Hgb Hct MCV MCH MCHC RDW Plt Count MPV Gran % Lymph % (Auto) Mathews % (Auto) Eos % (Auto) Baso % (Auto) Gran # Lymph # Mathews # Eos # Baso # Sodium Potassium Chloride Carbon Dioxide Anion Gap BUN Creatinine Est GFR ( Amer) Est GFR (Non-Af Amer) POC Glucose (mg/dL) 283 H Random Glucose Calcium Total Bilirubin AST ALT Alkaline Phosphatase Total Protein Albumin Globulin Albumin/Globulin Ratio
--- NOTE | 2017-05-28 21:29 | CON ---
DATE: HISTORY OF PRESENT ILLNESS: This is a 52-year-old with multiple medical problems, was admitted with left leg cellulitis. The patient is under Infectious Disease. CAT scan of the head was done which was reported negative. PHYSICAL EXAMINATION: HEENT: Normocephalic and atraumatic. NECK: Supple. NEUROLOGIC: Awake and oriented to self and place. No aphasia. Cranial nerves II to XII were tested. Pupils reactive. Spontaneous movement of the extremities noted. Deep tendon reflexes are 1+. Both plantars are equivocal. IMPRESSION: Multiple medical problems, seizure disorder. The patient is on Keppra. Continue present management. We will follow up. Malachi Boucher MD
--- NOTE | 2017-05-28 22:02 | CP.PCM.PN ---
<BoydRadha - Last Filed: 05/28/17 22:10> Subjective - Date & Time of Evaluation Date of Evaluation: 05/28/17 Time of Evaluation: 12:05 - Subjective Subjective: 52 y/o male seen and evaluated at bedside today for left leg cellulitis. Patient appears to be resting comfortably in his bed at time of visit. Patient says he is having a very small amount of pain in the left leg and foot but overall feels fine. Pt denies F/C/N/V/CP/SOB Objective - Vital Signs/Intake and Output Vital Signs (last 24 hours): Temp Pulse Resp BP Pulse Ox 98.7 F 101 H 20 183/103 H 100 05/28/17 06:00 05/28/17 14:52 05/28/17 06:00 05/28/17 14:52 05/28/17 06:00 Intake and Output: 05/28/17 05/29/17 18:59 06:59 Intake Total 800 Output Total 500 Balance 300 - Medications Medications: Current Medications Albuterol/Ipratropium (Duoneb 3 Mg/0.5 Mg (3 Ml) Ud) 3 ml IH Q4H PRN PRN Reason: Shortness of Breath Amlodipine Besylate (Norvasc) 5 mg PO DAILY [facility] Aspirin (Aspirin Chewable) 81 mg PO DAILY [facility] Last Admin: 05/28/17 09:44 Dose: 81 mg Atorvastatin Calcium (Lipitor) 10 mg PO DIN [facility] Last Admin: 05/28/17 18:10 Dose: 10 mg Folic Acid (Folic Acid) 1 mg IVP DAILY [facility] Last Admin: 05/28/17 11:30 Dose: 1 mg Heparin Sodium (Porcine) (Heparin) 5,000 units SC Q12 [facility] PRN Reason: Protocol Last Admin: 05/28/17 09:47 Dose: 5,000 units Hydralazine HCl (Apresoline) 5 mg IVP Q6H PRN PRN Reason: Systolic Blood Pressure Last Admin: 05/28/17 14:52 Dose: 5 mg Hydromorphone HCl (Dilaudid) 0.5 mg IVP Q8H PRN PRN Reason: Pain, severe (8-10) Last Admin: 05/28/17 13:39 Dose: 0.5 mg Vancomycin HCl (Vancomycin 1gm) 1 gm in 250 mls @ 167 mls/hr IVPB Q12H [facility] PRN Reason: Protocol Last Admin: 05/28/17 12:38 Dose: 167 mls/hr Piperacillin Sod/Tazobactam Sod (Zosyn 3.375 In Ns 100ml) 100 mls @ 200 mls/hr IVPB Q6 [facility] PRN Reason: Protocol Stop: 05/31/17 12:01 Last Admin: 05/28/17 18:10 Dose: 200 mls/hr Levetiracetam (Keppra 500mg Ivpb) 500 mg in 100 mls @ 400 mls/hr IV Q12 [facility] Last Admin: 05/28/17 09:45 Dose: 400 mls/hr Sodium Chloride (Sodium Chloride 0.45%) 1,000 mls @ 100 mls/hr IV .Q10H [facility] Last Admin: 05/28/17 09:48 Dose: 100 mls/hr Ibuprofen (Motrin Tab) 400 mg PO Q6H PRN PRN Reason: Pain, Mild (1-3) Last Admin: 05/26/17 10:19 Dose: 400 mg Insulin Human Lispro (Humalog Med) 0 units SC ACHS [facility] PRN Reason: Protocol Last Admin: 05/28/17 18:10 Dose: 1 units Lisinopril (Zestril) 10 mg PO DAILY [facility] Lorazepam (Ativan) 1 mg IVP Q6H PRN; Protocol PRN Reason: Agitation Last Admin: 05/28/17 16:13 Dose: 1 mg Multivitamins (Thera Tab) 1 tab PO 0800 [facility] Last Admin: 05/28/17 09:44 Dose: 1 tab Ondansetron HCl (Zofran Inj) 4 mg IVP Q6H PRN PRN Reason: Nausea/Vomiting Last Admin: 05/25/17 14:46 Dose: 4 mg Pantoprazole Sodium (Protonix Ec Tab) 40 mg PO 0600 [facility] Last Admin: 05/28/17 05:34 Dose: 40 mg Quetiapine Fumarate (Seroquel) 25 mg PO HS [facility] PRN Reason: Protocol Last Admin: 05/27/17 21:47 Dose: 25 mg Thiamine HCl (Vitamin B1 Inj) 100 mg IM DAILY [facility] Last Admin: 05/28/17 09:45 Dose: 100 mg Ziprasidone (Geodon Inj) 20 mg IM TID PRN; Protocol PRN Reason: Agitation Last Admin: 05/28/17 20:05 Dose: 20 mg - Labs Labs: 05/28/17 06:30 05/28/17 06:30 - Constitutional Appears: Well, Non-toxic, No Acute Distress - Extremities Exam Additional comments: Bilateral LE exam: VASC: DP/PT pulses are faintly palpable 1/4 B/L, CFT< 3 sec to digits. Temp gradient: warm to cool from proximal to distal. No pedal edema noted DERM: no open lesions noted B/L, no breaks in the skin, hypopigmented skin noted on the dorsum of the left foot with hyperkeratotic skin at the distal lateral aspect of the left foot, no malodor, no clinical suspicion of active infection NEURO: Protective sensation grossly diminished B/L ORTHO: Partial hallux amputation site noted. Previous amputations of 3rd, 4th, and 5th digits noted to L foot. - Neurological Exam Neurological Exam: Alert, Awake - Psychiatric Exam Psychiatric exam: Flat Affect Assessment and Plan - Assessment and Plan (Free Text) Assessment: 52 y/o male with left foot cellulitis, resolving since hospital admission Plan: Patient seen and evaluated at bedside Discussed plan with attending Dr. Benito Labs, vitals and charts reviewed - afebrile, WBC @ 6.1 Multipodus boots to be worn at all times while in bed Patient is stable from podiatry standpoint Podiatry to follow patient while in house <Sharita Benito - Last Filed: 05/29/17 14:50> Objective - Vital Signs/Intake and Output Vital Signs (last 24 hours): Temp Pulse Resp BP Pulse Ox 98 F 96 H 18 164/85 H 96 05/29/17 08:55 05/29/17 09:33 05/29/17 08:55 05/29/17 09:33 05/29/17 08:55 Intake and Output: 05/29/17 05/29/17 06:59 18:59 Intake Total 600 700 Output Total 700 Balance -100 700 - Medications Medications: Current Medications Albuterol/Ipratropium (Duoneb 3 Mg/0.5 Mg (3 Ml) Ud) 3 ml IH Q4H PRN PRN Reason: Shortness of Breath Amlodipine Besylate (Norvasc) 5 mg PO DAILY [facility] Last Admin: 05/29/17 09:33 Dose: 5 mg Aspirin (Aspirin Chewable) 81 mg PO DAILY [facility] Last Admin: 05/29/17 09:33 Dose: 81 mg Atorvastatin Calcium (Lipitor) 10 mg PO DIN [facility] Last Admin: 05/28/17 18:10 Dose: 10 mg Folic Acid (Folic Acid) 1 mg IVP DAILY [facility] Last Admin: 05/29/17 10:43 Dose: 1 mg Heparin Sodium (Porcine) (Heparin) 5,000 units SC Q12 [facility] PRN Reason: Protocol Last Admin: 05/29/17 09:35 Dose: 5,000 units Hydralazine HCl (Apresoline) 5 mg IVP Q6H PRN PRN Reason: Systolic Blood Pressure Last Admin: 05/29/17 05:36 Dose: 5 mg Hydromorphone HCl (Dilaudid) 0.5 mg IVP Q8H PRN PRN Reason: Pain, severe (8-10) Last Admin: 05/29/17 07:04 Dose: 0.5 mg Vancomycin HCl (Vancomycin 1gm) 1 gm in 250 mls @ 167 mls/hr IVPB Q12H [facility] PRN Reason: Protocol Last Admin: 05/29/17 13:28 Dose: Not Given Piperacillin Sod/Tazobactam Sod (Zosyn 3.375 In Ns 100ml) 100 mls @ 200 mls/hr IVPB Q6 [facility] PRN Reason: Protocol Stop: 05/31/17 12:01 Last Admin: 05/29/17 00:06 Dose: 200 mls/hr Levetiracetam (Keppra 500mg Ivpb) 500 mg in 100 mls @ 400 mls/hr IV Q12 [facility] Last Admin: 05/29/17 10:45 Dose: 400 mls/hr Sodium Chloride (Sodium Chloride 0.45%) 1,000 mls @ 100 mls/hr IV .Q10H [facility] Last Admin: 05/29/17 11:55 Dose: 100 mls/hr Ibuprofen (Motrin Tab) 400 mg PO Q6H PRN PRN Reason: Pain, Mild (1-3) Last Admin: 05/26/17 10:19 Dose: 400 mg Insulin Human Lispro (Humalog Med) 0 units SC ACHS [facility] PRN Reason: Protocol Last Admin: 05/29/17 11:51 Dose: 5 units Lisinopril (Zestril) 10 mg PO DAILY [facility] Last Admin: 05/29/17 12:34 Dose: Not Given Lorazepam (Ativan) 0.5 mg IVP Q6H PRN; Protocol PRN Reason: Agitation Last Admin: 05/29/17 11:50 Dose: 0.5 mg Multivitamins (Thera Tab) 1 tab PO 0800 [facility] Last Admin: 05/29/17 09:33 Dose: 1 tab Ondansetron HCl (Zofran Inj) 4 mg IVP Q6H PRN PRN Reason: Nausea/Vomiting Last Admin: 05/25/17 14:46 Dose: 4 mg Pantoprazole Sodium (Protonix Ec Tab) 40 mg PO 0600 [facility] Last Admin: 05/28/17 05:34 Dose: 40 mg Quetiapine Fumarate (Seroquel) 25 mg PO HS [facility] PRN Reason: Protocol Last Admin: 05/28/17 22:10 Dose: 25 mg Thiamine HCl (Vitamin B1 Inj) 100 mg IM DAILY [facility] Last Admin: 05/29/17 09:37 Dose: 100 mg Ziprasidone (Geodon Inj) 20 mg IM TID PRN; Protocol PRN Reason: Agitation Last Admin: 05/29/17 02:07 Dose: 20 mg - Labs Labs: 05/29/17 05:30 05/29/17 05:30 Attending/Attestation - Attestation I have personally seen and examined this patient.: Yes I have fully participated in the care of the patient.: Yes I have reviewed all pertinent clinical information, including history, physical exam and plan: Yes
[2017-05-29] MEDS: Piperacillin/Tazobact 3.375 gm 100 ML IVPB SCH ×5 (00:06→21:30)
[2017-05-29] MEDS: Vancomycin 1gm in NS 250ml 1 GM/250 ML BAG IVPB SCH ×3 (00:06→15:10)
[2017-05-29] MEDS: Sodium Chloride 0.45% 1,000 ML IV SCH ×2 (04:51→11:55)
--- NOTE | 2017-05-29 05:32 | PCM.RRT ---
TIMING ADJUSTER Nurse Assessment - Situation Date: 05/29/17 Time TIMING ADJUSTER was called: 05:10 TIMING ADJUSTER Responder Arrival Time: 05:12 TIMING ADJUSTER Location:: [address] [place] [address] Room Number: [id number] TIMING ADJUSTER Reason for Call: Looks Sicker (pt found on floor next to bed ) TIMING ADJUSTER Called By: RN - IV IV Inserted during TIMING ADJUSTER?: No - Respiratory Oxygen Delivery Method: Room Air, Nasal Cannula @L/min Oxygen Flow Rate: 3 Received Nebulizer Treatments:: No Was the Patient Ventilated with Bag/Mask 100% O2?: No Secretions Suctioned?: No Was the Patient Intubated?: No Was the Patient Placed on a Ventilator?: No - Diagnostic Test Ordered EKG: No Chest X-Ray: No CT Scan: No - Stat Labs Ordered TIMING ADJUSTER Other Labs Ordered: ammonia CPR started during TIMING ADJUSTER?: No - Vital Signs Vital Sign: Rapid Response Vital Sign Blood Pressure 151/86 Pulse Rate 104 Respiratory Rate 20 Temperature 98.8 F Oxygen Saturation 100 - Finger Stick Blood Glucose Finger Stick Blood Glucose: 178 - [place] Coma Scale Coma Scale Eye Opening: Spontaneous Coma Scale Motor: Obeys Commands Movement Coma Scale Verbal: Confused/able to answer - Time TIMING ADJUSTER Ended Time TIMING ADJUSTER Ended: 05:23 - Vital Signs at end of TIMING ADJUSTER Vital Signs at end of TIMING ADJUSTER: Rapid Response End Vital Sign Blood Pressure 193/96 Pulse Rate 93 - Recommendations 5) TIMING ADJUSTER Level of Care Recommendations: Remain in current setting Notifications: Attending Physician I.Reason for TIMING ADJUSTER - A) Acute Change in Patient: (Select all that apply): Staff member or family is worried about patient (pt was found kneeling next to bed and was said to be "unarousable" by nursing staff ) - Neurological Status (Select all that apply): Alert, Responsive, Verbal, Follows Commands, Disoriented. absent: Aggressive - Respiratory Oxygen Delivery Method: Nasal Cannula @L/min Oxygen Flow Rate: 3 - Constitutional Appears: No Acute Distress, Unkempt - Head Head Exam: ATRAUMATIC, NORMAL INSPECTION, NORMOCEPHALIC - Eyes Eye Exam: EOMI, Normal appearance - Respiratory Exam Respiratory Exam: Clear to Ausculation Bilateral, NORMAL BREATHING PATTERN. absent: Rhonchi, Wheezes - Cardiovascular Exam Cardiovascular Exam: RRR, +S1, +S2. absent: Murmur - GI/Abdominal Exam GI & Abdominal Exam: Soft. absent: Distended, Guarding, Tenderness - Neurological Exam Neurological Exam: Alert, Awake Additional exam: pt does not respond to questions about orientation, however, he responds appropriately with other questions - Extremities Exam Additional comments: multiple L foot toe amputations Plan - Assessment of Findings&Treatment Plan 53 yo M admitted for cellulitis with multiple episodes of agitation likely 2/2 polysubstance abuse and withdrawal. CODE STAR was called and then was converted to TIMING ADJUSTER due to pt being found kneeling down next to bed, and was deemed unresponsive by nursing staff. when TIMING ADJUSTER arrived, the pt had been helped into a chair and was awake and alert and making eye contact. He slowly began being more responsive. He was helped back in bed and the guardrails were raised. The patient was following commands and responding to questions appropriately. when asked about what happened, he states that he wanted to use the commode and get breakfast because he hadn't had dinner. he was also requesting his meds. the patient was deemed to be at baseline by MD and nursing staff. No further tests were ordered as morning labs would be due soon. The patient displayed no signs of head trauma or changes in vital signs or mental state. He had not received medications recently. VS were reviewed. No further testing required at this time. Patient was examined and discussed with attending, Dr. Coco Duffy PGY1
[2017-05-29 06:28] LABS: BASO # 0.01 K/mm3 (0.0-2.0); BASO % 0.2 % (0.0-3.0); EOS # 0.2 (0.0-0.7); EOS % 3.6 % (1.5-5.0); GRAN # 4.06 (1.4-6.5); GRAN % 63.2 % (50.0-68.0); HEMATOCRIT 30.9 % (42.0-52.0); LYMPH # 1.7 (1.2-3.4); LYMPH % 26.5 % (22.0-35.0); MEAN CELL VOLUME 87.3 fl (80.0-105.0); MEAN CORPUSCULAR HEMOGLOBIN 28.8 pg (25.0-35.0); MEAN PLATELET VOLUME 8.7 fl (7.0-11.0); MONO # 0.4 (0.1-0.6); MONO % 6.5 % (1.0-6.0); RED CELL DISTRIBUTION WIDTH 13.9 % (11.5-14.5); WHITE BLOOD COUNT 6.4 10^3/ul (4.5-11.0)
[2017-05-29 06:59] LABS: ALB/GLOB RATIO 0.9 (1.1-1.8); ALKALINE PHOSPHATASE 67 U/L (38-126); ALT/SGPT 32 U/L (7-56); AST/SGOT 35 U/L (17-59); BILIRUBIN,TOTAL 0.3 mg/dL (0.2-1.3); BLOOD UREA NITROGEN 11 mg/dL (7-21); CALCIUM 8.6 mg/dL (8.4-10.5); CARBON DIOXIDE 26 mmol/L (21-33); CHLORIDE 107 mmol/L (98-107); GFR AFRICAN-AMERICAN > 60; GLUCOSE,RANDOM 174 mg/dL (70-110); POTASSIUM 3.6 mmol/L (3.6-5.0); SODIUM 135 mmol/L (132-148)
[2017-05-29] MEDS: HYDROmorphone 0.5 mg/0.5 ml ISec IVP PRN ×2 (07:04→15:02)
[2017-05-29] MEDS: Insulin Lispro (humaLOG) MEDIUM Coverage SC SCH ×5 (09:00→21:32)
[2017-05-29] MEDS: Multivitamin Therapeutic Tab PO SCH (09:33)
[2017-05-29] MEDS: Thiamine 100 mg/ml Inj IM SCH (09:37)
--- NOTE | 2017-05-29 10:22 | CP.PCM.PN ---
<Edgardo Pacheco - Last Filed: 05/29/17 12:03> Subjective - Date & Time of Evaluation Date of Evaluation: 05/29/17 Time of Evaluation: 09:20 - Subjective Subjective: Subjective: Patient seen and examined at bedside. Resting comfortably in bed. Rapid response /code star was called on patient overnight because he was found kneeling down next to bed, and was deemed unresponsive by nursing staff. As per [employer] note, the patient become more responsive and it was deemed that no further acute intervention was required. Patient is awake, alert, responds to verbal stimuli, answers some questions appropriately, and moves extremities spontaneously. Offers no new complaints at this time. Denies fever, chills, chest pain, shortness of breath, abdominal pain, nausea, vomiting, diarrhea, constipation, and urinary symptoms. 12-point review of systems negative except as indicated in the HPI Physical Examination: - Constitutional Appears: Well, No Acute Distress - Head Exam Head Exam: ATRAUMATIC, NORMOCEPHALIC - ENT Exam ENT Exam: Mucous Membranes Moist - Neck Exam Neck Exam: Normal Inspection - Respiratory Exam Respiratory Exam: Clear to Ausculation Bilateral, NORMAL BREATHING PATTERN - Cardiovascular Exam Cardiovascular Exam: RRR, +S1, +S2 - GI/Abdominal Exam GI & Abdominal Exam: Soft, Normal Bowel Sounds - Extremities Exam Extremities Exam: L toes 3,4,5 s/p amputation surface around L lateral maleoli with open ulcerative wound (no pus) - Neurological Exam Neurological Exam: patient is awake, alert, responds to verbal stimuli, answers some questions appropriately, and moves extremities spontaneously - Skin Skin Exam: dry, warm Assessment and Plan: Patient is a 52 year old AA male with a PMHx IDDM, 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 Patient also likely going through cocaine, heroin and ETOH withdrawal. Cellulitis no CT abdomen. Seizure like Activity/Agitation - possible ETOH withdrawl vs drug withdrawal vs organic seizures - Ativan 0.5 mg q6h PRN for seizure-like activity/agitation - Keppra 500 mg BID - seizure precautions - aspiration precautions - CIWA protocil - c/w thiamine, folate, and MV - c/w geodon prn - c/w seroquel - neurology consulted- appreciate recommendations - psychiatry consulted- appreciate recommendations HTN - BPs trended, reviewed, and appreciated, will continue to monitor closely - c/w lisinopril and amlodipine - hydralazine prn CT Abnormality - CT head showed mild chronic periventricular white matter ischemic changes - Aspirin 81 mg and atorvastatin Pneumonia -continue Vancomycin, and Zosyn - infectious disease consulted- appreciate recommendations LLE cellulitis - rule out underlying osteomyelitis- MRI ordered, will follow up - Podiatry consulted, recommendations appreciated - infectious disease consulted- appreciate recommendations DM II - ACHS - Patient is on ISS Chronic Pain - diludid .5mg q8 prn pain Deconditioning - physical therapy consulted- appreciate recommendations DVT/GI - subq Heparin - Protonix Patient seen, case discussed with, and plan approved by attending physician, Dr. Gonzalez Objective - Vital Signs/Intake and Output Vital Signs (last 24 hours): Temp Pulse Resp BP Pulse Ox 98 F 96 H 18 164/85 H 96 05/29/17 08:55 05/29/17 09:33 05/29/17 08:55 05/29/17 09:33 05/29/17 08:55 Intake and Output: 05/29/17 05/29/17 06:59 18:59 Intake Total 600 Output Total 700 Balance -100 - Medications Medications: Current Medications Albuterol/Ipratropium (Duoneb 3 Mg/0.5 Mg (3 Ml) Ud) 3 ml IH Q4H PRN PRN Reason: Shortness of Breath Amlodipine Besylate (Norvasc) 5 mg PO DAILY [facility] Last Admin: 05/29/17 09:33 Dose: 5 mg Aspirin (Aspirin Chewable) 81 mg PO DAILY [facility] Last Admin: 05/29/17 09:33 Dose: 81 mg Atorvastatin Calcium (Lipitor) 10 mg PO DIN [facility] Last Admin: 05/28/17 18:10 Dose: 10 mg Folic Acid (Folic Acid) 1 mg IVP DAILY [facility] Last Admin: 05/28/17 11:30 Dose: 1 mg Heparin Sodium (Porcine) (Heparin) 5,000 units SC Q12 [facility] PRN Reason: Protocol Last Admin: 05/29/17 09:35 Dose: 5,000 units Hydralazine HCl (Apresoline) 5 mg IVP Q6H PRN PRN Reason: Systolic Blood Pressure Last Admin: 05/29/17 05:36 Dose: 5 mg Hydromorphone HCl (Dilaudid) 0.5 mg IVP Q8H PRN PRN Reason: Pain, severe (8-10) Last Admin: 05/29/17 07:04 Dose: 0.5 mg Vancomycin HCl (Vancomycin 1gm) 1 gm in 250 mls @ 167 mls/hr IVPB Q12H [facility] PRN Reason: Protocol Last Admin: 05/29/17 00:06 Dose: 167 mls/hr Piperacillin Sod/Tazobactam Sod (Zosyn 3.375 In Ns 100ml) 100 mls @ 200 mls/hr IVPB Q6 [facility] PRN Reason: Protocol Stop: 05/31/17 12:01 Last Admin: 05/29/17 00:06 Dose: 200 mls/hr Levetiracetam (Keppra 500mg Ivpb) 500 mg in 100 mls @ 400 mls/hr IV Q12 [facility] Last Admin: 05/28/17 22:56 Dose: 400 mls/hr Sodium Chloride (Sodium Chloride 0.45%) 1,000 mls @ 100 mls/hr IV .Q10H [facility] Last Admin: 05/29/17 04:51 Dose: 100 mls/hr Ibuprofen (Motrin Tab) 400 mg PO Q6H PRN PRN Reason: Pain, Mild (1-3) Last Admin: 05/26/17 10:19 Dose: 400 mg Insulin Human Lispro (Humalog Med) 0 units SC ACHS [facility] PRN Reason: Protocol Last Admin: 05/29/17 09:32 Dose: 3 units Lisinopril (Zestril) 10 mg PO DAILY [facility] Lorazepam (Ativan) 1 mg IVP Q6H PRN; Protocol PRN Reason: Agitation Last Admin: 05/29/17 05:31 Dose: 1 mg Multivitamins (Thera Tab) 1 tab PO 0800 [facility] Last Admin: 05/29/17 09:33 Dose: 1 tab Ondansetron HCl (Zofran Inj) 4 mg IVP Q6H PRN PRN Reason: Nausea/Vomiting Last Admin: 05/25/17 14:46 Dose: 4 mg Pantoprazole Sodium (Protonix Ec Tab) 40 mg PO 0600 [facility] Last Admin: 05/28/17 05:34 Dose: 40 mg Quetiapine Fumarate (Seroquel) 25 mg PO HS [facility] PRN Reason: Protocol Last Admin: 05/28/17 22:10 Dose: 25 mg Thiamine HCl (Vitamin B1 Inj) 100 mg IM DAILY [facility] Last Admin: 05/29/17 09:37 Dose: 100 mg Ziprasidone (Geodon Inj) 20 mg IM TID PRN; Protocol PRN Reason: Agitation Last Admin: 05/29/17 02:07 Dose: 20 mg - Labs Labs: 05/29/17 05:30 05/29/17 05:30 <Arely Gonzalez - Last Filed: 05/29/17 16:59> Objective - Vital Signs/Intake and Output Vital Signs (last 24 hours): Temp Pulse Resp BP Pulse Ox 98 F 96 H 18 164/85 H 96 05/29/17 08:55 05/29/17 09:33 05/29/17 08:55 05/29/17 09:33 05/29/17 08:55 Intake and Output: 05/29/17 05/29/17 06:59 18:59 Intake Total 600 700 Output Total 700 Balance -100 700 - Medications Medications: Current Medications Albuterol/Ipratropium (Duoneb 3 Mg/0.5 Mg (3 Ml) Ud) 3 ml IH Q4H PRN PRN Reason: Shortness of Breath Amlodipine Besylate (Norvasc) 5 mg PO DAILY [facility] Last Admin: 05/29/17 09:33 Dose: 5 mg Aspirin (Aspirin Chewable) 81 mg PO DAILY [facility] Last Admin: 05/29/17 09:33 Dose: 81 mg Atorvastatin Calcium (Lipitor) 10 mg PO DIN [facility] Last Admin: 05/28/17 18:10 Dose: 10 mg Folic Acid (Folic Acid) 1 mg IVP DAILY [facility] Last Admin: 05/29/17 10:43 Dose: 1 mg Heparin Sodium (Porcine) (Heparin) 5,000 units SC Q12 [facility] PRN Reason: Protocol Last Admin: 05/29/17 09:35 Dose: 5,000 units Hydralazine HCl (Apresoline) 5 mg IVP Q6H PRN PRN Reason: Systolic Blood Pressure Last Admin: 05/29/17 05:36 Dose: 5 mg Hydromorphone HCl (Dilaudid) 0.5 mg IVP Q8H PRN PRN Reason: Pain, severe (8-10) Last Admin: 05/29/17 15:02 Dose: 0.5 mg Vancomycin HCl (Vancomycin 1gm) 1 gm in 250 mls @ 167 mls/hr IVPB Q12H [facility] PRN Reason: Protocol Last Admin: 05/29/17 15:10 Dose: 167 mls/hr Piperacillin Sod/Tazobactam Sod (Zosyn 3.375 In Ns 100ml) 100 mls @ 200 mls/hr IVPB Q6 [facility] PRN Reason: Protocol Stop: 05/31/17 12:01 Last Admin: 05/29/17 00:06 Dose: 200 mls/hr Levetiracetam (Keppra 500mg Ivpb) 500 mg in 100 mls @ 400 mls/hr IV Q12 [facility] Last Admin: 05/29/17 10:45 Dose: 400 mls/hr Sodium Chloride (Sodium Chloride 0.45%) 1,000 mls @ 100 mls/hr IV .Q10H [facility] Last Admin: 05/29/17 11:55 Dose: 100 mls/hr Ibuprofen (Motrin Tab) 400 mg PO Q6H PRN PRN Reason: Pain, Mild (1-3) Last Admin: 05/26/17 10:19 Dose: 400 mg Insulin Human Lispro (Humalog Med) 0 units SC ACHS [facility] PRN Reason: Protocol Last Admin: 05/29/17 11:51 Dose: 5 units Lisinopril (Zestril) 10 mg PO DAILY [facility] Last Admin: 05/29/17 12:34 Dose: Not Given Lorazepam (Ativan) 0.5 mg IVP Q6H PRN; Protocol PRN Reason: Agitation Last Admin: 05/29/17 11:50 Dose: 0.5 mg Multivitamins (Thera Tab) 1 tab PO 0800 [facility] Last Admin: 05/29/17 09:33 Dose: 1 tab Ondansetron HCl (Zofran Inj) 4 mg IVP Q6H PRN PRN Reason: Nausea/Vomiting Last Admin: 05/25/17 14:46 Dose: 4 mg Pantoprazole Sodium (Protonix Ec Tab) 40 mg PO 0600 [facility] Last Admin: 05/28/17 05:34 Dose: 40 mg Quetiapine Fumarate (Seroquel) 25 mg PO HS [facility] PRN Reason: Protocol Last Admin: 05/28/17 22:10 Dose: 25 mg Thiamine HCl (Vitamin B1 Inj) 100 mg IM DAILY [facility] Last Admin: 05/29/17 09:37 Dose: 100 mg Ziprasidone (Geodon Inj) 20 mg IM TID PRN; Protocol PRN Reason: Agitation Last Admin: 05/29/17 02:07 Dose: 20 mg - Labs Labs: 05/29/17 05:30 05/29/17 05:30 Attending/Attestation - Attestation I have personally seen and examined this patient.: Yes I have fully participated in the care of the patient.: Yes I have reviewed all pertinent clinical information, including history, physical exam and plan: Yes Notes (Text): 05/29/17 16:50 Attending note; Patient seen and examined with resident this morning. Patient is more alert and awake. Oriented to place and time. Agitation is improving. Patient is a 52 year old male with past medical history of left foot OM s/p debridement, seizures, and substance abuse who presented with complaint of back pain and leg pain. Patient has chronic pain syndrome with history of opiate abuse. LLE cellulitis, LLL pneumonia and drug withdrawal. Continue IV vancomycin and Zosyn. Podiatry and ID evaluation appreciated. Agitation; due to multiple drug withdrawal. Improved significantly .Currently on tapering dose of Ativan and Dilaudid. Continue with keppra, aspirin and statin. He is on insulin ss for diabetes. HTN: on clonidine and lisinopril. Monitor closely. Prognosis is poor secondary to continuous drug abuse and noncompliance with follow-up.
[2017-05-29] MEDS: levETIRAcetam 500mg IVPB 500 MG/100 ML BAG IV SCH (10:45)
--- NOTE | 2017-05-29 12:42 | CP.PCM.PN ---
Subjective - Date & Time of Evaluation Date of Evaluation: 05/29/17 Time of Evaluation: 10:45 - Subjective Subjective: Still complaining of occasional back pain, no fevers overnight. Objective - Vital Signs/Intake and Output Vital Signs (last 24 hours): Temp Pulse Resp BP Pulse Ox 98 F 96 H 18 164/85 H 96 05/29/17 08:55 05/29/17 09:33 05/29/17 08:55 05/29/17 09:33 05/29/17 08:55 Intake and Output: 05/29/17 05/29/17 06:59 18:59 Intake Total 600 Output Total 700 Balance -100 - Medications Medications: Current Medications Albuterol/Ipratropium (Duoneb 3 Mg/0.5 Mg (3 Ml) Ud) 3 ml IH Q4H PRN PRN Reason: Shortness of Breath Amlodipine Besylate (Norvasc) 5 mg PO DAILY [facility] Last Admin: 05/29/17 09:33 Dose: 5 mg Aspirin (Aspirin Chewable) 81 mg PO DAILY [facility] Last Admin: 05/29/17 09:33 Dose: 81 mg Atorvastatin Calcium (Lipitor) 10 mg PO DIN [facility] Last Admin: 05/28/17 18:10 Dose: 10 mg Folic Acid (Folic Acid) 1 mg IVP DAILY [facility] Last Admin: 05/28/17 11:30 Dose: 1 mg Heparin Sodium (Porcine) (Heparin) 5,000 units SC Q12 [facility] PRN Reason: Protocol Last Admin: 05/29/17 09:35 Dose: 5,000 units Hydralazine HCl (Apresoline) 5 mg IVP Q6H PRN PRN Reason: Systolic Blood Pressure Last Admin: 05/29/17 05:36 Dose: 5 mg Hydromorphone HCl (Dilaudid) 0.5 mg IVP Q8H PRN PRN Reason: Pain, severe (8-10) Last Admin: 05/29/17 07:04 Dose: 0.5 mg Vancomycin HCl (Vancomycin 1gm) 1 gm in 250 mls @ 167 mls/hr IVPB Q12H [facility] PRN Reason: Protocol Last Admin: 05/29/17 00:06 Dose: 167 mls/hr Piperacillin Sod/Tazobactam Sod (Zosyn 3.375 In Ns 100ml) 100 mls @ 200 mls/hr IVPB Q6 [facility] PRN Reason: Protocol Stop: 05/31/17 12:01 Last Admin: 05/29/17 00:06 Dose: 200 mls/hr Levetiracetam (Keppra 500mg Ivpb) 500 mg in 100 mls @ 400 mls/hr IV Q12 [facility] Last Admin: 05/28/17 22:56 Dose: 400 mls/hr Sodium Chloride (Sodium Chloride 0.45%) 1,000 mls @ 100 mls/hr IV .Q10H [facility] Last Admin: 05/29/17 04:51 Dose: 100 mls/hr Ibuprofen (Motrin Tab) 400 mg PO Q6H PRN PRN Reason: Pain, Mild (1-3) Last Admin: 05/26/17 10:19 Dose: 400 mg Insulin Human Lispro (Humalog Med) 0 units SC ACHS [facility] PRN Reason: Protocol Last Admin: 05/29/17 09:32 Dose: 3 units Lisinopril (Zestril) 10 mg PO DAILY [facility] Lorazepam (Ativan) 1 mg IVP Q6H PRN; Protocol PRN Reason: Agitation Last Admin: 05/29/17 05:31 Dose: 1 mg Multivitamins (Thera Tab) 1 tab PO 0800 [facility] Last Admin: 05/29/17 09:33 Dose: 1 tab Ondansetron HCl (Zofran Inj) 4 mg IVP Q6H PRN PRN Reason: Nausea/Vomiting Last Admin: 05/25/17 14:46 Dose: 4 mg Pantoprazole Sodium (Protonix Ec Tab) 40 mg PO 0600 [facility] Last Admin: 05/28/17 05:34 Dose: 40 mg Quetiapine Fumarate (Seroquel) 25 mg PO HS [facility] PRN Reason: Protocol Last Admin: 05/28/17 22:10 Dose: 25 mg Thiamine HCl (Vitamin B1 Inj) 100 mg IM DAILY [facility] Last Admin: 05/29/17 09:37 Dose: 100 mg Ziprasidone (Geodon Inj) 20 mg IM TID PRN; Protocol PRN Reason: Agitation Last Admin: 05/29/17 02:07 Dose: 20 mg - Labs Labs: 05/29/17 05:30 05/29/17 05:30 - Constitutional Appears: Non-toxic - Head Exam Head Exam: NORMAL INSPECTION - Respiratory Exam Respiratory Exam: Decreased Breath Sounds - Cardiovascular Exam Cardiovascular Exam: +S1, +S2 - GI/Abdominal Exam GI & Abdominal Exam: Soft. absent: Tenderness Assessment and Plan - Assessment and Plan (Free Text) Plan: Assessment consider left leg cellulitis low back pain probably musculoskeletal; no evidence of disc herniation, spinal stenosis or fluid collections noted on CT of lumbar spine probable left foot cellulitis with ulcers, growing MSSA DM HTN alcohol abuse history of left foot osteomyelitis S/P left hallux amputation scoliosis Plan continue Vancomycin and Zosyn day 6; cultures have been negative; to discuss with Podiatry if MRI is warranted for the left leg reviewed CT of lumbar spine will monitor clinically HIV test on previous admission earlier this month was negative discussed with Dr. Gonzalez
--- NOTE | 2017-05-29 13:29 | CP.PCM.PN ---
<Daria Malhotra - Last Filed: 05/29/17 17:42> Subjective - Date & Time of Evaluation Date of Evaluation: 05/29/17 Time of Evaluation: 10:00 - Subjective Subjective: PGY-2 Neurology progress note for Dr. Boucher's service Patient seen and examined at bedside, no acute distress. Patient is sleeping but arouable, he is oriented to person and place. Unable to complete full exam because patient did not cooperate. Objective - Vital Signs/Intake and Output Vital Signs (last 24 hours): Temp Pulse Resp BP Pulse Ox 98 F 96 H 18 164/85 H 96 05/29/17 08:55 05/29/17 09:33 05/29/17 08:55 05/29/17 09:33 05/29/17 08:55 Intake and Output: 05/29/17 05/29/17 06:59 18:59 Intake Total 600 Output Total 700 Balance -100 - Medications Medications: Current Medications Albuterol/Ipratropium (Duoneb 3 Mg/0.5 Mg (3 Ml) Ud) 3 ml IH Q4H PRN PRN Reason: Shortness of Breath Amlodipine Besylate (Norvasc) 5 mg PO DAILY [facility] Last Admin: 05/29/17 09:33 Dose: 5 mg Aspirin (Aspirin Chewable) 81 mg PO DAILY [facility] Last Admin: 05/29/17 09:33 Dose: 81 mg Atorvastatin Calcium (Lipitor) 10 mg PO DIN [facility] Last Admin: 05/28/17 18:10 Dose: 10 mg Folic Acid (Folic Acid) 1 mg IVP DAILY [facility] Last Admin: 05/29/17 10:43 Dose: 1 mg Heparin Sodium (Porcine) (Heparin) 5,000 units SC Q12 [facility] PRN Reason: Protocol Last Admin: 05/29/17 09:35 Dose: 5,000 units Hydralazine HCl (Apresoline) 5 mg IVP Q6H PRN PRN Reason: Systolic Blood Pressure Last Admin: 05/29/17 05:36 Dose: 5 mg Hydromorphone HCl (Dilaudid) 0.5 mg IVP Q8H PRN PRN Reason: Pain, severe (8-10) Last Admin: 05/29/17 07:04 Dose: 0.5 mg Vancomycin HCl (Vancomycin 1gm) 1 gm in 250 mls @ 167 mls/hr IVPB Q12H [facility] PRN Reason: Protocol Last Admin: 05/29/17 00:06 Dose: 167 mls/hr Piperacillin Sod/Tazobactam Sod (Zosyn 3.375 In Ns 100ml) 100 mls @ 200 mls/hr IVPB Q6 [facility] PRN Reason: Protocol Stop: 05/31/17 12:01 Last Admin: 05/29/17 00:06 Dose: 200 mls/hr Levetiracetam (Keppra 500mg Ivpb) 500 mg in 100 mls @ 400 mls/hr IV Q12 [facility] Last Admin: 05/29/17 10:45 Dose: 400 mls/hr Sodium Chloride (Sodium Chloride 0.45%) 1,000 mls @ 100 mls/hr IV .Q10H [facility] Last Admin: 05/29/17 11:55 Dose: 100 mls/hr Ibuprofen (Motrin Tab) 400 mg PO Q6H PRN PRN Reason: Pain, Mild (1-3) Last Admin: 05/26/17 10:19 Dose: 400 mg Insulin Human Lispro (Humalog Med) 0 units SC ACHS [facility] PRN Reason: Protocol Last Admin: 05/29/17 11:51 Dose: 5 units Lisinopril (Zestril) 10 mg PO DAILY [facility] Last Admin: 05/29/17 12:34 Dose: Not Given Lorazepam (Ativan) 0.5 mg IVP Q6H PRN; Protocol PRN Reason: Agitation Last Admin: 05/29/17 11:50 Dose: 0.5 mg Multivitamins (Thera Tab) 1 tab PO 0800 [facility] Last Admin: 05/29/17 09:33 Dose: 1 tab Ondansetron HCl (Zofran Inj) 4 mg IVP Q6H PRN PRN Reason: Nausea/Vomiting Last Admin: 05/25/17 14:46 Dose: 4 mg Pantoprazole Sodium (Protonix Ec Tab) 40 mg PO 0600 [facility] Last Admin: 05/28/17 05:34 Dose: 40 mg Quetiapine Fumarate (Seroquel) 25 mg PO HS [facility] PRN Reason: Protocol Last Admin: 05/28/17 22:10 Dose: 25 mg Thiamine HCl (Vitamin B1 Inj) 100 mg IM DAILY [facility] Last Admin: 05/29/17 09:37 Dose: 100 mg Ziprasidone (Geodon Inj) 20 mg IM TID PRN; Protocol PRN Reason: Agitation Last Admin: 05/29/17 02:07 Dose: 20 mg - Labs Labs: 05/29/17 05:30 05/29/17 05:30 - Constitutional Appears: No Acute Distress - Head Exam Head Exam: ATRAUMATIC, NORMAL INSPECTION, NORMOCEPHALIC - Eye Exam Eye Exam: EOMI, Normal appearance - Respiratory Exam Respiratory Exam: Clear to Ausculation Bilateral, NORMAL BREATHING PATTERN. absent: Respiratory Distress - Cardiovascular Exam Cardiovascular Exam: REGULAR RHYTHM - Neurological Exam Neurological Exam: Alert, Awake - Skin Skin Exam: Dry, Intact, Normal Color, Warm Assessment and Plan - Assessment and Plan (Free Text) Assessment: 52 yo male with PMH of polysubstance abuse, DM, HTN consulted for seizure, withdrawal seizure secondary to chronic polysubstance abuse. 1. withdrawal seizure 2. uncontrolled Diabetes 3. HTN 4. cellulitis of LLE - patient has history of noncompliance, discussed with patient - avoid opiates - uncontrolled diabetes, Hgba1c 8.4 - blood pressure control, SBP between 140-180 - continue keppra Thank you for the consult, please reconsult if needed Case reviewed and discussed with attending <Iron Boucher - Last Filed: 05/29/17 21:56> Objective - Vital Signs/Intake and Output Vital Signs (last 24 hours): Temp Pulse Resp BP Pulse Ox 98.3 F 90 19 163/95 H 100 05/29/17 16:00 05/29/17 18:56 05/29/17 16:00 05/29/17 18:56 05/29/17 16:00 Intake and Output: 05/29/17 05/30/17 18:59 06:59 Intake Total 700 Balance 700 - Medications Medications: Current Medications Albuterol/Ipratropium (Duoneb 3 Mg/0.5 Mg (3 Ml) Ud) 3 ml IH Q4H PRN PRN Reason: Shortness of Breath Amlodipine Besylate (Norvasc) 5 mg PO DAILY [facility] Last Admin: 05/29/17 09:33 Dose: 5 mg Aspirin (Aspirin Chewable) 81 mg PO DAILY [facility] Last Admin: 05/29/17 09:33 Dose: 81 mg Atorvastatin Calcium (Lipitor) 10 mg PO DIN [facility] Last Admin: 05/29/17 18:57 Dose: 10 mg Clonidine HCl (Catapres) 0.1 mg PO TID [facility] Last Admin: 05/29/17 18:56 Dose: 0.1 mg Folic Acid (Folic Acid) 1 mg IVP DAILY [facility] Last Admin: 05/29/17 10:43 Dose: 1 mg Heparin Sodium (Porcine) (Heparin) 5,000 units SC Q12 [facility] PRN Reason: Protocol Last Admin: 05/29/17 21:23 Dose: 5,000 units Hydralazine HCl (Apresoline) 5 mg IVP Q6H PRN PRN Reason: Systolic Blood Pressure Last Admin: 05/29/17 05:36 Dose: 5 mg Hydromorphone HCl (Dilaudid) 0.5 mg IVP Q8H PRN PRN Reason: Pain, severe (8-10) Last Admin: 05/29/17 15:02 Dose: 0.5 mg Vancomycin HCl (Vancomycin 1gm) 1 gm in 250 mls @ 167 mls/hr IVPB Q12H [facility] PRN Reason: Protocol Last Admin: 05/29/17 15:10 Dose: 167 mls/hr Piperacillin Sod/Tazobactam Sod (Zosyn 3.375 In Ns 100ml) 100 mls @ 200 mls/hr IVPB Q6 [facility] PRN Reason: Protocol Stop: 05/31/17 12:01 Last Admin: 05/29/17 21:30 Dose: Not Given Ibuprofen (Motrin Tab) 400 mg PO Q6H PRN PRN Reason: Pain, Mild (1-3) Last Admin: 05/26/17 10:19 Dose: 400 mg Insulin Human Lispro (Humalog Med) 0 units SC ACHS [facility] PRN Reason: Protocol Last Admin: 05/29/17 21:32 Dose: Not Given Levetiracetam (Keppra) 500 mg PO BID [facility] Last Admin: 05/29/17 18:56 Dose: 500 mg Lisinopril (Zestril) 10 mg PO DAILY [facility] Last Admin: 05/29/17 12:34 Dose: Not Given Lorazepam (Ativan) 0.5 mg IVP Q6H PRN; Protocol PRN Reason: Agitation Last Admin: 05/29/17 11:50 Dose: 0.5 mg Multivitamins (Thera Tab) 1 tab PO 0800 [facility] Last Admin: 05/29/17 09:33 Dose: 1 tab Ondansetron HCl (Zofran Inj) 4 mg IVP Q6H PRN PRN Reason: Nausea/Vomiting Last Admin: 05/25/17 14:46 Dose: 4 mg Pantoprazole Sodium (Protonix Ec Tab) 40 mg PO 0600 [facility] Last Admin: 05/29/17 20:41 Dose: Not Given Quetiapine Fumarate (Seroquel) 25 mg PO HS [facility] PRN Reason: Protocol Last Admin: 05/29/17 21:29 Dose: 25 mg Thiamine HCl (Vitamin B1 Inj) 100 mg IM DAILY [facility] Last Admin: 05/29/17 09:37 Dose: 100 mg Ziprasidone (Geodon Inj) 20 mg IM TID PRN; Protocol PRN Reason: Agitation Last Admin: 05/29/17 02:07 Dose: 20 mg - Labs Labs: 05/29/17 05:30 05/29/17 05:30 Attending/Attestation - Attestation I have personally seen and examined this patient.: Yes I have fully participated in the care of the patient.: Yes I have reviewed all pertinent clinical information, including history, physical exam and plan: Yes
--- NOTE | 2017-05-29 17:17 | PN ---
DATE: 05/29/2017 SUBJECTIVE: This is a 52-year-old male seen for ulceration to his left foot. The patient is resting at bedside. He is asking me to help get him out of the hospital and he is asking for clonidine. The patient had a foot surgery by Dr. Phoenix, back in 01/2017. He previously had a hallux amputation by Dr. Mancia at [facility] also in 01/2017. He apparently left AMA the same day of surgery from [facility]. He windup here at [facility] at which time he had a severe abscess, which caused him to loose part of his foot. He was seen at bedside with an eschar over the amputation site. PHYSICAL EXAMINATION: VITAL SIGNS: Noted to be 98 temperature, he has got a 164/85 blood pressure with 18 respirations and 96% on oxygen saturation. LABORATORY DATA: His labs are reviewed. His hematology shows a normal white blood cell count, his H and H is slightly depressed at 10.2 and 30.9 and his platelets are normal at 378. His granulocyte and lymphocytes are within normal limits. His chemistry shows a glucose of 276, toxicology was positive for opiates and cocaine upon admission. Microbiology; there is no microbiology from the foot since the eschar was a dry eschar, but more of a necrotic tissue over that amputation site. The blood cultures were negative for any bacteria. The patient's foot x-rays were reviewed. There seems to be a fuzziness around the second metatarsal head after review of the x-rays, which were done in 01/2017, again in 04/2017, and then again this month. It was noted that in 03/2017 and 04/2017 x-ray, the patient had a fracture of the second metatarsal. At this time, the fuzziness around the second metatarsal appears to me to be callus formation since the fracture line is no longer visible. The amputation sites appear to be clean. There are no signs of infection. The wound at the distal aspect where the amputation was done is with some necrotic eschar, but there is no signs of infection to that area. ASSESSMENT: Diabetic with multiple foot amputations, a dry eschar, and elongated nails x10. He has got onychomycosis. PLAN: The plan of treatment; the nails were debrided at this visit. He most likely does not have an osteo given the fact that he has no white blood cell count and his granulocyte and lymphocytes are all within normal limits; however, since Infectious Disease is waiting on the MRI to rule out an osteo, an MRI was ordered; however, review of the notes show that the patient had not been very cooperative in the past. If the patient does not cooperate with the treatment then antibiotics will be given by Infectious Disease without culture because at this time, there is no wound to culture from the foot. The patient will be seen and followed as needed. Sharita Benito DPM
[2017-05-29] MEDS ORDERED: HYDROmorphone 1 mg/ml ISec IVP STA (18:41)
[2017-05-29 20:37] VITALS: O2SAT 100
[2017-05-29] MEDS: Pantoprazole 40 mg EC Tab PO SCH (20:41)
[2017-05-30] MEDS: Piperacillin/Tazobact 3.375 gm 100 ML IVPB SCH ×2 (00:01→05:44)
[2017-05-30] MEDS: Vancomycin 1gm in NS 250ml 1 GM/250 ML BAG IVPB SCH (00:02)
[2017-05-30] MEDS: HYDROmorphone 0.5 mg/0.5 ml ISec IVP PRN (02:07)
[2017-05-30] MEDS: Sodium Chloride 0.45% 1,000 ML IV SCH (04:14)
[2017-05-30] MEDS: Pantoprazole 40 mg EC Tab PO SCH (05:44)
[2017-05-30 06:24] LABS: BASO # 0.01 K/mm3 (0.0-2.0); BASO % 0.1 % (0.0-3.0); EOS # 0.4 (0.0-0.7); GRAN # 5.35 (1.4-6.5); GRAN % 66.7 % (50.0-68.0); HEMATOCRIT 31.7 % (42.0-52.0); LYMPH # 1.8 (1.2-3.4); MEAN CELL VOLUME 86.8 fl (80.0-105.0); MEAN CORPUSCULAR HEMOGLOBIN 28.8 pg (25.0-35.0); MEAN CORPUSCULAR HGB CONC 33.1 g/dl (31.0-37.0); MEAN PLATELET VOLUME 8.6 fl (7.0-11.0); MONO # 0.5 (0.1-0.6); MONO % 6.2 % (1.0-6.0); RED CELL DISTRIBUTION WIDTH 13.8 % (11.5-14.5)
[2017-05-30 07:12] LABS: ALB/GLOB RATIO 0.9 (1.1-1.8); ALKALINE PHOSPHATASE 100 U/L (38-126); ALT/SGPT 36 U/L (7-56); AST/SGOT 37 U/L (17-59); BILIRUBIN,TOTAL 0.3 mg/dL (0.2-1.3); BLOOD UREA NITROGEN 16 mg/dL (7-21); CALCIUM 8.3 mg/dL (8.4-10.5); CARBON DIOXIDE 26 mmol/L (21-33); CHLORIDE 101 mmol/L (98-107); GFR AFRICAN-AMERICAN > 60; SODIUM 134 mmol/L (132-148); TOTAL PROTEIN 5.9 g/dL (5.8-8.3)
[2017-05-30 07:13] LABS: GLUCOSE,RANDOM 325 mg/dL (70-110)
[2017-05-30] MEDS ORDERED: Oxycodone/Acetaminophen 5/325 mg Tab PO PRN (08:03)
[2017-05-30 08:28] VITALS: PULSE 98; RESP 21; TEMP 98.6
[2017-05-30] MEDS: Multivitamin Therapeutic Tab PO SCH (09:30)
[2017-05-30] MEDS: Thiamine 100 mg/ml Inj IM SCH (09:31)
[2017-05-30 09:37] VITALS: BP 140/70
--- NOTE | 2017-05-30 10:50 | CP.PCM.DIS ---
<Edgardo Pacheco - Last Filed: 05/30/17 10:59> Provider - Provider Date of Admission: 05/23/17 23:40 Attending physician: Arely Gonzalez MD Time Spent in preparation of Discharge (in minutes): 45 Diagnosis - Discharge Diagnosis (1) Hypertension Status: Acute (2) Seizure Status: Chronic Priority: Medium (3) Polysubstance abuse Status: Chronic Priority: High (4) Diabetic foot ulcer Status: Chronic Priority: Medium Hospital Course - Lab Results Lab Results: Most Recent Lab Values WBC 8.0 10^3/ul (4.5-11.0) D 05/30/17 05:20 RBC 3.65 10^6/uL (3.5-6.1) 05/30/17 05:20 Hgb 10.5 g/dL (14.0-18.0) L 05/30/17 05:20 Hct 31.7 % (42.0-52.0) L 05/30/17 05:20 MCV 86.8 fl (80.0-105.0) 05/30/17 05:20 MCH 28.8 pg (25.0-35.0) 05/30/17 05:20 MCHC 33.1 g/dl (31.0-37.0) 05/30/17 05:20 RDW 13.8 % (11.5-14.5) 05/30/17 05:20 Plt Count 392 10^3/uL (120.0-450.0) 05/30/17 05:20 MPV 8.6 fl (7.0-11.0) 05/30/17 05:20 Gran % 66.7 % (50.0-68.0) 05/30/17 05:20 Lymph % (Auto) 22.0 % (22.0-35.0) 05/30/17 05:20 [place] % (Auto) 6.2 % (1.0-6.0) H 05/30/17 05:20 Eos % (Auto) 5.0 % (1.5-5.0) 05/30/17 05:20 Baso % (Auto) 0.1 % (0.0-3.0) 05/30/17 05:20 Gran # 5.35 (1.4-6.5) 05/30/17 05:20 Lymph # 1.8 (1.2-3.4) 05/30/17 05:20 [place] # 0.5 (0.1-0.6) 05/30/17 05:20 Eos # 0.4 (0.0-0.7) 05/30/17 05:20 Baso # 0.01 K/mm3 (0.0-2.0) 05/30/17 05:20 ESR 81 mm/hr (0.00-15.0) H 05/24/17 07:30 pO2 81 mm/Hg (30-55) H 05/23/17 16:45 VBG pH 7.46 (7.32-7.43) H 05/23/17 16:45 VBG pCO2 51.0 (40-60) 05/23/17 16:45 VBG HCO3 36.3 mmol/l (21-28) H 05/23/17 16:45 VBG Total CO2 37.9 mmol.L (22-28) H 05/23/17 16:45 VBG O2 Sat (Calc) 98.0 % (40-65) H 05/23/17 16:45 VBG Base Excess 10.6 mmol/L (0.0-2.0) H 05/23/17 16:45 VBG Potassium 4.1 mmol/L (3.6-5.2) 05/23/17 16:45 Sodium 140.0 mmol/L (132-148) 05/23/17 16:45 Chloride 103.0 mmol/L (98-107) 05/23/17 16:45 Glucose 206 mg/dl (75-110) H 05/23/17 16:45 Lactate 1.2 mmol/L (0.7-2.1) 05/23/17 16:45 FiO2 21.0 % 05/23/17 16:45 Sodium 134 mmol/L (132-148) 05/30/17 05:20 Potassium 4.0 mmol/L (3.6-5.0) 05/30/17 05:20 Chloride 101 mmol/L (98-107) 05/30/17 05:20 Carbon Dioxide 26 mmol/L (21-33) 05/30/17 05:20 Anion Gap 10 (10-20) 05/30/17 05:20 BUN 16 mg/dL (7-21) 05/30/17 05:20 Creatinine 0.9 mg/dl (0.8-1.5) 05/30/17 05:20 Est GFR ( Amer) > 60 05/30/17 05:20 Est GFR (Non-Af Amer) > 60 05/30/17 05:20 POC Glucose (mg/dL) 308 mg/dL (65-110) H 05/29/17 16:08 Random Glucose 325 mg/dL (70-110) H* D 05/30/17 05:20 Hemoglobin A1c 8.4 % (4.2-6.5) H 05/24/17 07:30 Calcium 8.3 mg/dL (8.4-10.5) L 05/30/17 05:20 Phosphorus 3.0 mg/dL (2.5-4.5) 05/24/17 07:30 Magnesium 2.0 mg/dL (1.7-2.2) 05/24/17 07:30 Total Bilirubin 0.3 mg/dL (0.2-1.3) 05/30/17 05:20 AST 37 U/L (17-59) 05/30/17 05:20 ALT 36 U/L (7-56) 05/30/17 05:20 Alkaline Phosphatase 100 U/L (38-126) 05/30/17 05:20 Ammonia 16.5 umol/L (9-33) 05/24/17 19:58 Lactate Dehydrogenase 544 U/L (333-699) 05/25/17 08:30 Total Creatine Kinase 285 U/L (35-230) H 05/25/17 08:30 CK-MB (CK-2) 0.4 ng/mL (0.0-3.6) 05/25/17 08:30 CK-MB (CK-2) % Cancelled 05/24/17 19:58 Troponin I 0.03 ng/mL 05/25/17 08:30 C-React Prot High Sens > 15.00 mg/L (1.00-3.00) H 05/23/17 16:45 Total Protein 5.9 g/dL (5.8-8.3) 05/30/17 05:20 Albumin 2.7 g/dL (3.0-4.8) L 05/30/17 05:20 Globulin 3.1 gm/dL 05/30/17 05:20 Albumin/Globulin Ratio 0.9 (1.1-1.8) L 05/30/17 05:20 Triglycerides 129 mg/dL (35-160) 05/25/17 12:15 Cholesterol 184 mg/dL (130-200) 05/25/17 12:15 LDL Cholesterol Direct 77 mg/dL (0-129) 05/25/17 12:15 HDL Cholesterol 59 mg/dL (29-60) 05/25/17 12:15 Lipase 16 U/L (23-300) L 05/23/17 16:45 Procalcitonin 0.05 NG/ML (0.19-0.49) L 05/24/17 07:30 Venous Blood Potassium 4.1 mmol/L (3.6-5.2) 05/23/17 16:45 Urine Color Yellow (YELLOW) 05/23/17 22:30 Urine Appearance Clear (CLEAR) 05/23/17 22:30 Urine pH 8.0 (4.7-8.0) 05/23/17 22:30 Ur Specific [place] 1.025 (1.005-1.035) 05/23/17 22:30 Urine Protein 100 mg/dL (<30 mg/dL) H 05/23/17 22:30 Urine Glucose (UA) 500 mg/dL (NEGATIVE) H 05/23/17 22:30 Urine Ketones 15 mg/dL (NEGATIVE) H 05/23/17 22:30 Urine Blood Trace-intact (NEGATIVE) H 05/23/17 22:30 Urine Nitrate Negative (NEGATIVE) 05/23/17 22:30 Urine Bilirubin Negative (NEGATIVE) 05/23/17 22:30 Urine Urobilinogen 0.2 E.U./dL (<1 E.U./dL) 05/23/17 22:30 Ur Leukocyte Esterase Negative [place]/uL (NEGATIVE) 05/23/17 22:30 Urine RBC 1 - 3 /hpf (0-2) 05/23/17 22:30 Urine WBC 0 - 2 /hpf (0-6) 05/23/17 22:30 Vancomycin Trough 19.4 ug/mL (5.0-10.0) H* 05/28/17 11:35 Urine Opiates Screen Positive (NEGATIVE) H 05/23/17 22:30 Urine Methadone Screen Negative (NEGATIVE) 05/23/17 22:30 Ur Barbiturates Screen Negative (NEGATIVE) 05/23/17 22:30 Ur Phencyclidine Scrn Negative (NEGATIVE) 05/23/17 22:30 Ur Amphetamines Screen Negative (NEGATIVE) 05/23/17 22:30 U Benzodiazepines Scrn Negative (NEGATIVE) 05/23/17 22:30 U Oth Cocaine Metabols Positive (NEGATIVE) H 05/23/17 22:30 U Cannabinoids Screen Negative (NEGATIVE) 05/23/17 22:30 Alcohol, Quantitative < 10 mg/dL (0-10) 05/23/17 16:45 - Hospital Course Hospital Course: With the use of physical examinations, lab work, and imaging the patient was diagnosed with and treated for symptoms of acute substance abuse along with the patients chronic medical conditions. During their hospital stay the patient was seen by neurology, infectious disease, physical therapy, and podiatry whose recommendations were both appreciated and utilized in the care for this patient. During their hospital stay the patient underwent a head CT and EKG which were reviewed, appreciated, and utilized in the management of the patients clinical course. Patient was treated with antihypertensive medications , antibiotics, analgesics amongst other empiric/therapeutic medications. Patient desired to leave against medical advice due to social issues. Patient was educated on the risks and benefits of leaving at this time without being medically cleared. Patient both understands and appreciates that leaving against medical advice can increase his risk of both morbidity and mortality. Furthermore, the patient is instructed to return to the emergency room for evaluation of intractable headache, fever, chills, dizziness, chest pain, shortness of breath, abdominal pain, nausea, vomiting, diarrhea, constipation, and urinary symptoms. This is a brief summary of the patients hospital course. Please see patient chart for full details. Discharge Exam - Head Exam Head Exam: ATRAUMATIC, NORMAL INSPECTION, NORMOCEPHALIC - Additional Findings Additional findings: - Constitutional Appears: Well, No Acute Distress - Head Exam Head Exam: ATRAUMATIC, NORMOCEPHALIC - ENT Exam ENT Exam: Mucous Membranes Moist - Neck Exam Neck Exam: Normal Inspection - Respiratory Exam Respiratory Exam: Clear to Ausculation Bilateral, NORMAL BREATHING PATTERN - Cardiovascular Exam Cardiovascular Exam: RRR, +S1, +S2 - GI/Abdominal Exam GI & Abdominal Exam: Soft, Normal Bowel Sounds - Extremities Exam Extremities Exam: L toes 3,4,5 s/p amputation surface around L lateral maleoli with open ulcerative wound (no pus) - Neurological Exam Neurological Exam: patient is awake, alert, responds to verbal stimuli, answers some questions appropriately, and moves extremities spontaneously - Skin Skin Exam: dry, warm Discharge Plan - Discharge Medications Prescriptions: amLODIPine [Norvasc] 5 mg PO DAILY #30 tab Aspirin [Aspirin Chewable] 81 mg PO DAILY #30 chew Atorvastatin [Lipitor] 10 mg PO DIN #30 tab Cephalexin [Keflex] 500 mg PO Q6 #20 cap cloNIDine [Catapres] 0.1 mg PO TID #90 tab Doxycycline Hyclate [Doryx] 100 mg PO Q12 #10 cap levETIRAcetam [Keppra] 500 mg PO BID #60 tab Lisinopril [Zestril] 10 mg PO DAILY #30 tab - Follow Up Plan Condition: GUARDED Disposition: AGAINST MEDICAL ADVICE Patient education suggested?: Yes Additional Instructions: Patient left against medical advice. Patient was advised to take medications as prescribed Follow up with PMD and referrals within three to five days from discharge. Return to the emergency room for evaluation of intractable headache, fever, chills, dizziness, chest pain, shortness of breath, abdominal pain, nausea, vomiting, diarrhea, constipation, and urinary symptoms <Arely Gonzalez - Last Filed: 05/30/17 16:11> Provider - Provider Date of Admission: 05/23/17 23:40 Attending physician: Arely Gonzalez MD Hospital Course - Lab Results Lab Results: Most Recent Lab Values WBC 8.0 10^3/ul (4.5-11.0) D 05/30/17 05:20 RBC 3.65 10^6/uL (3.5-6.1) 05/30/17 05:20 Hgb 10.5 g/dL (14.0-18.0) L 05/30/17 05:20 Hct 31.7 % (42.0-52.0) L 05/30/17 05:20 MCV 86.8 fl (80.0-105.0) 05/30/17 05:20 MCH 28.8 pg (25.0-35.0) 05/30/17 05:20 MCHC 33.1 g/dl (31.0-37.0) 05/30/17 05:20 RDW 13.8 % (11.5-14.5) 05/30/17 05:20 Plt Count 392 10^3/uL (120.0-450.0) 05/30/17 05:20 MPV 8.6 fl (7.0-11.0) 05/30/17 05:20 Gran % 66.7 % (50.0-68.0) 05/30/17 05:20 Lymph % (Auto) 22.0 % (22.0-35.0) 05/30/17 05:20 [place] % (Auto) 6.2 % (1.0-6.0) H 05/30/17 05:20 Eos % (Auto) 5.0 % (1.5-5.0) 05/30/17 05:20 Baso % (Auto) 0.1 % (0.0-3.0) 05/30/17 05:20 Gran # 5.35 (1.4-6.5) 05/30/17 05:20 Lymph # 1.8 (1.2-3.4) 05/30/17 05:20 [place] # 0.5 (0.1-0.6) 05/30/17 05:20 Eos # 0.4 (0.0-0.7) 05/30/17 05:20 Baso # 0.01 K/mm3 (0.0-2.0) 05/30/17 05:20 ESR 81 mm/hr (0.00-15.0) H 05/24/17 07:30 pO2 81 mm/Hg (30-55) H 05/23/17 16:45 VBG pH 7.46 (7.32-7.43) H 05/23/17 16:45 VBG pCO2 51.0 (40-60) 05/23/17 16:45 VBG HCO3 36.3 mmol/l (21-28) H 05/23/17 16:45 VBG Total CO2 37.9 mmol.L (22-28) H 05/23/17 16:45 VBG O2 Sat (Calc) 98.0 % (40-65) H 05/23/17 16:45 VBG Base Excess 10.6 mmol/L (0.0-2.0) H 05/23/17 16:45 VBG Potassium 4.1 mmol/L (3.6-5.2) 05/23/17 16:45 Sodium 140.0 mmol/L (132-148) 05/23/17 16:45 Chloride 103.0 mmol/L (98-107) 05/23/17 16:45 Glucose 206 mg/dl (75-110) H 05/23/17 16:45 Lactate 1.2 mmol/L (0.7-2.1) 05/23/17 16:45 FiO2 21.0 % 05/23/17 16:45 Sodium 134 mmol/L (132-148) 05/30/17 05:20 Potassium 4.0 mmol/L (3.6-5.0) 05/30/17 05:20 Chloride 101 mmol/L (98-107) 05/30/17 05:20 Carbon Dioxide 26 mmol/L (21-33) 05/30/17 05:20 Anion Gap 10 (10-20) 05/30/17 05:20 BUN 16 mg/dL (7-21) 05/30/17 05:20 Creatinine 0.9 mg/dl (0.8-1.5) 05/30/17 05:20 Est GFR ( Amer) > 60 05/30/17 05:20 Est GFR (Non-Af Amer) > 60 05/30/17 05:20 POC Glucose (mg/dL) 296 mg/dL (65-110) H 05/29/17 21:32 Random Glucose 325 mg/dL (70-110) H* D 05/30/17 05:20 Hemoglobin A1c 8.4 % (4.2-6.5) H 05/24/17 07:30 Calcium 8.3 mg/dL (8.4-10.5) L 05/30/17 05:20 Phosphorus 3.0 mg/dL (2.5-4.5) 05/24/17 07:30 Magnesium 2.0 mg/dL (1.7-2.2) 05/24/17 07:30 Total Bilirubin 0.3 mg/dL (0.2-1.3) 05/30/17 05:20 AST 37 U/L (17-59) 05/30/17 05:20 ALT 36 U/L (7-56) 05/30/17 05:20 Alkaline Phosphatase 100 U/L (38-126) 05/30/17 05:20 Ammonia 16.5 umol/L (9-33) 05/24/17 19:58 Lactate Dehydrogenase 544 U/L (333-699) 05/25/17 08:30 Total Creatine Kinase 285 U/L (35-230) H 05/25/17 08:30 CK-MB (CK-2) 0.4 ng/mL (0.0-3.6) 05/25/17 08:30 CK-MB (CK-2) % Cancelled 05/24/17 19:58 Troponin I 0.03 ng/mL 05/25/17 08:30 C-React Prot High Sens > 15.00 mg/L (1.00-3.00) H 05/23/17 16:45 Total Protein 5.9 g/dL (5.8-8.3) 05/30/17 05:20 Albumin 2.7 g/dL (3.0-4.8) L 05/30/17 05:20 Globulin 3.1 gm/dL 05/30/17 05:20 Albumin/Globulin Ratio 0.9 (1.1-1.8) L 05/30/17 05:20 Triglycerides 129 mg/dL (35-160) 05/25/17 12:15 Cholesterol 184 mg/dL (130-200) 05/25/17 12:15 LDL Cholesterol Direct 77 mg/dL (0-129) 05/25/17 12:15 HDL Cholesterol 59 mg/dL (29-60) 05/25/17 12:15 Lipase 16 U/L (23-300) L 05/23/17 16:45 Procalcitonin 0.05 NG/ML (0.19-0.49) L 05/24/17 07:30 Venous Blood Potassium 4.1 mmol/L (3.6-5.2) 05/23/17 16:45 Urine Color Yellow (YELLOW) 05/23/17 22:30 Urine Appearance Clear (CLEAR) 05/23/17 22:30 Urine pH 8.0 (4.7-8.0) 05/23/17 22:30 Ur Specific [place] 1.025 (1.005-1.035) 05/23/17 22:30 Urine Protein 100 mg/dL (<30 mg/dL) H 05/23/17 22:30 Urine Glucose (UA) 500 mg/dL (NEGATIVE) H 05/23/17 22:30 Urine Ketones 15 mg/dL (NEGATIVE) H 05/23/17 22:30 Urine Blood Trace-intact (NEGATIVE) H 05/23/17 22:30 Urine Nitrate Negative (NEGATIVE) 05/23/17 22:30 Urine Bilirubin Negative (NEGATIVE) 05/23/17 22:30 Urine Urobilinogen 0.2 E.U./dL (<1 E.U./dL) 05/23/17 22:30 Ur Leukocyte Esterase Negative [place] José/uL (NEGATIVE) 05/23/17 22:30 Urine RBC 1 - 3 /hpf (0-2) 05/23/17 22:30 Urine WBC 0 - 2 /hpf (0-6) 05/23/17 22:30 Vancomycin Trough 19.4 ug/mL (5.0-10.0) H* 05/28/17 11:35 Urine Opiates Screen Positive (NEGATIVE) H 05/23/17 22:30 Urine Methadone Screen Negative (NEGATIVE) 05/23/17 22:30 Ur Barbiturates Screen Negative (NEGATIVE) 05/23/17 22:30 Ur Phencyclidine Scrn Negative (NEGATIVE) 05/23/17 22:30 Ur Amphetamines Screen Negative (NEGATIVE) 05/23/17 22:30 U Benzodiazepines Scrn Negative (NEGATIVE) 05/23/17 22:30 U Oth Cocaine Metabols Positive (NEGATIVE) H 05/23/17 22:30 U Cannabinoids Screen Negative (NEGATIVE) 05/23/17 22:30 Alcohol, Quantitative < 10 mg/dL (0-10) 05/23/17 16:45 Attending/Attestation - Attestation I have personally seen and examined this patient.: Yes I have fully participated in the care of the patient.: Yes I have reviewed all pertinent clinical information, including history, physical exam and plan: Yes Notes (Text): 05/30/17 16:07 Attending note; Patient seen and examined with resident this morning. Patient is more alert and awake. patient is requesting IV Dilaudid. Patient is a 52 year old male with past medical history of left foot the myelitis s/p debridement, seizures, and substance abuse who presented with complaint of back pain and leg pain. Patient has chronic pain syndrome with history of opiate abuse. LLE cellulitis, severe and drug withdrawal. currently cellulitis is resolving. Patient refused MRI. treated with IV vancomycin and Zosyn. Podiatry and ID evaluation appreciated. Agitation; due to multiple drug withdrawal. Improved significantly .Currently on tapering dose of Ativan and Dilaudid. patient is insisting on getting IV Dilaudid. Otherwise planning to sign AGAINST MEDICAL ADVICE. PT evaluation appreciated. patient is ambulating steadily. Continue with keppra, aspirin and statin. He is on insulin ss for diabetes. HTN: on clonidine and lisinopril. patient signed AMA. Even though Patient signed AMA prescriptions given. patient refused to take the scripts. Prognosis is poor secondary to continuous drug abuse and noncompliance with follow-up. diagnosis; Cellulitis Diabetes Seizure disorder Drug withdrawal Chronic opiate abuse Noncompliance with follow-up 05/30/17 16:11
== END 2017-05-30 18:20 | disposition left against medical advice (07) | DRG 563 ==
LOC: ED 15:23 → ERH 23:40 → 5RSO 05-24 01:12 → 3RNO 05-24 15:39
PROVIDERS: ADMIT Internal Medicine; ATTEND Internal Medicine
PROC: 0HBRXZZ Excision of Toe Nail, External Approach (ICD-10-PCS; principal; 2017-05-29)
DX: L03.116 Cellulitis of left lower limb (principal); J18.9 Pneumonia, unspecified organism; E11.40 Type 2 diabetes mellitus with diabetic neuropathy, unspecified; E11.621 Type 2 diabetes mellitus with foot ulcer; L97.529 Non-pressure chronic ulcer of other part of left foot with unspecified severity; F14.10 Cocaine abuse, uncomplicated; B35.1 Tinea unguium; F10.239 Alcohol dependence with withdrawal, unspecified; F11.23 Opioid dependence with withdrawal; G40.909 Epilepsy, unspecified, not intractable, without status epilepticus; E11.65 Type 2 diabetes mellitus with hyperglycemia; F17.210 Nicotine dependence, cigarettes, uncomplicated; J45.909 Unspecified asthma, uncomplicated; M41.9 Scoliosis, unspecified; I16.0 Hypertensive urgency; Y90.0 Blood alcohol level of less than 20 mg/100 ml; G89.4 Chronic pain syndrome; Z91.19 Patient's noncompliance with other medical treatment and regimen; Z79.4 Long term (current) use of insulin; Z89.422 Acquired absence of other left toe(s)

== ENCOUNTER 2017-06-05 04:05 | Inpatient (IN) | payer OTHER ==
[2017-06-05 04:05] VITALS: BMI 18.7
--- NOTE | 2017-06-05 04:24 | ED PDOC ---
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 Patient denies any fever, chills, chest pain, shortness of breath, nausea, vomiting, neck pain, headache, dizziness, or any change in bowel or urinary habits. Time/Duration: 1-3 hours Symptom Onset: Gradual Symptom Course: Unchanged Activities at Onset: Light Modifying Factors (Text): none Past Medical History - Provider Review Nursing Documentation Reviewed: Yes - Cardiac Hx Cardiac Disorders: Yes Hx Hypertension: Yes - Pulmonary Hx Respiratory Disorders: No Hx Asthma: Yes - Neurological Hx Neurological Disorder: No Hx Seizures: Yes - HEENT Hx HEENT Disorder: No - Renal Hx Renal Disorder: No - Endocrine/Metabolic Hx Diabetes Mellitus Type 2: Yes - Hematological/Oncological Hx Blood Disorders: No - Integumentary Hx Dermatological Disorder: Yes - Musculoskeletal/Rheumatological Hx Musculoskeletal Disorders: Yes Hx Falls: No Hx Osteomyelitis: Yes (s/p amputations of L toes #3,4,5 ) - Gastrointestinal Hx Gastrointestinal Disorders: No - Genitourinary/Gynecological Hx Genitourinary Disorders: No - Psychiatric Hx Psychophysiologic Disorder: Yes Hx Substance Use: Yes 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 USES HEROINE-SNORTS FOR 20 YRS. NEVER BEEN IN A PROGRAM BEFORE. SMOKES CIGARETTES < PPD. - Surgical History Hx Amputation: Yes (left toes) - Anesthesia Hx Anesthesia Reactions: No Family/Social History - Physician Review Nursing Documentation Reviewed: Yes Family/Social History: No Known Family HX Smoking Status: Heavy Smoker > 10 Cigarettes Daily Hx Alcohol Use: Yes Frequency of alcohol use: Socially Hx Substance Use: Yes Allergies/Home Meds Allergies/Adverse Reactions: Allergies Fish Containing Products Allergy (Verified 06/05/17 04:13) VOMITING tomato Allergy (Verified 06/05/17 04:13) VOMITING Home Medications: Home Meds Medication Instructions Recorded Confirmed Phenytoin, Extended [Dilantin] 0 mg PO DAILY 05/23/17 06/05/17 Review of Systems - Physician Review All systems were reviewed & negative as marked: Yes - Review of Systems Constitutional: absent: Fevers, Night Sweats Eyes: absent: Vision Changes ENT: absent: Hearing Changes Respiratory: absent: SOB, Cough Cardiovascular: absent: Chest Pain Gastrointestinal: absent: Abdominal Pain Genitourinary Male: absent: Dysuria, Frequency Musculoskeletal: Back Pain Skin: absent: Rash, Pruritis Neurological: absent: Headache, Dizziness Endocrine: absent: Diaphoresis Hemo/Lymphatic: absent: Adenopathy Psychiatric: absent: Anxiety, Depression Physical Exam Vital Signs Reviewed: Yes Vital Signs Temp Pulse Resp BP Pulse Ox 06/05/17 06:54 102 H 16 163/89 H 99 06/05/17 04:14 98.3 F 98 H 16 151/85 H 97 Temperature: Afebrile Blood Pressure: Hypertensive Pulse: Tachycardic Respiratory Rate: Normal Appearance: Positive for: Well-Appearing, Non-Toxic, Comfortable Pain Distress: None Mental Status: Positive for: Alert and Oriented X 3 - Systems Exam Head: Present: Atraumatic, Normocephalic Pupils: Present: PERRL Extroacular Muscles: Present: EOMI Conjunctiva: Present: Normal Mouth: Present: Moist Mucous Membranes Neck: Present: Normal Range of Motion Respiratory/Chest: Present: Clear to Auscultation, Good Air Exchange. No: Respiratory Distress, Accessory Muscle Use Cardiovascular: Present: Regular Rate and Rhythm, Normal S1, S2. No: Murmurs Abdomen: Present: Normal Bowel Sounds. No: Tenderness, Distention, Peritoneal Signs Back: Present: Paraspinal Tenderness (to lower back; no dorsal spinal tenderness ) Upper Extremity: Present: Normal Inspection. No: Cyanosis, Edema Lower Extremity: Present: Swelling (bilateral swelling with warmth; open infected ulcer to dosrum of left foot) Neurological: Present: GCS=15, CN II-XII Intact, Speech Normal, Motor Func Grossly Intact, Normal Sensory Function Skin: Present: Warm, Dry, Normal Color. No: Rashes Psychiatric: Present: Alert, Oriented x 3, Normal Insight, Normal Concentration Medical Decision Making ED Course and Treatment: 06/05/17 04:23 Impression: 52 year old male complaining of back pain for a few hours. Plan: -- Reassess and disposition Prior Visits: Notes and results from previous visits were reviewed. Patient was last seen in the emergency department on 05/23/17 for lower back pain, and left foot pain x 2 weeks. Patient was admitted to hospitalist care for further evaluation. Progress Notes: 06/05/17 06:45 Case was d/w medical accounts receivable specialist.Pt. admitted to the hospitalist service for ongoing care/treatment. 06/05/17 06:55 Case endorsed to oncoming ER attending to discuss with the hospitalist. - Lab Interpretations Lab Results: 06/05/17 05:00 06/05/17 06:08 Lab Results 06/05/17 06:08: Sodium 139, Potassium 4.7, Chloride 101, Carbon Dioxide 31, Anion Gap 12, BUN 12, Creatinine 0.8, Est GFR ( Amer) > 60, Est GFR (Non- Af Amer) > 60, Random Glucose 193 H, Calcium 9.5, Total Bilirubin 0.5, AST 44, ALT 34, Alkaline Phosphatase 103, Total Protein 7.2, Albumin 3.8, Globulin 3.5, Albumin/Globulin Ratio 1.1 06/05/17 05:00: WBC 9.3, RBC 3.53, Hgb 10.2 L, Hct 31.2 L, MCV 88.4, MCH 28.9, MCHC 32.7, RDW 15.0 H, Plt Count 468 H, MPV 9.4 - RAD Interpretation Narrative RAD Interpretations (Text): 06/05/17 06:16 Venous doppler lower extremities- Negative for DVT Radiology Orders: 06/05/17 04:50 DUPLEX LOWER EXTRM VEIN BILAT [US] Stat Hr Leader: ED Physician - Medication Orders Current Medication Orders: Amlodipine Besylate (Norvasc) 5 mg PO DAILY [facility] Last Admin: 06/05/17 10:44 Dose: 5 mg MAR Pulse and Blood Pressure Document 06/05/17 10:44 MV (Rec: 06/05/17 10:44 MV [id number]) Pulse Pulse Rate (60-90) 80 Blood Pressure Blood Pressure (100/60-150/90) 130/80 Aspirin (Aspirin Chewable) 81 mg PO DAILY [facility] Last Admin: 06/05/17 10:45 Dose: 81 mg Atorvastatin Calcium (Lipitor) 10 mg PO DIN [facility] Last Admin: 06/05/17 18:03 Dose: 10 mg Heparin Sodium (Porcine) (Heparin) 5,000 units SC Q12 [facility] PRN Reason: Protocol Last Admin: 06/05/17 10:45 Dose: 5,000 units Subcutaneous Administrations Document 06/05/17 10:45 MV (Rec: 06/05/17 10:45 MV [id number]) Injection Site MAR Injection Site Right Abdomen Charges for Administration # of Subcutaneous Administrations 1 Hydralazine HCl (Apresoline) 5 mg IVP Q6H PRN PRN Reason: Systolic Blood Pressure Sodium Chloride (Sodium Chloride 0.9%) 1,000 mls @ 100 mls/hr IV .Q10H MALLIKA Last Admin: 06/05/17 05:33 Dose: 100 mls/hr eMAR Start Stop Document 06/05/17 05:33 SC (Rec: 06/05/17 05:33 SC [facility] [id number]) Intravenous Solution Start Date 06/05/17 Start Time 05:33 Vancomycin HCl (Vancomycin 1gm) 1 gm in 250 mls @ 167 mls/hr IVPB Q12H MALLIKA PRN Reason: Protocol Piperacillin Sod/Tazobactam Sod (Zosyn 3.375 In Ns 100ml) 100 mls @ 200 mls/hr IVPB Q6 MALLIKA PRN Reason: Protocol Stop: 06/12/17 12:01 Last Admin: 06/05/17 17:56 Dose: 200 mls/hr eMAR Start Stop Document 06/05/17 17:56 MV (Rec: 06/05/17 17:56 MV [id number]) Intravenous Solution Start Date 06/05/17 Start Time 17:56 Levetiracetam 500 mg/ Sodium (Chloride) 105 mls @ 460 mls/hr IV Q12 MALLIKA Ibuprofen (Motrin Tab) 400 mg PO Q6H PRN PRN Reason: Pain, Mild (1-3) Insulin Human Lispro (Humalog Med) 0 units SC ACHS MALLIKA PRN Reason: Protocol Last Admin: 06/05/17 17:30 Dose: Lorazepam (Ativan) 2 mg IVP Q3H PRN; Protocol PRN Reason: Seizure activity Last Admin: 06/05/17 18:21 Dose: 2 mg IVP Administration Document 06/05/17 18:21 MV (Rec: 06/05/17 18:21 MV [id number]) Charges for Administration # of IVP Administrations 1 Behavioural Document 06/05/17 18:21 MV (Rec: 06/05/17 18:21 MV [id number]) Maintenance Maintenance Dose No Nonmedicinal Nonmedicinal Interventions See nurse's notes Comment seizure Behavior Behavior for Medication: Anxiety Behavior Comment seizure Ondansetron HCl (Zofran Inj) 4 mg IVP Q6H PRN PRN Reason: Nausea/Vomiting Discontinued Medications Albuterol/Ipratropium (Duoneb 3 Mg/0.5 Mg (3 Ml) Ud) 3 ml IH Q6H PRN PRN Reason: Shortness of Breath Stop: 06/05/17 19:31 Vancomycin HCl (Vancomycin 1gm) 1 gm in 250 mls @ 167 mls/hr IVPB STAT STA PRN Reason: Protocol Stop: 06/05/17 08:13 Last Admin: 06/05/17 07:31 Dose: 167 mls/hr eMAR Start Stop Document 06/05/17 07:31 MR (Rec: 06/05/17 07:31 MR [id number]) Intravenous Solution Start Date 06/05/17 Start Time 07:31 End Date 06/05/17 End time 09:01 Total Infusion Time 90 Piperacillin Sod/Tazobactam Sod (Zosyn 3.375 In Ns 100ml) 100 mls @ 200 mls/hr IV STAT STA PRN Reason: Protocol Stop: 06/05/17 07:00 Last Admin: 06/05/17 06:50 Dose: 200 mls/hr eMAR Start Stop Document 06/05/17 06:50 SC (Rec: 06/05/17 06:50 SC [id number]) Intravenous Solution Start Date 06/05/17 Start Time 06:50 End Date 06/05/17 End time 07:20 Total Infusion Time 30 Multivitamins/Vitamin C 10 ml/Thiamine HCl 100 mg/ Folic Acid 1 mg/ Sodium Chloride 1,011.2 mls @ 100 mls/hr IV .Q10H7M ONE Stop: 06/05/17 17:34 Last Admin: 06/05/17 10:34 Dose: 100 mls/hr eMAR Start Stop Document 06/05/17 10:34 MV (Rec: 06/05/17 10:34 MV [id number]) Intravenous Solution Start Date 06/05/17 Start Time 10:34 Ketorolac Tromethamine (Toradol) 30 mg IVP ONCE ONE Stop: 06/05/17 04:43 Last Admin: 06/05/17 05:32 Dose: 30 mg MAR Pain Assessment Document 06/05/17 05:32 SC (Rec: 06/05/17 05:33 [id number]) Pain Reassessment Is this a pain reassessment? No Sleep Is patient sleeping during reassessment? No Presence of Pain Presence of Pain Yes Pain Scale Used Pain Scale Used Numeric Description Intensity of Pain at present 10 IVP Administration Document 06/05/17 05:32 SC (Rec: 06/05/17 05:33 [id number]) Charges for Administration # of IVP Administrations 1 Re-Assess: [facility] Pain Assessment Document 06/05/17 06:32 SC (Rec: 06/05/17 06:56 CT [id number]) Pain Reassessment Is this a pain reassessment? Yes Sleep Is patient sleeping during reassessment? No Presence of Pain Presence of Pain Yes Pain Scale Used Pain Scale Used Numeric Description Intensity of Pain at present 5 Levalbuterol HCl (Xopenex) 0.63 mg IH ONCE ONE Stop: 06/05/17 13:18 Last Admin: 06/05/17 13:18 Dose: 0.63 mg Levetiracetam (Keppra) 500 mg PO BID MALLIKA Last Admin: 06/05/17 10:44 Dose: 500 mg Lorazepam (Ativan) 1 mg IVP Q6H PRN; Protocol PRN Reason: Seizure activity Ondansetron HCl (Zofran Inj) 4 mg IVP ONCE ONE Stop: 06/05/17 06:26 Last Admin: 06/05/17 06:38 Dose: 4 mg IVP Administration Document 06/05/17 06:38 CT (Rec: 06/05/17 06:38 CT [id number]) Charges for Administration # of IVP Administrations 1 - Scribe Statement The provider has reviewed the documentation as recorded by the Charlette Chang Provider Scribe Attestation: All medical record entries made by the Scribe were at my direction and personally dictated by me. I have reviewed the chart and agree that the record accurately reflects my personal performance of the history, physical exam, medical decision making, and the department course for this patient. I have also personally directed, reviewed, and agree with the discharge instructions and disposition. Disposition/Present on Arrival - Present on Arrival Any Indicators Present on Arrival: No History of DVT/PE: No History of Uncontrolled Diabetes: Yes Urinary Catheter: No History of Decub. Ulcer: No History Surgical Site Infection Following: Orthopedic Procedures - Disposition Have Diagnosis and Disposition been Completed?: Yes Diagnosis: Diabetic foot infection, Diabetic foot ulcer, Chronic low back pain Disposition: HOSPITALIZED Disposition Time: 06:50 Patient Problems: Current Active Problems Problem Status Onset Chronic low back pain Acute Diabetic foot infection Acute Diabetic foot ulcer Chronic Condition: STABLE
[2017-06-05] MEDS ORDERED: Sodium Chloride 0.9% 1,000 ML IV SCH (04:45)
[2017-06-05 05:19] LABS: HEMATOCRIT 31.2 % (42.0-52.0); MEAN CELL VOLUME 88.4 fl (80.0-105.0); MEAN CORPUSCULAR HEMOGLOBIN 28.9 pg (25.0-35.0); MEAN CORPUSCULAR HGB CONC 32.7 g/dl (31.0-37.0); MEAN PLATELET VOLUME 9.4 fl (7.0-11.0); WHITE BLOOD COUNT 9.3 10^3/ul (4.5-11.0)
[2017-06-05] MEDS ORDERED: Piperacillin/Tazobact 3.375 gm 100 ML IV STA (06:31)
[2017-06-05 06:33] LABS: ALB/GLOB RATIO 1.1 (1.1-1.8); ALKALINE PHOSPHATASE 103 U/L (38-126); ALT/SGPT 34 U/L (7-56); AST/SGOT 44 U/L (17-59); BILIRUBIN,TOTAL 0.5 mg/dL (0.2-1.3); BLOOD UREA NITROGEN 12 mg/dL (7-21); CALCIUM 9.5 mg/dL (8.4-10.5); CARBON DIOXIDE 31 mmol/L (21-33); CHLORIDE 101 mmol/L (98-107); GFR AFRICAN-AMERICAN > 60; GLUCOSE,RANDOM 193 mg/dL (70-110); POTASSIUM 4.7 mmol/L (3.6-5.0); SODIUM 139 mmol/L (132-148); TOTAL PROTEIN 7.2 g/dL (5.8-8.3)
[2017-06-05] MEDS ORDERED: Vancomycin 1gm in NS 250ml 1 GM/250 ML BAG IVPB STA (06:44)
[2017-06-05] MEDS ORDERED: Albuterol-Ipratrop 3 mg / 0.5 (3 ml) UD IH PRN (07:28)
[2017-06-05] MEDS ORDERED: Multivitamin (MVI) 10 ML, Thiamine 100 MG, Folic Acid 1 MG in Sodium Chloride 0.9% 1,00... IV ONE (07:28)
[2017-06-05] MEDS ORDERED: Insulin Reg-LOW-Coverage SC SCH (07:30)
--- NOTE | 2017-06-05 07:44 | CP.PCM.HP ---
<Arlene Barber - Last Filed: 06/05/17 09:08> History of Present Illness - History of Present Illness History of Present Illness: CC: I have pain HPI: 52 year old male PMHx IDDM, HTN, seizure, osteomyelitis of 5th toes s/p amputation of L toes #3,4,5, alcohol abuse, multidrug abuse well known to service presents to [facility] complaining of R LBP and pain in his lower extremities bilaterally. Patient reports that since leaving [place] on his prior visit he has not filled any of medications and came back to [facility] as his pain had not improved. He reported difficulty ambulating secondary to pain in his feet. He denied fever, chills, dizziness, chest pain, abdominal pain, bowel/bladder complaints. Patient admitted to headaches, SOB, cough, nausea, vomiting [after receiving toradol in the ED], and pain in his legs. Patient stated he drank 1/2 pint of hard liquor prior to coming to the ED and that he sniffed 1 bag of heroin the day before. In the ED patient received Vancomycin, Zosyn, Toradol, Zofran, and Ativan. PMD: none PMHx: IDDM, HTN, seizure, osteomyelitis of 5th toes s/p amputation of L toes #3, 4,5, alcohol abuse, multidrug abuse PSurgHx: 12/2016: L great toe partial amputation; 02/01/17: debridement and amputation of 3rd, 4th, 5th left metatarsals FamHx: mother DM2 Social Hx: smokes 7 cigarettes/day [unsure of how many years]; drinks 1/2 to 1 pint "hard liquor" daily and last drink was prior to coming in to ED; sniffs heroin and last use was 1 bag the day before admission; does not work Meds: noncompliant ALL: fish and tomatoes Pharmacy: [facility] Present on Admission - Present on Admission Any Indicators Present on Admission: No Review of Systems - Review of Systems All systems: reviewed and no additional remarkable complaints except - Constitutional Constitutional: As Per HPI. absent: Chills, Fever - EENT Eyes: As Per HPI. absent: Blurred Vision Ears: As Per HPI. absent: Dizziness Nose/Mouth/Throat: As Per HPI. absent: Sore Throat - Cardiovascular Cardiovascular: As Per HPI, Pedal Edema. absent: Chest Pain, Dyspnea, Leg Edema - Respiratory Respiratory: As Per HPI, Cough, Dyspnea, Chest Congestion - Gastrointestinal Gastrointestinal: As Per HPI, Nausea, Vomiting. absent: Abdominal Pain, Constipation, Diarrhea - Genitourinary Genitourinary: As Per HPI. absent: Dysuria, Hematuria - Musculoskeletal Musculoskeletal: As Per HPI, Back Pain. absent: Numbness, Tingling - Integumentary Integumentary: As Per HPI, Dry Skin, Wounds (feet) - Neurological Neurological: As Per HPI, Headaches. absent: Dizziness, Numbness, Tingling - Endocrine Endocrine: As Per HPI. absent: Polyuria - Hematologic/Lymphatic Hematologic: As Per HPI. absent: Easy Bleeding, Easy Bruising Past Patient History - Past Medical History & Family History Past Medical History?: Yes - Past Social History Smoking Status: Heavy Smoker > 10 Cigarettes Daily - CARDIAC Hx Cardiac Disorders: Yes Hx Hypertension: Yes - PULMONARY Hx Respiratory Disorders: No Hx Asthma: Yes - NEUROLOGICAL Hx Neurological Disorder: No Hx Seizures: Yes - HEENT Hx HEENT Problems: No - RENAL Hx Chronic Kidney Disease: No - ENDOCRINE/METABOLIC Hx Diabetes Mellitus Type 2: Yes - HEMATOLOGICAL/ONCOLOGICAL Hx Blood Disorders: No - INTEGUMENTARY Hx Dermatological Problems: Yes - MUSCULOSKELETAL/RHEUMATOLOGICAL Hx Musculoskeletal Disorders: Yes Hx Falls: No Hx Osteomyelitis: Yes (s/p amputations of L toes #3,4,5 ) - GASTROINTESTINAL Hx Gastrointestinal Disorders: No - GENITOURINARY/GYNECOLOGICAL Hx Genitourinary Disorders: No - PSYCHIATRIC Hx Psychophysiologic Disorder: Yes Hx Substance Use: Yes 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 USES HEROINE-SNORTS FOR 20 YRS. NEVER BEEN IN A PROGRAM BEFORE. SMOKES CIGARETTES < PPD. - SURGICAL HISTORY Hx Amputation: Yes (left toes) - ANESTHESIA Hx Anesthesia Reactions: No Meds Allergies/Adverse Reactions: Allergies Allergy/AdvReac Type Severity Reaction Status Date / Time Fish Containing Products Allergy VOMITING Verified 06/05/17 04:13 tomato Allergy VOMITING Verified 06/05/17 04:13 Physical Exam - Constitutional Appears: Non-toxic, No Acute Distress, Chronically Ill - Head Exam Head Exam: ATRAUMATIC, NORMAL INSPECTION, NORMOCEPHALIC - Eye Exam Eye Exam: EOMI, Normal appearance, PERRL. absent: Conjunctival injection, Scleral icterus Pupil Exam: NORMAL ACCOMODATION - ENT Exam ENT Exam: Mucous Membranes Dry - Neck Exam Neck exam: Positive for: Normal Inspection - Respiratory Exam Respiratory Exam: Clear to Auscultation Bilateral, NORMAL BREATHING PATTERN. absent: Accessory Muscle Use, Rales, Rhonchi, Wheezes, Respiratory Distress - Cardiovascular Exam Cardiovascular Exam: Tachycardia, REGULAR RHYTHM, +S1, +S2 - GI/Abdominal Exam GI & Abdominal Exam: Normal Bowel Sounds, Soft. absent: Firm, Guarding, Tenderness - Extremities Exam Extremities exam: Positive for: tenderness (to palpation) Additional comments: L toes 3,4,5 s/p amputation Open non purulent ulcerative wound around L lateral maleoli - Neurological Exam Neurological exam: Alert, Oriented x3 - Psychiatric Exam Psychiatric exam: Flat Affect - Skin Skin Exam: Dry, Normal Color Results - Vital Signs Recent Vital Signs: Last Vital Signs Temp 98.3 F 06/05/17 04:14 Pulse 102 H 06/05/17 06:54 Resp 16 06/05/17 06:54 BP 163/89 H 06/05/17 06:54 Pulse Ox 99 06/05/17 06:54 - Labs Result Diagrams: 06/05/17 05:00 06/05/17 06:08 Assessment & Plan - Assessment and Plan (Free Text) Assessment: 52 year old male PMHx IDDM, HTN, seizure, osteomyelitis of 5th toes s/p amputation of L toes #3,4,5, alcohol abuse, multidrug abuse well known to service presents to [facility] complaining of R LBP and pain in his lower extremities bilaterally. Plan: LE cellulitis - f/u blood culture - f/u wound culture - f/u procalcitonin - f/u venous doppler b/l to r/o DVT - Vancomycin 1gm ivpb q12 - Zosyn 3.375gm ivpb q8 - wound care daily - Podiatry consult: Thong - ID consult: Rosendo Bilateral Lower extremity pain - f/u LE dopplers - Motrin 400mg po q6h prb pain mild Bilateral low back pain - likely MSK s/p fall - Motrin 650mg po q4 prn pain mild - Percocet 10/325mg q tab po q6 prn pain severe Alcohol Abuse - [facility] protocol - Banana Bag - NPO - f/u UDS - Ativan 1mg ivp q1 prn - Zofran 4mg ivp q6 prn nausea/vomiting - Seizure precautions - Aspiration precautions - Alcohol/drug counseling Hx of IDDM - Accucheck - RISS low Hx of seizures - f/u Keppra level - Keppra 500mg po bid - Ativan prn Hx of HTN - Monitor BP - Norvasc 5mg po qdaily - ASA 81mg po qdaily - Hydralazine 5mg ivp q6 prn SBP > 160mmHg Hx of HLD - Lipitor 10mg po qhs Hx of Asthma/COPD - duoneb 3ml inh q6 prn SOB Hx of Tobacco abuse - smoking cessation discussed with patient DVT ppx: Heparin 5000u sc q12; SCDs c/i GI ppx: Protonix 40mg ivp qdaily Diet: NPO Referral: PT/OT Precautions: Alc withdrawal, Seizure, Aspiration, Fall risk Case discussed with Dr. Bren Barber PGY2 <Francisca Correia - Last Filed: 06/05/17 12:41> Results - Vital Signs Recent Vital Signs: Last Vital Signs Temp 98.3 F 06/05/17 04:14 Pulse 80 06/05/17 10:44 Resp 16 06/05/17 06:54 BP 130/80 06/05/17 10:44 Pulse Ox 99 06/05/17 06:54 - Labs Result Diagrams: 06/05/17 05:00 06/05/17 06:08 Labs: Laboratory Results - last 24 hr 06/05/17 06/05/17 07:30 11:11 POC Glucose (mg/dL) 222 H Alcohol, Quantitative < 10 Attending/Attestation - Attestation I have personally seen and examined this patient.: Yes I have fully participated in the care of the patient.: Yes I have reviewed all pertinent clinical information: Yes Notes (Text): 06/05/17 12:37 52 year old male with past medical history of hypertension, diabetes, seizure disorder, alcohol and substance abuse, osteomyelitis s/p toes amputation who presents with lower extremity pain and cellulitis. He was recently here last week but signed out AMA. Continue with iv antibiotics. ID and podiatry follow up were requested. Will follow up on LE doppler study. Urine drug screen and alcohol levels were ordered. Monitor for withdrawal symptoms. He was counselled on risks of continued substance and alcohol abuse. Counselled on smoking cessation. Continue with home medications for hypertension and seizure disorder. Francisca Correia MD Hospitalist.
--- NOTE | 2017-06-05 09:12 | US ---
HISTORY: Leg pain and swelling. Evaluate for DVT PHYSICIAN(S): Neal Peralta MD. TECHNIQUE: Duplex sonography and color-flow Doppler with graded compression were used to evaluate the deep venous systems of both lower extremities. FINDINGS: The visualized deep venous systems of both lower extremities are sonographically normal and compressible. Normal wave forms and augmentation are seen. There is no sonographic evidence for deep venous thrombosis in the visualized segments of both lower extremities. IMPRESSION: No sonographic evidence for deep venous thrombosis in the visualized segments of both lower extremities.
[2017-06-05] MEDS: Piperacillin/Tazobact 3.375 gm 100 ML IVPB SCH ×3 (12:00→23:11)
[2017-06-05] MEDS: Insulin Lispro (humaLOG) MEDIUM Coverage SC SCH ×3 (12:42→21:42)
[2017-06-05] MEDS ORDERED: Levalbuterol 0.63 MG/3 ML Inhal Soln UD IH ONE (13:17)
--- NOTE | 2017-06-05 13:49 | PCM.RRT ---
<Garland Hood - Last Filed: 06/05/17 15:16> INSTRUCTIONAL FACILITATOR Nurse Assessment - Situation Date: 06/05/17 Time INSTRUCTIONAL FACILITATOR was called: 13:08 INSTRUCTIONAL FACILITATOR Responder Arrival Time: 13:09 INSTRUCTIONAL FACILITATOR Location:: [address] [place] [address] Room Number: 370 INSTRUCTIONAL FACILITATOR Reason for Call: Change in Mental Status INSTRUCTIONAL FACILITATOR Called By: RN - IV IV Inserted during INSTRUCTIONAL FACILITATOR?: No - Respiratory Oxygen Delivery Method: Nasal Cannula @L/min, Non Rebreather @% Oxygen Flow Rate: 3 Received Nebulizer Treatments:: Yes Was the Patient Ventilated with Bag/Mask 100% O2?: No Secretions Suctioned?: No Was the Patient Intubated?: No Was the Patient Placed on a Ventilator?: No - Medication Medications Administered During INSTRUCTIONAL FACILITATOR: Ativan 2mg IVP - Diagnostic Test Ordered Chest X-Ray: Yes - Stat Labs Ordered INSTRUCTIONAL FACILITATOR Stat Labs Ordered: CBC, BMP INSTRUCTIONAL FACILITATOR Other Labs Ordered: MG, PHOS CPR started during INSTRUCTIONAL FACILITATOR?: No - Vital Signs Vital Sign: Rapid Response Vital Sign Blood Pressure 182/99 Pulse Rate 108 Oxygen Saturation 90 - Finger Stick Blood Glucose Finger Stick Blood Glucose: 219 - [place] Coma Scale Coma Scale Eye Opening: To verbal stimuli Coma Scale Motor: Obeys Commands Movement Coma Scale Verbal: Confused/able to answer - Time INSTRUCTIONAL FACILITATOR Ended Time INSTRUCTIONAL FACILITATOR Ended: 13:38 - Vital Signs at end of INSTRUCTIONAL FACILITATOR Vital Signs at end of INSTRUCTIONAL FACILITATOR: Rapid Response End Vital Sign Blood Pressure 166/99 O2 Sat by Pulse Oximetry 93 - Recommendations 5) INSTRUCTIONAL FACILITATOR Level of Care Recommendations: Remain in current setting Notifications: Attending Physician, Consultations (Neuro: Dr. Petersen) I.Reason for INSTRUCTIONAL FACILITATOR - A) Acute Change in Patient: (Select all that apply): Acute change in mental status Subjective: Rapid response was called on patient for seizure activity at 13:03. At time of arrival patient had just been given 2mg IV ativan. Patient noted to be laying in bed, somnolent and post-ictal. At time of arrival patient BP was elevated at 182/99, HR 112, SaO2% 86% on 3 Liters NC, blood glucose of 219, afebrile. Patient was placed on non-rebreather mask with return of SaO2 to 95>%, patient was switched back over to NC 3L O2 with appropriate O2 saturation. CBC, CMP, Mg , Phos, CXR were ordered for further evaluation. Patient was given Xopenex and Atrovent breathing treatments. Patient placed at appropriate angle for aspiration precautions and seizure precautions put in place. Keppra was switched from PO to IV. Neurology was to be consulted regarding medication and seizure medication management. Attending was at bedside and agreeable to plans. - Neurological Status (Select all that apply): Confused, Lethargic - Respiratory Oxygen Delivery Method: Nasal Cannula @L/min Oxygen Flow Rate: 3 - Constitutional Additional Comments: Lethargic, somnolent - Head Head Exam: ATRAUMATIC, NORMAL INSPECTION, NORMOCEPHALIC - Eyes Eye Exam: EOMI - Respiratory Exam Respiratory Exam: Clear to Ausculation Bilateral. absent: Rales, Rhonchi, Wheezes - Cardiovascular Exam Cardiovascular Exam: Tachycardia, +S1, +S2 - GI/Abdominal Exam GI & Abdominal Exam: Soft, Normal Bowel Sounds. absent: Firm, Guarding, Tenderness - Neurological Exam Additional exam: Somnolent, Alert to verbal stimuli, able to follow simple commands, non-verbal at this time - Extremities Exam Extremities Exam: absent: Calf Tenderness, Pedal Edema Plan - Assessment of Findings&Treatment Plan 1. Seizure activity - BMP, CBC, Mg, Phos r/o electrolyte abnormalities - BG 219 - CXR r/o aspiration - Keppra switched to IV - Neuro curbside for recs on medication mangement - Seizure and aspiration precautions - 2mg Ativan given IV 2. HTN Urgency - Patient noted to have elevated BP 182/99 with subsequent readings SBP>160/90 - UDS positive for cocaine, avoid BB - IV hydralazine PRN Q6H for BP control for SBP >160 <Francisca Correia - Last Filed: 06/05/17 21:25> INSTRUCTIONAL FACILITATOR Nurse Assessment - Vital Signs Vital Sign: Rapid Response Vital Sign Blood Pressure 158/100 Pulse Rate 100 Respiratory Rate 18 Oxygen Saturation 95 - Vital Signs at end of INSTRUCTIONAL FACILITATOR Vital Signs at end of INSTRUCTIONAL FACILITATOR: Rapid Response End Vital Sign Blood Pressure 166/99 O2 Sat by Pulse Oximetry 93 Attending/Attestation - Attestation I have personally seen and examined this patient.: Yes I have fully participated in the care of the patient.: Yes I have reviewed all pertinent clinical information, including history, physical exam and plan: Yes
[2017-06-05 13:57] LABS: BASO # 0.02 K/mm3 (0.0-2.0); BASO % 0.3 % (0.0-3.0); EOS # 0.2 (0.0-0.7); EOS % 3.1 % (1.5-5.0); GRAN # 4.49 (1.4-6.5); GRAN % 74.4 % (50.0-68.0); HEMATOCRIT 27.6 % (42.0-52.0); LYMPH % 16.1 % (22.0-35.0); MEAN CORPUSCULAR HEMOGLOBIN 28.7 pg (25.0-35.0); MEAN CORPUSCULAR HGB CONC 32.2 g/dl (31.0-37.0); MEAN PLATELET VOLUME 8.4 fl (7.0-11.0); MONO # 0.4 (0.1-0.6); MONO % 6.1 % (1.0-6.0); RED CELL DISTRIBUTION WIDTH 14.8 % (11.5-14.5)
[2017-06-05 14:05] LABS: BLOOD UREA NITROGEN 12 mg/dL (7-21); CALCIUM 8.7 mg/dL (8.4-10.5); CARBON DIOXIDE 29 mmol/L (21-33); CHLORIDE 101 mmol/L (98-107); GFR AFRICAN-AMERICAN > 60; GLUCOSE,RANDOM 154 mg/dL (70-110); MAGNESIUM 1.8 mg/dL (1.7-2.2); PHOSPHOROUS 3.5 mg/dL (2.5-4.5); POTASSIUM 3.8 mmol/L (3.6-5.0); SODIUM 136 mmol/L (132-148)
--- NOTE | 2017-06-05 15:11 | RAD ---
HISTORY: possible aspiration 2/ seizure COMPARISON: 05/23/2017 FINDINGS: LUNGS: There is a diffuse infiltrate in the right lung and patchy infiltrate in the left perihilar region. Findings are suspicious for pneumonia PLEURA: No significant pleural effusion identified, no pneumothorax apparent. CARDIOVASCULAR: Normal. OSSEOUS STRUCTURES: No significant abnormalities. VISUALIZED UPPER ABDOMEN: Normal. OTHER FINDINGS: None. IMPRESSION: Diffuse right-sided infiltrate consistent with pneumonia.
--- NOTE | 2017-06-05 17:19 | CP.PCM.CON ---
History of Present Illness - History of Present Illness History of Present Illness: 52 year old male with PMH of DM, HTN, alcohol abuse and polysubstance abuse, history of left foot osteomyelitis S/P left hallux amputation, scoliosis was recently admitted for low back pain and left leg pain and was being treated for cellulitis of the left leg. He signed out AMA and is now back since he did not get the meds that he was prescribed as an outpatient and is now complaining of the back pain and left leg pain again. He denies discharge from the left leg, no animal contacts, denies soaking his feet in water. He also denies fever or chills, no nausea or vomiting, no chest pain, no SOB, no cough or rhinorrhea, no abdominal pain, no diarrhea, no dysuria. Infectious Diseases consult is requested to further evaluate and manage. Review of Systems - Review of Systems All systems: reviewed and no additional remarkable complaints except (as per HPI ) Past Patient History - Past Medical History & Family History Past Medical History?: Yes - Past Social History Smoking Status: Heavy Smoker > 10 Cigarettes Daily - CARDIAC Hx Cardiac Disorders: Yes Hx Hypertension: Yes - PULMONARY Hx Respiratory Disorders: No Hx Asthma: Yes - NEUROLOGICAL Hx Neurological Disorder: No Hx Seizures: Yes - HEENT Hx HEENT Problems: No - RENAL Hx Chronic Kidney Disease: No - ENDOCRINE/METABOLIC Hx Diabetes Mellitus Type 2: Yes - HEMATOLOGICAL/ONCOLOGICAL Hx Blood Disorders: No - INTEGUMENTARY Hx Dermatological Problems: Yes - MUSCULOSKELETAL/RHEUMATOLOGICAL Hx Musculoskeletal Disorders: Yes Hx Falls: No Hx Osteomyelitis: Yes (s/p amputations of L toes #3,4,5 ) - GASTROINTESTINAL Hx Gastrointestinal Disorders: No - GENITOURINARY/GYNECOLOGICAL Hx Genitourinary Disorders: No - PSYCHIATRIC Hx Psychophysiologic Disorder: Yes Hx Substance Use: Yes 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 USES [employer]OR[employer] FOR 20 YRS. NEVER BEEN IN A PROGRAM BEFORE. SMOKES CIGARETTES < PPD. - SURGICAL HISTORY Hx Amputation: Yes (left toes) - ANESTHESIA Hx Anesthesia Reactions: No Meds Allergies/Adverse Reactions: Allergies Allergy/AdvReac Type Severity Reaction Status Date / Time Fish Containing Products Allergy VOMITING Verified 06/05/17 04:13 tomato Allergy VOMITING Verified 06/05/17 04:13 - Medications Medications: Current Medications Albuterol/Ipratropium (Duoneb 3 Mg/0.5 Mg (3 Ml) Ud) 3 ml IH Q6H PRN PRN Reason: Shortness of Breath Stop: 06/05/17 19:31 Amlodipine Besylate (Norvasc) 5 mg PO DAILY [facility] Aspirin (Aspirin Chewable) 81 mg PO DAILY [facility] Atorvastatin Calcium (Lipitor) 10 mg PO DIN [facility] Heparin Sodium (Porcine) (Heparin) 5,000 units SC Q12 [facility] PRN Reason: Protocol Hydralazine HCl (Apresoline) 5 mg IVP Q6H PRN PRN Reason: Systolic Blood Pressure Sodium Chloride (Sodium Chloride 0.9%) 1,000 mls @ 100 mls/hr IV .Q10H [facility] Last Admin: 06/05/17 05:33 Dose: 100 mls/hr Multivitamins/Vitamin C 10 ml/Thiamine HCl 100 mg/ Folic Acid 1 mg/ Sodium Chloride 1,011.2 mls @ 100 mls/hr IV .Q10H7M ONE Stop: 06/05/17 17:34 Vancomycin HCl (Vancomycin 1gm) 1 gm in 250 mls @ 167 mls/hr IVPB Q12H [facility] PRN Reason: Protocol Piperacillin Sod/Tazobactam Sod (Zosyn 3.375 In Ns 100ml) 100 mls @ 200 mls/hr IVPB Q6 [facility] PRN Reason: Protocol Stop: 06/05/17 18:29 Ibuprofen (Motrin Tab) 400 mg PO Q6H PRN PRN Reason: Pain, Mild (1-3) Insulin Human Regular (Humulin R Low) 0 units SC ACHS [facility] PRN Reason: Protocol Levetiracetam (Keppra) 500 mg PO BID [facility] Lorazepam (Ativan) 2 mg IVP Q3H PRN; Protocol PRN Reason: Seizure activity Ondansetron HCl (Zofran Inj) 4 mg IVP Q6H PRN PRN Reason: Nausea/Vomiting Physical Exam - Constitutional Appears: Non-toxic, No Acute Distress - Head Exam Head Exam: NORMAL INSPECTION - Neck Exam Neck exam: Negative for: Meningismus - Respiratory Exam Respiratory Exam: Decreased Breath Sounds - Cardiovascular Exam Cardiovascular Exam: +S1, +S2 - GI/Abdominal Exam GI & Abdominal Exam: Soft. absent: Tenderness - Extremities Exam Additional comments: left leg with dressings in place Results - Vital Signs Recent Vital Signs: Last Vital Signs Temp 98.3 F 06/05/17 04:14 Pulse 102 H 06/05/17 06:54 Resp 16 06/05/17 06:54 BP 163/89 H 06/05/17 06:54 Pulse Ox 99 06/05/17 06:54 - Labs Result Diagrams: 06/05/17 13:45 06/05/17 13:45 Labs: Laboratory Results - last 24 hr 06/05/17 07:30 Alcohol, Quantitative < 10 Assessment & Plan - Assessment and Plan (Free Text) Plan: Assessment consider left leg cellulitis low back pain probably musculoskeletal history of left foot cellulitis with ulcers, growing MSSA DM HTN alcohol abuse history of left foot osteomyelitis S/P left hallux amputation scoliosis Plan will start Vancomycin and Zosyn pending blood, wound cx; follow up Podiatry evaluation; should get further imaging of his left leg/foot (ie. MRI) will monitor clinically HIV test from 05/09/2017 is negative
--- NOTE | 2017-06-05 19:08 | PCM.RRT ---
<Garland Hood - Last Filed: 06/05/17 20:21> CIA AGENT Nurse Assessment - Situation Date: 06/05/17 Time CIA AGENT was called: 18:16 CIA AGENT Responder Arrival Time: 18:18 CIA AGENT Location:: [address] [place] [address] Room Number: 360-02 CIA AGENT Reason for Call: Change in Mental Status CIA AGENT Called By: Physician - IV IV Inserted during CIA AGENT?: Yes - Respiratory Oxygen Delivery Method: Nasal Cannula @L/min Oxygen Flow Rate: 3 Received Nebulizer Treatments:: No Was the Patient Ventilated with Bag/Mask 100% O2?: No Secretions Suctioned?: No Was the Patient Intubated?: No Was the Patient Placed on a Ventilator?: No - Medication Medications Administered During CIA AGENT: ativan - Diagnostic Test Ordered EKG: No Chest X-Ray: No CT Scan: No - Stat Labs Ordered CIA AGENT Stat Labs Ordered: CBC, BMP CIA AGENT Other Labs Ordered: MG, PHOS CPR started during CIA AGENT?: No - Vital Signs Vital Sign: Rapid Response Vital Sign Blood Pressure 158/100 Pulse Rate 100 Respiratory Rate 18 Oxygen Saturation 95 - Finger Stick Blood Glucose Finger Stick Blood Glucose: 177 - [place] Coma Scale Coma Scale Eye Opening: To verbal stimuli Coma Scale Motor: Obeys Commands Movement Coma Scale Verbal: Confused/able to answer - Time CIA AGENT Ended Time CIA AGENT Ended: 13:38 - Vital Signs at end of CIA AGENT Vital Signs at end of CIA AGENT: Rapid Response End Vital Sign Blood Pressure 166/99 O2 Sat by Pulse Oximetry 93 - Recommendations 5) CIA AGENT Level of Care Recommendations: Remain in current setting Notifications: Attending Physician, Consultations (Neuro: Dr. Petersen) I.Reason for CIA AGENT - A) Acute Change in Patient: (Select all that apply): Acute change in mental status Subjective: Rapid response was called on patietn for suspected seizure activity at - . At bedside evaluation patient noted to have seizure like activity without response to painful stimuli. Patient was given 2mg IV ativan. Patient given Ativan and noted to be responsive and awake able to follow simple commands. BP was 158/100 , HR 100, Pulse Ox 95% on 5L O2, bg 177, afebrile. CBC, CMP, Mg, Phos ordered for further evaluation. Patient will continue IV keppra at this time and await neurology consultation recommendations. Attending at bedside and agreeable to plan. - Neurological Status (Select all that apply): Alert, Follows Commands - Respiratory Oxygen Delivery Method: Nasal Cannula @L/min Oxygen Flow Rate: 5 - Head Head Exam: ATRAUMATIC, NORMAL INSPECTION, NORMOCEPHALIC - Eyes Eye Exam: EOMI, PERRL - Respiratory Exam Respiratory Exam: Clear to Ausculation Bilateral, NORMAL BREATHING PATTERN - Cardiovascular Exam Cardiovascular Exam: Irregular Rhythm, REGULAR RHYTHM, +S1, +S2 - GI/Abdominal Exam GI & Abdominal Exam: Soft, Normal Bowel Sounds - Neurological Exam Neurological Exam: Awake - Extremities Exam Extremities Exam: absent: Calf Tenderness, Pedal Edema Additional comments: left foot with bandage in place c/d/i Plan - Assessment of Findings&Treatment Plan 1. Seizure activity - BMP, CBC, Mg, Phos r/o electrolyte abnormalities - BG 177 - Continue with planned Keppra IV - Seizure and aspiration precautions - 2mg Ativan given IV <Francisca Correia - Last Filed: 06/05/17 21:27> CIA AGENT Nurse Assessment - Vital Signs Vital Sign: Rapid Response Vital Sign Blood Pressure 158/100 Pulse Rate 100 Respiratory Rate 18 Oxygen Saturation 95 - Vital Signs at end of CIA AGENT Vital Signs at end of CIA AGENT: Rapid Response End Vital Sign Blood Pressure 166/99 O2 Sat by Pulse Oximetry 93 Attending/Attestation - Attestation I have personally seen and examined this patient.: Yes I have fully participated in the care of the patient.: Yes I have reviewed all pertinent clinical information, including history, physical exam and plan: Yes
[2017-06-05] MEDS: Vancomycin 1gm in NS 250ml 1 GM/250 ML BAG IVPB SCH (21:06)
[2017-06-05] MEDS ORDERED: levETIRAcetam 500 MG in Sodium Chloride 0.9% 100 ML IV SCH (22:00)
--- NOTE | 2017-06-05 22:18 | PN ---
DATE: 06/05/2017 SUBJECTIVE: This is a 52-year-old male, known to me, seen for ulcerations to his left foot. Patient has a history of multiple foot surgeries and ulcerations in the past, and he usually signs out on AMA before the treatment is completed. Patient has a past medical history of IDDM, hypertension, seizures, amputation of toes. Patient has a history of alcohol abuse, multidrug abuse, and tobacco use. Patient left AMA on his last visit, and never filled any of his prescriptions according to Dr. Correia's chart. Patient is seen at bedside. He is not alert or oriented, and does not answer any questions. He is, however, pretty comfortably. Patient's lower extremities were evaluated. The right lower foot and lower extremity does not have any ulcerations on it. The skin is relatively dry, and the pulses on that side are weak, but palpable. His left foot has history of multiple amputations, partial digital amputation done at [facility], which had gone onto heal, even though the patient left the same day of surgery AMA. Patient also had amputations by Dr. Phoenix of his fourth and fifth rays, and there are some ulcerations in this area at the present time. There is no malodor coming from the area. There is some maceration along the dorsum of the foot, and using a moistened gauze pad, this macerated skin was easily removed, showing a granule ulceration. This ulceration does not probe to bone. It measures approximately 3 x 2 x 0.1 cm. No sinus tracts, no undermining, and no pus were coming from the area. The most distal portion of the foot to his leaving at the last visit had a necrotic eschar which had loosened and now has been removed, and the tissue under there is thinly healed tissue with no openings in the area. He had a wound culture done upon this admission, and the wound culture is pending, and there is a preliminary Gram stain showing no organisms. There is no ascending cellulitis. There is no fluctuance. There is no pallor noted on this foot. Patient has had ultrasounds in the past, and his last arterial Dopplers, I believe, were done in [facility] I do not have the reports at this time. ASSESSMENT: Diabetes, neuropathy, multiple amputations, now with Mccartney 2 ulcerations to the dorsal aspect of his left foot. PLAN AND TREATMENT: Local wound care. Await pending cultures, and heel pads are were ordered to place on patient's heels to prevent any further breakdown. Sharita Benito DPM
[2017-06-06] MEDS: Piperacillin/Tazobact 3.375 gm 100 ML IVPB SCH ×4 (05:12→23:09)
[2017-06-06] MEDS: Vancomycin 1gm in NS 250ml 1 GM/250 ML BAG IVPB SCH ×2 (05:13→18:38)
[2017-06-06 07:14] LABS: BASO # 0.01 K/mm3 (0.0-2.0); BASO % 0.2 % (0.0-3.0); EOS # 0.2 (0.0-0.7); EOS % 3.2 % (1.5-5.0); GRAN # 4.89 (1.4-6.5); GRAN % 77.3 % (50.0-68.0); MEAN CELL VOLUME 88.9 fl (80.0-105.0); MEAN CORPUSCULAR HEMOGLOBIN 28.6 pg (25.0-35.0); MEAN CORPUSCULAR HGB CONC 32.1 g/dl (31.0-37.0); MEAN PLATELET VOLUME 8.5 fl (7.0-11.0); MONO # 0.3 (0.1-0.6); MONO % 4.3 % (1.0-6.0); RED CELL DISTRIBUTION WIDTH 14.7 % (11.5-14.5); WHITE BLOOD COUNT 6.3 10^3/ul (4.5-11.0)
[2017-06-06] MEDS: Insulin Lispro (humaLOG) MEDIUM Coverage SC SCH ×4 (08:16→22:20)
[2017-06-06] MEDS ORDERED: levETIRAcetam 500mg IVPB 500 MG/100 ML BAG IVPB SCH (10:00)
[2017-06-06] MEDS ORDERED: levoFLOXacin 500 mg in D5W 500 MG/100 ML BAG IVPB SCH (10:00)
--- NOTE | 2017-06-06 11:18 | CON ---
DATE: NEUROLOGY CONSULTATION REASON FOR CONSULTATION: Seizures. HISTORY OF PRESENT ILLNESS: The patient is a 52-year-old male who has been asked for evaluation of seizures. The patient has history of known seizure disorder. The patient was admitted with lower extremity cellulitis. Apparently, the patient was not taking his Keppra. Yesterday, the patient had generalized tonic-clonic seizure witnessed by the staff. The patient was subsequently put on IV Keppra. Since that time the patient had no further seizure. PAST MEDICAL HISTORY: Includes diabetes mellitus, hypertension, seizure, osteomyelitis of the fifth of the toe, and status post amputation of the left number 3, 4, and 5 toes. FAMILY HISTORY: Noncontributory to the case. SOCIAL HISTORY: He does smoke cigarettes. He does drink alcohol. He sniffs heroin. REVIEW OF SYSTEMS: Denies any headache, chest pain, shortness of breath, abdominal pain, or constipation. PHYSICAL EXAMINATION: GENERAL: The patient is a middle-aged male lying on the bed, in no acute distress. VITAL SIGNS: His blood pressure is 152/98, heart rate is 91 per minute, breathing at a rate of 16 per minute, and temperature is 97.8 degrees Fahrenheit. HEENT: Head is normocephalic and atraumatic. NECK: Supple. There are no carotid bruits. LUNGS: Clear. CARDIOVASCULAR: S1 and S2 audible. No murmurs. ABDOMEN: Soft and nontender. Bowel sounds are present. NEUROLOGIC: Mental status. The patient is sleepy, but arousable. He follows some commands. He is not answering questions. Cranial nerve exam, pupils are 3 mm bilaterally reactive to light. Visual garcia are full. Extraocular movements are intact. There is no facial asymmetry. Motor examination; tone is normal. He is moving all 4 extremities symmetrically. Power is 4-5/5 all overall. Reflexes are 1+ and symmetrical. Plantars are downgoing. LABORATORY DATA: Reviewed shows WBC of 6.3, hemoglobin 10.6, hematocrit 33.0, and platelets of 411. Sodium is 136, potassium 3.8, chloride 101, carbon dioxide 29, BUN of 12, creatinine 0.8, and glucose of 219. The patient has positive cocaine in his urine. IMPRESSION: 1. Seizure disorder with breakthrough seizures. 2. History of multidrug abuse including cocaine. RECOMMENDATIONS: 1. The patient is currently on Keppra 500 mg every 12 hours. We will increase the dose to 750 mg every 12 hours because of his recurrent seizures. 2. The patient's use of cocaine is probably one of the factor responsible for the patient's seizure. 3. The patient will have seizure precautions. 4. Please continue other treatment and supportive care. Thank you for the opportunity to participate in the care of this patient. Declan Petersen MD
[2017-06-06 13:38] LABS: HEMATOCRIT 29.9 % (42.0-52.0); MEAN CELL VOLUME 88.2 fl (80.0-105.0); MEAN CORPUSCULAR HEMOGLOBIN 29.8 pg (25.0-35.0); MEAN CORPUSCULAR HGB CONC 33.8 g/dl (31.0-37.0); MEAN PLATELET VOLUME 8.2 fl (7.0-11.0); RED CELL DISTRIBUTION WIDTH 14.5 % (11.5-14.5); WHITE BLOOD COUNT 5.7 10^3/ul (4.5-11.0)
--- NOTE | 2017-06-06 13:39 | CP.PCM.PN ---
<Jama Fairbanks - Last Filed: 06/06/17 19:37> Subjective - Date & Time of Evaluation Date of Evaluation: 06/06/17 Time of Evaluation: 08:00 - Subjective Subjective: Jama Fairbanks DO, PGY-1, Hospitalist Service Patient seen and examined at bedside. Patient does not have any complaints, but nurses report that when he wakes up he asks for narcotic drugs and feigns seizure such that he can get Ativan or other benzodiapines. Otherwise, chart review reveals two MANAGER READING notes, both of which relate to seizure-like activity. Objective - Vital Signs/Intake and Output Vital Signs (last 24 hours): Temp Pulse Resp BP Pulse Ox 97.8 F 91 H 17 152/98 H 100 06/06/17 08:23 06/06/17 09:23 06/06/17 08:23 06/06/17 09:23 06/06/17 00:01 Intake and Output: 06/06/17 06/06/17 06:59 18:59 Intake Total 2300 60 Output Total 1700 1600 Balance 600 -1540 - Medications Medications: Current Medications Amlodipine Besylate (Norvasc) 5 mg PO DAILY [facility] Last Admin: 06/06/17 09:23 Dose: 5 mg Aspirin (Aspirin Chewable) 81 mg PO DAILY [facility] Last Admin: 06/06/17 09:23 Dose: 81 mg Atorvastatin Calcium (Lipitor) 10 mg PO DIN [facility] Last Admin: 06/05/17 18:03 Dose: 10 mg Heparin Sodium (Porcine) (Heparin) 5,000 units SC Q12 [facility] PRN Reason: Protocol Last Admin: 06/06/17 09:24 Dose: 5,000 units Hydralazine HCl (Apresoline) 5 mg IVP Q6H PRN PRN Reason: Systolic Blood Pressure Sodium Chloride (Sodium Chloride 0.9%) 1,000 mls @ 100 mls/hr IV .Q10H [facility] Last Admin: 06/05/17 05:33 Dose: 100 mls/hr Vancomycin HCl (Vancomycin 1gm) 1 gm in 250 mls @ 167 mls/hr IVPB Q12H [facility] PRN Reason: Protocol Last Admin: 06/06/17 05:13 Dose: 167 mls/hr Piperacillin Sod/Tazobactam Sod (Zosyn 3.375 In Ns 100ml) 100 mls @ 200 mls/hr IVPB Q6 [facility] PRN Reason: Protocol Stop: 06/12/17 12:01 Last Admin: 06/06/17 12:14 Dose: 200 mls/hr Levetiracetam 750 mg/ Sodium (Chloride) 107.5 mls @ 460 mls/hr IV Q12 [facility] Last Admin: 06/06/17 09:37 Dose: 460 mls/hr Ibuprofen (Motrin Tab) 400 mg PO Q6H PRN PRN Reason: Pain, Mild (1-3) Last Admin: 06/06/17 09:29 Dose: 400 mg Insulin Human Lispro (Humalog Med) 0 units SC ACHS [facility] PRN Reason: Protocol Last Admin: 06/06/17 12:15 Dose: 5 units Lorazepam (Ativan) 2 mg IVP Q3H PRN; Protocol PRN Reason: Seizure activity Last Admin: 06/06/17 05:31 Dose: 2 mg Ondansetron HCl (Zofran Inj) 4 mg IVP Q6H PRN PRN Reason: Nausea/Vomiting - Labs Labs: 06/06/17 06:30 06/05/17 13:45 - Constitutional Appears: Well, No Acute Distress - Head Exam Head Exam: ATRAUMATIC, NORMOCEPHALIC - Eye Exam Eye Exam: EOMI, Normal appearance, PERRL Pupil Exam: NORMAL ACCOMODATION - ENT Exam ENT Exam: Mucous Membranes Moist, Normal Exam - Neck Exam Neck Exam: Normal Inspection - Respiratory Exam Respiratory Exam: NORMAL BREATHING PATTERN. absent: Stridor - Cardiovascular Exam Cardiovascular Exam: RRR, +S1, +S2 - GI/Abdominal Exam GI & Abdominal Exam: Soft, Normal Bowel Sounds - Extremities Exam Extremities Exam: Normal Inspection Additional comments: no active infection present, distal pulses are graded 1/4 bilaterally. - Back Exam Back Exam: NORMAL INSPECTION. absent: CVA tenderness (L), CVA tenderness (R) - Neurological Exam Additional comments: patient not cooperative with neurologic exam - Psychiatric Exam Additional comments: sleeping comfortably - Skin Skin Exam: Dry, Intact, Normal Color, Warm Assessment and Plan - Assessment and Plan (Free Text) Assessment: 52 year old male with a past medical history of polysubstance abuse, drug- induced seizures/drug withdrawal seizures who presents with back and leg pain and found to have patchy infiltrates in right lung, likely secondary to crack/ cocaine inhalation or aspiration pneumonia. Patient is afebrile, with no leukocytosis, but there are concerns for drug withdrawal or drug related seizures that permit further work up on the patient. Plan: 1) Possible pneumonia - Continue with Zosyn and Vancomycin - Will adhere to all recommendations if Infectious Disease 2) Substance abuse/Seizures - Ativan PRN for seizures - Keppra 750 mg BID Patient got up and left hospital. I am un-aware if he signed AMA or just plain vanished. No further details relayed to me. <Francisca Correia - Last Filed: 06/06/17 21:22> Objective - Vital Signs/Intake and Output Vital Signs (last 24 hours): Temp Pulse Resp BP Pulse Ox 97.8 F 104 H 20 151/92 H 93 L 06/06/17 16:00 06/06/17 16:00 06/06/17 16:00 06/06/17 16:00 06/06/17 16:00 Intake and Output: 06/06/17 06/07/17 18:59 06:59 Intake Total 60 Output Total 1600 Balance -1540 - Medications Medications: Current Medications Amlodipine Besylate (Norvasc) 5 mg PO DAILY [facility] Last Admin: 06/06/17 09:23 Dose: 5 mg Aspirin (Aspirin Chewable) 81 mg PO DAILY [facility] Last Admin: 06/06/17 09:23 Dose: 81 mg Atorvastatin Calcium (Lipitor) 10 mg PO DIN [facility] Last Admin: 06/06/17 17:52 Dose: 10 mg Heparin Sodium (Porcine) (Heparin) 5,000 units SC Q12 [facility] PRN Reason: Protocol Last Admin: 06/06/17 21:13 Dose: 5,000 units Hydralazine HCl (Apresoline) 5 mg IVP Q6H PRN PRN Reason: Systolic Blood Pressure Last Admin: 06/06/17 13:29 Dose: 5 mg Sodium Chloride (Sodium Chloride 0.9%) 1,000 mls @ 100 mls/hr IV .Q10H [facility] Last Admin: 06/05/17 05:33 Dose: 100 mls/hr Vancomycin HCl (Vancomycin 1gm) 1 gm in 250 mls @ 167 mls/hr IVPB Q12H [facility] PRN Reason: Protocol Last Admin: 12/05/17 18:38 Dose: 167 mls/hr Piperacillin Sod/Tazobactam Sod (Zosyn 3.375 In Ns 100ml) 100 mls @ 200 mls/hr IVPB Q6 [facility] PRN Reason: Protocol Stop: 06/12/17 12:01 Last Admin: 06/06/17 18:38 Dose: 200 mls/hr Levetiracetam 750 mg/ Sodium (Chloride) 107.5 mls @ 460 mls/hr IV Q12 [facility] Last Admin: 06/06/17 09:37 Dose: 460 mls/hr Ibuprofen (Motrin Tab) 400 mg PO Q6H PRN PRN Reason: Pain, Mild (1-3) Last Admin: 06/06/17 17:52 Dose: 400 mg Insulin Human Lispro (Humalog Med) 0 units SC ACHS [facility] PRN Reason: Protocol Last Admin: 06/06/17 16:58 Dose: Not Given Lorazepam (Ativan) 1 mg IVP Q6H PRN; Protocol PRN Reason: Seizure activity Last Admin: 06/06/17 19:20 Dose: 1 mg Ondansetron HCl (Zofran Inj) 4 mg IVP Q6H PRN PRN Reason: Nausea/Vomiting - Labs Labs: 06/06/17 13:30 06/06/17 13:30 Attending/Attestation - Attestation I have personally seen and examined this patient.: Yes I have fully participated in the care of the patient.: Yes I have reviewed all pertinent clinical information, including history, physical exam and plan: Yes Notes (Text): 06/06/17 21:18 52 year old male with past medical history of hypertension, diabetes, seizure disorder, alcohol and substance abuse, osteomyelitis s/p toes amputation who presented with lower extremity pain and cellulitis. He was recently here last week but signed out AMA. Continue with iv antibiotics. ID and podiatry are following the patient. Continue with motrin prn for pain and avoid narcotics. He was also found to have pneumonia for which he is on iv antibiotics as above. Hospital course has been complicated with several division superintendent for seizure like activity. Consider break-through seizures secondary to withdrawal/ noncompliance vs pseudoseizures. Neurology evaluation was appreciated who increased his keppra and ordered for EEG. He is also on ativan prn. He was counselled on risks of continued substance and alcohol abuse. Counselled on smoking cessation. Continue with norvas for hypertension. Patient threatened to sign out AMA this afternoon after demanding for dilaudid however later has decided to stay. Francisca Correia MD Hospitalist.
[2017-06-06 13:55] LABS: ALB/GLOB RATIO 0.9 (1.1-1.8); ALKALINE PHOSPHATASE 81 U/L (38-126); ALT/SGPT 29 U/L (7-56); AST/SGOT 25 U/L (17-59); BILIRUBIN,TOTAL 0.3 mg/dL (0.2-1.3); BLOOD UREA NITROGEN 10 mg/dL (7-21); CALCIUM 8.5 mg/dL (8.4-10.5); CARBON DIOXIDE 26 mmol/L (21-33); CHLORIDE 104 mmol/L (98-107); GFR AFRICAN-AMERICAN > 60; GLUCOSE,RANDOM 195 mg/dL (70-110); MAGNESIUM 1.7 mg/dL (1.7-2.2); PHOSPHOROUS 3.4 mg/dL (2.5-4.5); POTASSIUM 3.9 mmol/L (3.6-5.0); SODIUM 137 mmol/L (132-148); TOTAL PROTEIN 6.1 g/dL (5.8-8.3)
--- NOTE | 2017-06-06 13:57 | PCM.RRT ---
<Phil Fletcher - Last Filed: 06/06/17 13:54> ASSISTANT BASEBALL COACH Nurse Assessment - Situation Date: 06/06/17 Time ASSISTANT BASEBALL COACH was called: 13:15 ASSISTANT BASEBALL COACH Responder Arrival Time: 13:18 ASSISTANT BASEBALL COACH Location:: [address] [place] [address] Room Number: 360-2 ASSISTANT BASEBALL COACH Reason for Call: Not Responding to Urgent Treatment ASSISTANT BASEBALL COACH Called By: RN - IV IV Inserted during ASSISTANT BASEBALL COACH?: No - Respiratory Oxygen Delivery Method: Nasal Cannula @L/min, Non Rebreather @% Oxygen Flow Rate: 3 Received Nebulizer Treatments:: No Was the Patient Ventilated with Bag/Mask 100% O2?: Yes Secretions Suctioned?: No Was the Patient Intubated?: No Was the Patient Placed on a Ventilator?: No - Medication Medications Administered During ASSISTANT BASEBALL COACH: 2mg ativan IVP. 5mg apresoline IVP - Diagnostic Test Ordered EKG: No Chest X-Ray: No CT Scan: No - Stat Labs Ordered ASSISTANT BASEBALL COACH Stat Labs Ordered: CBC ASSISTANT BASEBALL COACH Other Labs Ordered: mg, phos, cpk CPR started during ASSISTANT BASEBALL COACH?: No - Vital Signs Vital Sign: Rapid Response Vital Sign Blood Pressure 172/105 Pulse Rate 100 Respiratory Rate 21 Oxygen Saturation 100 - Finger Stick Blood Glucose Finger Stick Blood Glucose: 237 - [place] Coma Scale Coma Scale Eye Opening: Spontaneous Coma Scale Motor: Obeys Commands Movement Coma Scale Verbal: Confused/able to answer - Time ASSISTANT BASEBALL COACH Ended Time ASSISTANT BASEBALL COACH Ended: 13:22 - Vital Signs at end of ASSISTANT BASEBALL COACH Vital Signs at end of ASSISTANT BASEBALL COACH: Rapid Response End Vital Sign Blood Pressure 164/103 Pulse Rate 100 O2 Sat by Pulse Oximetry 93 - Recommendations 5) ASSISTANT BASEBALL COACH Level of Care Recommendations: Remain in current setting Notifications: Attending Physician I.Reason for ASSISTANT BASEBALL COACH - A) Acute Change in Patient: Subjective: PCP reports seizure like activity after lowering the head of the patient's bed, including protrusion of patient's tongue and fixed extreme upward gaze - Neurological Status (Select all that apply): Responsive, Verbal, Follows Commands, Weakness. absent : Oriented - Respiratory Oxygen Delivery Method: Nasal Cannula @L/min, Non Rebreather @% Oxygen Flow Rate: 3 - Constitutional Appears: In Acute Distress, Unkempt, Older Than Stated Age, Chronically Ill - Head Head Exam: ATRAUMATIC, NORMOCEPHALIC - Eyes Eye Exam: EOMI, PERRL - Respiratory Exam Respiratory Exam: Rhonchi - Cardiovascular Exam Cardiovascular Exam: REGULAR RHYTHM, +S1, +S2 - GI/Abdominal Exam GI & Abdominal Exam: Soft. absent: Tenderness - Neurological Exam Neurological Exam: Alert, Awake Additional exam: Oriented to person, and only partially to both place and time. Reponds well to reorientation 4/5 strength in all four extremties - Extremities Exam Extremities Exam: Full ROM Plan - Assessment of Findings&Treatment Plan Patient found to have seizure like activity - Received 2mg ativan, which abated the activity - Ordered stat labs to r/o biochemical or electrolyte abnormality - On exam, patient had returned to baseline - Patient remains 1:1 with a sitter for close monitoring <Francisca Correia - Last Filed: 06/06/17 16:03> ASSISTANT BASEBALL COACH Nurse Assessment - Vital Signs Vital Sign: Rapid Response Vital Sign Blood Pressure 172/105 Pulse Rate 100 Respiratory Rate 21 Oxygen Saturation 100 - Vital Signs at end of ASSISTANT BASEBALL COACH Vital Signs at end of ASSISTANT BASEBALL COACH: Rapid Response End Vital Sign Blood Pressure 164/103 Pulse Rate 100 O2 Sat by Pulse Oximetry 93 Attending/Attestation - Attestation I have personally seen and examined this patient.: Yes I have fully participated in the care of the patient.: Yes I have reviewed all pertinent clinical information, including history, physical exam and plan: Yes
[2017-06-06] MEDS ORDERED: Acetylcysteine 20% Inhal Soln (4ml) IH SCH (14:00)
--- NOTE | 2017-06-06 14:46 | PN ---
DATE: 06/06/2017 SUBJECTIVE: The patient is in bed in no acute distress, nontoxic. PHYSICAL EXAMINATION: VITAL SIGNS: Temperature is 98, blood pressure is 150/90, respiratory rate of 18, heart rate of 91. HEENT: Examination of HEENT is unremarkable. NECK: Supple. LUNGS: Have decreased breath sounds. HEART: Normal S1, S2. ABDOMEN: Soft. LABORATORY DATA: Reveals a white count of 6.3. Chemistries are noted and microbiology is reviewed with a gram-negative rao from the foot and the blood cultures are negative. Review of orders reveals the patient to be on vancomycin and Zosyn. ASSESSMENT/PLAN: A 52-year-old with gram-negative rao, left leg cellulitis and diabetic, hypertensive, alcohol abuse and on vancomycin, Zosyn, pending final culture results. We will follow closely with you. Should have imaging MRI to rule out osteomyelitis. Ned Tai MD
--- NOTE | 2017-06-06 14:59 | RAD ---
HISTORY: pneumonia COMPARISON: 06/05/2017 FINDINGS: LUNGS: There is a diffuse alveolar infiltrate in the right lung and a patchy infiltrate in the left upper lobe. Findings are unchanged PLEURA: No significant pleural effusion identified, no pneumothorax apparent. CARDIOVASCULAR: Normal. OSSEOUS STRUCTURES: No significant abnormalities. VISUALIZED UPPER ABDOMEN: Normal. OTHER FINDINGS: None. IMPRESSION: There is a diffuse alveolar infiltrate in the right lung and a patchy infiltrate in the left upper lobe. Findings are unchanged
--- NOTE | 2017-06-06 22:14 | PN ---
DATE: 06/06/2017 SUBJECTIVE: This 52-year-old male seen for an ulceration to his left foot. The patient is a diabetic with a heavy drug habit, who has last signed out AMA on his last visit. He has had multiple amputations to his left foot and he presented with a blister yesterday when we saw him. MEDICATIONS: The patient's medications are noted on the AUG. ALLERGIES: HE HAS ALLERGIES TO FISH-CONTAINING PRODUCTS AND TOMATOES. PHYSICAL EXAMINATION: VITAL SIGNS: Show a blood pressure of 172/105 and his oxygen is 100% at room air. The patient apparently is not allowing the techs to take his temperature. LABORATORY DATA: His labs show a white blood cell count of 5.3, the H and H is 10.1 and 29.9, and the platelets are 375. Chemistry is grossly within normal except for the glucose at 195. Toxicology when the patient came in yesterday is positive for opiates and positive for cocaine. The patient's microbiology, the foot shows Gram-negative rods, light growth. Clinically, the patient has 1/4 palpable pedal pulses to his feet bilateral. He has an ulceration on the dorsal aspect of the left foot and this ulceration measures approximately 7 x 9 cm; however, it has 0.1 in depth, tissue has 100% granula. There is no signs of infection. There is no undermining, no sinus tract, no fluctuance, and the foot is not hot to touch. ASSESSMENT: Diabetic with a Mccartney II ulceration to his left foot. PLAN ON PROCEDURE: Dressing change was done using a Maxorb and an Opteform to help pad the top of the foot and the Maxorb was to keep the wound from becoming macerated. The patient asked me for pain medication and I told him that he was getting Motrin. He told me it is not enough. I told him that he does have neuropathy to the foot and the Motrin 800 should be enough. He got angry at that and he took his dressing off and I asked him to put the dressing back on; otherwise, I was not reapplying a new dressing and he just looked at me and pulled the dressing off, which was how I left it. The patient will be seen in followup. Sharita Benito DPM
[2017-06-07] MEDS: Vancomycin 1gm in NS 250ml 1 GM/250 ML BAG IVPB SCH ×2 (05:11→17:12)
[2017-06-07] MEDS: Piperacillin/Tazobact 3.375 gm 100 ML IVPB SCH ×3 (05:11→17:12)
[2017-06-07 06:53] LABS: ALB/GLOB RATIO 0.9 (1.1-1.8); ALKALINE PHOSPHATASE 92 U/L (38-126); ALT/SGPT 18 U/L (7-56); AST/SGOT 34 U/L (17-59); BILIRUBIN,TOTAL 0.3 mg/dL (0.2-1.3); BLOOD UREA NITROGEN 11 mg/dL (7-21); CALCIUM 8.8 mg/dL (8.4-10.5); CARBON DIOXIDE 25 mmol/L (21-33); CHLORIDE 104 mmol/L (98-107); GFR AFRICAN-AMERICAN > 60; GLUCOSE,RANDOM 264 mg/dL (70-110); POTASSIUM 4.3 mmol/L (3.6-5.0); SODIUM 136 mmol/L (132-148); TOTAL PROTEIN 6.4 g/dL (5.8-8.3)
[2017-06-07 07:37] LABS: BASO # 0.01 K/mm3 (0.0-2.0); BASO % 0.2 % (0.0-3.0); EOS # 0.3 (0.0-0.7); EOS % 5.9 % (1.5-5.0); GRAN # 3.41 (1.4-6.5); GRAN % 62.9 % (50.0-68.0); HEMATOCRIT 30.3 % (42.0-52.0); LYMPH # 1.2 (1.2-3.4); LYMPH % 22.7 % (22.0-35.0); MEAN CELL VOLUME 88.6 fl (80.0-105.0); MEAN CORPUSCULAR HEMOGLOBIN 28.7 pg (25.0-35.0); MEAN CORPUSCULAR HGB CONC 32.3 g/dl (31.0-37.0); MEAN PLATELET VOLUME 8.6 fl (7.0-11.0); MONO # 0.5 (0.1-0.6); MONO % 8.3 % (1.0-6.0); RED CELL DISTRIBUTION WIDTH 14.9 % (11.5-14.5); WHITE BLOOD COUNT 5.4 10^3/ul (4.5-11.0)
[2017-06-07] MEDS: Insulin Lispro (humaLOG) MEDIUM Coverage SC SCH ×4 (08:19→21:35)
--- NOTE | 2017-06-07 08:52 | CP.PCM.PN ---
<Lori Cardona - Last Filed: 06/07/17 08:49> Subjective - Date & Time of Evaluation Date of Evaluation: 06/07/17 Time of Evaluation: 08:49 - Subjective Subjective: Podiatry Progress Note - Dr. Benito 52 year old male patient PMHx polysubstance abuse seen and evaluated at bedside for left foot nonhealing ulceration. Patient sleeping comfortably at time of visit, hemodynamically stable and NAD. 1:1 sitter present at bedside. Patient has a history of noncompliance. Dressing was not present on top of left foot; was removed shortly after yesterday's visit while he was exhibiting aggressive behavior. Objective - Vital Signs/Intake and Output Vital Signs (last 24 hours): Temp Pulse Resp BP Pulse Ox 97.2 F L 103 H 18 138/90 95 06/07/17 06:00 06/07/17 06:00 06/07/17 06:00 06/07/17 06:00 06/07/17 06:00 Intake and Output: 06/07/17 06/07/17 06:59 18:59 Intake Total 900 Output Total 1400 Balance -500 - Medications Medications: Current Medications Amlodipine Besylate (Norvasc) 5 mg PO DAILY [facility] Last Admin: 06/06/17 09:23 Dose: 5 mg Aspirin (Aspirin Chewable) 81 mg PO DAILY [facility] Last Admin: 06/06/17 09:23 Dose: 81 mg Atorvastatin Calcium (Lipitor) 10 mg PO DIN [facility] Last Admin: 06/06/17 17:52 Dose: 10 mg Heparin Sodium (Porcine) (Heparin) 5,000 units SC Q12 [facility] PRN Reason: Protocol Last Admin: 06/06/17 21:13 Dose: 5,000 units Hydralazine HCl (Apresoline) 5 mg IVP Q6H PRN PRN Reason: Systolic Blood Pressure Last Admin: 06/06/17 13:29 Dose: 5 mg Sodium Chloride (Sodium Chloride 0.9%) 1,000 mls @ 100 mls/hr IV .Q10H [facility] Last Admin: 06/05/17 05:33 Dose: 100 mls/hr Vancomycin HCl (Vancomycin 1gm) 1 gm in 250 mls @ 167 mls/hr IVPB Q12H [facility] PRN Reason: Protocol Last Admin: 06/07/17 05:11 Dose: 167 mls/hr Piperacillin Sod/Tazobactam Sod (Zosyn 3.375 In Ns 100ml) 100 mls @ 200 mls/hr IVPB Q6 [facility] PRN Reason: Protocol Stop: 06/12/17 12:01 Last Admin: 06/07/17 05:11 Dose: 200 mls/hr Levetiracetam 750 mg/ Sodium (Chloride) 107.5 mls @ 460 mls/hr IV Q12 [facility] Last Admin: 06/06/17 22:23 Dose: 460 mls/hr Ibuprofen (Motrin Tab) 400 mg PO Q6H PRN PRN Reason: Pain, Mild (1-3) Last Admin: 06/07/17 05:22 Dose: 400 mg Insulin Human Lispro (Humalog Med) 0 units SC ACHS [facility] PRN Reason: Protocol Last Admin: 06/07/17 08:19 Dose: 5 units Lorazepam (Ativan) 1 mg IVP Q6H PRN; Protocol PRN Reason: Seizure activity Last Admin: 06/07/17 01:21 Dose: 1 mg Ondansetron HCl (Zofran Inj) 4 mg IVP Q6H PRN PRN Reason: Nausea/Vomiting Last Admin: 06/07/17 08:20 Dose: 4 mg - Labs Labs: 06/07/17 06:00 06/07/17 06:00 - Constitutional Appears: Well, Non-toxic, No Acute Distress - Extremities Exam Additional comments: Bilateral LE exam: VASC: DP/PT pulses are faintly palpable 1/4 B/L, CFT< 3 sec to digits. Temp gradient: warm to warm from proximal to distal. No pedal edema noted DERM: Ulceration noted to dorsum of left foot measuring approximately 7 x 9 x 0.1 cm - ulcer is noted to have a 100% granular base and macerated rim; no undermining, fluctuance no increase in warmth, hypopigmented skin noted on the dorsum of the left foot with hyperkeratotic skin at the distal lateral aspect of the left foot, no malodor, no clinical suspicion of active infection NEURO: Protective sensation grossly diminished B/L ORTHO: Partial hallux amputation site noted. Previous amputations of 3rd, 4th, and 5th digits noted to L foot. Assessment and Plan - Assessment and Plan (Free Text) Assessment: 52 year old male patient with Mccartney II ulceration to left foot Plan: Patient seen and evaluated with attending, Dr. Benito Afebrile, WBC 5.4 No dressing present on left foot at time of visit - patient has an extensive history of noncomplaince Dressing change performed using Maxsorb and Optiform Continue pain management Continue abx per medicine Podiatry will continue to follow patient while in house <Sharita Benito - Last Filed: 06/08/17 08:25> Objective - Vital Signs/Intake and Output Vital Signs (last 24 hours): Temp Pulse Resp BP Pulse Ox 99.1 F 91 H 20 184/108 H 96 06/08/17 07:51 06/08/17 07:51 06/08/17 07:51 06/08/17 07:51 06/08/17 07:51 Intake and Output: 06/08/17 06/08/17 06:59 18:59 Intake Total 920 Output Total 600 Balance 320 - Medications Medications: Current Medications Amlodipine Besylate (Norvasc) 5 mg PO DAILY [facility] Last Admin: 06/07/17 10:03 Dose: 5 mg Aspirin (Aspirin Chewable) 81 mg PO DAILY [facility] Last Admin: 06/07/17 10:03 Dose: 81 mg Atorvastatin Calcium (Lipitor) 10 mg PO DIN [facility] Last Admin: 06/07/17 17:13 Dose: 10 mg Heparin Sodium (Porcine) (Heparin) 5,000 units SC Q12 [facility] PRN Reason: Protocol Last Admin: 06/07/17 21:05 Dose: 5,000 units Hydralazine HCl (Apresoline) 5 mg IVP Q6H PRN PRN Reason: Systolic Blood Pressure Last Admin: 06/07/17 16:09 Dose: 5 mg Sodium Chloride (Sodium Chloride 0.9%) 1,000 mls @ 100 mls/hr IV .Q10H [facility] Last Admin: 06/05/17 05:33 Dose: 100 mls/hr Vancomycin HCl (Vancomycin 1gm) 1 gm in 250 mls @ 167 mls/hr IVPB Q12H [facility] PRN Reason: Protocol Last Admin: 06/08/17 05:25 Dose: 167 mls/hr Piperacillin Sod/Tazobactam Sod (Zosyn 3.375 In Ns 100ml) 100 mls @ 200 mls/hr IVPB Q6 [facility] PRN Reason: Protocol Stop: 06/12/17 12:01 Last Admin: 06/08/17 05:25 Dose: 200 mls/hr Levetiracetam 750 mg/ Sodium (Chloride) 107.5 mls @ 460 mls/hr IV Q12 [facility] Last Admin: 06/07/17 22:01 Dose: 460 mls/hr Ibuprofen (Motrin Tab) 600 mg PO Q6 PRN PRN Reason: MILD PAIN [1-3] Last Admin: 06/08/17 05:23 Dose: 600 mg Insulin Human Lispro (Humalog Med) 0 units SC ACHS [facility] PRN Reason: Protocol Last Admin: 06/08/17 08:19 Dose: 1 units Lorazepam (Ativan) 1 mg IVP Q6H PRN; Protocol PRN Reason: Seizure activity Last Admin: 06/08/17 08:20 Dose: 1 mg Ondansetron HCl (Zofran Inj) 4 mg IVP Q6H PRN PRN Reason: Nausea/Vomiting Last Admin: 06/07/17 16:08 Dose: 4 mg - Labs Labs: 06/08/17 06:30 06/07/17 06:00 Attending/Attestation - Attestation I have personally seen and examined this patient.: Yes I have fully participated in the care of the patient.: Yes I have reviewed all pertinent clinical information, including history, physical exam and plan: Yes
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
--- NOTE | 2017-06-07 16:22 | PN ---
DATE: 06/07/2017 SUBJECTIVE: The patient was seen earlier this morning. No fevers and no chills. No nausea or vomiting and however, the patient is chronically ill. PHYSICAL EXAMINATION: VITAL SIGNS: Temperature is 98, blood pressure is 170/100, respiratory rate of 18. HEENT: Unremarkable. NECK: Supple. LUNGS: Decreased breath sounds. HEART: Normal S1 and S2. ABDOMEN: Soft and nontender. No organomegaly. No rebound or guarding. No masses. LABORATORY DATA: Reveals a white count of 5.4, hemoglobin of 9, platelets of 440. Chemistry reveals the patient has a BUN of 11, creatinine of 0.9. Toxicology is noted and microbiology is reviewed. ASSESSMENT AND PLAN: A 52-year-old male, who appears much much older than his stated age, currently with a left leg cellulitis and diabetes, hypertension, alcohol abuse, on vancomycin and Zosyn and with a gram-negative rao, gram-positive cocci and blood culture and further identification and sensitivity is pending. Review of orders confirms the antibiotics to be active. Ned Tai MD
[2017-06-07 16:53] VITALS: RESP 20
--- NOTE | 2017-06-07 22:50 | EEG ---
DATE: ELECTROENCEPHALOGRAM REPORT INTRODUCTION: This is a digitally recorded EEG monitoring using standard EEG montages. BACKGROUND RHYTHM: The EEG shows a background activity of 9 Hz alpha activity in parietooccipital region. The EEG activity is bilaterally symmetrical and synchronous. There is attenuation of the background activity on eye opening. Very small amount of movement artifact noticed in this EEG recording. ABNORMAL POTENTIALS: No spike, sharp waves, or focal slowing was seen. PHOTIC STIMULATION AND HYPERVENTILATION: Photic stimulation did not reveal any abnormality. Hyperventilation was not performed. IMPRESSION: Normal electroencephalogram. No epileptiform activity seen in this electroencephalogram recording. Declan Petersen MD
[2017-06-08] MEDS: Piperacillin/Tazobact 3.375 gm 100 ML IVPB SCH ×2 (00:39→05:25)
[2017-06-08 04:26] VITALS: O2SAT 96
[2017-06-08] MEDS: Vancomycin 1gm in NS 250ml 1 GM/250 ML BAG IVPB SCH (05:25)
[2017-06-08 06:28] VITALS: PULSE 91; TEMP 99.1
[2017-06-08 07:07] LABS: BASO # 0.01 K/mm3 (0.0-2.0); BASO % 0.2 % (0.0-3.0); EOS # 0.3 (0.0-0.7); EOS % 5.9 % (1.5-5.0); GRAN # 2.49 (1.4-6.5); GRAN % 58.3 % (50.0-68.0); HEMATOCRIT 33.9 % (42.0-52.0); LYMPH # 1.2 (1.2-3.4); LYMPH % 28.1 % (22.0-35.0); MEAN CELL VOLUME 88.7 fl (80.0-105.0); MEAN CORPUSCULAR HEMOGLOBIN 28.3 pg (25.0-35.0); MEAN CORPUSCULAR HGB CONC 31.9 g/dl (31.0-37.0); MEAN PLATELET VOLUME 8.2 fl (7.0-11.0); MONO # 0.3 (0.1-0.6); MONO % 7.5 % (1.0-6.0); RED CELL DISTRIBUTION WIDTH 14.6 % (11.5-14.5); WHITE BLOOD COUNT 4.3 10^3/ul (4.5-11.0)
[2017-06-08 07:52] VITALS: BP 184/108
[2017-06-08] MEDS: Insulin Lispro (humaLOG) MEDIUM Coverage SC SCH (08:19)
[2017-06-08 08:57] LABS: ALB/GLOB RATIO 0.9 (1.1-1.8); ALKALINE PHOSPHATASE 81 U/L (38-126); ALT/SGPT 23 U/L (7-56); AST/SGOT 32 U/L (17-59); BILIRUBIN,TOTAL 0.5 mg/dL (0.2-1.3); BLOOD UREA NITROGEN 8 mg/dL (7-21); CARBON DIOXIDE 26 mmol/L (21-33); CHLORIDE 104 mmol/L (98-107); GFR AFRICAN-AMERICAN > 60; GLUCOSE,RANDOM 153 mg/dL (70-110); SODIUM 138 mmol/L (132-148); TOTAL PROTEIN 6.6 g/dL (5.8-8.3)
--- NOTE | 2017-06-08 12:10 | PN ---
DATE: 06/08/2017 SUBJECTIVE: The patient is seen early this morning. He states he is unhappy. He wants to sign out against medical advice. PHYSICAL EXAMINATION: VITAL SIGNS: Temperature is 98, blood pressure is 180/70, respiratory rate of 20, heart rate of 80. HEENT: Unremarkable. NECK: Supple. LUNGS: Decreased breath sounds. HEART: Normal S1, S2. ABDOMEN: Soft. LABORATORY DATA: Reviewed. ASSESSMENT AND PLAN: He is a 52-year-old male, who appears much older than his stated age. He is diabetic, hypertensive, alcohol abuse with left leg cellulitis, on vancomycin and Zosyn. I have strongly encouraged him to be not to sign out medical advice, awaiting for an identification and sensitivity of cultures from the foot and I explained to him the risks of signing out against medical advice where including and paralysis and loss of limb. Ned Tai MD
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
== END 2017-06-08 09:57 | disposition left against medical advice (07) | DRG 79 ==
LOC: ED 04:05 → OBSVTOIN 06:46 → ERH 06:46 → 5RSO 08:15 → 3RSO 08:40 → 3RNO 14:33
PROVIDERS: ADMIT Internal Medicine; ATTEND Internal Medicine
PROC: 05H533Z Insertion of Infusion Device into Right Subclavian Vein, Percutaneous Approach (ICD-10-PCS; principal; 2017-06-07)
PROC: B54MZZA Ultrasonography of Right Upper Extremity Veins, Guidance (ICD-10-PCS; 2017-06-07)
DX: J69.0 Pneumonitis due to inhalation of food and vomit (principal); E11.628 Type 2 diabetes mellitus with other skin complications; L03.116 Cellulitis of left lower limb; E11.40 Type 2 diabetes mellitus with diabetic neuropathy, unspecified; E11.621 Type 2 diabetes mellitus with foot ulcer; L97.529 Non-pressure chronic ulcer of other part of left foot with unspecified severity; G40.409 Other generalized epilepsy and epileptic syndromes, not intractable, without status epilepticus; F14.10 Cocaine abuse, uncomplicated; F10.239 Alcohol dependence with withdrawal, unspecified; J44.9 Chronic obstructive pulmonary disease, unspecified; M41.9 Scoliosis, unspecified; I16.0 Hypertensive urgency; F17.210 Nicotine dependence, cigarettes, uncomplicated; E78.5 Hyperlipidemia, unspecified; Y90.0 Blood alcohol level of less than 20 mg/100 ml; Z78.1 Physical restraint status; Z89.422 Acquired absence of other left toe(s); Z59.0 Homelessness; Z79.4 Long term (current) use of insulin; Z91.19 Patient's noncompliance with other medical treatment and regimen

== ENCOUNTER 2018-04-19 12:42 | Emergency (ER) | payer MEDICAID, OTHER ==
[2018-04-19] MEDS ORDERED: Naloxone HCl 2mg/2ml syr ONE (12:47)
[2018-04-19 12:48] VITALS: BMI 25.8
[2018-04-19] MEDS ORDERED: Sodium Chloride 0.9% 1,000 ML IV STA ×4 (12:49→15:09)
[2018-04-19] MEDS ORDERED: Naloxone 0.4 mg/ml Inj (Adult) IVP STA (12:50)
[2018-04-19 13:11] LABS: BASO # 0.01 K/mm3 (0.0-2.0); BASO % 0.1 % (0.0-3.0); EOS # 0.1 (0.0-0.7); EOS % 1.1 % (1.5-5.0); GRAN # 7.39 (1.4-6.5); GRAN % 78.9 % (50.0-68.0); HEMOGLOBIN 14.7 g/dL (14.0-18.0); LYMPH # 1.4 (1.2-3.4); LYMPH % 14.8 % (22.0-35.0); MEAN CELL VOLUME 87.8 fl (80.0-105.0); MEAN CORPUSCULAR HEMOGLOBIN 29.3 pg (25.0-35.0); MEAN CORPUSCULAR HGB CONC 33.4 g/dl (31.0-37.0); MEAN PLATELET VOLUME 9.6 fl (7.0-11.0); MONO # 0.5 (0.1-0.6); MONO % 5.1 % (1.0-6.0); RBC 5.01 10^6/uL (3.5-6.1); RED CELL DISTRIBUTION WIDTH 13.1 % (11.5-14.5); WHITE BLOOD COUNT 9.4 10^3/ul (4.5-11.0)
[2018-04-19 13:12] LABS: VENOUS BLOOD GAS BASE EXCESS 6.5 mmol/L (0.0-2.0); VENOUS BLOOD GAS PO2 81 mm/Hg (30-55); VENOUS BLOOD PH 7.32 (7.32-7.43)
[2018-04-19 13:13] LABS: URINE APPEARANCE CLEAR (CLEAR); URINE BILIRUBIN NEGATIVE (NEGATIVE); URINE BLOOD SMALL (NEGATIVE); URINE COLOR YELLOW (YELLOW); URINE GLUCOSE (UA) >=1000 mg/dL (NEGATIVE); URINE LEUKOCYTE ESTERASE NEGATIVE Leu/uL (NEGATIVE); URINE PROTEIN 100 mg/dL (<30 mg/dL); URINE UROBILINOGEN 0.2 E.U./dL (<1 E.U./dL)
[2018-04-19 13:18] LABS: URINE AMORPHOUS SEDIMENT FEW; URINE BACTERIA MANY (NEG); URINE WBC 0 - 2 /hpf (0-6)
--- NOTE | 2018-04-19 13:19 | RAD ---
Date of service: 04/19/2018 HISTORY: ams COMPARISON: No prior. FINDINGS: LUNGS: No active pulmonary disease. PLEURA: No significant pleural effusion identified, no pneumothorax apparent. CARDIOVASCULAR: No atherosclerotic calcification present Normal. OSSEOUS STRUCTURES: No significant abnormalities. VISUALIZED UPPER ABDOMEN: Normal. OTHER FINDINGS: None. IMPRESSION: No active disease.
[2018-04-19 13:37] LABS: BARBITURATES, UR NEGATIVE (NEGATIVE); BENZODIAZEPINES, UR NEGATIVE (NEGATIVE); OPIATES, UR POSITIVE (NEGATIVE); PHENCYCLIDINE, UR NEGATIVE (NEGATIVE)
[2018-04-19 13:39] LABS: ALBUMIN 4.1 g/dL (3.0-4.8); ALT/SGPT 21 U/L (7-56); AST/SGOT 34 U/L (17-59); BLOOD UREA NITROGEN 29 mg/dL (7-21); GFR NON-AFRICAN AMERICAN > 60
--- NOTE | 2018-04-19 13:47 | ED PDOC ---
Arrival/HPI - General Chief Complaint: Substance Abuse Time Seen by Provider: 04/19/18 12:43 Historian: Patient, EMS - History of Present Illness Narrative History of Present Illness (Text): 52 y/o M w/ PMH of diabetes and heroin abuse presenting to the Emergency Department for altered mental status. The was patient was found lethargic by EMS at his denominational. He states he took 2 bags of heroin, but initially denied when interrogated by EMS. EMS attempted to give Narcan prior to arrival, but patient adamantly refused. Patient states he has been having trouble controlling his blood sugars and has history of poor medication compliance. Patient is altered and unable to answer questions. A more complete HPI was unable to be obtained due to the patients clinical condition. Time/Duration: Prior to Arrival (pt found by EMS) Symptom Onset: Sudden Symptom Course: Unchanged Severity Level: Moderate Context: Other (Found lethargic at denominational) Past Medical History - Provider Review Nursing Documentation Reviewed: Yes - Travel History Have you recently traveled outside [place] w/in the past 3 mons?: No - Infectious Disease Hx of Infectious Diseases: None - Cardiac Hx Hypertension: Yes Hx Peripheral Edema: Yes - Pulmonary Hx Asthma: Yes - Neurological Hx Seizures: Yes - HEENT Hx HEENT Disorder: No - Renal Hx Renal Disorder: No - Endocrine/Metabolic Hx Diabetes Mellitus Type 2: Yes - Hematological/Oncological Hx Blood Disorders: No - Integumentary Hx Dermatological Disorder: No - Musculoskeletal/Rheumatological Hx Musculoskeletal Disorders: Yes Hx Osteomyelitis: Yes (s/p amputations of L toes #3,4,5 ) - Gastrointestinal Hx Gastrointestinal Disorders: No - Psychiatric Hx Psychophysiologic Disorder: Yes Hx Substance Use: No (DENIES) 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 USES HEROINE-SNORTS FOR 20 YRS. NEVER BEEN IN A PROGRAM BEFORE. SMOKES CIGARETTES < PPD. - Surgical History Hx Amputation: Yes (L foot last 3toes) Hx Musculoskeletal Surgery: Yes (LEFT WRIST AND ANKLE) Other/Comment: METAL PLATE IN HEAD - Anesthesia Hx Anesthesia: Yes Hx Anesthesia Reactions: No - Suicidal Assessment Feels Threatened In Home Enviroment: No Family/Social History - Physician Review Nursing Documentation Reviewed: Yes Family/Social History: No Known Family HX Smoking Status: Light Smoker < 10 Cigarettes Daily Hx Alcohol Use: Yes Hx Substance Use: No (DENIES) Substance used: ''Heroine, cocaine'' Allergies/Home Meds Allergies/Adverse Reactions: Allergies FISH Allergy (Verified 04/19/18 12:47) RASH tomato Allergy (Verified 04/19/18 12:47) RASH Home Medications: Home Meds Medication Instructions Recorded Confirmed Dilantin 0 mg PO DAILY 04/06/18 04/19/18 Review of Systems - Physician Review All systems were reviewed & negative as marked: Yes - Review of Systems Systems not reviewed;Unavailable: Altered Mental Status (A more complete HPI was unable to be obtained due to the patients clinical condition.) Physical Exam Vital Signs Reviewed: Yes Temperature: Afebrile Blood Pressure: Hypertensive (at 164/95) Pulse: Tachycardic (at 98) Respiratory Rate: Normal Pain Distress: None Finger Stick Blood Glucose: 500 Medical Decision Making ED Course and Treatment: 04/19/18 12:41 Impression: 52 year old male who was found lethargic by EMS at his denominational, admits to taking 2 bags of heroin. Differential Diagnosis included but are not limited to: DKA Hyperosmolar hyperglycemic State Opioid toxidrome Plan: -- Labs -- EKG -- CBC (with differential) -- X-ray of chest -- Glucose, POC -- Narcan -- IV fluids -- Blood culture -- Urine culture -- library monitor -- Urinalysis W/Micro -- Reassess and disposition Prior Visits: Notes and results from previous visits were reviewed. Patient was last seen in the emergency department on 04/11/18 for complaints of B/L foot pain. Patient was hospitalized for cellulitis and diabetes. Progress Notes: Attempted to give patient Narcan, but he refused. 04/19/18 14:03 Review of patient's labs show elevated lactate of 2 and glucose of 700. Hyponatremia to 130 noted(133.6 when corrected). No anion gap detected with potassium 4.0. Additional fluids ordered. Call to hospitalist. 04/19/18 14:[address] Gonzalez(hospitalist) who requests to defer admission to Dr. Lew. Call placed to Dr. Lew. 04/19/18 15:[address] Weber responds to call and states patient is belligerent and rude to staff and requests hospitalist admission. Call placed to Dr. Gonzalez. 04/19/18 15:[address] Gonzalez who accepts patient onto her service. ABG ordered with repeat blood sugars. ICU consult placed. 04/19/18 15:[address] Petersen(intensvist) after evaluation of patient deems him ineligible for ICU and may be monitored on remote telemetry at this time. Admission order changed. Insulin drip d/c'ed. - Lab Interpretations Lab Results: 04/19/18 12:50 04/19/18 12:50 Lab Results 04/19/18 12:50: Urine Opiates Screen Positive H, Urine Methadone Screen Negative, Ur Barbiturates Screen Negative, Ur Phencyclidine Scrn Negative, Ur Amphetamines Screen Negative, U Benzodiazepines Scrn Negative, U Oth Cocaine Metabols Negative, U Cannabinoids Screen Negative 04/19/18 12:50: Sodium 132, Chloride 81 L, Potassium 4.0, Carbon Dioxide 35 H, Anion Gap 20, BUN 29 H, Creatinine 1.2, Est GFR ( Amer) > 60, Est GFR (Non-Af Amer) > 60, Random Glucose 662 H* D, Calcium 9.0, Total Bilirubin 0.5, AST 34, ALT 21, Alkaline Phosphatase 154 H, Total Protein 8.4 H, Albumin 4.1, Globulin 4.3, Albumin/Globulin Ratio 1.0 L 04/19/18 12:50: pO2 81 H, VBG pH 7.32, VBG pCO2 68.0 H*, VBG HCO3 35.0 H, VBG Total CO2 37.1 H, VBG O2 Sat (Calc) 97.2 H, VBG Base Excess 6.5 H, VBG Potassium 4.6, Sodium 130.0 L, Chloride 84.0 L, Glucose 702 H* D, Lactate 2.4 H, FiO2 21.0, Venous Blood Potassium 4.6 04/19/18 12:50: Urine Color Yellow, Urine Appearance Clear, Urine pH 6.0, Ur Specific [place] <= 1.005, Urine Protein 100 H, Urine Glucose (UA) >=1000, Urine Ketones Trace H, Urine Blood Small H, Urine Nitrate Negative, Urine Bilirubin Negative, Urine Urobilinogen 0.2, Ur Leukocyte Esterase Negative, Urine RBC 5 - 10, Urine WBC 0 - 2, Ur Epithelial Cells None, Amorphous Sediment Few, Urine Bacteria Many 04/19/18 12:50: WBC 9.4 D, RBC 5.01, Hgb 14.7 D, Hct 44.0, MCV 87.8, MCH 29.3, MCHC 33.4, RDW 13.1, Plt Count 462 H, MPV 9.6, Gran % 78.9 H, Lymph % (Auto) 14.8 L, [place] % (Auto) 5.1, Eos % (Auto) 1.1 L, Baso % (Auto) 0.1, Gran # 7.39 H, Lymph # (Auto) 1.4, [place] # (Auto) 0.5, Eos # (Auto) 0.1, Baso # (Auto) 0.01 - RAD Interpretation Narrative RAD Interpretations (Text): X-ray of chest was reviewed by radiologist, shows: Dictator : Dimitris Rose MD Report Date : 04/19/2018 13:15:07 FINDINGS: LUNGS: No active pulmonary disease. PLEURA: No significant pleural effusion identified, no pneumothorax apparent. CARDIOVASCULAR: No atherosclerotic calcification present Normal. OSSEOUS STRUCTURES: No significant abnormalities. VISUALIZED UPPER ABDOMEN: Normal. OTHER FINDINGS: None. IMPRESSION: No active disease. 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 Rate : 107 BPM Rhythm : Sinus tachycardia Interpretation : LAE. Peaked T-waves seen in Lead V2 and V3. Interpreted by ED Physician: Yes Type: 12 lead EKG - Medication Orders Current Medication Orders: Sodium Chloride (Sodium Chloride 0.9%) 1,000 mls @ 999 mls/hr IV .Q1H1M STA Stop: 04/19/18 13:49 Last Admin: 04/19/18 13:14 Dose: 999 mls/hr eMAR Start Stop Document 04/19/18 13:14 OCS (Rec: 04/19/18 13:14 OCS [id number]) Intravenous Solution Start Date 04/19/18 Start Time 13:14 End Date 04/19/18 End time 14:14 Total Infusion Time 60 Discontinued Medications Naloxone HCl (Narcan) 0.4 mg IVP STAT STA Stop: 04/19/18 12:51 Last Admin: 04/19/18 13:15 Dose: 0.4 mg IVP Administration Document 04/19/18 13:15 OCS (Rec: 04/19/18 13:15 [facility] [id number]) Charges for Administration # of IVP Administrations 1 - Scribe Statement The provider has reviewed the documentation as recorded by the Scribe Zoe Mendoza All medical record entries made by the Scribe were at my direction and personally dictated by me. I have reviewed the chart and agree that the record accurately reflects my personal performance of the history, physical exam, medical decision making, and the department course for this patient. I have also personally directed, reviewed, and agree with the discharge instructions and disposition. Disposition/Present on Arrival - Present on Arrival Any Indicators Present on Arrival: Yes History of Uncontrolled Diabetes: Yes Urinary Catheter: No History of Decub. Ulcer: No History Surgical Site Infection Following: None - Disposition Have Diagnosis and Disposition been Completed?: Yes Diagnosis: Type 2 diabetes mellitus with hyperosmolar nonketotic hyperglycemia, Hyponatremia Disposition: HOSPITALIZED Disposition Time: 15:16 Patient Problems: Current Active Problems Problem Status Onset Type 2 diabetes mellitus with hyperosmolar nonketotic hyperglycemia Acute Hyponatremia Acute Condition: GUARDED
[2018-04-19] MEDS ORDERED: Insulin Regular 1 UNITS/0.01 ML ML SC ONE (14:38)
[2018-04-19] MEDS ORDERED: Insulin Regular 100 UNITS in Sodium Chloride 0.9% 99 ML IV PRN (15:26)
[2018-04-19] MEDS ORDERED: Sodium Chloride 0.9% 500 ML IV STA (15:30)
[2018-04-19 15:44] VITALS: RESP 18; O2SAT 100
[2018-04-19 15:52] VITALS: BP 185/97; PULSE 89
[2018-04-19 15:53] VITALS: TEMP 98
[2018-04-19] MEDS ORDERED: Albuterol-Ipratrop 3 mg / 0.5 (3 ml) UD IH PRN (16:07)
--- NOTE | 2018-04-19 16:09 | CP.PCM.HP ---
<Stella Romo - Last Filed: 04/20/18 12:35> History of Present Illness - History of Present Illness History of Present Illness: Pt is a 52 yr old male with PMH HTN, DM (poorly controlled) osteomyelitis and heroin abuse who present to [facility] after being found lethargic by EMS at his latter-day. [facility] he admitted to using 2 bags of heroin. He refused narcan in the feild but recieved one dose in the ED with minimal improvement. Patient is arousable but lethargic and will only nod yes or no for some questions. All other information gathered from chart. patient was recently seen at [facility] for osteomyelitis and was discharged on antibiotics. He has recieved approximately 4 liters of NS in the ED prior to evaluation. PMH: HTN, asthma, osteomyelitis PSH: left foot digital amputations all: fish Social: heroin abuse Present on Admission - Present on Admission Any Indicators Present on Admission: Yes History of Uncontrolled Diabetes: Yes Review of Systems - Review of Systems Systems not reviewed;Unavailable: Altered Mental Status Past Patient History - Infectious Disease Hx of Infectious Diseases: None - Past Medical History & Family History Past Medical History?: Yes - Past Social History Smoking Status: Light Smoker < 10 Cigarettes Daily - CARDIAC Hx Hypertension: Yes Hx Peripheral Edema: Yes - PULMONARY Hx Asthma: Yes - NEUROLOGICAL Hx Seizures: Yes - HEENT Hx HEENT Problems: No - RENAL Hx Chronic Kidney Disease: No - ENDOCRINE/METABOLIC Hx Diabetes Mellitus Type 2: Yes - HEMATOLOGICAL/ONCOLOGICAL Hx Blood Disorders: No - INTEGUMENTARY Hx Dermatological Problems: No - MUSCULOSKELETAL/RHEUMATOLOGICAL Hx Musculoskeletal Disorders: Yes Hx Osteomyelitis: Yes (s/p amputations of L toes #3,4,5 ) - GASTROINTESTINAL Hx Gastrointestinal Disorders: No - PSYCHIATRIC Hx Psychophysiologic Disorder: Yes Hx Substance Use: No (DENIES) 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 USES HEROINE-SNORTS FOR 20 YRS. NEVER BEEN IN A PROGRAM BEFORE. SMOKES CIGARETTES < PPD. - SURGICAL HISTORY Hx Amputation: Yes (L foot last 3toes) Hx Musculoskeletal Surgery: Yes (LEFT WRIST AND ANKLE) Other/Comment: METAL PLATE IN HEAD - ANESTHESIA Hx Anesthesia: Yes Hx Anesthesia Reactions: No Meds Allergies/Adverse Reactions: Allergies Allergy/AdvReac Type Severity Reaction Status Date / Time FISH Allergy RASH Verified 04/19/18 12:47 tomato Allergy RASH Verified 04/19/18 12:47 Physical Exam - Constitutional Appears: Toxic, Unkempt, Confused, Chronically Ill - Head Exam Head Exam: ATRAUMATIC, NORMOCEPHALIC - Eye Exam Eye Exam: EOMI - ENT Exam ENT Exam: Mucous Membranes Dry - Respiratory Exam Respiratory Exam: Clear to Auscultation Bilateral, NORMAL BREATHING PATTERN - Cardiovascular Exam Cardiovascular Exam: Tachycardia, REGULAR RHYTHM - GI/Abdominal Exam GI & Abdominal Exam: Soft. absent: Distended, Firm, Guarding, Rebound, Tenderness - Extremities Exam Extremities exam: Positive for: pedal pulses present. Negative for: calf tenderness, pedal edema, tenderness Additional comments: post surgical changes noted to left foot with multiple toe amputations, right foot with 3-5 toes eschar present, previous osteomyelitis on xr, pt refusing MRIs on previous hospital visit - Neurological Exam Neurological exam: Altered Additional comments: arousable and nodding to answer questions but remains nonverbal - Psychiatric Exam Psychiatric exam: Flat Affect - Skin Skin Exam: Dry Additional comments: post surgical changes noted to left foot with multiple toe amputations, right foot with 3-5 toes eschar present, previous osteomyelitis on xr, pt refusing MRIs on previous hospital visit Results - Vital Signs Recent Vital Signs: Last Vital Signs Temp 98 F 04/19/18 15:51 Pulse 89 04/19/18 15:51 Resp 18 04/19/18 15:51 BP 185/97 H 04/19/18 15:51 Pulse Ox 100 04/19/18 15:51 - Labs Result Diagrams: 04/19/18 12:50 04/19/18 12:50 Labs: Laboratory Results - last 24 hr 04/19/18 04/19/18 04/19/18 12:50 12:50 12:50 WBC 9.4 D RBC 5.01 Hgb 14.7 D Hct 44.0 MCV 87.8 MCH 29.3 MCHC 33.4 RDW 13.1 Plt Count 462 H MPV 9.6 Gran % 78.9 H Lymph % (Auto) 14.8 L [place] % (Auto) 5.1 Eos % (Auto) 1.1 L Baso % (Auto) 0.1 Gran # 7.39 H Lymph # (Auto) 1.4 [place] # (Auto) 0.5 Eos # (Auto) 0.1 Baso # (Auto) 0.01 pO2 81 H VBG pH 7.32 VBG pCO2 68.0 H* VBG HCO3 35.0 H VBG Total CO2 37.1 H VBG O2 Sat (Calc) 97.2 H VBG Base Excess 6.5 H VBG Potassium 4.6 Sodium 130.0 L Chloride 84.0 L Glucose 702 H* D Lactate 2.4 H FiO2 21.0 Potassium Carbon Dioxide Anion Gap BUN Creatinine Est GFR ( Amer) Est GFR (Non-Af Amer) Random Glucose Calcium Total Bilirubin AST ALT Alkaline Phosphatase Total Protein Albumin Globulin Albumin/Globulin Ratio Venous Blood Potassium 4.6 Urine Color Yellow Urine Appearance Clear Urine pH 6.0 Ur Specific [place] <= 1.005 Urine Protein 100 H Urine Glucose (UA) >=1000 Urine Ketones Trace H Urine Blood Small H Urine Nitrate Negative Urine Bilirubin Negative Urine Urobilinogen 0.2 Ur Leukocyte Esterase Negative Urine RBC 5 - 10 Urine WBC 0 - 2 Ur Epithelial Cells None Amorphous Sediment Few Urine Bacteria Many Urine Opiates Screen Urine Methadone Screen Ur Barbiturates Screen Ur Phencyclidine Scrn Ur Amphetamines Screen U Benzodiazepines Scrn U Oth Cocaine Metabols U Cannabinoids Screen 04/19/18 04/19/18 12:50 12:50 WBC RBC Hgb Hct MCV MCH MCHC RDW Plt Count MPV Gran % Lymph % (Auto) [place] % (Auto) Eos % (Auto) Baso % (Auto) Gran # Lymph # (Auto) [place] # (Auto) Eos # (Auto) Baso # (Auto) pO2 VBG pH VBG pCO2 VBG HCO3 VBG Total CO2 VBG O2 Sat (Calc) VBG Base Excess VBG Potassium Sodium 132 Chloride 81 L Glucose Lactate FiO2 Potassium 4.0 Carbon Dioxide 35 H Anion Gap 20 BUN 29 H Creatinine 1.2 Est GFR ( Amer) > 60 Est GFR (Non-Af Amer) > 60 Random Glucose 662 H* D Calcium 9.0 Total Bilirubin 0.5 AST 34 ALT 21 Alkaline Phosphatase 154 H Total Protein 8.4 H Albumin 4.1 Globulin 4.3 Albumin/Globulin Ratio 1.0 L Venous Blood Potassium Urine Color Urine Appearance Urine pH Ur Specific [place] Urine Protein Urine Glucose (UA) Urine Ketones Urine Blood Urine Nitrate Urine Bilirubin Urine Urobilinogen Ur Leukocyte Esterase Urine RBC Urine WBC Ur Epithelial Cells Amorphous Sediment Urine Bacteria Urine Opiates Screen Positive H Urine Methadone Screen Negative Ur Barbiturates Screen Negative Ur Phencyclidine Scrn Negative Ur Amphetamines Screen Negative U Benzodiazepines Scrn Negative U Oth Cocaine Metabols Negative U Cannabinoids Screen Negative Assessment & Plan - Assessment and Plan (Free Text) Assessment: 52 yr old male with AMS due to heroin overdose and DKA Plan: Hyperglycemia: * admit to ICU with insulin drip * glucose checks Q1H * maintain euglycemia * bmp Q4H * will continue insulin drip until anion gap closes * IVF with potassium @ 115 Heroin overdose: * narcan given in ED * aspiration precautions * seizure precauations * continue previous dilantin and keppra medications * monitor for withdrawal symptoms Foot infection * restart zosyn * ID consulted * podiatry consulted HTN: * start lisinopril 5mg daily * continue to monitor Asthma: * Duonebs PRN * maintain O2 sats >90% - Date & Time Date: 04/19/18 Time: 15:30 <Arely Gonzalez - Last Filed: 04/20/18 15:35> Results - Vital Signs Recent Vital Signs: Last Vital Signs Temp 98 F 04/19/18 15:51 Pulse 89 04/19/18 15:51 Resp 18 04/19/18 15:51 BP 185/97 H 04/19/18 15:51 Pulse Ox 100 04/19/18 15:51 - Labs Result Diagrams: 04/19/18 12:50 04/19/18 12:50 Labs: Laboratory Results - last 24 hr 04/19/18 04/19/18 04/19/18 15:47 16:20 16:33 pCO2 65 H pO2 124.0 H HCO3 36.7 H ABG pH 7.36 ABG Total CO2 38.7 H ABG O2 Saturation 99.3 H ABG O2 Content 17.7 ABG Base Excess 8.8 H ABG Hemoglobin 13.3 ABG Carboxyhemoglobin 4.2 H POC ABG HHb (Measured) 0.7 ABG Methemoglobin 1.2 ABG O2 Capacity 17.8 Hgb O2 Saturation 93.9 L FiO2 28.0 POC Glucose (mg/dL) 478 H* 374 H Attending/Attestation - Attestation I have personally seen and examined this patient.: Yes I have fully participated in the care of the patient.: Yes I have reviewed all pertinent clinical information: Yes Notes (Text): 04/20/18 15:32 Attending note; Patient seen and examined with resident in ER. Patient is alert. Lethargic. Patient was brought in by ambulance because of lethargy. Patient is a 52 year old male with PMH of HTN, DM (poorly controlled) osteomyelitis and heroin abuse was BIBA after being found lethargic by EMS at his latter-day. [facility] he admitted to using 2 bags of heroin. Patient has multiple admission for drug abuse problem. Patient received one dose of Narcan. Currently patient with uncontrolled blood sugar. Started on IV fluids. ICU evaluation requested. Slowly improving mental status. Bilateral lower extremity ulceration/amputations of the toe. History of osteomyelitis. Diabetes; continue IV fluids and Levemir. Medical records reviewed from [facility]. Patient was admitted for uncontrolled diabetes, osteomyelitis and local wound car. patient signed AGAINST MEDICAL ADVICE on 04/18/18. Admit to telemetry. Monitor closely. Prognosis is poor secondary to continuous drug abuse and noncompliance with follow-up on multiple medical issues. 04/20/18 15:34
[2018-04-19] MEDS ORDERED: Piperacillin/Tazobact 3.375 gm 100 ML IVPB SCH (16:15)
[2018-04-19 16:25] LABS: ARTERIAL BLOOD GAS HCO3 36.7 mmol/L (21-28); ARTERIAL BLOOD GAS HEMOGLOBIN 13.3 g/dL (11.7-17.4); ARTERIAL BLOOD GAS O2 CAPACITY 17.8 mL/dl (16-24); ARTERIAL BLOOD GAS O2 CONTENT 17.7 ML/dl (15-23); ARTERIAL BLOOD GAS O2 SAT 99.3 % (95-98); ARTERIAL BLOOD GAS PCO2 65 mm/Hg (35-45); ARTERIAL BLOOD GAS PH 7.36 (7.35-7.45); ARTERIAL BLOOD GAS TCO2 38.7 mmol.L (22-28)
--- NOTE | 2018-04-19 16:55 | CARD ---
APPROVED REPORT Date of service: 04/19/2018 EKG Measurement Heart [id number] <Conclusion> Sinus tachycardia Possible Left atrial enlargement T wave abnormality, consider inferior ischemia Abnormal ECG
[2018-04-19] MEDS ORDERED: Dextrose 50% SYRINGE Inj (50 ml) IV PRN (17:37)
--- NOTE | 2018-04-19 18:05 | CP.PCM.CON ---
History of Present Illness - History of Present Illness History of Present Illness: 52 yr old male with PMH HTN, DM (poorly controlled) osteomyelitis, known hx of heroin use found lethargic at [facility] ICU asked to eval for hyperglycemia PMH: HTN, asthma, osteomyelitis PSH: left foot digital amputations Allergies: NKDA Social: heroin, cig smoking ROS: patient denies all ROS Past Patient History - Infectious Disease Hx of Infectious Diseases: None - Past Medical History & Family History Past Medical History?: Yes - Past Social History Smoking Status: Light Smoker < 10 Cigarettes Daily - CARDIAC Hx Hypertension: Yes Hx Peripheral Edema: Yes - PULMONARY Hx Asthma: Yes - NEUROLOGICAL Hx Seizures: Yes - HEENT Hx HEENT Problems: No - RENAL Hx Chronic Kidney Disease: No - ENDOCRINE/METABOLIC Hx Diabetes Mellitus Type 2: Yes - HEMATOLOGICAL/ONCOLOGICAL Hx Blood Disorders: No - INTEGUMENTARY Hx Dermatological Problems: No - MUSCULOSKELETAL/RHEUMATOLOGICAL Hx Musculoskeletal Disorders: Yes Hx Osteomyelitis: Yes (s/p amputations of L toes #3,4,5 ) - GASTROINTESTINAL Hx Gastrointestinal Disorders: No - PSYCHIATRIC Hx Psychophysiologic Disorder: Yes Hx Substance Use: No (DENIES) 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 USES [employer] FOR 20 YRS. NEVER BEEN IN A PROGRAM BEFORE. SMOKES CIGARETTES < PPD. - SURGICAL HISTORY Hx Amputation: Yes (L foot last 3toes) Hx Musculoskeletal Surgery: Yes (LEFT WRIST AND ANKLE) Other/Comment: METAL PLATE IN HEAD - ANESTHESIA Hx Anesthesia: Yes Hx Anesthesia Reactions: No Meds Allergies/Adverse Reactions: Allergies Allergy/AdvReac Type Severity Reaction Status Date / Time FISH Allergy RASH Verified 04/19/18 12:47 tomato Allergy RASH Verified 04/19/18 12:47 - Medications Medications: Current Medications Albuterol/Ipratropium (Duoneb 3 Mg/0.5 Mg (3 Ml) Ud) 3 ml IH Q2H PRN PRN Reason: Shortness of Breath Dextrose (Dextrose 50% Inj) 0 ml IV STAT PRN; Protocol PRN Reason: Hypoglycemia Protocol Piperacillin Sod/Tazobactam Sod (Zosyn 3.375 In Ns 100ml) 100 mls @ 25 mls/hr IVPB Q8 MALLIKA; Protocol Stop: 04/20/18 01:59 Phenytoin 100 mg/ Sodium (Chloride) 52 mls @ 104 mls/hr IVPB Q8 MALLIKA Last Admin: 04/19/18 17:36 Dose: Not Given Potassium Chloride 40 meq/ (Sodium Chloride) 1,020 mls @ 115 mls/hr IV .Q8H53M [facility] Dextrose (Dextrose 5% In Water 1000 Ml) 1,000 mls @ 0 mls/hr IV .Q0M PRN; Protocol PRN Reason: Hypoglycemia Protocol Insulin Human Lispro (Humalog Med) 0 units SC ACHS MALLIKA; Protocol Levetiracetam (Keppra) 500 mg PO BID [facility] Lisinopril (Zestril) 5 mg PO DAILY [facility] Physical Exam - Constitutional Appears: Unkempt - Head Exam Head Exam: ATRAUMATIC - Eye Exam Eye Exam: EOMI, Normal appearance, PERRL - Respiratory Exam Respiratory Exam: Clear to Auscultation Bilateral, NORMAL BREATHING PATTERN - Cardiovascular Exam Cardiovascular Exam: REGULAR RHYTHM - GI/Abdominal Exam GI & Abdominal Exam: Normal Bowel Sounds, Soft. absent: Tenderness - Extremities Exam Additional comments: amputations of digits with open superfiicial wound Results - Vital Signs Recent Vital Signs: Last Vital Signs Temp 98 F 04/19/18 15:51 Pulse 89 04/19/18 15:51 Resp 18 04/19/18 15:51 BP 185/97 H 04/19/18 15:51 Pulse Ox 100 04/19/18 15:51 - Labs Result Diagrams: 04/19/18 12:50 04/19/18 12:50 Labs: Laboratory Results - last 24 hr 04/19/18 04/19/18 04/19/18 12:50 12:50 12:50 WBC 9.4 D RBC 5.01 Hgb 14.7 D Hct 44.0 MCV 87.8 MCH 29.3 MCHC 33.4 RDW 13.1 Plt Count 462 H MPV 9.6 Gran % 78.9 H Lymph % (Auto) 14.8 L [place] % (Auto) 5.1 Eos % (Auto) 1.1 L Baso % (Auto) 0.1 Gran # 7.39 H Lymph # (Auto) 1.4 [place] # (Auto) 0.5 Eos # (Auto) 0.1 Baso # (Auto) 0.01 pCO2 pO2 81 H HCO3 ABG pH ABG Total CO2 ABG O2 Saturation ABG O2 Content ABG Base Excess ABG Hemoglobin ABG Carboxyhemoglobin POC ABG HHb (Measured) ABG Methemoglobin ABG O2 Capacity VBG pH 7.32 VBG pCO2 68.0 H* VBG HCO3 35.0 H VBG Total CO2 37.1 H VBG O2 Sat (Calc) 97.2 H VBG Base Excess 6.5 H VBG Potassium 4.6 Hgb O2 Saturation Sodium 130.0 L Chloride 84.0 L Glucose 702 H* D Lactate 2.4 H FiO2 21.0 Potassium Carbon Dioxide Anion Gap BUN Creatinine Est GFR ( Amer) Est GFR (Non-Af Amer) POC Glucose (mg/dL) Random Glucose Calcium Total Bilirubin AST ALT Alkaline Phosphatase Total Protein Albumin Globulin Albumin/Globulin Ratio Venous Blood Potassium 4.6 Urine Color Yellow Urine Appearance Clear Urine pH 6.0 Ur Specific [place] <= 1.005 Urine Protein 100 H Urine Glucose (UA) >=1000 Urine Ketones Trace H Urine Blood Small H Urine Nitrate Negative Urine Bilirubin Negative Urine Urobilinogen 0.2 Ur Leukocyte Esterase Negative Urine RBC 5 - 10 Urine WBC 0 - 2 Ur Epithelial Cells None Amorphous Sediment Few Urine Bacteria Many Urine Opiates Screen Urine Methadone Screen Ur Barbiturates Screen Ur Phencyclidine Scrn Ur Amphetamines Screen U Benzodiazepines Scrn U Oth Cocaine Metabols U Cannabinoids Screen 04/19/18 04/19/18 04/19/18 12:50 12:50 15:47 WBC RBC Hgb Hct MCV MCH MCHC RDW Plt Count MPV Gran % Lymph % (Auto) [place] % (Auto) Eos % (Auto) Baso % (Auto) Gran # Lymph # (Auto) [place] # (Auto) Eos # (Auto) Baso # (Auto) pCO2 pO2 HCO3 ABG pH ABG Total CO2 ABG O2 Saturation ABG O2 Content ABG Base Excess ABG Hemoglobin ABG Carboxyhemoglobin POC ABG HHb (Measured) ABG Methemoglobin ABG O2 Capacity VBG pH VBG pCO2 VBG HCO3 VBG Total CO2 VBG O2 Sat (Calc) VBG Base Excess VBG Potassium Hgb O2 Saturation Sodium 132 Chloride 81 L Glucose Lactate FiO2 Potassium 4.0 Carbon Dioxide 35 H Anion Gap 20 BUN 29 H Creatinine 1.2 Est GFR ( Amer) > 60 Est GFR (Non-Af Amer) > 60 POC Glucose (mg/dL) 478 H* Random Glucose 662 H* D Calcium 9.0 Total Bilirubin 0.5 AST 34 ALT 21 Alkaline Phosphatase 154 H Total Protein 8.4 H Albumin 4.1 Globulin 4.3 Albumin/Globulin Ratio 1.0 L Venous Blood Potassium Urine Color Urine Appearance Urine pH Ur Specific [place] Urine Protein Urine Glucose (UA) Urine Ketones Urine Blood Urine Nitrate Urine Bilirubin Urine Urobilinogen Ur Leukocyte Esterase Urine RBC Urine WBC Ur Epithelial Cells Amorphous Sediment Urine Bacteria Urine Opiates Screen Positive H Urine Methadone Screen Negative Ur Barbiturates Screen Negative Ur Phencyclidine Scrn Negative Ur Amphetamines Screen Negative U Benzodiazepines Scrn Negative U Oth Cocaine Metabols Negative U Cannabinoids Screen Negative 04/19/18 16:20 WBC RBC Hgb Hct MCV MCH MCHC RDW Plt Count MPV Gran % Lymph % (Auto) [place] % (Auto) Eos % (Auto) Baso % (Auto) Gran # Lymph # (Auto) [place] # (Auto) Eos # (Auto) Baso # (Auto) pCO2 65 H pO2 124.0 H HCO3 36.7 H ABG pH 7.36 ABG Total CO2 38.7 H ABG O2 Saturation 99.3 H ABG O2 Content 17.7 ABG Base Excess 8.8 H ABG Hemoglobin 13.3 ABG Carboxyhemoglobin 4.2 H POC ABG HHb (Measured) 0.7 ABG Methemoglobin 1.2 ABG O2 Capacity 17.8 VBG pH VBG pCO2 VBG HCO3 VBG Total CO2 VBG O2 Sat (Calc) VBG Base Excess VBG Potassium Hgb O2 Saturation 93.9 L Sodium Chloride Glucose Lactate FiO2 28.0 Potassium Carbon Dioxide Anion Gap BUN Creatinine Est GFR ( Amer) Est GFR (Non-Af Amer) POC Glucose (mg/dL) Random Glucose Calcium Total Bilirubin AST ALT Alkaline Phosphatase Total Protein Albumin Globulin Albumin/Globulin Ratio Venous Blood Potassium Urine Color Urine Appearance Urine pH Ur Specific [place] Urine Protein Urine Glucose (UA) Urine Ketones Urine Blood Urine Nitrate Urine Bilirubin Urine Urobilinogen Ur Leukocyte Esterase Urine RBC Urine WBC Ur Epithelial Cells Amorphous Sediment Urine Bacteria Urine Opiates Screen Urine Methadone Screen Ur Barbiturates Screen Ur Phencyclidine Scrn Ur Amphetamines Screen U Benzodiazepines Scrn U Oth Cocaine Metabols U Cannabinoids Screen Assessment & Plan - Assessment and Plan (Free Text) Assessment: 52M with hx of HTN, DM (poorly controlled) osteomyelitis heroin use found lethargic in public Patient is awake and alert during my exam. He is answering questions appropriately. Admits to heroin use today. No longer appears to be at risk for resp failure from mental status changes since he is much more alert and awake now Blood sugar very elevated however no anion gap. Noted he does have a very low Cl- of 80 so possible ongoing met alk with met acidosis however at this point he can be managed with subQ insulin. At the conclusion of my evaluation patient is requesting to leave AMA Primary Med team alerted and working his AMA process out Does not need ICU level of care if he gets admitted at this point however recommened repeat BMP q 4 hours with aggressive fluid resuscitation. Resume sq insulin and use higher end scale; Nash Petersen MD Food Service Technician
--- NOTE | 2018-04-19 18:24 | CP.PCM.DIS ---
<Rob Duffy - Last Filed: 04/19/18 18:25> Provider - Provider Date of Admission: 04/19/18 16:36 Attending physician: Arely Gonzalez MD Time Spent in preparation of Discharge (in minutes): 35 Diagnosis - Discharge Diagnosis (1) Opiate abuse, continuous Status: Acute (2) Diabetic foot ulcer Status: Chronic Priority: Medium (3) Polysubstance abuse Status: Chronic Priority: High (4) Type 2 diabetes mellitus with hyperosmolar nonketotic hyperglycemia Status: Acute Hospital Course - Lab Results Lab Results: Most Recent Lab Values WBC 9.4 10^3/ul (4.5-11.0) D 04/19/18 12:50 RBC 5.01 10^6/uL (3.5-6.1) 04/19/18 12:50 Hgb 14.7 g/dL (14.0-18.0) D 04/19/18 12:50 Hct 44.0 % (42.0-52.0) 04/19/18 12:50 MCV 87.8 fl (80.0-105.0) 04/19/18 12:50 MCH 29.3 pg (25.0-35.0) 04/19/18 12:50 MCHC 33.4 g/dl (31.0-37.0) 04/19/18 12:50 RDW 13.1 % (11.5-14.5) 04/19/18 12:50 Plt Count 462 10^3/uL (120.0-450.0) H 04/19/18 12:50 MPV 9.6 fl (7.0-11.0) 04/19/18 12:50 Gran % 78.9 % (50.0-68.0) H 04/19/18 12:50 Lymph % (Auto) 14.8 % (22.0-35.0) L 04/19/18 12:50 [place] % (Auto) 5.1 % (1.0-6.0) 04/19/18 12:50 Eos % (Auto) 1.1 % (1.5-5.0) L 04/19/18 12:50 Baso % (Auto) 0.1 % (0.0-3.0) 04/19/18 12:50 Gran # 7.39 (1.4-6.5) H 04/19/18 12:50 Lymph # (Auto) 1.4 (1.2-3.4) 04/19/18 12:50 [place] # (Auto) 0.5 (0.1-0.6) 04/19/18 12:50 Eos # (Auto) 0.1 (0.0-0.7) 04/19/18 12:50 Baso # (Auto) 0.01 K/mm3 (0.0-2.0) 04/19/18 12:50 pCO2 65 mm/Hg (35-45) H 04/19/18 16:20 pO2 124.0 mm/Hg (80-100) H 04/19/18 16:20 HCO3 36.7 mmol/L (21-28) H 04/19/18 16:20 ABG pH 7.36 (7.35-7.45) 04/19/18 16:20 ABG Total CO2 38.7 mmol.L (22-28) H 04/19/18 16:20 ABG O2 Saturation 99.3 % (95-98) H 04/19/18 16:20 ABG O2 Content 17.7 ML/dl (15-23) 04/19/18 16:20 ABG Base Excess 8.8 mmol/L (-2.0-3.0) H 04/19/18 16:20 ABG Hemoglobin 13.3 g/dL (11.7-17.4) 04/19/18 16:20 ABG Carboxyhemoglobin 4.2 % (0.5-1.5) H 04/19/18 16:20 POC ABG HHb (Measured) 0.7 % (0-5) 04/19/18 16:20 ABG Methemoglobin 1.2 % (0.0-3.0) 04/19/18 16:20 ABG O2 Capacity 17.8 mL/dl (16-24) 04/19/18 16:20 VBG pH 7.32 (7.32-7.43) 04/19/18 12:50 VBG pCO2 68.0 (40-60) H* 04/19/18 12:50 VBG HCO3 35.0 mmol/l (21-28) H 04/19/18 12:50 VBG Total CO2 37.1 mmol.L (22-28) H 04/19/18 12:50 VBG O2 Sat (Calc) 97.2 % (40-65) H 04/19/18 12:50 VBG Base Excess 6.5 mmol/L (0.0-2.0) H 04/19/18 12:50 VBG Potassium 4.6 mmol/L (3.6-5.2) 04/19/18 12:50 Hgb O2 Saturation 93.9 % (95.0-98.0) L 04/19/18 16:20 Sodium 130.0 mmol/L (132-148) L 04/19/18 12:50 Chloride 84.0 mmol/L (98-107) L 04/19/18 12:50 Glucose 702 mg/dl (75-110) H* D 04/19/18 12:50 Lactate 2.4 mmol/L (0.7-2.1) H 04/19/18 12:50 FiO2 28.0 % 04/19/18 16:20 Sodium 132 mmol/L (132-148) 04/19/18 12:50 Potassium 4.0 mmol/L (3.6-5.0) 04/19/18 12:50 Chloride 81 mmol/L (98-107) L 04/19/18 12:50 Carbon Dioxide 35 mmol/L (21-33) H 04/19/18 12:50 Anion Gap 20 (10-20) 04/19/18 12:50 BUN 29 mg/dL (7-21) H 04/19/18 12:50 Creatinine 1.2 mg/dl (0.8-1.5) 04/19/18 12:50 Est GFR ( Amer) > 60 04/19/18 12:50 Est GFR (Non-Af Amer) > 60 04/19/18 12:50 POC Glucose (mg/dL) 478 mg/dL (65-110) H* 04/19/18 15:47 Random Glucose 662 mg/dL (70-110) H* D 04/19/18 12:50 Calcium 9.0 mg/dL (8.4-10.5) 04/19/18 12:50 Total Bilirubin 0.5 mg/dL (0.2-1.3) 04/19/18 12:50 AST 34 U/L (17-59) 04/19/18 12:50 ALT 21 U/L (7-56) 04/19/18 12:50 Alkaline Phosphatase 154 U/L (38-126) H 04/19/18 12:50 Total Protein 8.4 g/dL (5.8-8.3) H 04/19/18 12:50 Albumin 4.1 g/dL (3.0-4.8) 04/19/18 12:50 Globulin 4.3 gm/dL 04/19/18 12:50 Albumin/Globulin Ratio 1.0 (1.1-1.8) L 04/19/18 12:50 Venous Blood Potassium 4.6 mmol/L (3.6-5.2) 04/19/18 12:50 Urine Color Yellow (YELLOW) 04/19/18 12:50 Urine Appearance Clear (CLEAR) 04/19/18 12:50 Urine pH 6.0 (4.7-8.0) 04/19/18 12:50 Ur Specific [place] <= 1.005 (1.005-1.035) 04/19/18 12:50 Urine Protein 100 mg/dL (<30 mg/dL) H 04/19/18 12:50 Urine Glucose (UA) >=1000 mg/dL (NEGATIVE) 04/19/18 12:50 Urine Ketones Trace mg/dL (NEGATIVE) H 04/19/18 12:50 Urine Blood Small (NEGATIVE) H 04/19/18 12:50 Urine Nitrate Negative (NEGATIVE) 04/19/18 12:50 Urine Bilirubin Negative (NEGATIVE) 04/19/18 12:50 Urine Urobilinogen 0.2 E.U./dL (<1 E.U./dL) 04/19/18 12:50 Ur Leukocyte Esterase Negative [place]/uL (NEGATIVE) 04/19/18 12:50 Urine RBC 5 - 10 /hpf (0-2) 04/19/18 12:50 Urine WBC 0 - 2 /hpf (0-6) 04/19/18 12:50 Ur Epithelial Cells None /hpf (0-5) 04/19/18 12:50 Amorphous Sediment Few 04/19/18 12:50 Urine Bacteria Many (NEG) 04/19/18 12:50 Urine Opiates Screen Positive (NEGATIVE) H 04/19/18 12:50 Urine Methadone Screen Negative (NEGATIVE) 04/19/18 12:50 Ur Barbiturates Screen Negative (NEGATIVE) 04/19/18 12:50 Ur Phencyclidine Scrn Negative (NEGATIVE) 04/19/18 12:50 Ur Amphetamines Screen Negative (NEGATIVE) 04/19/18 12:50 U Benzodiazepines Scrn Negative (NEGATIVE) 04/19/18 12:50 U Oth Cocaine Metabols Negative (NEGATIVE) 04/19/18 12:50 U Cannabinoids Screen Negative (NEGATIVE) 04/19/18 12:50 - Hospital Course Hospital Course: 52 year old male with PMH DM2 (poorly controlled), medication non-compliance, opiate abuse, polysubstance abuse, HTN and osteomyelitis of feet who present to [facility] ED after [facility] Per EMS, he admitted to using 2 bags of heroin. He received Narcan x1 in the ED, but was initially lethargic. Patient was evaluated by medical team and ICU team for admission. However, while still in the ED, the patient became agitated and combative, and dru serrano was called. Upon arrival, there are multiple security guards attempting to restraint the patient who is noted to be alert and steady on his feet. The patient was able to correctly tell me where he is and what year it is. He states that he doesn't want to be admitted but will not give a reason. Risks of leaving AMA were explained to the patient including worsening infection, sepsis, shock, and hypergylcemia which could lead to coma or also . The patient expressed understanding and agreed to sign the AMA form. Nursing and security staff were present at the time. The information was relayed to Ms. Elba Phillips (person to notify as listed in [employer]) who verbalizes understanding. Exam could not be obtained due to patient's refusal and combativeness. Discharge Plan - Follow Up Plan Condition: GUARDED Disposition: HOSPITALIZED <Arely Gonzalez - Last Filed: 04/20/18 15:42> Hospital Course - Lab Results Lab Results: Micro Results 04/19/18 13:19 Blood Blood Culture - Preliminary NO GROWTH AFTER 24 HOURS 04/19/18 12:49 Blood Blood Culture - Preliminary NO GROWTH AFTER 24 HOURS 04/19/18 12:50 Urine Urine Culture - Final No Growth (<1,000 CFU/ML) Most Recent Lab Values WBC 9.4 10^3/ul (4.5-11.0) D 04/19/18 12:50 RBC 5.01 10^6/uL (3.5-6.1) 04/19/18 12:50 Hgb 14.7 g/dL (14.0-18.0) D 04/19/18 12:50 Hct 44.0 % (42.0-52.0) 04/19/18 12:50 MCV 87.8 fl (80.0-105.0) 04/19/18 12:50 MCH 29.3 pg (25.0-35.0) 04/19/18 12:50 MCHC 33.4 g/dl (31.0-37.0) 04/19/18 12:50 RDW 13.1 % (11.5-14.5) 04/19/18 12:50 Plt Count 462 10^3/uL (120.0-450.0) H 04/19/18 12:50 MPV 9.6 fl (7.0-11.0) 04/19/18 12:50 Gran % 78.9 % (50.0-68.0) H 04/19/18 12:50 Lymph % (Auto) 14.8 % (22.0-35.0) L 04/19/18 12:50 [place] % (Auto) 5.1 % (1.0-6.0) 04/19/18 12:50 Eos % (Auto) 1.1 % (1.5-5.0) L 04/19/18 12:50 Baso % (Auto) 0.1 % (0.0-3.0) 04/19/18 12:50 Gran # 7.39 (1.4-6.5) H 04/19/18 12:50 Lymph # (Auto) 1.4 (1.2-3.4) 04/19/18 12:50 [place] # (Auto) 0.5 (0.1-0.6) 04/19/18 12:50 Eos # (Auto) 0.1 (0.0-0.7) 04/19/18 12:50 Baso # (Auto) 0.01 K/mm3 (0.0-2.0) 04/19/18 12:50 pCO2 65 mm/Hg (35-45) H 04/19/18 16:20 pO2 124.0 mm/Hg (80-100) H 04/19/18 16:20 HCO3 36.7 mmol/L (21-28) H 04/19/18 16:20 ABG pH 7.36 (7.35-7.45) 04/19/18 16:20 ABG Total CO2 38.7 mmol.L (22-28) H 04/19/18 16:20 ABG O2 Saturation 99.3 % (95-98) H 04/19/18 16:20 ABG O2 Content 17.7 ML/dl (15-23) 04/19/18 16:20 ABG Base Excess 8.8 mmol/L (-2.0-3.0) H 04/19/18 16:20 ABG Hemoglobin 13.3 g/dL (11.7-17.4) 04/19/18 16:20 ABG Carboxyhemoglobin 4.2 % (0.5-1.5) H 04/19/18 16:20 POC ABG HHb (Measured) 0.7 % (0-5) 04/19/18 16:20 ABG Methemoglobin 1.2 % (0.0-3.0) 04/19/18 16:20 ABG O2 Capacity 17.8 mL/dl (16-24) 04/19/18 16:20 VBG pH 7.32 (7.32-7.43) 04/19/18 12:50 VBG pCO2 68.0 (40-60) H* 04/19/18 12:50 VBG HCO3 35.0 mmol/l (21-28) H 04/19/18 12:50 VBG Total CO2 37.1 mmol.L (22-28) H 04/19/18 12:50 VBG O2 Sat (Calc) 97.2 % (40-65) H 04/19/18 12:50 VBG Base Excess 6.5 mmol/L (0.0-2.0) H 04/19/18 12:50 VBG Potassium 4.6 mmol/L (3.6-5.2) 04/19/18 12:50 Hgb O2 Saturation 93.9 % (95.0-98.0) L 04/19/18 16:20 Sodium 130.0 mmol/L (132-148) L 04/19/18 12:50 Chloride 84.0 mmol/L (98-107) L 04/19/18 12:50 Glucose 702 mg/dl (75-110) H* D 04/19/18 12:50 Lactate 2.4 mmol/L (0.7-2.1) H 04/19/18 12:50 FiO2 28.0 % 04/19/18 16:20 Sodium 132 mmol/L (132-148) 04/19/18 12:50 Potassium 4.0 mmol/L (3.6-5.0) 04/19/18 12:50 Chloride 81 mmol/L (98-107) L 04/19/18 12:50 Carbon Dioxide 35 mmol/L (21-33) H 04/19/18 12:50 Anion Gap 20 (10-20) 04/19/18 12:50 BUN 29 mg/dL (7-21) H 04/19/18 12:50 Creatinine 1.2 mg/dl (0.8-1.5) 04/19/18 12:50 Est GFR ( Amer) > 60 04/19/18 12:50 Est GFR (Non-Af Amer) > 60 04/19/18 12:50 POC Glucose (mg/dL) 374 mg/dL (65-110) H 04/19/18 16:33 Random Glucose 662 mg/dL (70-110) H* D 04/19/18 12:50 Calcium 9.0 mg/dL (8.4-10.5) 04/19/18 12:50 Total Bilirubin 0.5 mg/dL (0.2-1.3) 04/19/18 12:50 AST 34 U/L (17-59) 04/19/18 12:50 ALT 21 U/L (7-56) 04/19/18 12:50 Alkaline Phosphatase 154 U/L (38-126) H 04/19/18 12:50 Total Protein 8.4 g/dL (5.8-8.3) H 04/19/18 12:50 Albumin 4.1 g/dL (3.0-4.8) 04/19/18 12:50 Globulin 4.3 gm/dL 04/19/18 12:50 Albumin/Globulin Ratio 1.0 (1.1-1.8) L 04/19/18 12:50 Venous Blood Potassium 4.6 mmol/L (3.6-5.2) 04/19/18 12:50 Urine Color Yellow (YELLOW) 04/19/18 12:50 Urine Appearance Clear (CLEAR) 04/19/18 12:50 Urine pH 6.0 (4.7-8.0) 04/19/18 12:50 Ur Specific [place] <= 1.005 (1.005-1.035) 04/19/18 12:50 Urine Protein 100 mg/dL (<30 mg/dL) H 04/19/18 12:50 Urine Glucose (UA) >=1000 mg/dL (NEGATIVE) 04/19/18 12:50 Urine Ketones Trace mg/dL (NEGATIVE) H 04/19/18 12:50 Urine Blood Small (NEGATIVE) H 04/19/18 12:50 Urine Nitrate Negative (NEGATIVE) 04/19/18 12:50 Urine Bilirubin Negative (NEGATIVE) 04/19/18 12:50 Urine Urobilinogen 0.2 E.U./dL (<1 E.U./dL) 04/19/18 12:50 Ur Leukocyte Esterase Negative Juan José/uL (NEGATIVE) 04/19/18 12:50 Urine RBC 5 - 10 /hpf (0-2) 04/19/18 12:50 Urine WBC 0 - 2 /hpf (0-6) 04/19/18 12:50 Ur Epithelial Cells None /hpf (0-5) 04/19/18 12:50 Amorphous Sediment Few 04/19/18 12:50 Urine Bacteria Many (NEG) 04/19/18 12:50 Urine Opiates Screen Positive (NEGATIVE) H 04/19/18 12:50 Urine Methadone Screen Negative (NEGATIVE) 04/19/18 12:50 Ur Barbiturates Screen Negative (NEGATIVE) 04/19/18 12:50 Ur Phencyclidine Scrn Negative (NEGATIVE) 04/19/18 12:50 Ur Amphetamines Screen Negative (NEGATIVE) 04/19/18 12:50 U Benzodiazepines Scrn Negative (NEGATIVE) 04/19/18 12:50 U Oth Cocaine Metabols Negative (NEGATIVE) 04/19/18 12:50 U Cannabinoids Screen Negative (NEGATIVE) 04/19/18 12:50 Attending/Attestation - Attestation I have personally seen and examined this patient.: Yes I have fully participated in the care of the patient.: Yes I have reviewed all pertinent clinical information, including history, physical exam and plan: Yes Notes (Text): 04/20/18 15:39 Attending note; Patient seen and examined with resident in the ER earlier. He was brought in by ambulance because of lethargy. Patient is a 52 year old male with PMH of HTN, DM (poorly controlled) osteomyelitis and heroin abuse was BIBA after [facility] he admitted to using 2 bags of heroin. Patient has multiple admission for drug abuse problem. Patient received one dose of Narcan. Patient was initially lethargic. Later patient is alert and awake. Ambulating in the hallway. Wanted to go home. Dru serrano called. Patient was evaluated by resident multiple times. Patient walked out of the ER. IV line rule out. Did not sign any paperwork. Patient's next of kin Ms. Phillips informed by the resident. Prognosis is poor secondary to continuous drug abuse and noncompliance with follow-up on multiple medical issues. Diagnosis; Drug abuse Lethargy Uncontrolled diabetes Diabetic foot ulcer/osteomyelitis Gait instability Noncompliance with follow-up 04/20/18 15:42
[2018-04-19] MEDS ORDERED: Insulin Lispro (humaLOG) MEDIUM Coverage SC SCH (22:00)
== END 2018-04-19 18:00 | disposition left against medical advice (07) ==
LOC: ED 12:42 → UNDOADMIN 16:36 → ERH 16:36 → ED 18:00
DX: E11.621 Type 2 diabetes mellitus with foot ulcer (principal); L97.529 Non-pressure chronic ulcer of other part of left foot with unspecified severity; M86.9 Osteomyelitis, unspecified; E11.65 Type 2 diabetes mellitus with hyperglycemia; F19.10 Other psychoactive substance abuse, uncomplicated; R53.83 Other fatigue; R26.9 Unspecified abnormalities of gait and mobility; Z91.19 Patient's noncompliance with other medical treatment and regimen; I10 Essential (primary) hypertension
CPT/HCPCS: 71045; 80053; 80324; 80345; 80346; 80349; 80353; 80358; 80361; 81001; 82803; 82948; 83992; 85025; 87040; 87086; 93005; 96360; 96372; 96374; 99283; J2310; J7030